=== PATIENT | female | born 1970 | race African-American/Black ===

== ENCOUNTER 2023-04-22 16:28 | Inpatient (IN) | payer OTHER, SELFPAY ==
[2023-04-22] VITALS (8 sets, daily range): BP systolic 146–199; BP diastolic 90–124; PULSE 130–134; RESP 14–28; TEMP 36.7–37.1; O2SAT 94–100; BMI 64.5
--- NOTE | ~2023-04-22 | XR_ITS ---
EXAMINATION: XR CHEST CLINICAL INFORMATION: Shortness of breath. COMPARISON: None available. TECHNIQUE: 2 views of the chest were obtained. FINDINGS: Prominent cardiomediastinal silhouette. Central vasculature engorgement. Diffuse interstitial thickening with small bilateral pleural effusions. No pneumothorax. No dense focal consolidation. No acute osseous findings. Visualized upper abdomen is within normal limits. XR/XR chest 2V IMPRESSION: Findings suspicious for pulmonary edema with diffuse interstitial thickening and small bilateral pleural effusions. However, an atypical infectious/inflammatory processes such as viral pneumonia could manifest similarly and cannot be excluded, clinical correlation recommended.
--- NOTE | 2023-04-22 16:35 | ED.SOB ---
HPI - SOB/Dyspnea General Chief Complaint: Dyspnea Stated Complaint: sob,coughing,high bp sent from urgent care Time Seen by Provider: 04/22/23 17:11 Source: patient Mode of arrival: ambulatory History of Present Illness HPI Narrative: This is a 52-year-old female who denies any past medical history and denies any prescription drugs who states that she has had 4 days of worsening shortness of breath, denies any chest pain and denies any nausea or vomiting and as well denies any GI or symptoms. Patient reports swelling in bilateral lower extremities. Related Data Allergies Allergy/AdvReac Type Severity Reaction Status Date / Time acetaminophen [From NyQuil] Allergy Mild Hives Verified 04/22/23 16:37 aspirin [From [facility]] Allergy Mild Hives Verified 04/22/23 16:37 citric acid Allergy Mild Hives Verified 04/22/23 16:37 [From [facility]] dextromethorphan Allergy Mild Hives Verified 04/22/23 16:37 [From NyQuil] doxylamine [From NyQuil] Allergy Mild Hives Verified 04/22/23 16:37 pseudoephedrine [From NyQuil] Allergy Mild Hives Verified 04/22/23 16:37 sodium bicarbonate Allergy Mild Hives Verified 04/22/23 16:37 [From [facility]] Review of Systems Review of Systems: Pertinent positives and negatives as stated in HPI PMFSH Past Medical History Source: nursing notes reviewed Social History Social History Advance Directives: No Advance Directives Information Provided: No Patient : No Physical Exam Vital Signs: Vital Signs: Last Vital Signs Temp 98.0 F 04/22/23 20:03 Pulse 130 H 04/23/23 00:29 Resp 30 H 04/23/23 00:29 BP 140/110 H 04/23/23 00:29 Pulse Ox 100 04/23/23 00:29 O2 Del Method Oxymask 04/23/23 00:29 O2 Flow Rate 4 04/23/23 00:29 BMI result Body Mass Index 64.5 VITAL SIGNS: Reviewed. GENERAL: Elevated BMI, Well developed, well nourished, in no acute distress. HEAD: Normocephalic/atraumatic EYES: PERRLA, EOMI EARS: Ext canals without abnormality NOSE: Nares patent bilateral OROPHARYNX: no oral lesions noted, posterior pharynx clear NECK: Supple, no adenopathy LUNGS: Bibasilar rales without wheeze or rhonchi. SpO2<94> on 2 L CARDIOVASCULAR: Regular rate and rhythm without noted murmurs ABDOMEN: Soft, non-tender, non-distended with bowel sounds. No rigidity. No guarding. No palpable masses or hernias noted MUSCULOSKELETAL: No tenderness, deformities, or effusions noted on gross inspection. EXTREMITIES: No cyanosis, clubbing or edema. SKIN: Inspection of the skin reveals no rashes NEUROLOGIC: Alert and oriented x 4. Strength and sensation to light touch were grossly intact x 4. Course Course Course Narrative: this is a rapid medical exam. Defer additional HPI, ROS, PE to primary provider. 52 yo female with pmh here with complaints of SOB x 2 days, cough, b/l leg swelling. Sent in from . Will obtain labs, EKG, CXR, viral testing VSS Medications Administered Generic Name Dose Route Start Last Admin Trade Name Freq PRN Reason Stop Dose Admin Diltiazem HCl 125 mg/ Sodium 125 mls @ 0 mls/hr 04/22/23 22:30 04/23/23 00:05 Chloride IVCONT 15 mg/hr .Q0M DANYELL 15 mls/hr Titration Protocol Per Protocol Discontinued Medications Generic Name Dose Route Start Last Admin Trade Name Freq PRN Reason Stop Dose Admin Diltiazem HCl 10 mg 04/22/23 20:23 04/22/23 20:33 Diltiazem Hcl 50 Mg/10 Ml Vial IVPUSH 04/22/23 20:24 10 mg STAT STA Administration Diltiazem HCl 10 mg 04/22/23 21:15 04/22/23 21:25 Diltiazem Hcl 50 Mg/10 Ml Vial IVPUSH 04/22/23 21:16 10 mg STAT STA Administration Furosemide 40 mg 04/22/23 17:43 04/22/23 18:37 Furosemide 40 Mg/4 Ml Vial IVPUSH 04/22/23 17:44 40 mg ONCE ONE Administration Protocol Metoprolol Tartrate 5 mg 04/22/23 17:14 04/22/23 18:34 Metoprolol Tartrate 5 Mg/5 Ml Vial IVPUSH 04/22/23 17:15 5 mg ONCE ONE Administration Metoprolol Tartrate 5 mg 04/22/23 19:23 04/22/23 19:45 Metoprolol Tartrate 5 Mg/5 Ml Vial IVPUSH 04/22/23 19:24 5 mg ONCE ONE Administration Nitroglycerin 0.5 inch 04/22/23 21:44 04/22/23 21:54 Nitroglycerin 2 % Oint 1 Gm Packet TRANSDERMA 04/22/23 21:45 0.5 inch ONCE ONE Administration Medical Decision Making Medical Decision Making [facility] Narrative: 52-year-old female with history and clinical presentation, DDX: Atrial flutter with RVR, suspect acute CHF exacerbation, possible viral illness, but doubt any bacterial infection. Ultrasound IV was placed, 5 mg of Lopressor without good effect, Lasix also administered, patient was noted to be hypoxic to 88 89% and so was placed on 2 L of supplemental nasal cannula. Several attempts to reduce patient's her rate by using Lopressor and Cardizem, patient also received Lasix with good response and oxygenation was noted to improve on 2 L of supplemental nasal cannula. However, patient ultimately had to be placed on Cardizem drip but still heart rate persists. I reviewed all investigations and hematologic indices are negative leukocytosis or left shift, there is no thrombocytopenia but there is a macrocytic anemia and noted. Coagulation studies demonstrated PT-14.1 and INR-1.2. Chemistry indices are negative for GARY and electrolyte/liver enzyme abnormalities. BNP is elevated and patient received Lasix as stated above. Chest x-ray consistent with CHF exacerbation. 0015: I discussed this case with inpatient hospitalist who accepts admission. Differential Diagnosis Differential Diagnoses: The differential diagnosis associated with the presentation includes Please see the discussion above Admission/Observation Consideration of admission/observation: Escalation of care including admission/observation considered Please see the discussion above Consult Healthcare Provider Management of the patient was discussed with: Hospitalist Please see the discussion above Lab Data [facility] Lab Attestation statement: I reviewed the patient's lab results. Please see the discussion above 04/22/23 16:52 04/22/23 16:52 Labs: Lab Results 04/22/23 04/22/23 04/22/23 Range/Units 16:52 17:43 20:10 WBC 5.0 (4.8-10.8) X10*3/uL RBC 3.67 L (4.20-5.50) X10*6/uL Hgb 11.8 L (12.0-16.0) g/dl Hct 37.7 (37.0-47.0) % MCV 102.7 H (80.0-98.0) fL MCH 32.2 (27.0-33.0) pg MCHC 31.3 (31.0-35.0) g/dl RDW 13.6 (11.0-16.0) % Plt Count 187 (160-400) X10*3/uL MPV 10.7 (9.4-12.3) fL Immature Gran % (Auto) 0.6 H (0.0-0.4) % Neut % (Auto) 68.2 (45-73) % Lymph % (Auto) 24.6 (20-40) % [place] % (Auto) 4.8 (2-11) % Eos % (Auto) 1.2 (0-4) % Baso % (Auto) 0.6 (0-2) % Lymph # (Auto) 1.2 (1.2-4.9) X10*3/uL [place] # (Auto) 0.2 (0.1-1.2) X10*3/uL Eos # (Auto) 0.1 (0.0-0.4) X10*3/uL Baso # (Auto) 0.0 (0.0-0.2) X10*3/uL Abs Immat Gran (auto) 0.03 (0.00-0.03) X10*3/uL Absolute Neuts (auto) 3.4 (2.0-8.3) x10*3/uL Absolute Nucleated RBC 0.000 (0.0-0.012) X10*3/uL Nucleated RBC % (auto) 0.0 (0.0-0.2) /100WBC PT 14.1 H (11.1-13.3) SEC INR 1.2 H (0.9-1.1) APTT 34.3 (26.0-36.4) SEC Sodium 140 (135-145) mmol/L Potassium 4.4 (3.3-5.1) mmol/L Chloride 105 (96-108) mmol/L Carbon Dioxide 26 (22-29) mmol/L Anion Gap 13 (12-20) BUN 11 (9-16) mg/dL Creatinine 0.83 (0.5-1.4) mg/dL Estim Creat Clear Calc 112.0 Estimated GFR > 60 Random Glucose 111 (60-115) mg/dL Calcium 9.1 (8.4-10.2) mg/dL Magnesium 2.2 (1.6-2.6) mg/dL Total Bilirubin 1.0 (0.0-1.0) mg/dL Direct Bilirubin 0.5 (0.0-0.5) mg/dL AST 26 (5-31) U/L ALT 41 H (0-31) U/L Alkaline Phosphatase 108 (39-117) U/L Troponin I High Sens 5.9 (<3.5-17.0) ng/L B-Natriuretic Peptide 162 H (<100) pg/mL Total Protein 7.7 (6.5-8.0) g/dL Albumin 3.9 (3.5-5.0) g/dL COVID-19 (JESUSITA) Negative (Negative) COVID-19 Clin Com See Note Influenza Type A (FABRICE) Negative (Negative) Influenza Type A (PCR) NEGATIVE (Negative) Influenza Type B (FABRICE) Negative (Negative) Influenza Type B (PCR) NEGATIVE (Negative) Influenza A & B Note See Note RSV RNA Qual (PCR) NEGATIVE (Negative) SARS-CoV-2 RNA (RT-PCR) NEGATIVE (Negative) Independent Interpretation I performed an independent interpretation of an: EKG Interpretation: Atrial flutter with RVR, HR-134, no STEMI, QRS/QTC is within normal limits. Radiology Impression Discussion of test interpretation with radiology: I have reviewed the radiologist's reading. Radiologist Impression: Please see the discussion above Chronic Conditions Patient?s care impacted by: Hypertension Procedures EJ/Peripheral Line Arm R: Time Out Performed: No Skin Cleansed in Sterile Fashion: Yes Size (gauge): 20 IV Secured and Dressing Applied: Yes Patient Tolerated Procedure: well Additional Comments: This peripheral line was placed under ultrasound guidance. Critical Care Time Critical Care Time Critical Care Time: Yes Total Critical Care Time: 90 Attestation: I personally attest to this time spent taking care of the patient. Discharge Plan Discharge Clinical Impression: Atrial flutter with rapid ventricular response, Congestive heart failure, Hypertension Patient Disposition: Admitted As Inpatient
--- NOTE | 2023-04-22 16:37 | ECG_ITS ---
Test Reason : SOB Blood Pressure : / mmHG Vent. Rate : 134 BPM Atrial Rate : 268 BPM P-R Int : 000 ms QRS Dur : 086 ms QT Int : 290 ms P-R-T Axes : 208 -22 000 degrees QTc Int : 433 ms Atrial flutter with 2:1 A-V conduction Nonspecific ST and T wave abnormality RSR' or QR pattern in V1 suggests right ventricular conduction delay Abnormal ECG No previous ECGs available Referred By: Jennifer Briseno Electronically Signed By:JUWAN CARRASQUILLO MD
[2023-04-22 16:57] LABS: MANUAL DIFF FLAG NO
[2023-04-22 16:58] LABS: Basophils Percent Auto 0.6 % (0-2); Eosinophils Absolute Auto 0.1 X10*3/uL (0.0-0.4); Eosinophils Percent Auto 1.2 % (0-4); Hematocrit 37.7 % (37.0-47.0); Hemoglobin 11.8 g/dl (12.0-16.0); Imm Gran Abs Auto 0.03 X10*3/uL (0.00-0.03); Imm Gran Pct Auto 0.6 % (0.0-0.4); Lymphocytes Absolute Auto 1.2 X10*3/uL (1.2-4.9); Lymphocytes Percent Auto 24.6 % (20-40); Mean Corpuscular HGB Conc 31.3 g/dl (31.0-35.0); Mean Corpuscular Hemoglobin 32.2 pg (27.0-33.0); Mean Corpuscular Volume 102.7 fL (80.0-98.0); Mean Platelet Volume 10.7 fL (9.4-12.3); Monocytes Absolute Auto 0.2 X10*3/uL (0.1-1.2); Monocytes Percent Auto 4.8 % (2-11); Neutrophils Absolute Auto 3.4 x10*3/uL (2.0-8.3); Neutrophils Percent Auto 68.2 % (45-73); Platelet Count 187 X10*3/uL (160-400); Red Blood Count 3.67 X10*6/uL (4.20-5.50); Red Cell Distribution Width 13.6 % (11.0-16.0)
[2023-04-22 17:19] LABS: Alanine Aminotransferase 41 U/L (0-31); Albumin Level 3.9 g/dL (3.5-5.0); Alkaline Phosphatase 108 U/L (39-117); Anion Gap 13 (12-20); Aspartate Amino Transferase 26 U/L (5-31); Bilirubin Direct 0.5 mg/dL (0.0-0.5); Blood Urea Nitrogen 11 mg/dL (9-16); Calcium 9.1 mg/dL (8.4-10.2); Carbon Dioxide 26 mmol/L (22-29); Chloride 105 mmol/L (96-108); Estimated Glomerular Filt Rate > 60; Glucose Random 111 mg/dL (60-115); Magnesium 2.2 mg/dL (1.6-2.6); Potassium 4.4 mmol/L (3.3-5.1); Sodium 140 mmol/L (135-145); Total Protein 7.7 g/dL (6.5-8.0)
[2023-04-22 17:23] LABS: INTERNATIONAL NORM RATIO 1.2 (0.9-1.1); Prothrombin Time 14.1 SEC (11.1-13.3)
[2023-04-22 17:24] LABS: B Type Natriuretic Peptide 162 pg/mL (<100)
[2023-04-22 17:25] LABS: Troponin-I High Sensitivity 5.9 ng/L (<3.5-17.0)
[2023-04-22 17:38] LABS: Influenza A PCR NEGATIVE (Negative); Influenza B PCR NEGATIVE (Negative); Resp Syncy Virus RNA Qual PCR NEGATIVE (Negative); SARS COV2 PCR INHOUSE NEGATIVE (Negative)
[2023-04-22 18:10] LABS: COVID-19 Test Negative (Negative); IDNOW Serial# 08D9AD1C; IDNOW Serial# BCCEAD1C; Influenza A Negative (Negative); Influenza B2 Negative (Negative)
[2023-04-22] MEDS: Metoprolol Tartrate 5 MG/5 ML VIAL IVPUSH ×2 (18:34→19:45)
[2023-04-22] MEDS: Furosemide 40 MG/4 ML VIAL IVPUSH (18:37)
--- NOTE | 2023-04-22 19:13 | PC.NURSE ---
O2 sat 90% RA. Placed on 2L NC per Dr. Connors. Current o2 sat 100% on 2L NC. Pt tolerating well.
[2023-04-22 20:27] LABS: Partial Thromboplastin Time 34.3 SEC (26.0-36.4)
[2023-04-22] MEDS: dilTIAZem HCL 50 MG/10 ML VIAL 10 MG IVPUSH ×2 (20:33→21:25)
--- NOTE | 2023-04-22 20:50 | PC.NURSE ---
pt continues to use commode at bedside independently
[2023-04-22] MEDS: Nitroglycerin 2 % Oint 1 GM Packet 0.5 INCH TRANSDERMA (21:54)
[2023-04-22] MEDS: dilTIAZem HCL 125 MG in 0.9 % Sodium Chloride 100 ML 10 MG IVCONT (23:20)
--- NOTE | 2023-04-22 23:35 | PC.NURSE ---
pt still experiencing SOB with NC, kept taking it of d/t the discomfort in her nose. pt wanted a mask instead of NC. pt placed on 4L oxymask. tolerating well. O2 at 96%
[2023-04-23] VITALS (8 sets, daily range): BP systolic 119–153; BP diastolic 75–110; PULSE 113–135; RESP 16–30; TEMP 36.4–36.7; O2SAT 93–100; BMI 64.5
--- NOTE | 2023-04-23 00:05 | PC.NURSE ---
HR remains above 130 bpm. per MD, Cardizem drip increased to 15mg/hr
--- NOTE | 2023-04-23 00:23 | P.HPHOSP_ITS ---
History of Present Illness Date of Service: 04/23/23 Chief Complaint: Dyspnea This is a 52-year-old female with no pertinent past medical history and not on prescription medications who presents to the emergency department for evaluation of dyspnea. Patient states she has not seen a physician in many years. Presents today for dyspnea which is worse with exertion and has been ongoing for a while. Admits orthopnea. Is not sure about PND. Reports swelling in bilateral lower extremities. No fever, chills, chest discomfort, palpitations, nausea, vomiting, abdominal pain, changes in urinary or bowel habits. In the emergency department, patient was found to be hypoxemic. Imaging with vascular congestion and pulmonary edema. Also found to be in atrial flutter. Review of Systems 2 Constitutional: Constitutional: Reports fatigue and Reports lethargy Cardiovascular: Cardiovascular: Reports dyspnea on exertion and Reports orthopnea Respiratory: Respiratory: Reports dyspnea on exertion Gastrointestinal: Gastrointestinal: Reports no additional gastrointestinal complaints Genitourinary: Genitourinary: Reports no additional female genitourinary complaints Endocrine: Endocrine: Reports fatigue PMFSH Pertinent family history: No family history of early CAD Social History Advance Directives: No Advance Directives Information Provided: No Patient : No Meds Allergies Allergy/AdvReac Type Severity Reaction Status Date / Time acetaminophen [From NyQuil] Allergy Mild Hives Verified 04/22/23 16:37 aspirin [From Niharika-[place]] Allergy Mild Hives Verified 04/22/23 16:37 citric acid Allergy Mild Hives Verified 04/22/23 16:37 [From [facility]] dextromethorphan Allergy Mild Hives Verified 04/22/23 16:37 [From NyQuil] doxylamine [From NyQuil] Allergy Mild Hives Verified 04/22/23 16:37 pseudoephedrine [From NyQuil] Allergy Mild Hives Verified 04/22/23 16:37 sodium bicarbonate Allergy Mild Hives Verified 04/22/23 16:37 [From [facility]iharika-[place]] Active Medications: Current Medications Diltiazem HCl 125 mg/ Sodium (Chloride) 125 mls @ 0 mls/hr IVCONT .Q0M DANYELL; Protocol Last Titration: 04/23/23 00:05 Dose: 15 mg/hr, 15 mls/hr Physical Exam 2 Vital Signs and Narrative: Vital Signs: Last Vital Signs Temp 98.0 F 04/22/23 20:03 Pulse 131 H 04/22/23 23:52 Resp 28 H 04/22/23 23:52 BP 146/110 H 04/22/23 23:52 Pulse Ox 96 04/22/23 23:52 O2 Del Method Oxymask 04/22/23 23:52 O2 Flow Rate 4 04/22/23 23:52 BMI result Body Mass Index 64.5 Middle-aged female lying in bed in mild distress on supplemental oxygen Neck supple, no JVD Irregularly irregular, S1-S2 heard Bilateral crackles Abdomen soft nontender, no guarding, no rigidity Patient is awake, alert and oriented to self, place, time and person ; no focal motor deficit Psych: Normal mood Bilateral pedal edema with venous stasis changes Results Labs 04/22/23 16:52 04/22/23 16:52 Labs: Laboratory Results - last 24 hr 04/22/23 04/22/23 04/22/23 16:52 17:43 20:10 MCV 102.7 H MCH 32.2 MCHC 31.3 RDW 13.6 Plt Count 187 MPV 10.7 Immature Gran % (Auto) 0.6 H Neut % (Auto) 68.2 Lymph % (Auto) 24.6 [place] % (Auto) 4.8 Eos % (Auto) 1.2 Baso % (Auto) 0.6 Lymph # (Auto) 1.2 [place] # (Auto) 0.2 Eos # (Auto) 0.1 Baso # (Auto) 0.0 Abs Immat Gran (auto) 0.03 Absolute Neuts (auto) 3.4 Absolute Nucleated RBC 0.000 Nucleated RBC % (auto) 0.0 PT 14.1 H INR 1.2 H APTT 34.3 Anion Gap 13 Estim Creat Clear Calc 112.0 Estimated GFR > 60 Random Glucose 111 Calcium 9.1 Magnesium 2.2 Total Bilirubin 1.0 Direct Bilirubin 0.5 AST 26 ALT 41 H Alkaline Phosphatase 108 B-Natriuretic Peptide 162 H Total Protein 7.7 Albumin 3.9 COVID-19 (JESUSITA) Negative COVID-19 Clin Com See Note Influenza Type A (FABRICE) Negative Influenza Type A (PCR) NEGATIVE Influenza Type B (FABRICE) Negative Influenza Type B (PCR) NEGATIVE Influenza A & B Note See Note RSV RNA Qual (PCR) NEGATIVE SARS-CoV-2 RNA (RT-PCR) NEGATIVE Imaging Radiologist's Impressions: Impressions Chest X-Ray 04/22/23 16:58 IMPRESSION: Findings suspicious for pulmonary edema with diffuse interstitial thickening and small bilateral pleural effusions. However, an atypical infectious/inflammatory processes such as viral pneumonia could manifest similarly and cannot be excluded, clinical correlation recommended. Assessment and Plan (1) Atrial flutter with rapid ventricular response: Status: Acute (2) Congestive heart failure: Status: Acute Plan This is a 52-year-old female with no pertinent past medical history and not on prescription medications who presents to the emergency department for evaluation of dyspnea. #. Acute hypoxemic respiratory failure secondary to decompensated congestive heart failure, unspecified EF: Will admit patient with supplemental oxygen. Initiating IV diuresis. Low-salt diet. Strict I's and O's. Monitor oxygen saturation and wean as tolerated. Consulting Cardiology and obtaining echocardiogram. #. Atrial flutter with RVR: Initiated on IV diltiazem drip in the ER. Obtaining TSH. Consulted Cardiology and echo as above #. Hypertensive emergency: Reduced appropriately in the ER with IV diuresis and IV Lopressor. Will need p.o. antihypertensives. #. Obesity: Counseled regarding diet and exercise DVT prophylaxis: Lovenox Cardiac diet Admit as inpatient and will require two night minimum hospital stay for supplemental oxygen, IV diuresis, IV Cardizem (as above), which is not possible in a lesser acute setting. Specialist consult pending Quality Stroke Does the patient have a stroke diagnosis?: No VTE Prior VTE?: No VTE Risk Level:: Medical - moderate - high VTE Device Contraindication: Treatment Not Indicated VTE Drug Contraindication: N/A - Med Ordered
[2023-04-23 01:10] LABS: Thyroid Stimulating Hormone 0.62 uIU/mL (0.32-4.0)
--- NOTE | 2023-04-23 01:31 | PC.NURSE ---
pt refused Lovenox. states her body doesn't do well getting so many medications on an empty stomach . pt provided with a snack prior to med administration
[2023-04-23] MEDS: Enoxaparin Sodium 40 MG/0.4 ML SYRINGE SUBCUT (01:36)
[2023-04-23 06:19] LABS: MANUAL DIFF FLAG NO
[2023-04-23 06:27] LABS: Basophils Percent Auto 0.4 % (0-2); Eosinophils Absolute Auto 0.1 X10*3/uL (0.0-0.4); Eosinophils Percent Auto 1.9 % (0-4); Hematocrit 35.9 % (37.0-47.0); Hemoglobin 11.5 g/dl (12.0-16.0); Imm Gran Abs Auto 0.03 X10*3/uL (0.00-0.03); Imm Gran Pct Auto 0.6 % (0.0-0.4); Lymphocytes Absolute Auto 1.4 X10*3/uL (1.2-4.9); Lymphocytes Percent Auto 28.2 % (20-40); Mean Corpuscular Hemoglobin 32.8 pg (27.0-33.0); Mean Corpuscular Volume 102.3 fL (80.0-98.0); Mean Platelet Volume 10.7 fL (9.4-12.3); Monocytes Absolute Auto 0.3 X10*3/uL (0.1-1.2); Monocytes Percent Auto 6.2 % (2-11); Neutrophils Percent Auto 62.7 % (45-73); Platelet Count 182 X10*3/uL (160-400); Red Blood Count 3.51 X10*6/uL (4.20-5.50); Red Cell Distribution Width 13.8 % (11.0-16.0); White Blood Count 4.8 X10*3/uL (4.8-10.8)
[2023-04-23 06:33] LABS: Anion Gap 12 (12-20); Blood Urea Nitrogen 11 mg/dL (9-16); Carbon Dioxide 28 mmol/L (22-29); Chloride 105 mmol/L (96-108); Creatinine Clr Calc Pharmacy 114.8; Estimated Glomerular Filt Rate > 60; Glucose Random 89 mg/dL (60-115); Sodium 141 mmol/L (135-145)
[2023-04-23] MEDS: dilTIAZem HCL 125 MG in 0.9 % Sodium Chloride 100 ML 15 MG IVCONT (08:06)
[2023-04-23] MEDS: Furosemide 40 MG/4 ML VIAL IVPUSH ×2 (08:53→18:47)
[2023-04-23] MEDS: Apixaban 5 MG TABLET PO ×2 (08:53→20:19)
--- NOTE | 2023-04-23 09:01 | PHA.MEDREC ---
Pharmacy Consult ? Medication Reconciliation Pharmacy has completed the medication reconciliation. spoke with patient to confirm medications. Reports that she did not take them yesterday.
--- NOTE | 2023-04-23 09:09 | PC.NURSE ---
ASSUMED CARE OF THIS PT. CARDIZEM GTT CONTINUES TO RUN, PT REMAINS IN A FLUTTER WITH RVR RATE OF 130 AT REST, WITH 4L SUPP O2, SPO2 100%. ENDORSES EXERTIONAL DYSPNEA, CRACKLES HEARD IN LOWER BILAT LOBES. TRANSFERRING TO THE BEDSIDE COMMODE INDEPENDENTLY WITH NO ISSUE. PT AWARE OF PLAN FOR CARE, MEDICATED PER EMR. DENIES ANY PAIN OR DISCOMFORT AT THIS TIME.
--- NOTE | 2023-04-23 10:00 | P.PNIM_ITS ---
Subjective Subjective Date of Service: 04/23/23 Interval History: sob improving Physical Exam 2 Vital Signs: Vital Signs: Last Vital Signs Temp 98.1 F 04/23/23 08:51 Pulse 131 H 04/23/23 08:51 Resp 27 H 04/23/23 08:51 BP 136/75 04/23/23 08:07 Pulse Ox 98 04/23/23 08:51 O2 Del Method Oxymask 04/23/23 08:51 O2 Flow Rate 4 04/23/23 08:51 BMI result Body Mass Index 64.5 General: AO X 3, no acute distress Resp: CTA bilateral, no accessory muscles used CVS: S1,S2,Rapid irregular GI: soft, non tender, non distended Neuro: motor grossly intact, alert Psych: appropriate affect, appropriate insight Objective Data Active Medications Acetaminophen (Acetaminophen 325 Mg Tablet) 650 mg PO Q6H PRN PRN Reason: Pain, Mild (Pain Scale 1-3) Apixaban (Apixaban 5 Mg Tablet) 5 mg PO BID [facility] Last Admin: 04/23/23 08:53 Dose: 5 mg Documented By: MARITA Furosemide (Furosemide 40 Mg/4 Ml Vial) 40 mg IVPUSH BID@0900,1800 [facility]; Protocol Last Admin: 04/23/23 08:53 Dose: 40 mg Documented By: MARITA Diltiazem HCl 125 mg/ Sodium (Chloride) 125 mls @ 0 mls/hr IVCONT .Q0M [facility]; Protocol Last Admin: 04/23/23 08:06 Dose: 15 mg/hr, 15 mls/hr Documented By: MARLENE Melatonin (Melatonin 3 Mg Tablet) 6 mg PO BEDTIME PRN PRN Reason: Insomnia Ondansetron HCl (Ondansetron Hcl 4 Mg/2 Ml Vial) 4 mg IVPUSH Q8H PRN PRN Reason: Nausea and Vomiting Sodium Chloride (0.9 % Sodium Chloride Flush 3 Ml Syringe) 3 ml IVFLUSH QSHIFT [facility] Last Admin: 04/23/23 08:54 Dose: Not Given Documented By: MARITA Non-Admin Reason: IV Running Labs 04/23/23 06:10 04/23/23 06:10 Labs: Laboratory Results - last 24 hr 04/22/23 04/22/23 04/22/23 16:52 17:43 20:10 MCV 102.7 H MCH 32.2 MCHC 31.3 RDW 13.6 Plt Count 187 MPV 10.7 Immature Gran % (Auto) 0.6 H Neut % (Auto) 68.2 Lymph % (Auto) 24.6 [place] % (Auto) 4.8 Eos % (Auto) 1.2 Baso % (Auto) 0.6 Lymph # (Auto) 1.2 [place] # (Auto) 0.2 Eos # (Auto) 0.1 Baso # (Auto) 0.0 Abs Immat Gran (auto) 0.03 Absolute Neuts (auto) 3.4 Absolute Nucleated RBC 0.000 Nucleated RBC % (auto) 0.0 PT 14.1 H INR 1.2 H APTT 34.3 Anion Gap 13 Estim Creat Clear Calc 112.0 Estimated GFR > 60 Random Glucose 111 Calcium 9.1 Magnesium 2.2 Total Bilirubin 1.0 Direct Bilirubin 0.5 AST 26 ALT 41 H Alkaline Phosphatase 108 B-Natriuretic Peptide 162 H Total Protein 7.7 Albumin 3.9 TSH 0.62 COVID-19 (JESUSITA) Negative COVID-19 Clin Com See Note Influenza Type A (FABRICE) Negative Influenza Type A (PCR) NEGATIVE Influenza Type B (FABRICE) Negative Influenza Type B (PCR) NEGATIVE Influenza A & B Note See Note RSV RNA Qual (PCR) NEGATIVE SARS-CoV-2 RNA (RT-PCR) NEGATIVE 04/23/23 06:10 MCV 102.3 H MCH 32.8 MCHC 32.0 RDW 13.8 Plt Count 182 MPV 10.7 Immature Gran % (Auto) 0.6 H Neut % (Auto) 62.7 Lymph % (Auto) 28.2 [place] % (Auto) 6.2 Eos % (Auto) 1.9 Baso % (Auto) 0.4 Lymph # (Auto) 1.4 [place] # (Auto) 0.3 Eos # (Auto) 0.1 Baso # (Auto) 0.0 Abs Immat Gran (auto) 0.03 Absolute Neuts (auto) 3.0 Absolute Nucleated RBC 0.000 Nucleated RBC % (auto) 0.0 PT INR APTT Anion Gap 12 Estim Creat Clear Calc 114.8 Estimated GFR > 60 Random Glucose 89 Calcium 9.0 Magnesium Total Bilirubin Direct Bilirubin AST ALT Alkaline Phosphatase B-Natriuretic Peptide Total Protein Albumin TSH COVID-19 (JESUSITA) COVID-19 Clin Com Influenza Type A (FABRICE) Influenza Type A (PCR) Influenza Type B (FABRICE) Influenza Type B (PCR) Influenza A & B Note RSV RNA Qual (PCR) SARS-CoV-2 RNA (RT-PCR) Assessment and Plan (1) Congestive heart failure: Status: Acute Plan 52F PMH HTN no longer on meds, presented with sob, found to have new onset aflutter Acute hypoxic respiratory failure secondary to unspecified acute CHF IV Lasix, wean oxygen as tolerated, follow-up echo, cardio eval New onset atrial flutter with rapid ventricular response Diltiazem, apixaban, follow-up cardio Hypertension BP better controlled, currently on diltiazem drip, BP meds to be determined based on echo morbid obesity weight loss recommended dvt prophyalxis - eliquis full code reason for continued hospitalization: heart rate not controlled, iv diuresis Quality Stroke Does the patient have a stroke diagnosis?: No VTE Prior VTE?: No VTE Risk Level:: Medical - moderate - high VTE Device Contraindication: Treatment Not Indicated VTE Drug Contraindication: N/A - Med Ordered
--- NOTE | 2023-04-23 14:02 | P.CONCA_ITS ---
History of Present Illness History of Present Illness Date of Service: 04/23/23 Requesting physician: Bairon Youngblood Consult reason: congestive heart failure and other (Atrial flutter) Chief complaint: Dyspnea Narrative: I was consulted to see Cristina in cardiology consultation today for new onset congestive heart failure. She is a 52-year-old pleasant woman with prior history of morbid obesity but has not seen a primary care physician for many years. No prior medications or medical history including hypertension diabetes. She denies any history of sleep apnea. 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 She came to the emergency room. Noted to be in atrial flutter with rapid ventricular response which has been difficult control and she is currently on Cardizem drip. She also noticed to have elevated BNP and has been given Lasix and has had negative balance. She says breathing is better but currently using oxygen heart rate rapid at 130 beats per minute with atrial flutter. She denies any palpitations, lightheadedness, syncope. Denies any prior history of congestive heart failure. Review of Systems 2 Constitutional: Constitutional: Reports no additional constitutional complaints Eyes: Eyes: Reports no additional eye complaints Cardiovascular: Cardiovascular: Denies chest pain, Denies rapid heart rate, Reports leg edema, Denies palpitations, Reports dyspnea on exertion and Reports orthopnea Respiratory: Respiratory: Reports no additional respiratory complaints and Reports dyspnea on exertion Gastrointestinal: Gastrointestinal: Reports no additional gastrointestinal complaints Genitourinary: Genitourinary: Reports no additional female genitourinary complaints Musculoskeletal: Musculoskeletal: Reports no additional musculoskeletal complaints Neurologic: Reports system reviewed and no additional complaints, except as documented Psychiatric: Psychiatric: Reports no additional psychiatric complaints Endocrine: Endocrine: Denies palpitations [facility] Social History Social History Patient Tobacco Use Status: Current everyday Tobacco user Advance Directives: No Advance Directives Information Provided: No Nutrition Risks: No Nutritional Risk Patient : No Meds Allergies Allergy/AdvReac Type Severity Reaction Status Date / Time acetaminophen [From NyQuil] Allergy Mild Hives Verified 04/22/23 16:37 aspirin [From [place]] Allergy Mild Hives Verified 04/22/23 16:37 citric acid Allergy Mild Hives Verified 04/22/23 16:37 [From [place]] dextromethorphan Allergy Mild Hives Verified 04/22/23 16:37 [From NyQuil] doxylamine [From NyQuil] Allergy Mild Hives Verified 04/22/23 16:37 pseudoephedrine [From NyQuil] Allergy Mild Hives Verified 04/22/23 16:37 sodium bicarbonate Allergy Mild Hives Verified 04/22/23 16:37 [From [place]ika[place]] Active Medications: Current Medications Acetaminophen (Acetaminophen 325 Mg Tablet) 650 mg PO Q6H PRN PRN Reason: Pain, Mild (Pain Scale 1-3) Apixaban (Apixaban 5 Mg Tablet) 5 mg PO BID [facility] Last Admin: 04/23/23 08:53 Dose: 5 mg Digoxin (Digoxin 0.5 Mg/2 Ml Ampul) 0.25 mg IVPUSH Q6H [facility] Stop: 04/23/23 19:46 Empagliflozin (Empagliflozin 25 Mg Tablet) 25 mg PO DAILY [facility] Furosemide (Furosemide 40 Mg/4 Ml Vial) 40 mg IVPUSH BID@0900,1800 [facility]; Protocol Last Admin: 04/23/23 08:53 Dose: 40 mg Diltiazem HCl 125 mg/ Sodium (Chloride) 125 mls @ 0 mls/hr IVCONT .Q0M [facility]; Protocol Last Admin: 04/23/23 08:06 Dose: 15 mg/hr, 15 mls/hr Melatonin (Melatonin 3 Mg Tablet) 6 mg PO BEDTIME PRN PRN Reason: Insomnia Ondansetron HCl (Ondansetron Hcl 4 Mg/2 Ml Vial) 4 mg IVPUSH Q8H PRN PRN Reason: Nausea and Vomiting Sodium Chloride (0.9 % Sodium Chloride Flush 3 Ml Syringe) 3 ml IVFLUSH QSHIFT [facility] Last Admin: 04/23/23 08:54 Dose: Not Given Vitamin D (Cholecalciferol (Vitamin D3) 25 Mcg Tablet) 125 mcg PO DAILY [facility] Zinc Sulfate (Zinc Sulfate 220 Mg Capsule) 220 mg PO DAILY [facility] Home Medications Medication Instructions Recorded Confirmed Last Taken Type cholecalciferol (vitamin D3) 125 125 mcg PO DAILY 04/23/23 04/23/23 Unknown History mcg (5,000 unit) tablet (Vitamin D3) zinc 50 mg capsule 50 mg PO DAILY 04/23/23 04/23/23 Unknown History Physical Exam 2 Vital Signs: Vital Signs: Last Vital Signs Temp 98.1 F 04/23/23 08:51 Pulse 131 H 04/23/23 11:14 Resp 23 H 04/23/23 11:14 BP 134/86 04/23/23 11:14 Pulse Ox 100 04/23/23 11:14 O2 Del Method Oxymask 04/23/23 11:14 O2 Flow Rate 2 04/23/23 11:14 BMI result Body Mass Index 64.5 Const: General: cooperative, comfortable, alert and awake Nutritional Appearance: obese morbidly obese Orientation/consciousness: patient oriented x3 HEENT: Head: Yes normocephalic and Yes atraumatic Neck: Neck: Yes trachea midline, Yes supple and Yes other (Difficult to evaluate JVD) Resp: Effort & Inspection: normal respiratory effort Auscultation: clear to auscultation bilaterally and diminished lung sounds Cardio: Rate: tachycardic Rhythm: regular rhythm Heart sounds: S1 normal heart sound present, S2 normal heart sound present, no click, no gallops, no murmurs and no rubs GI: Auscultation: normal bowel sounds Skin: General skin exam: no rashes or lesions noted Neuro: General: patient oriented x3 and no focal motor deficits Extrem: General: No clubbing, No cyanosis and Yes edema Psych: Appearance: grossly normal Objective Labs and Meds 04/23/23 06:10 04/23/23 06:10 Lab results: Laboratory Results - last 24 hr 04/22/23 04/22/23 04/22/23 16:52 17:43 20:10 WBC 5.0 RBC 3.67 L Hgb 11.8 L Hct 37.7 MCV 102.7 H MCH 32.2 MCHC 31.3 RDW 13.6 Plt Count 187 MPV 10.7 Immature Gran % (Auto) 0.6 H Neut % (Auto) 68.2 Lymph % (Auto) 24.6 Davidson % (Auto) 4.8 Eos % (Auto) 1.2 Baso % (Auto) 0.6 Lymph # (Auto) 1.2 Davidson # (Auto) 0.2 Eos # (Auto) 0.1 Baso # (Auto) 0.0 Abs Immat Gran (auto) 0.03 Absolute Neuts (auto) 3.4 Absolute Nucleated RBC 0.000 Nucleated RBC % (auto) 0.0 PT 14.1 H INR 1.2 H APTT 34.3 Sodium 140 Potassium 4.4 Chloride 105 Carbon Dioxide 26 Anion Gap 13 BUN 11 Creatinine 0.83 Estim Creat Clear Calc 112.0 Estimated GFR > 60 Random Glucose 111 Calcium 9.1 Magnesium 2.2 Total Bilirubin 1.0 Direct Bilirubin 0.5 AST 26 ALT 41 H Alkaline Phosphatase 108 Troponin I High Sens 5.9 B-Natriuretic Peptide 162 H Total Protein 7.7 Albumin 3.9 TSH 0.62 COVID-19 (JESUSITA) Negative COVID-19 Clin Com See Note Influenza Type A (FABRICE) Negative Influenza Type A (PCR) NEGATIVE Influenza Type B (FABRICE) Negative Influenza Type B (PCR) NEGATIVE Influenza A & B Note See Note RSV RNA Qual (PCR) NEGATIVE SARS-CoV-2 RNA (RT-PCR) NEGATIVE 04/23/23 06:10 WBC 4.8 RBC 3.51 L Hgb 11.5 L Hct 35.9 L MCV 102.3 H MCH 32.8 MCHC 32.0 RDW 13.8 Plt Count 182 MPV 10.7 Immature Gran % (Auto) 0.6 H Neut % (Auto) 62.7 Lymph % (Auto) 28.2 Davidson % (Auto) 6.2 Eos % (Auto) 1.9 Baso % (Auto) 0.4 Lymph # (Auto) 1.4 Davidson # (Auto) 0.3 Eos # (Auto) 0.1 Baso # (Auto) 0.0 Abs Immat Gran (auto) 0.03 Absolute Neuts (auto) 3.0 Absolute Nucleated RBC 0.000 Nucleated RBC % (auto) 0.0 PT INR APTT Sodium 141 Potassium 4.0 Chloride 105 Carbon Dioxide 28 Anion Gap 12 BUN 11 Creatinine 0.81 Estim Creat Clear Calc 114.8 Estimated GFR > 60 Random Glucose 89 Calcium 9.0 Magnesium Total Bilirubin Direct Bilirubin AST ALT Alkaline Phosphatase Troponin I High Sens B-Natriuretic Peptide Total Protein Albumin TSH COVID-19 (JESUSITA) COVID-19 Clin Com Influenza Type A (FABRICE) Influenza Type A (PCR) Influenza Type B (FABRICE) Influenza Type B (PCR) Influenza A & B Note RSV RNA Qual (PCR) SARS-CoV-2 RNA (RT-PCR) EKG shows atrial flutter with 2 is to 1 conduction Imaging Radiologist's impression: Impressions Chest X-Ray 04/22/23 16:58 IMPRESSION: Findings suspicious for pulmonary edema with diffuse interstitial thickening and small bilateral pleural effusions. However, an atypical infectious/inflammatory processes such as viral pneumonia could manifest similarly and cannot be excluded, clinical correlation recommended. Assessment and Plan (1) CHF exacerbation: Status: Acute Patient with no prior history present sudden-onset symptoms highly consistent with congestive heart failure most likely related to persistent atrial flutter. Question LV systolic function, possibility of tachycardia mediated cardiomyopathy. Will need an echocardiogram tomorrow. Continue IV diuresis with Lasix. Strict intake and output chart needs to be pursued. Continue monitor renal function. Jardiance 10 mg daily for heart failure. Management was discussed with her. Will require aggressive rate control and/or rhythm control approach based on her echocardiographic finding. (2) Atrial flutter with rapid ventricular response: Status: Acute Atrial flutter with rapid ventricular response is difficult control rate. Unknown duration of atrial flutter at this point in time. Could be at least recent onset. Most likely cause by morbid obesity and/or underlying untreated/undiagnosed sleep apnea. This will need workup as outpatient. Continue Cardizem drip. Digitalize with 0.25 mg q.6 hours x3 doses. Follow-up echocardiogram tomorrow. If there is significant LV systolic dysfunction and/or difficult control rate may require more urgent inpatient cardioversion which will be OTILIO guided. Agree with Eliquis dose. Will follow with you Procedures Date of Service Date of Service: 04/23/23
[2023-04-23] MEDS: Digoxin 0.5 MG/2 ML AMPUL 0.25 MG IVPUSH ×2 (14:35→20:19)
[2023-04-23] MEDS: Acetaminophen 325 MG TABLET 650 MG PO (18:47)
[2023-04-23] MEDS: 0.9 % Sodium Chloride Flush 3 ML SYRINGE IVFLUSH (20:20)
[2023-04-24] VITALS (8 sets, daily range): BP systolic 111–167; BP diastolic 59–97; PULSE 66–135; RESP 18–20; TEMP 36.2–36.8; O2SAT 90–99
[2023-04-24] MEDS: dilTIAZem HCL 125 MG in 0.9 % Sodium Chloride 100 ML 15 MG IVCONT (02:12)
[2023-04-24 07:20] LABS: Hematocrit 36.8 % (37.0-47.0); Hemoglobin 11.8 g/dl (12.0-16.0); Mean Corpuscular HGB Conc 32.1 g/dl (31.0-35.0); Mean Corpuscular Hemoglobin 32.1 pg (27.0-33.0); Mean Platelet Volume 10.8 fL (9.4-12.3); Platelet Count 196 X10*3/uL (160-400); Red Blood Count 3.68 X10*6/uL (4.20-5.50); Red Cell Distribution Width 13.6 % (11.0-16.0)
[2023-04-24 07:30] LABS: Anion Gap 12 (12-20); Blood Urea Nitrogen 10 mg/dL (9-16); Calcium 9.1 mg/dL (8.4-10.2); Carbon Dioxide 30 mmol/L (22-29); Chloride 102 mmol/L (96-108); Creatinine Clr Calc Pharmacy 93.9; Estimated Glomerular Filt Rate 59; Glucose Fasting 91 mg/dL (60-99); Magnesium 2.2 mg/dL (1.6-2.6); Potassium 3.8 mmol/L (3.3-5.1); Sodium 140 mmol/L (135-145)
[2023-04-24] MEDS: Furosemide 40 MG/4 ML VIAL IVPUSH ×2 (08:12→18:03)
[2023-04-24] MEDS: Cholecalciferol (Vitamin D3) 25 MCG TABLET 125 MCG PO (08:13)
[2023-04-24] MEDS: Empagliflozin 25 MG TABLET PO (08:13)
[2023-04-24] MEDS: Zinc Sulfate 220 MG CAPSULE PO (08:13)
[2023-04-24] MEDS: Apixaban 5 MG TABLET PO ×2 (08:13→20:07)
[2023-04-24] MEDS: 0.9 % Sodium Chloride Flush 3 ML SYRINGE IVFLUSH ×2 (08:17→16:38)
[2023-04-24] MEDS: Metoprolol Tartrate 50 MG TABLET PO ×4 (09:26→20:08)
--- NOTE | 2023-04-24 09:32 | P.PNIM_ITS ---
Subjective Subjective Date of Service: 04/24/23 Interval History: sob improving Physical Exam 2 Vital Signs: Vital Signs: Last Vital Signs Temp 97.7 F 04/24/23 07:30 Pulse 133 H 04/24/23 07:30 Resp 20 04/24/23 07:30 BP 130/80 04/24/23 08:32 Pulse Ox 90 L 04/24/23 07:30 O2 Del Method Room Air 04/24/23 07:30 O2 Flow Rate 2 04/24/23 04:00 BMI result Body Mass Index 64.5 Const: General: cooperative, comfortable, alert and awake Nutritional Appearance: obese morbidly obese Orientation/consciousness: patient oriented x3 HEENT: Head: Yes normocephalic and Yes atraumatic Neck: Neck: Yes trachea midline, Yes supple and Yes other (Difficult to evaluate JVD) Resp: Effort & Inspection: normal respiratory effort Auscultation: clear to auscultation bilaterally and diminished lung sounds Cardio: Rate: tachycardic Rhythm: regular rhythm Heart sounds: S1 normal heart sound present, S2 normal heart sound present, no click, no gallops, no murmurs and no rubs GI: Auscultation: normal bowel sounds Skin: General skin exam: no rashes or lesions noted Neuro: General: patient oriented x3 and no focal motor deficits Extrem: General: No clubbing, No cyanosis and Yes edema Psych: Appearance: grossly normal Objective Data Active Medications Acetaminophen (Acetaminophen 325 Mg Tablet) 650 mg PO Q6H PRN PRN Reason: Pain, Mild (Pain Scale 1-3) Last Admin: 04/23/23 18:47 Dose: 650 mg Documented By: ZAKIYA Apixaban (Apixaban 5 Mg Tablet) 5 mg PO BID ON LICENSE OF [facility] Last Admin: 04/24/23 08:13 Dose: 5 mg Documented By: ZAKIYA Empagliflozin (Empagliflozin 25 Mg Tablet) 25 mg PO DAILY ON LICENSE OF [facility] Last Admin: 04/24/23 08:13 Dose: 25 mg Documented By: ZAKIYA Furosemide (Furosemide 40 Mg/4 Ml Vial) 40 mg IVPUSH BID@0900,1800 ON LICENSE OF [facility]; Protocol Last Admin: 04/24/23 08:12 Dose: 40 mg Documented By: ZAKIYA Diltiazem HCl 125 mg/ Sodium (Chloride) 125 mls @ 0 mls/hr IVCONT .Q0M ON [facility]; Protocol Last Admin: 04/24/23 02:12 Dose: 15 mg/hr, 15 mls/hr Documented By: SOPHIE Melatonin (Melatonin 3 Mg Tablet) 6 mg PO BEDTIME PRN PRN Reason: Insomnia Metoprolol Tartrate (Metoprolol Tartrate 50 Mg Tablet) 50 mg PO QID ON LICENSE OF [facility]; Protocol Last Admin: 04/24/23 09:26 Dose: 50 mg Documented By: ZAKIYA Ondansetron HCl (Ondansetron Hcl 4 Mg/2 Ml Vial) 4 mg IVPUSH Q8H PRN PRN Reason: Nausea and Vomiting Sodium Chloride (0.9 % Sodium Chloride Flush 3 Ml Syringe) 3 ml IVFLUSH QSHIFT ON LICENSE OF [facility] Last Admin: 04/24/23 08:17 Dose: 3 ml Documented By: ZAKIYA Vitamin D (Cholecalciferol (Vitamin D3) 25 Mcg Tablet) 125 mcg PO DAILY ON LICENSE OF [facility] Last Admin: 04/24/23 08:13 Dose: 125 mcg Documented By: ZAKIYA Zinc Sulfate (Zinc Sulfate 220 Mg Capsule) 220 mg PO DAILY ON LICENSE OF [facility] Last Admin: 04/24/23 08:13 Dose: 220 mg Documented By: ZAKIYA Labs 04/24/23 06:30 04/24/23 06:30 Labs: Laboratory Results - last 24 hr 04/24/23 06:30 MCV 100.0 H MCH 32.1 MCHC 32.1 RDW 13.6 Plt Count 196 MPV 10.8 Absolute Nucleated RBC 0.000 Nucleated RBC % (auto) 0.0 Anion Gap 12 Estim Creat Clear Calc 93.9 Estimated GFR 59 Fasting Glucose 91 Calcium 9.1 Magnesium 2.2 Assessment and Plan (1) Congestive heart failure: Status: Acute Plan 52F PMH HTN no longer on meds, presented with sob, found to have new onset aflutter Acute hypoxic respiratory failure secondary to unspecified acute CHF IV Lasix, now on room air, follow-up echo New onset atrial flutter with rapid ventricular response s/p dig load, lopressor 50mg q6h, apixaban, Hypertension continue lopressor morbid obesity weight loss recommended dvt prophyalxis - eliquis full code reason for continued hospitalization: heart rate not controlled, iv diuresis Quality Stroke Does the patient have a stroke diagnosis?: No VTE Prior VTE?: No VTE Risk Level:: Medical - moderate - high VTE Device Contraindication: Treatment Not Indicated VTE Drug Contraindication: N/A - Med Ordered
--- NOTE | 2023-04-24 09:41 | PM.PNCARD ---
Subjective Subjective Date of Service: 04/24/23 Interval history: Patient seems comfortable at rest. No active symptoms at this time. However, on telemetry she still in atrial flutter with rapid rate. Review of Systems Review of Systems Yes all other systems are reviewed and are negative Constitutional: Reports as per HPI and Reports no additional constitutional complaints Eyes: Reports as per HPI and Denies no additional eye complaints Denies system reviewed and no additional complaints, except as documented and Reports as per HPI Cardiovascular: Reports as per HPI, Reports no additional cardiovascular complaints, Denies acrocyanosis, Denies cool extremities, Denies chest pain, Denies leg edema, Denies lightheadedness, Denies palpitations and Denies dyspnea Respiratory: Reports as per HPI, Denies no additional respiratory complaints and Denies dyspnea Gastrointestinal: Reports as per HPI and Denies no additional gastrointestinal complaints Genitourinary: Reports as per HPI Musculoskeletal: Reports no additional musculoskeletal complaints and Reports as per HPI Skin/Breast: Reports system reviewed and no additional complaints, except as docu Reports system reviewed and no additional complaints, except as documented and Reports as per HPI Psychiatric: Reports no additional psychiatric complaints and Reports as per HPI Endocrine: Reports no additional endocrine complaints, Reports as per HPI and Denies palpitations Hematologic/Lymphatic: Reports no additional hematologic/lymphatic complaints and Reports as per HPI Allergic/Immunologic: Reports no additional allergic/immunologic complaints and Reports as per HPI Physical Exam Vital Signs: Last Vital Signs Temp 97.7 F 04/24/23 07:30 Pulse 133 H 04/24/23 07:30 Resp 20 04/24/23 07:30 BP 130/80 04/24/23 08:32 Pulse Ox 90 L 04/24/23 07:30 O2 Del Method Room Air 04/24/23 07:30 O2 Flow Rate 2 04/24/23 04:00 BMI result Body Mass Index 64.5 Const General: comfortable and no acute distress Orientation/consciousness: patient oriented x3 HEENT Other: Unremarkable Head: Yes normal to inspection Neck Neck: Yes normal visual inspection Chest Chest palpation & inspection: normal inspection of the chest Resp Auscultation: clear to auscultation bilaterally Cardio Palpation: normal PMI Heart sounds: S1 normal heart sound present, S2 normal heart sound present, no gallops, no murmurs and no rubs GI Palpation (GI): Soft to palpation Back/Spine/Pelvis Other: unremarkable Skin General skin exam: no rashes or lesions noted Neuro General: patient oriented x3 Extrem General: Yes normal to inspection Psych Mental Status: mental status grossly normal Objective Labs and Meds 04/24/23 06:30 04/24/23 06:30 Lab results: Laboratory Results - last 24 hr 04/24/23 06:30 WBC 6.0 RBC 3.68 L Hgb 11.8 L Hct 36.8 L MCV 100.0 H MCH 32.1 MCHC 32.1 RDW 13.6 Plt Count 196 MPV 10.8 Absolute Nucleated RBC 0.000 Nucleated RBC % (auto) 0.0 Sodium 140 Potassium 3.8 Chloride 102 Carbon Dioxide 30 H Anion Gap 12 BUN 10 Creatinine 0.99 Estim Creat Clear Calc 93.9 Estimated GFR 59 Fasting Glucose 91 Calcium 9.1 Magnesium 2.2 Progress Note: A&P Assessment and plan (1) Atrial flutter with rapid ventricular response: Status: Acute (2) Acute CHF: Status: Acute Plan On telemetry, atrial flutter with rapid rate. Around 135-140/Min. She is currently on a Cardizem drip. We can add metoprolol 50 mg q.6. Also on Eliquis. Discussed about OTILIO/cardioversion. She would like to wait another day to see if the rate is getting better or not. If that is the case, then possibly cardioversion in 4 weeks time. If rate is still fast, then we will plan for cardioversion on Monday. Etiology for the atrial flutter is probably her obesity and she could also have undiagnosed sleep apnea. This will need to be addressed as an outpatient. Time Spent With Patient Time: Total time managing care of this patient today ____ minutes. Progress Note: Quality Stroke Does the patient have a stroke diagnosis?: No Procedures Date of Service Date of Service: 04/24/23
--- NOTE | 2023-04-24 10:57 | MHC.CM.PN ---
Pt is independent, she drove herself here, and plans to drive home. She does not have home health services. CM discussed HCP with pt. she will complete form here. Pt does not have a PCP, she said she plans to return to [facility], she last saw a provider there in 2016. DC plan is home self care, CM to follow and assist with DC plan.
--- NOTE | 2023-04-24 11:20 | MHC.CM.PN ---
CM gave pt list of providers and locations of [facility], and a list of PCP at [facility] [place].
[2023-04-24] MEDS: dilTIAZem HCL 60 MG TABLET PO (20:07)
[2023-04-25] VITALS (7 sets, daily range): BP systolic 109–144; BP diastolic 61–77; PULSE 66–129; RESP 18–22; TEMP 36.1–36.4; O2SAT 88–98
[2023-04-25] MEDS: dilTIAZem HCL 60 MG TABLET PO ×4 (00:01→18:08)
[2023-04-25] MEDS: 0.9 % Sodium Chloride Flush 3 ML SYRINGE IVFLUSH ×4 (00:02→20:01)
--- NOTE | 2023-04-25 07:00 | CA_ITS ---
Transthoracic Echocardiogram Patient (Last, First, Middle): Cristina Skaggs, Gender: Female Date of : 1970 Age: 52 Procedure Date: 04/25/2023 Procedure Type: Transthoracic [place] [facility] [place]: 154.94 cm Weight: 154.68 kg BSA: 2.37 m2 Heart Rate: bpm BP: 137 / 76 mmHg Reimbursement Analyst: Referring MD: Tyler Mancini MD Symptoms: atrial flutter Study Quality: Technically Difficult due to body habitus ECG Rhythm: Atrial flutter Conclusions: - The left ventricular systolic function is normal. The visually estimated ejection fraction is between 55-60%. - No obvious valvular pathology seen on this study. Findings Left Ventricle Normal left ventricular cavity size. There is mildly increased left ventricular wall thickness. The left ventricular systolic function is normal. The visually estimated ejection fraction is between 55-60%. Diastolic function is indeterminate on the basis of available data. Right Ventricle The right ventricle was not well visualized. Atria Both atria are normal in size. Aortic Valve The aortic valve was not well visualized. There is no aortic valve stenosis. There is no aortic valve regurgitation. Mitral Valve The mitral valve appears normal. There is trace mitral valve regurgitation. There is no mitral valve stenosis. Pulmonic Valve The pulmonic valve is likely normal. Tricuspid Valve There is trace tricuspid valve regurgitation. There is no evidence of pulmonary hypertension. Great Vessels The asc aorta is normal in size. Venous The inferior vena cava is normal in size and collapses less than 50% with inspiration. Pericardium/Pleural There is a trivial pericardial effusion. Prior Study Comparison No prior study available for comparison. Recommendations, Care & Conclusions No obvious valvular pathology seen on this study. Measurements 2D Linear Measurements IVSd: 1.14 0.6-0.9/0.6-1.0 cm LVIDd: 4.85 3.9-5.3/4.2-5.9 cm LVIDd Index: 2.05 2.4-3.2/2.2-3.1 cm/m2 LVIDs: 3.61 2.0-3.6 cm LVPWd: 1.10 0.7-1.1 cm Ao Root: 3.20 2.1-3.5 cm LA Diam: 4.50 2.7-3.8/3.0-4.0 cm LAIDs Index: 1.90 1.5-2.3 cm/m2 LV Mass: 252.01 67-162/88-224 g LV Mass Index: 106.33 43-95/49-115 g/m2 LVOT Diam: 1.90 3.0+(-)1.3 cm Mitral Valve MV Pk E: 0.94 MV Decel Time: 150.00 E'Lateral: 12.40 E'Medial: 6.96 E/E' Med: 13.40 E/E' Lat: 7.50 PHT: 44.00 MVA PHT: 5.00 Decel Davison: 6.25 Aortic Valve AoV Pk Jack: 1.24 AoV Mn Jack: 0.80 AoV VTI: 0.24 AoV Pk Grad: 6.00 Aov Mn Grad: 3.00 HUDSON Cont.VTI: 1.95 LVOT LVOT Pk Jack: 0.90 LVOT Mn Jack: 0.48 LVOT VTI: 0.16 LVOT Pk Grad: 3.00 LVOT Mn Grad: 1.00 LVOT Diam: 1.90 LVOT Area: 2.84 Diastolic Function MV Pk E: 0.94 E'Medial: 6.96 E/E' Med: 13.40 E' Laterial: 12.40 E/E' Lat: 7.50 Tricuspid Valve TR Pk Jack: 2.26 TR Pk Grad: 20.00 RA Press: 3.00 RVSP: 23.00 Great Vessels Aorta Ao Root-2D: 3.20 2.0-3.7 cm Ao Asc: 3.30 2.1-3.4 cm Pulmonary Valve PV Pk Jack: 1.17 Peak PV Grad: 5.00 Updated in Other Vendor System with Status of Final Alfredo Roth MD electronically signed on 04/25/2023 3:34:41 PM with status of Final
[2023-04-25] MEDS: Zinc Sulfate 220 MG CAPSULE PO (07:29)
[2023-04-25] MEDS: Apixaban 5 MG TABLET PO ×2 (07:29→20:01)
[2023-04-25] MEDS: Cholecalciferol (Vitamin D3) 25 MCG TABLET 125 MCG PO (07:29)
[2023-04-25] MEDS: Furosemide 40 MG/4 ML VIAL IVPUSH (07:30)
[2023-04-25] MEDS: Empagliflozin 25 MG TABLET PO (07:30)
[2023-04-25 07:48] LABS: Hematocrit 35.3 % (37.0-47.0); Hemoglobin 11.5 g/dl (12.0-16.0); Mean Corpuscular HGB Conc 32.6 g/dl (31.0-35.0); Mean Corpuscular Hemoglobin 32.4 pg (27.0-33.0); Mean Corpuscular Volume 99.4 fL (80.0-98.0); Mean Platelet Volume 10.9 fL (9.4-12.3); Platelet Count 179 X10*3/uL (160-400); Red Blood Count 3.55 X10*6/uL (4.20-5.50); Red Cell Distribution Width 13.8 % (11.0-16.0); White Blood Count 6.8 X10*3/uL (4.8-10.8)
[2023-04-25 08:06] LABS: Anion Gap 13 (12-20); Blood Urea Nitrogen 14 mg/dL (9-16); Calcium 8.9 mg/dL (8.4-10.2); Carbon Dioxide 32 mmol/L (22-29); Chloride 99 mmol/L (96-108); Estimated Glomerular Filt Rate 54; Glucose Fasting 88 mg/dL (60-99); Magnesium 2.2 mg/dL (1.6-2.6); Potassium 3.6 mmol/L (3.3-5.1); Sodium 140 mmol/L (135-145)
[2023-04-25] MEDS: Metoprolol Tartrate 50 MG TABLET PO ×3 (08:56→20:01)
--- NOTE | 2023-04-25 09:08 | P.PNCA_ITS ---
Subjective Subjective Date of Service: 04/25/23 Interval history: She states that she is feeling okay. She is off the Cardizem drip. Her heart rate was controlled with beta-blockers but today morning, the rate is again high in the 130s. Still in atrial flutter. Review of Systems Review of Systems Yes all other systems are reviewed and are negative Constitutional: Reports as per HPI and Reports no additional constitutional complaints Eyes: Reports as per HPI and Denies no additional eye complaints Denies system reviewed and no additional complaints, except as documented and Reports as per HPI Cardiovascular: Reports as per HPI, Reports no additional cardiovascular complaints, Denies acrocyanosis, Denies cool extremities, Denies chest pain, Denies leg edema, Denies lightheadedness, Denies palpitations and Denies dyspnea Respiratory: Reports as per HPI, Denies no additional respiratory complaints and Denies dyspnea Gastrointestinal: Reports as per HPI and Denies no additional gastrointestinal complaints Musculoskeletal: Reports no additional musculoskeletal complaints and Reports as per HPI Skin/Breast: Reports system reviewed and no additional complaints, except as docu Reports system reviewed and no additional complaints, except as documented and Reports as per HPI Psychiatric: Reports no additional psychiatric complaints and Reports as per HPI Endocrine: Reports no additional endocrine complaints, Reports as per HPI and Denies palpitations Hematologic/Lymphatic: Reports no additional hematologic/lymphatic complaints and Reports as per HPI Allergic/Immunologic: Reports no additional allergic/immunologic complaints and Reports as per HPI Physical Exam Vital Signs: Last Vital Signs Temp 97.2 F 04/25/23 07:18 Pulse 129 H 04/25/23 07:18 Resp 20 04/25/23 07:18 BP 109/77 04/25/23 07:18 Pulse Ox 95 04/25/23 07:18 O2 Del Method Nasal Cannula 04/25/23 07:18 O2 Flow Rate 3 04/25/23 07:18 BMI result Body Mass Index 64.5 Const General: comfortable and no acute distress Orientation/consciousness: patient oriented x3 HEENT Other: Unremarkable Head: Yes normal to inspection Neck Neck: Yes normal visual inspection Chest Chest palpation & inspection: normal inspection of the chest Resp Auscultation: clear to auscultation bilaterally Cardio Palpation: normal PMI Heart sounds: S1 normal heart sound present, S2 normal heart sound present, no gallops, no murmurs and no rubs GI Palpation (GI): Soft to palpation Back/Spine/Pelvis Other: unremarkable Skin General skin exam: no rashes or lesions noted Neuro General: patient oriented x3 Extrem General: Yes normal to inspection Psych Mental Status: mental status grossly normal Objective Labs and Meds 04/25/23 07:03 04/25/23 07:03 Lab results: Laboratory Results - last 24 hr 04/25/23 07:03 WBC 6.8 RBC 3.55 L Hgb 11.5 L Hct 35.3 L MCV 99.4 H MCH 32.4 MCHC 32.6 RDW 13.8 Plt Count 179 MPV 10.9 Absolute Nucleated RBC 0.000 Nucleated RBC % (auto) 0.0 Sodium 140 Potassium 3.6 Chloride 99 Carbon Dioxide 32 H Anion Gap 13 BUN 14 Creatinine 1.07 Estim Creat Clear Calc 87.0 Estimated GFR 54 Fasting Glucose 88 Calcium 8.9 Magnesium 2.2 Progress Note: A&P Assessment and plan (1) Atrial flutter with rapid ventricular response: Status: Acute (2) Acute CHF: Status: Acute Plan On telemetry, atrial flutter with rapid rate. In the 130s. However, prior to this, heart rate was actually better controlled in the 60s- 70s. She is currently on a combination of metoprolol as well as diltiazem p.o.. Off Cardizem drip. Also on Eliquis. Again discussed about OTILIO/cardioversion. She is somewhat hesitant, but agreeable. She is tentatively scheduled for tomorrow morning. If the heart rate is controlled by then, then probably discharge on rate control meds with anticoagulation and cardiovert in 4 weeks. If the heart rate is still fast tomorrow morning, then we will proceed with OTILIO/cardioversion. From volume status, she is somewhat difficult to assess but no profound volume overload. Still on IV diuretics. Consider switching to p.o.. Input output balance -3.9 L. Discussed with . Time Spent With Patient Time: Total time managing care of this patient today ____ minutes. Progress Note: Quality Stroke Does the patient have a stroke diagnosis?: No Procedures Date of Service Date of Service: 04/25/23
--- NOTE | 2023-04-25 09:57 | P.PNIM_ITS ---
Subjective Subjective Date of Service: 04/25/23 Interval History: sob improved, still aflutter 130s Physical Exam 2 Vital Signs: Vital Signs: Last Vital Signs Temp 97.2 F 04/25/23 07:18 Pulse 129 H 04/25/23 07:18 Resp 20 04/25/23 07:18 BP 109/77 04/25/23 07:18 Pulse Ox 95 04/25/23 07:18 O2 Del Method Nasal Cannula 04/25/23 07:18 O2 Flow Rate 3 04/25/23 07:18 BMI result Body Mass Index 64.5 Const: General: comfortable and no acute distress O rientation/consciousness: patient oriented x3 HEENT: Other: Unremarkable Head: Yes normal to inspection Neck: Neck: Yes normal visual inspection Chest: Chest palpation & inspection: normal inspection of the chest Resp: Auscultation: clear to auscultation bilaterally Cardio: Palpation: normal PMI Heart sounds: S1 normal heart sound present, S2 normal heart sound present, no gallops, no murmurs and no rubs GI: Palpation (GI): Soft to palpation Back/Spine/Pelvis: Other: unremarkable Skin: General skin exam: no rashes or lesions noted Neuro: General: patient oriented x3 Extrem: General: Yes normal to inspection Psych: Mental Status: mental status grossly normal Objective Data Active Medications Acetaminophen (Acetaminophen 325 Mg Tablet) 650 mg PO Q6H PRN PRN Reason: Pain, Mild (Pain Scale 1-3) Last Admin: 04/23/23 18:47 Dose: 650 mg Documented By: ZAKIYA Apixaban (Apixaban 5 Mg Tablet) 5 mg PO BID [facility] Last Admin: 04/25/23 07:29 Dose: 5 mg Documented By: ZAKIYA Diltiazem HCl (Diltiazem Hcl 60 Mg Tablet) 60 mg PO Q6H [facility]; Protocol Last Admin: 04/25/23 07:29 Dose: 60 mg Documented By: ZAKIYA Empagliflozin (Empagliflozin 25 Mg Tablet) 25 mg PO DAILY [facility] Last Admin: 04/25/23 07:30 Dose: 25 mg Documented By: ZAKIYA Furosemide (Furosemide 40 Mg Tablet) 40 mg PO DAILY [facility]; Protocol Last Admin: 04/25/23 08:53 Dose: Not Given Documented By: ZAKIYA Non-Admin Reason: Physician Held Med Melatonin (Melatonin 3 Mg Tablet) 6 mg PO BEDTIME PRN PRN Reason: Insomnia Metoprolol Tartrate (Metoprolol Tartrate 50 Mg Tablet) 50 mg PO Q6H [facility]; Protocol Last Admin: 04/25/23 08:56 Dose: 50 mg Documented By: ZAKIYA Ondansetron HCl (Ondansetron Hcl 4 Mg/2 Ml Vial) 4 mg IVPUSH Q8H PRN PRN Reason: Nausea and Vomiting Sodium Chloride (0.9 % Sodium Chloride Flush 3 Ml Syringe) 3 ml IVFLUSH QSHIFT [facility] Last Admin: 04/25/23 07:30 Dose: 3 ml Documented By: ZAKIYA Vitamin D (Cholecalciferol (Vitamin D3) 25 Mcg Tablet) 125 mcg PO DAILY [facility] Last Admin: 04/25/23 07:29 Dose: 125 mcg Documented By: ZAKIYA Zinc Sulfate (Zinc Sulfate 220 Mg Capsule) 220 mg PO DAILY [facility] Last Admin: 04/25/23 07:29 Dose: 220 mg Documented By: ZAKIYA Labs 04/25/23 07:03 04/25/23 07:03 Labs: Laboratory Results - last 24 hr 04/25/23 07:03 MCV 99.4 H MCH 32.4 MCHC 32.6 RDW 13.8 Plt Count 179 MPV 10.9 Absolute Nucleated RBC 0.000 Nucleated RBC % (auto) 0.0 Anion Gap 13 Estim Creat Clear Calc 87.0 Estimated GFR 54 Fasting Glucose 88 Calcium 8.9 Magnesium 2.2 Assessment and Plan (1) Congestive heart failure: Status: Acute Plan 52F PMH HTN no longer on meds, presented with sob, found to have new onset aflutter Acute hypoxic respiratory failure secondary to unspecified acute CHF changed to po lasix 40mg daily, now on room air, follow-up echo New onset atrial flutter with rapid ventricular response s/p dig load, lopressor 50mg q6h, diltiazem 60mg q6h, apixaban, plan for scotty/cv on 04/26/23 Hypertension continue lopressor diltiazem morbid obesity weight loss recommended dvt prophyalxis - eliquis full code reason for continued hospitalization: heart rate not controlled Quality Stroke Does the patient have a stroke diagnosis?: No VTE Prior VTE?: No VTE Risk Level:: Medical - moderate - high VTE Device Contraindication: Treatment Not Indicated VTE Drug Contraindication: N/A - Med Ordered
--- NOTE | 2023-04-25 13:58 | MHC.CM.PN ---
EMR REVIEWED, PER HOSPITALIST PLAN FOR CARDIOVERSION TOMORROW 04/26 AND ANTIC D/C HOME SELF CARE THURS 04/27, CM WILL CONT TO FOLLOW DC NEEDS.
[2023-04-26] VITALS (12 sets, daily range): BP systolic 97–170; BP diastolic 50–75; PULSE 58–105; RESP 16–20; TEMP 36–36.4; O2SAT 90–100
[2023-04-26] MEDS: dilTIAZem HCL 60 MG TABLET PO ×2 (00:06→06:18)
[2023-04-26] MEDS: Metoprolol Tartrate 50 MG TABLET PO ×2 (03:04→08:34)
[2023-04-26] MEDS: Furosemide 40 MG TABLET PO (08:34)
[2023-04-26] MEDS: Zinc Sulfate 220 MG CAPSULE PO (08:34)
[2023-04-26] MEDS: Cholecalciferol (Vitamin D3) 25 MCG TABLET 125 MCG PO (08:34)
[2023-04-26] MEDS: 0.9 % Sodium Chloride Flush 3 ML SYRINGE IVFLUSH ×3 (08:35→19:54)
[2023-04-26] MEDS: Apixaban 5 MG TABLET PO ×2 (08:35→19:54)
[2023-04-26] MEDS: Empagliflozin 25 MG TABLET PO (08:35)
[2023-04-26 09:08] LABS: Hematocrit 37.7 % (37.0-47.0); Hemoglobin 11.9 g/dl (12.0-16.0); Mean Corpuscular HGB Conc 31.6 g/dl (31.0-35.0); Mean Corpuscular Hemoglobin 33.1 pg (27.0-33.0); Mean Corpuscular Volume 104.7 fL (80.0-98.0); Mean Platelet Volume 11.1 fL (9.4-12.3); Platelet Count 187 X10*3/uL (160-400); Red Cell Distribution Width 13.9 % (11.0-16.0); White Blood Count 6.9 X10*3/uL (4.8-10.8)
--- NOTE | 2023-04-26 09:10 | PM.PNCARD ---
Subjective Subjective Date of Service: 04/26/23 Interval history: Patient states she is feeling okay. On telemetry, still in atrial flutter with increased rates. Currently, around 100 to 110/120 per minute. Review of Systems Review of Systems Yes all other systems are reviewed and are negative Constitutional: Reports as per HPI and Reports no additional constitutional complaints Eyes: Reports as per HPI and Denies no additional eye complaints Denies system reviewed and no additional complaints, except as documented and Reports as per HPI Cardiovascular: Reports as per HPI, Reports no additional cardiovascular complaints, Denies acrocyanosis, Denies cool extremities, Denies chest pain, Denies leg edema, Denies lightheadedness, Denies palpitations and Denies dyspnea Respiratory: Reports as per HPI, Denies no additional respiratory complaints and Denies dyspnea Gastrointestinal: Reports as per HPI and Denies no additional gastrointestinal complaints Genitourinary: Reports as per HPI Musculoskeletal: Reports no additional musculoskeletal complaints and Reports as per HPI Skin/Breast: Reports system reviewed and no additional complaints, except as docu Reports system reviewed and no additional complaints, except as documented and Reports as per HPI Psychiatric: Reports no additional psychiatric complaints and Reports as per HPI Endocrine: Reports no additional endocrine complaints, Reports as per HPI and Denies palpitations Hematologic/Lymphatic: Reports no additional hematologic/lymphatic complaints and Reports as per HPI Allergic/Immunologic: Reports no additional allergic/immunologic complaints and Reports as per HPI Physical Exam Vital Signs: Last Vital Signs Temp 97.1 F 04/26/23 07:12 Pulse 65 04/26/23 07:12 Resp 17 04/26/23 07:12 BP 121/71 04/26/23 07:12 Pulse Ox 92 04/26/23 07:12 O2 Del Method Room Air 04/26/23 07:12 O2 Flow Rate 3.0 04/24/23 16:00 BMI result Body Mass Index 64.5 Const General: comfortable and no acute distress Orientation/consciousness: patient oriented x3 HEENT Other: Unremarkable Head: Yes normal to inspection Neck Neck: Yes normal visual inspection Chest Chest palpation & inspection: normal inspection of the chest Resp Auscultation: clear to auscultation bilaterally Cardio Palpation: normal PMI Heart sounds: S1 normal heart sound present, S2 normal heart sound present, no gallops, no murmurs and no rubs GI Palpation (GI): Soft to palpation Back/Spine/Pelvis Other: unremarkable Skin General skin exam: no rashes or lesions noted Neuro General: patient oriented x3 Extrem General: Yes normal to inspection Psych Mental Status: mental status grossly normal Objective Labs and Meds 04/25/23 07:03 04/25/23 07:03 Progress Note: A&P Assessment and plan (1) Atrial flutter with rapid ventricular response: Status: Acute (2) Acute CHF: Status: Acute Plan On telemetry, still in atrial flutter/rapid rate. Echocardiogram shows preserved LV function. She is on significant doses of medications including diltiazem 60 mg Q 6 hourly as well as metoprolol 50 mg Q 6 hourly. Again discussed about OTILIO/cardioversion. She is agreeable. We will arrange this today and she already has a time schedule. Continue anticoagulation. Time Spent With Patient Time: Total time managing care of this patient today ____ minutes. Progress Note: Quality Stroke Does the patient have a stroke diagnosis?: No Procedures Date of Service Date of Service: 04/26/23
--- NOTE | 2023-04-26 09:15 | MHC.SHP ---
Pre-Procedural Eval Section A Date of Service: 04/26/23 The patient is an INPATIENT: Yes Section B Chief Complaint: Dyspnea Allergies: Allergies Allergy/AdvReac Type Severity Reaction Status Date / Time acetaminophen [From NyQuil] Allergy Mild Hives Verified 04/22/23 16:37 aspirin [From Niharika-Deferiet] Allergy Mild Hives Verified 04/22/23 16:37 citric acid Allergy Mild Hives Verified 04/22/23 16:37 [From Niharika-Deferiet] dextromethorphan Allergy Mild Hives Verified 04/22/23 16:37 [From NyQuil] doxylamine [From NyQuil] Allergy Mild Hives Verified 04/22/23 16:37 pseudoephedrine [From NyQuil] Allergy Mild Hives Verified 04/22/23 16:37 sodium bicarbonate Allergy Mild Hives Verified 04/22/23 16:37 [From Niharika-Deferiet] Plan I have reviewed the history and physical and performed a pertinent physical examination on my patient. No changes have occurred unless specified. Time Spent With Patient Time: Total time managing care of this patient today ____ minutes.
[2023-04-26 09:28] LABS: Anion Gap 12 (12-20); Blood Urea Nitrogen 15 mg/dL (9-16); Calcium 9.1 mg/dL (8.4-10.2); Carbon Dioxide 31 mmol/L (22-29); Chloride 101 mmol/L (96-108); Creatinine Clr Calc Pharmacy 80.2; Estimated Glomerular Filt Rate 49; Glucose Fasting 85 mg/dL (60-99); Magnesium 2.5 mg/dL (1.6-2.6); Potassium 3.9 mmol/L (3.3-5.1); Sodium 140 mmol/L (135-145)
--- NOTE | 2023-04-26 10:00 | CA_ITS ---
Transesophageal Echocardiogram Patient (Last, First, Middle): Cristina Skaggs, Gender: Female Date of : 1970 Age: 52 Procedure Date: 04/26/2023 Procedure Type: Transesophageal Echocardiogram Location: [facility] [place] Height: 162.56 cm Weight: 154.22 kg BSA: 2.45 m2 Heart Rate: bpm Religion Instructor: Referring MD: Alfredo Roth MD Symptoms: Atrial flutter with rapid ventricular rate Conclusion: ??? There is no evidence of a thrombus in the left atrial appendage. Findings Procedure Information The patient is being monitored per protocol. The quality of the study was good. Consent was obtained prior to the procedure. Left Ventricle Normal left ventricular cavity size. The left ventricular systolic function is normal. The visually estimated ejection fraction is between 55-60%. There is no evidence of regional wall motion abnormalities. Right Ventricle Normal right ventricular cavity size. There is normal right ventricular systolic function. Atria There is no evidence of a thrombus in the left atrial appendage. There is no evidence of interatrial shunt by color Doppler. Aortic Valve There is a normal trileaflet aortic valve. There is no aortic valve stenosis. There is no aortic valve regurgitation. Mitral Valve The mitral valve appears normal. There is trace mitral valve regurgitation. There is no mitral valve stenosis. Pulmonic Valve The pulmonic valve was not well visualized. Tricuspid Valve There is mild tricuspid valve regurgitation. There is no evidence of pulmonary hypertension. Great Vessels The asc aorta is normal in size. Mild plaque in visualized portions of descending thoracic aorta and arch. Venous The inferior vena cava was not well visualized. Pericardium/Pleural There is a trivial pericardial effusion. Prior Study Comparison No significant change compared to prior study dated: 04/25/2023. Updated by Alfredo Roth on 11:55 AM with Status of Final Alfredo Roth MD electronically signed on 04/27/2023 11:55:26 AM with status of Final
--- NOTE | 2023-04-26 10:38 | ECG_ITS ---
Test Reason : S/P CARDIOVERSION Blood Pressure : / mmHG Vent. Rate : 061 BPM Atrial Rate : 061 BPM P-R Int : 170 ms QRS Dur : 092 ms QT Int : 468 ms P-R-T Axes : 065 -12 -05 degrees QTc Int : 471 ms Normal sinus rhythm RSR' or QR pattern in V1 suggests right ventricular conduction delay Nonspecific T wave abnormality Inferior leads Abnormal ECG When compared with ECG of 22-APR-2023 16:43, Sinus rhythm has replaced Atrial flutter Vent. rate has decreased BY [address] no longer depressed in Inferior leads ST no longer depressed in Lateral leads Referred By: Alfredo Roth Electronically Signed By:JUWAN CARRASQUILLO MD
--- NOTE | 2023-04-26 10:38 | HO.CARDIVERS ---
Cardioversion Procedure Note Cardioversion Date of Procedure: 04/26/2023 Ordering Provider: Dr. Roth Performing Provider: Dr. Roth Indication for Procedure: Atrial flutter with rapid rate Pre-Op Diagnosis: Atrial flutter with rapid ventricular rate Post-Op Diagnosis: Sinus rhythm OTILIO findings (if OTILIO Performed): No evidence of left atrial appendage thrombus History: See full consultation Consent: Informed consent obtained. Procedure: Patient was taken to the operating room. She was intubated by the anesthesiologist. OTILIO probe was placed by Anesthesia. OTILIO evaluation did not show any evidence of left atrial appendage thrombus. Subsequently, cardioverted with 150 joules of synchronized shock. Rhythm converted from atrial flutter with rapid rate to sinus rhythm/sinus bradycardia. Complications: None. Impression: Successful cardioversion. Recommendations: Can return to floor after appropriate monitoring.
--- NOTE | 2023-04-26 11:07 | HO.POSTANES ---
Post Anesthesia Evaluation Post Anesthesia Evaluation Date of Service: 04/26/23 Vital Signs: Vital Signs Temp Pulse Resp BP Pulse Ox O2 Del Method O2 Flow Rate 04/26/23 11:03 58 16 114/50 L 100 Simple Mask 2 04/26/23 10:58 58 16 105/66 100 Simple Mask 3 04/26/23 10:53 97.3 F 61 16 97/75 99 Simple Mask 3 04/26/23 09:41 97.6 F 105 H 18 126/72 95 Room Air 04/26/23 07:12 97.1 F 65 17 121/71 92 Room Air 04/26/23 03:45 65 112/60 04/26/23 03:12 97.3 F 68 20 99/60 90 L Room Air 04/26/23 00:05 80 118/60 04/25/23 23:17 97 F 66 20 121/61 91 L Room Air Anesthesia: General Endotracheal-GETA Mental Status: Awake Pain Control: Satisfactory Nausea/Vomiting: None Hydration: Adequate Anesthesia-Related Issues: No Anes. Related Issues
--- NOTE | 2023-04-26 16:11 | P.PNIM_ITS ---
Subjective Subjective Date of Service: 04/26/23 Interval History: Seen and evaluated Went to OTILIO w cardioversion Feels better overall On Tele Review of Systems Review of Systems: Yes all other systems are reviewed and are negative Physical Exam 2 Vital Signs: Vital Signs: Last Vital Signs Temp 97.3 F 04/26/23 15:53 Pulse 79 04/26/23 15:53 Resp 16 04/26/23 15:53 BP 119/60 04/26/23 15:53 Pulse Ox 93 04/26/23 15:53 O2 Del Method Oxymask 04/26/23 15:53 O2 Flow Rate 3 04/26/23 15:53 BMI result Body Mass Index 64.5 Const: Other: Constitutional : Awake, interactive, morbidly obese , not in distress Neck : Normal inspection, Supple Cardiovascular : RRR, no JVP, no lower extremity edema Respiratory : good bilateral air entry, no crackles, wheezes or rhonchi Gastrointestinal: soft, lax, Normal bowel sounds, Non tender Skin : Warm, Dry Neurological : Alert & oriented x3, No focal deficit Objective Data Active Medications Acetaminophen (Acetaminophen 325 Mg Tablet) 650 mg PO Q6H PRN PRN Reason: Pain, Mild (Pain Scale 1-3) Last Admin: 04/23/23 18:47 Dose: 650 mg Documented By: ZAKIYA Apixaban (Apixaban 5 Mg Tablet) 5 mg PO BID [facility] Last Admin: 04/26/23 08:35 Dose: 5 mg Documented By: MILLY Diltiazem HCl (Diltiazem Hcl Cd 120 Mg Cap.Er.Deg) 120 mg PO DAILY [facility]; Protocol Empagliflozin (Empagliflozin 25 Mg Tablet) 25 mg PO DAILY [facility] Last Admin: 04/26/23 08:35 Dose: 25 mg Documented By: MILLY Flecainide Acetate (Flecainide Acetate 50 Mg Tablet) 100 mg PO BID [facility] Furosemide (Furosemide 40 Mg Tablet) 40 mg PO DAILY [facility]; Protocol Last Admin: 04/26/23 08:34 Dose: 40 mg Documented By: MILLY Lactic Acid (Ammonium Lactate 12 % Lotion 226 Gm Bottle) 1 appl TOPICAL BID [facility]; Protocol Last Admin: 04/26/23 11:37 Dose: Not Given Documented By: MILLY Non-Admin Reason: Off Unit: Surgery Melatonin (Melatonin 3 Mg Tablet) 6 mg PO BEDTIME PRN PRN Reason: Insomnia Ondansetron HCl (Ondansetron Hcl 4 Mg/2 Ml Vial) 4 mg IVPUSH Q8H PRN PRN Reason: Nausea and Vomiting Sodium Chloride (0.9 % Sodium Chloride Flush 3 Ml Syringe) 3 ml IVFLUSH QSHIFT [facility] Last Admin: 04/26/23 15:47 Dose: 3 ml Documented By: MILLY Vitamin D (Cholecalciferol (Vitamin D3) 25 Mcg Tablet) 125 mcg PO DAILY [facility] Last Admin: 04/26/23 08:34 Dose: 125 mcg Documented By: MILLY Zinc Sulfate (Zinc Sulfate 220 Mg Capsule) 220 mg PO DAILY [facility] Last Admin: 04/26/23 08:34 Dose: 220 mg Documented By: MILLY Labs 04/26/23 08:12 04/26/23 08:12 Labs: Laboratory Results - last 24 hr 04/26/23 08:12 MCV 104.7 H D MCH 33.1 H MCHC 31.6 RDW 13.9 Plt Count 187 MPV 11.1 Absolute Nucleated RBC 0.000 Nucleated RBC % (auto) 0.0 Anion Gap 12 Estim Creat Clear Calc 80.2 Estimated GFR 49 Fasting Glucose 85 Calcium 9.1 Magnesium 2.5 Assessment and Plan (1) Acute CHF: Status: Acute (2) CHF exacerbation: Status: Acute (3) Atrial flutter with rapid ventricular response: Status: Acute Plan 52F PMH HTN no longer on meds, presented with sob, found to have new onset aflutter Acute hypoxic respiratory failure secondary to unspecified acute CHF po lasix 40mg daily, on room air, echo showing preserved function New onset atrial flutter with rapid ventricular response DC dig load, lopressor 50mg q6h, diltiazem 60mg q6h Cardioversion done, in Sinus now Continue apixaban Cardizem 120CD cardiology following Hypertension continue lopressor diltiazem morbid obesity weight loss recommended dvt prophyalxis - eliquis full code reason for continued hospitalization: monitor heart rate and rhythm Quality Stroke Does the patient have a stroke diagnosis?: No VTE Prior VTE?: No VTE Risk Level:: Medical - moderate - high VTE Device Contraindication: Treatment Not Indicated VTE Drug Contraindication: N/A - Med Ordered
[2023-04-26] MEDS: Flecainide Acetate 50 MG TABLET 100 MG PO (19:54)
[2023-04-27] VITALS: BP 134/89; PULSE 77; RESP 19; TEMP 36.2; O2SAT 90
[2023-04-27 03:20] VITALS: BP 141/80; PULSE 67; RESP 15; TEMP 36.2; O2SAT 95
[2023-04-27 07:30] VITALS: BP 127/69; PULSE 65; RESP 20; TEMP 36.3; O2SAT 99
[2023-04-27 08:28] LABS: Anion Gap 12 (12-20); Blood Urea Nitrogen 19 mg/dL (9-16); Calcium 9.3 mg/dL (8.4-10.2); Carbon Dioxide 30 mmol/L (22-29); Chloride 102 mmol/L (96-108); Creatinine Clr Calc Pharmacy 90.3; Estimated Glomerular Filt Rate 56; Glucose Random 105 mg/dL (60-115); Potassium 4.5 mmol/L (3.3-5.1); Sodium 139 mmol/L (135-145)
[2023-04-27] MEDS: Flecainide Acetate 50 MG TABLET 100 MG PO (08:30)
[2023-04-27] MEDS: Apixaban 5 MG TABLET PO (08:30)
[2023-04-27] MEDS: Cholecalciferol (Vitamin D3) 25 MCG TABLET 125 MCG PO (08:30)
[2023-04-27] MEDS: Zinc Sulfate 220 MG CAPSULE PO (08:31)
[2023-04-27] MEDS: dilTIAZem HCL CD 120 MG CAP.ER.DEG PO (08:31)
[2023-04-27] MEDS: Empagliflozin 25 MG TABLET PO (08:31)
[2023-04-27] MEDS: Furosemide 40 MG TABLET PO (08:31)
[2023-04-27] MEDS: 0.9 % Sodium Chloride Flush 3 ML SYRINGE IVFLUSH (08:31)
[2023-04-27 08:32] LABS: B Type Natriuretic Peptide 101 pg/mL (<100)
--- NOTE | 2023-04-27 10:32 | PM.PNCARD ---
Subjective Subjective Date of Service: 04/27/23 Interval history: She states she is feeling okay. No cardiac complaints. Underwent transesophageal echocardiogram/cardioversion yesterday. Review of Systems Review of Systems Yes all other systems are reviewed and are negative Constitutional: Reports as per HPI and Reports no additional constitutional complaints Eyes: Reports as per HPI and Denies no additional eye complaints Denies system reviewed and no additional complaints, except as documented and Reports as per HPI Cardiovascular: Reports as per HPI, Reports no additional cardiovascular complaints, Denies acrocyanosis, Denies cool extremities, Denies chest pain, Denies leg edema, Denies lightheadedness, Denies palpitations and Denies dyspnea Respiratory: Reports as per HPI, Denies no additional respiratory complaints and Denies dyspnea Gastrointestinal: Reports as per HPI and Denies no additional gastrointestinal complaints Genitourinary: Reports as per HPI Musculoskeletal: Reports no additional musculoskeletal complaints and Reports as per HPI Skin/Breast: Reports system reviewed and no additional complaints, except as docu Reports system reviewed and no additional complaints, except as documented and Reports as per HPI Psychiatric: Reports no additional psychiatric complaints and Reports as per HPI Endocrine: Reports no additional endocrine complaints, Reports as per HPI and Denies palpitations Hematologic/Lymphatic: Reports no additional hematologic/lymphatic complaints and Reports as per HPI Allergic/Immunologic: Reports no additional allergic/immunologic complaints and Reports as per HPI Physical Exam Vital Signs: Last Vital Signs Temp 97.4 F 04/27/23 07:30 Pulse 65 04/27/23 07:30 Resp 20 04/27/23 07:30 BP 127/69 04/27/23 07:30 Pulse Ox 99 04/27/23 07:30 O2 Del Method Oxymask 04/27/23 07:30 O2 Flow Rate 2 04/27/23 07:30 BMI result Body Mass Index 64.5 Const General: comfortable and no acute distress Orientation/consciousness: patient oriented x3 HEENT Other: Unremarkable Head: Yes normal to inspection Neck Neck: Yes normal visual inspection Chest Chest palpation & inspection: normal inspection of the chest Resp Auscultation: clear to auscultation bilaterally Cardio Palpation: normal PMI Heart sounds: S1 normal heart sound present, S2 normal heart sound present, no gallops, no murmurs and no rubs GI Palpation (GI): Soft to palpation Back/Spine/Pelvis Other: unremarkable Skin General skin exam: no rashes or lesions noted Neuro General: patient oriented x3 Extrem General: Yes normal to inspection Psych Mental Status: mental status grossly normal Objective Labs and Meds 04/26/23 08:12 04/27/23 06:38 Lab results: Laboratory Results - last 24 hr 04/27/23 06:38 Sodium 139 Potassium 4.5 Chloride 102 Carbon Dioxide 30 H Anion Gap 12 BUN 19 H Creatinine 1.03 Estim Creat Clear Calc 90.3 Estimated GFR 56 Random Glucose 105 Calcium 9.3 B-Natriuretic Peptide 101 H Progress Note: A&P Assessment and plan (1) Atrial flutter with rapid ventricular response: Status: Acute (2) Acute CHF: Status: Acute Plan Status post transesophageal echocardiogram and cardioversion as today. Currently, she remains sinus rhythm. He received flecainide as today. May continue this for home. Continue diltiazem. Anticoagulation. May stop diuretics for now. Will need sleep study. Follow-up will be arranged. Discussed with Dr. Osorio. Time Spent With Patient Time: Total time managing care of this patient today ____ minutes. Progress Note: Quality Stroke Does the patient have a stroke diagnosis?: No Procedures Date of Service Date of Service: 04/27/23
--- NOTE | 2023-04-27 10:37 | MHC.CM.PN ---
HCP on file, copies given to pt., pt is medically cleared for DC, she will drive herself home, self care.
[2023-04-27 11:08] VITALS: BP 119/68; PULSE 74; RESP 20; TEMP 36.2; O2SAT 93
--- NOTE | 2023-04-27 11:52 | PM.DS ---
DS: Providers Provider Date of Service: 04/27/23 Date of admission: 04/23/23 00:21 Primary care physician: None Physician Consults: 04/23/23 00:23 Consult to Cardiology Routine Consulting Provider: [facility] Cardiovascular Services Reason for consultation: atrial flutter with rvr Has provider been notified: Yes DS: Diagnosis Discharge Diagnosis (1) Atrial flutter with rapid ventricular response: Status: Acute (2) Acute CHF: Status: Acute (3) CHF exacerbation: Status: Acute (4) Morbid obesity: Status: Acute DS: Summary Hospital Course Hospital Course: Admission note HPI This is a 52-year-old female with no pertinent past medical history and not on prescription medications who presents to the emergency department for evaluation of dyspnea. Patient states she has not seen a physician in many years. Presents today for dyspnea which is worse with exertion and has been ongoing for a while. Admits orthopnea. Is not sure about PND. Reports swelling in bilateral lower extremities. No fever, chills, chest discomfort, palpitations, nausea, vomiting, abdominal pain, changes in urinary or bowel habits. In the emergency department, patient was found to be hypoxemic. Imaging with vascular congestion and pulmonary edema. Also found to be in atrial flutter. Hospital course # Acute hypoxic respiratory failure secondary to diastolic acute CHF as Echo showed preserved EF of almost 55-60%. she was treated with IV lasix with good response. Followed by cardiology who recommended to hold on Lasix at time of discharge and to be followed as outpatient. recommended a sleep study as outpatient. # New onset atrial flutter with rapid ventricular response Treated primarly with dig load, lopressor 50mg q6h, diltiazem 60mg q6h with no good control. Cardiology did a Cardioversion on 04/26 with good response as she converted back to sinus. Recommended Flecainide 100 mg bid and Cardizem 120mg CD. To be followed by cardio as outpatient. Continue Flecainide and Cardizem as prescribed Eliquis as blood thinner Low sodium diet You will need outpatient sleep study To follow with dr Roth as outpatient Time Attestation Discharge coordination time: Greater than 30 minutes Quality: Safe Use of Opioids Does Pt have an Active Cancer Diagnosis on the Problem List?: No Quality: Stroke Does the patient have a stroke diagnosis?: No Physical Exam Vital Signs: Vital Signs: Last Vital Signs Temp 97.2 F 11/16/23 11:08 Pulse 74 04/27/23 11:08 Resp 20 04/27/23 11:08 BP 119/68 04/27/23 11:08 Pulse Ox 93 04/27/23 11:08 O2 Del Method Oxymask 04/27/23 11:08 O2 Flow Rate 2 04/27/23 11:08 BMI result Body Mass Index 64.5 Const: Other: Constitutional : Awake, interactive, morbidly obese , not in distress Neck : Normal inspection, Supple Cardiovascular : RRR, no JVP, no lower extremity edema Respiratory : good bilateral air entry, no crackles, wheezes or rhonchi Gastrointestinal: soft, lax, Normal bowel sounds, Non tender Skin : Warm, Dry Neurological : Alert & oriented x3, No focal deficit DS: Data Data Completed and Pending Labs on day of discharge: Laboratory Results - last 24 hr 04/27/23 06:38 Sodium 139 Potassium 4.5 Chloride 102 Carbon Dioxide 30 H Anion Gap 12 BUN 19 H Creatinine 1.03 Estim Creat Clear Calc 90.3 Estimated GFR 56 Random Glucose 105 Calcium 9.3 B-Natriuretic Peptide 101 H Imaging Chest x-ray: Radiologist's impression: ITS Impressions Chest X-Ray 04/22/23 16:58 IMPRESSION: Findings suspicious for pulmonary edema with diffuse interstitial thickening and small bilateral pleural effusions. However, an atypical infectious/inflammatory processes such as viral pneumonia could manifest similarly and cannot be excluded, clinical correlation recommended. Discharge Plan Discharge Anticipated Discharge Date/Time: 04/27/23 11:42 Patient Disposition: Home, Self-Care Discharge Diagnosis: Atrial fibrillation , new Heart failure, new Referrals: Physician,None [Primary Care Provider] - 1 Week Discharge Medications: New Eliquis 5 mg Tablet 5 mg PO BID Qty: 60 0RF flecainide 50 mg Tablet 100 mg PO BID Qty: 60 0RF diltiazem HCl [Cardizem CD] 120 mg Capsule,Extended Release 24hr 120 mg PO DAILY Qty: 30 0RF Protocol: Hold for SBP/HR < HOLD for SBP < : 90 HOLD for HR < : 60 ammonium lactate 12 % Lotion 1 appl topical BID Qty: 400 1RF Protocol: Apply to: Apply to: Lower extremities Continued zinc 50 mg Capsule 50 mg PO DAILY cholecalciferol (vitamin D3) [Vitamin D3] 125 mcg (5,000 unit) Tablet 125 mcg PO DAILY Discharge Orders: Discharge Order (Routine); Ordered 04/27/23 Ordered By: Kaye Osorio Diet: Low salt diet Activity on Discharge: As tolerated Stand Alone Forms: Patient Portal Discharge page Care Plan Goals: Read below Health Concerns: Read below Plan of Treatment: Read below Assessment: You were admitted for treatment of rapid irregular heart rhythm called Atrial fibrillation associated with fluids overload. treated with IV and oral medications with fair response as you were evaluated by scale attendant who did a Cardioversion to convert your heart back to regular. Continue Flecainide and Cardizem as prescribed Eliquis as blood thinner Low sodium diet You will need outpatient sleep study To follow with dr Roth as outpatient
[2023-04-27] MEDS: Lidocaine 4 % Patch ADH..PATCH 1 PATCH TRANSDERMA (13:09)
--- NOTE | 2023-04-27 13:40 | P.CDIM_ITS ---
PROVIDER RESPONSE TEXT: To clarify, the appropriate diagnosis supported by the clinical indicators: Diastolic: acute QUERY TEXT: PHYSICIAN'S DOCUMENTATION REQUEST Date of Query: 04/27/2023 08:35 AM EST Patient Name: Cristina Skaggs Admit Date: 04/23/2023 Dear Kaye Osorio, A review of the medical record indicates additional documentation may be needed. Please review below and update the documentation accordingly. Clinical Indicators: PN: Congestive heart failure PO Lasix 40mg daily Echo showing preserved function BNP 162 H 101 H Please provide further specificity regarding the most likely type and acuity of CHF you are evaluatin g, treating, or monitoring. Systolic Please specify if Acute, Chronic, or Acute on chronic, or Unable to determine Diastolic Please specify if Acute, Chronic, or Acute on chronic, or Unable to determine Combined Systolic/Diastolic Please specify if Acute, Chronic, or Acute on chronic, or Unable to determine Other (explain) Clinically unable to determine (explain) Thank you, Lissy Saldana, CCS, CDIS Use of terms such as suspected, likely, concern for, or probable (associated with a specific diagnosi s that is being evaluated, monitored, or treated as if it exists) are acceptable and can be coded in the inpatient se tting, when documented at the time of discharge. Please use your independent medical judgment in providing your response. THIS QUERY IS PART OF THE PERMANENT MEDICAL RECORD
--- NOTE | 2023-04-28 10:16 | HO.POSTANES ---
Post Anesthesia Evaluation Post Anesthesia Evaluation Date of Service: 04/27/23 Vital Signs: Patient seen on 04/27/23 at 0915am Vitals: 164/80, 75, 20, 98F, 93%RA Anesthesia: General Mental Status: Awake Pain Control: Satisfactory Nausea/Vomiting: None Hydration: Adequate Anesthesia-Related Issues: No Anes. Related Issues
== END 2023-04-27 13:58 | disposition home or self-care (01) | DRG 201 ==
LOC: HO.ED 17:14 → HO.EDOVER 04-23 00:33 → HO.IMC 04-23 16:42
PROVIDERS: Internal Medicine; Nurse Practitioner Family; Admitting Provider Student in an Organized Health Care Education/Training Program; Emergency Provider Student in an Organized Health Care Education/Training Program; Visit Provider Student in an Organized Health Care Education/Training Program
PROC: 5A2204Z Restoration of Cardiac Rhythm, Single (ICD-10-PCS; principal; 2023-04-26 10:00)
PROC: 5A2204Z Restoration of Cardiac Rhythm, Single (ICD-10-PCS; CPT 93312; 2023-04-26 10:00)
DX: I48.92 Unspecified atrial flutter (principal); J96.01 Acute respiratory failure with hypoxia; I50.31 Acute diastolic (congestive) heart failure; I16.1 Hypertensive emergency; E66.01 Morbid (severe) obesity due to excess calories; Z68.44 Body mass index [BMI] 60.0-69.9, adult; I11.0 Hypertensive heart disease with heart failure; F17.210 Nicotine dependence, cigarettes, uncomplicated; Z20.822 Contact with and (suspected) exposure to COVID-19; Z71.6 Tobacco abuse counseling; Z79.899 Other long term (current) drug therapy
CPT/HCPCS: 0241U; 36415; 71046; 80048; 80076; 83735; 83880; 84443; 84484; 85025; 85027; 85610; 85730; 87502; 87635; 92960; 93005; 93306; 99285; J1100; J1160; J1650; J1940; J2250; J2405; J2704; J3010; Q9957

== ENCOUNTER → 2023-04-22 17:13 | Outpatient (BNV) | payer OTHER, SELFPAY | PROVIDERS: Emergency Provider Student in an Organized Health Care Education/Training Program; Visit Provider Student in an Organized Health Care Education/Training Program | DX: I48.92 Unspecified atrial flutter (principal); I50.9 Heart failure, unspecified; E66.01 Morbid (severe) obesity due to excess calories; Z68.44 Body mass index [BMI] 60.0-69.9, adult | CPT/HCPCS: 99223; 99232; 99233; 99239; 99499 ==

== ENCOUNTER 2023-04-23 00:21 | Outpatient (BNV) | payer OTHER, SELFPAY | END 2023-04-26 10:00 | PROVIDERS: Admitting Provider Student in an Organized Health Care Education/Training Program; Emergency Provider Student in an Organized Health Care Education/Training Program; Visit Provider Internal Medicine | DX: I48.92 Unspecified atrial flutter (principal); I36.1 Nonrheumatic tricuspid (valve) insufficiency | CPT/HCPCS: 93312; 93320; 93325 ==

== ENCOUNTER 2023-04-23 00:21 | Outpatient (BNV) | payer OTHER, SELFPAY | END 2023-04-25 07:00 | PROVIDERS: Admitting Provider Student in an Organized Health Care Education/Training Program; Emergency Provider Student in an Organized Health Care Education/Training Program; Visit Provider Internal Medicine | DX: I48.92 Unspecified atrial flutter (principal) | CPT/HCPCS: 93306 ==

== ENCOUNTER → 2023-04-23 00:21 | Outpatient (BNV) | payer OTHER, SELFPAY | PROVIDERS: Admitting Provider Student in an Organized Health Care Education/Training Program; Emergency Provider Student in an Organized Health Care Education/Training Program; Visit Provider Internal Medicine Cardiovascular Disease | DX: I50.9 Heart failure, unspecified (principal); I48.92 Unspecified atrial flutter | CPT/HCPCS: 92960; 99222; 99233 ==

== ENCOUNTER 2023-05-22 09:46 | Outpatient (AMB) | payer OTHER, SELFPAY ==
--- NOTE | 2023-05-22 09:54 | A.OFFVIS_ITS ---
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 Allergies acetaminophen [From NyQuil] Allergy (Mild, Verified 05/22/23 09:57) Hives aspirin [From Niharika-Mineral] Allergy (Mild, Verified 05/22/23 09:57) Hives citric acid [From Niharika-Mineral] Allergy (Mild, Verified 05/22/23 09:57) Hives dextromethorphan [From NyQuil] Allergy (Mild, Verified 05/22/23 09:57) Hives doxylamine [From NyQuil] Allergy (Mild, Verified 05/22/23 09:57) Hives pseudoephedrine [From NyQuil] Allergy (Mild, Verified 05/22/23 09:57) Hives sodium bicarbonate [From Niharika-Mineral] Allergy (Mild, Verified 05/22/23 09:57) Hives Medication List - Last Reconciled 05/22/23 by DARWIN Kirkpatrick ammonium lactate 12% 1 appl See Protocol topical BID apixaban (Eliquis) 5 mg PO BID cholecalciferol (vitamin D3) (Vitamin D3) 125 mcg PO DAILY diltiazem HCl (Cardizem CD) 120 mg See Protocol PO DAILY flecainide 100 mg (2 x 50 mg) PO BID zinc 50 mg PO DAILY HPI f/u HPI Details Cristina is a 53-year-old female with past medical history of morbid obesity who was recently admitted to [facility] with increased shortness of breath and leg swelling. She was found to have atrial flutter, Congestive heart failure. She was initially treated with heart rate control which proved to be difficult. She then underwent a transesophageal echo/cardioversion with successful conversion to sinus rhythm. She was started on flecainide to help maintain rhythm control. Today she reports that she ran out of flecainide over 1 week ago. She has been feeling well since her hospital discharge. She denies any shortness of breath, heart palpitations. She does notice some mild leg swelling. No chest discomfort at rest or with activity. No lightheadedness, presyncope, syncope, falls. No PND, orthopnea. She has been taking her diltiazem and Eliquis as directed. 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 [facility] Medical History Morbid obesity Hypertension Congestive heart failure Atrial flutter with rapid ventricular response Social History Household Members: Children and Friend(s) Housing: House Do you presently have visiting nurse or other home services: No Comment: refusing alarm and camera Patient Tobacco Use Status: Current everyday Tobacco user Tobacco use type: Cigarette Second Hand Smoke Exposure: No service: No Review of Systems Const All systems reviewed & are unremarkable except as noted in HPI and below ENT Denies dizziness Card Denies chest pain, Denies chest pain at rest, Denies chest pain with activity, Denies rapid heart rate, Denies pedal edema, Denies edema, Reports leg edema, Denies lightheadedness, Denies palpitations, Denies dyspnea, Denies dyspnea on exertion and Denies orthopnea Resp Denies cough, Denies dyspnea and Denies dyspnea on exertion GI Denies hematochezia and Denies change in stool character Musc Denies abnormal gait, Denies limited range of motion, Denies muscle cramps, Denies muscle weakness, Denies numbness, Denies radiating pain into limb, Denies stiffness and Denies tingling Neuro Denies abnormal gait, Denies dizziness, Denies numbness and Denies tingling Endo Denies palpitations Physical Exam Vital Signs: Last Vital Signs Pulse 137 H 05/22/23 09:57 BP 120/92 H 05/22/23 09:57 BMI result Body Mass Index 62.8 Const General: cooperative, healthy appearing, comfortable and no acute distress Orientation/consciousness: patient oriented x3 HEENT Head: Yes normal to inspection Neck Neck: Yes normal visual inspection Chest Chest palpation & inspection: normal inspection of the chest Resp Effort & Inspection: normal respiratory effort Auscultation: clear to auscultation bilaterally, no crackles, no rales, no rhonchi and no wheezes Cardio Jugular venous distension: no JVD Rate: tachycardic Rhythm: abnormal rhythm Heart sounds: S1 normal heart sound present, S2 normal heart sound present, no gallops, no murmurs and no rubs Peripheral pulses: Peripheral pulses 2+ throughout GI Inspection: Yes normal to inspection Skin General skin exam: no rashes or lesions noted Neuro General: patient oriented x3 Extrem Other: tight swelling in each lower leg General: Yes no pedal edema and Yes calf tenderness Psych Appearance: grossly normal Mental Status: mental status grossly normal Speech and movement: Normal speech and movement present Office Procedures EKG Details: Today, read by me, atrial flutter with 2:1 conduction, cant exclude anterior infarct, T wave abn, rates 137 [id number], Complete Assessment & Plan Assessment & Plan (1) Atrial flutter with rapid ventricular response: Code(s): I48.92 - Unspecified atrial flutter Plan: Recent [facility] admission with shortness of breath, Congestive heart failure. She had findings of atrial flutter with RVR. Her heart rate was difficult to control and she required OTILIO cardioversion. She was then put on flecainide for rhythm control. On discharge she was given enough flecainide for 16 days. She ran out over 1 week ago. She has been taking her diltiazem and Eliquis without interruption. An EKG done today showing atrial flutter, heart rate 137. She denies any heart palpitations, shortness of breath. She does have bilateral lower leg edema. Reviewed with Dr. Roth. Will restart flecainide 100 mg b.i.d.. Will arrange for office EKG in 4-5 days. Will start on low-dose Lasix to be used as needed for leg swelling, shortness of breath. If she continues to have atrial flutter at time of follow-up EKG she may require cardioversion to get her back into normal rhythm. Cardiology follow-up to be determined. Diagnosis of atrial flutter, Congestive heart failure reviewed with her. Em ergency care if needed for symptoms. (2) Congestive heart failure: Code(s): I50.9 - Heart failure, unspecified Plan: Symptom of shortness of breath and leg swelling at time a recent hospital admission. She was treated for congestive heart failure, pulmonary edema. Echocardiogram done 04/25/2023 showed EF 55-60%, no obvious valve abnormalities. BNP was elevated at 162. She was treated with IV Lasix. She was not sent home with diuretics. Her Congestive heart failure was most likely related to her a flutter RVR. Today she denies having shortness of breath however does have bilateral tight lower leg edema. Some of this may be related to her morbid obesity, venous insufficiency. Will prescribe Lasix 20 mg p.o. daily p.r.n. for leg swelling and shortness of breath if it develops. Atrial flutter being treated as above. (3) Morbid obesity: Code(s): E66.01 - Morbid (severe) obesity due to excess calories Plan: As above Plan Time spent on chart review, documentation, interview, assess Medications: New flecainide 100 mg PO Q12H 60 tabs 5RF furosemide (Lasix) Water pill Take one daily as needed for leg swelling 20 mg PO DAILY PRN 30 tabs 1RF edema Changed From apixaban (Eliquis) 5 mg PO BID 60 tabs 0RF To apixaban (Eliquis) 5 mg PO BID 90 days 180 tabs 3RF From diltiazem HCl (Cardizem CD) 120 mg See Protocol PO DAILY 30 caps 0RF To diltiazem HCl (Cardizem CD) 120 mg See Protocol PO DAILY 30 days 30 caps 5RF Discontinued flecainide Discontinued Reason: Doctor's Order 100 mg (2 x 50 mg) PO BID 60 tabs 0RF Coding Level of Care Code Est Pt Level 4 (77180) Diagnoses Atrial flutter with rapid ventricular response I48.92 Congestive heart failure I50.9 Morbid obesity E66.01 CPT Codes EKG - CPT: 69986-[id number], Complete ([id number]) Time Spent (min) 28
[2023-05-22 09:57] VITALS: BP 120/92; PULSE 137; BMI 62.8
== END 2023-05-22 10:31 | disposition home or self-care (01) ==
PROVIDERS: Visit Provider Nurse Practitioner Family
DX: I48.92 Unspecified atrial flutter (principal); I50.9 Heart failure, unspecified; E66.01 Morbid (severe) obesity due to excess calories
CPT/HCPCS: 93010; 99214

== ENCOUNTER → 2023-05-22 09:46 | Outpatient (BNVA) | payer OTHER, SELFPAY | PROVIDERS: Visit Provider Nurse Practitioner Family | DX: I48.92 Unspecified atrial flutter (principal); I50.9 Heart failure, unspecified | CPT/HCPCS: 93005 ==

== ENCOUNTER 2023-05-26 08:44 | Outpatient (AMB) | payer OTHER, SELFPAY ==
--- NOTE | 2023-05-26 09:21 | AM.OFFVISNUR ---
Intake Intake Visit Reasons: EKG Intake Note: Ekg dx atrial flutter feeling ok other then having a cough Allergies acetaminophen [From NyQuil] Allergy (Mild, Verified 05/22/23 09:57) Hives aspirin [From Niharika-Morse] Allergy (Mild, Verified 05/22/23 09:57) Hives citric acid [From Niharika-Morse] Allergy (Mild, Verified 05/22/23 09:57) Hives dextromethorphan [From NyQuil] Allergy (Mild, Verified 05/22/23 09:57) Hives doxylamine [From NyQuil] Allergy (Mild, Verified 05/22/23 09:57) Hives pseudoephedrine [From NyQuil] Allergy (Mild, Verified 05/22/23 09:57) Hives sodium bicarbonate [From Niharika-Morse] Allergy (Mild, Verified 05/22/23 09:57) Hives Coding Assessment & Plan Assessment & Plan Orders: Orders AMB EKG-In Office Today I48.92 - Unspecified atrial flutter
== END 2023-05-26 09:31 | disposition home or self-care (01) ==
PROVIDERS: Visit Provider Nurse Practitioner Family
DX: I48.92 Unspecified atrial flutter (principal); R94.31 Abnormal electrocardiogram [ECG] [EKG]
CPT/HCPCS: 93010

== ENCOUNTER → 2023-05-26 08:44 | Outpatient (BNVA) | payer OTHER, SELFPAY | PROVIDERS: Visit Provider Nurse Practitioner Family ==

== ENCOUNTER 2023-05-26 19:12 | Inpatient (IN) | payer OTHER, SELFPAY ==
--- NOTE | ~2023-05-26 | US_ITS ---
EXAMINATION: US ABDOMEN LIMITED CLINICAL INFORMATION: Pancytopenia. COMPARISON: None available. TECHNIQUE: Real-time imaging of the abdominal viscera. Technically moderately suboptimal study secondary to body habitus. Unable to reposition due to O2 intake (patient with shortness of breath). FINDINGS: PANCREAS: Pancreas could not be evaluated as most of the gland was obscured by bowel gas. ABDOMINAL AORTA: Obscured by bowel gas. INFERIOR VENA CAVA: Obscured by bowel gas. LIVER: The liver measures 16 cm in greatest length. The liver contour is normal. Parenchymal echogenicity is heterogeneous. No focal hepatic lesion. There is no intrahepatic biliary duct dilatation seen. GALLBLADDER: Surgically absent. COMMON BILE DUCT: Not seen RIGHT KIDNEY: No hydronephrosis. No renal calculi or focal parenchymal lesions. The kidney measures 10.3 cm in maximum dimension. LEFT KIDNEY: Could not be visualized due to patient body habitus and inability to position. SPLEEN: Could not be visualized due to patient body habitus and inability to position. FREE FLUID: None. US/US abdomen limited IMPRESSION: 1. Extremely limited study due to patient body habitus and inability to position the patient. 2. Heterogeneous liver without focal lesion. 3. Status post cholecystectomy. 4. The left kidney, spleen, pancreas, aorta, IVC, and common bile duct could not be visualized.
--- NOTE | ~2023-05-26 | XR_ITS ---
EXAMINATION: XR CHEST CLINICAL INFORMATION: Cough with shortness of breath COMPARISON: 04/22/2023 TECHNIQUE: 2 views of the chest were obtained. FINDINGS: Again noted is cardiomegaly and upper zone redistribution with interstitial prominence. Tiny right pleural effusion is seen. Compared to the prior study from 04/22/2023, appearances are very similar. XR/XR chest 2V IMPRESSION: Cardiomegaly with upper zone redistribution and mild interstitial edema.
--- NOTE | ~2023-05-26 | XR_ITS ---
EXAMINATION: XR CHEST CLINICAL INFORMATION: Cough and SOB COMPARISON: Chest 05/26/2023 TECHNIQUE: Frontal view of the chest was obtained. FINDINGS: There is mild cardiomegaly with increased palmar vascularity suggestive of mild congestion. The lungs are expanded and clear without acute pneumonic process. There is no pleural effusion. No gross bony abnormality seen. XR/XR chest 1V IMPRESSION: Mild cardiomegaly with mild pulmonary vascular congestion.
[2023-05-26 20:03] VITALS: BP 176/97; PULSE 107; RESP 20; TEMP 36.9; O2SAT 88; BMI 63.1
--- NOTE | 2023-05-26 20:03 | ED.GENADULT ---
HPI - General Adult General Chief complaint: Dyspnea Stated complaint: SoB Time Seen by Provider: 05/26/23 20:11 Source: patient Limitations: no limitations History of Present Illness HPI narrative: 53-year-old female with history of CHF, currently on Lasix 20 mg, history of a flutter on Eliquis, hypertension, presents for evaluation of shortness of breath. Patient states symptoms progressively worsened throughout the day today. She was actually at her PCP appointment earlier today for a follow-up due to rapid heart rate earlier in the week. Patient reports having an EKG and was ultimately discharged home. She reports that she has had progressively worsening shortness of breath. She feels as though she cannot take a deep breath. Upon arrival to the emergency department, her oxygen saturation was 88% on room air. She does not wear oxygen. Patient acknowledges lower extremity edema which she does not feel is unchanged from baseline. Related Data Home Medications Medication Instructions Recorded Confirmed cholecalciferol (vitamin D3) 125 125 mcg PO DAILY 04/23/23 05/22/23 mcg (5,000 unit) tablet (Vitamin D3) zinc 50 mg capsule 50 mg PO DAILY 04/23/23 05/22/23 Previous Rx's Medication Instructions Recorded ammonium lactate 12 % lotion 1 appl topical BID #400 grams 04/27/23 apixaban 5 mg tablet (Eliquis) 5 mg PO BID 90 days #180 tabs 05/22/23 diltiazem HCl 120 mg 120 mg PO DAILY 30 days #30 caps 05/22/23 capsule,extended release 24 hr (Cardizem CD) flecainide 100 mg tablet 100 mg PO Q12H #60 tabs 05/22/23 furosemide 20 mg tablet (Lasix) 20 mg PO DAILY PRN edema #30 tabs 05/22/23 Allergies Allergy/AdvReac Type Severity Reaction Status Date / Time aspirin [From Niharika-[place]] Allergy Mild Hives Verified 05/26/23 20:10 citric acid Allergy Mild Hives Verified 05/26/23 20:10 [From Niharika-[place]] dextromethorphan Allergy Mild Hives Verified 05/26/23 20:10 [From NyQuil] doxylamine [From NyQuil] Allergy Mild Hives Verified 05/26/23 20:10 pseudoephedrine [From NyQuil] Allergy Mild Hives Verified 05/26/23 20:10 sodium bicarbonate Allergy Mild Hives Verified 05/26/23 20:10 [From Naomi] Review of Systems Constitutional: Constitutional: Denies chills, Denies fever(s) and Denies headache(s) ENT: Denies headache(s), Denies nasal congestion, Denies nasal discharge, Denies neck pain and Denies sore throat Cardiovascular: Cardiovascular: Denies chest pain, Reports palpitations, Reports dyspnea, Reports dyspnea on exertion and Reports orthopnea Respiratory: Respiratory: Denies cough, Reports dyspnea and Reports dyspnea on exertion Gastrointestinal: Gastrointestinal: Denies abdominal pain, Denies melena, Denies hematochezia, Denies diarrhea, Denies nausea and Denies vomiting Musculoskeletal: Musculoskeletal: Denies back pain, Denies muscle weakness, Denies neck pain and Denies numbness Integumentary/Breasts: Skin/Breast: Denies rash Neurologic: Denies headache(s), Denies focal weakness and Denies numbness Psychiatric: Psychiatric: Denies depression Endocrine: Endocrine: Reports palpitations PMFSH Past Medical History Medical History Morbid obesity Hypertension Congestive heart failure Atrial flutter with rapid ventricular response Social History Social History Household Members: Children and Friend(s) Housing: House Do you presently have visiting nurse or other home services: No Comment: refusing alarm and camera Patient Tobacco Use Status: Never used Tobacco Tobacco use type: Cigarette Second Hand Smoke Exposure: No Advance Directives: Yes Advance Directives on File: Yes Advance Directives Date on File: 04/28/23 Nutrition Risks: No Nutritional Risk service: No Physical Exam ED Vital Signs: Vital Signs - 24 hr 05/26/23 20:03 05/26/23 22:07 Temperature 98.4 F Pulse Rate 107 H 110 H Respiratory Rate 20 18 Blood Pressure 176/97 H 164/88 H Pulse Oximetry 88 L 96 Oxygen Delivery Method Room Air Oxymask Oxygen Flow Rate 4 BMI result Body Mass Index 63.1 Const General: cooperative, alert and awake Resp Other: Diminished lung sounds throughout. No wheezing. Cardio Rate: regular rate Rhythm: regular rhythm Extrem Other: Bilateral lower extremity edema to the knees. Course Course Course Narrative: RME performed by Viri Otero PA-C. Patient is a 53 year old assigned female at presenting to the emergency department with a cough and shortness of breath. Labs, imaging, and swabs ordered. Patient placed back in the waiting room pending room availability and results. Reevaluation(s) Reevaluation #1: Patient is much more comfortable now that she continues to be on oxygen, has received IV Lasix. BNP is elevated at 130. Will discuss with the hospital team for transfer of care, Dr. Galdamez. Time: 22:35 Medications Administered Generic Name Dose Route Start Last Admin Trade Name Freq PRN Reason Stop Dose Admin Enoxaparin Sodium 40 mg 05/27/23 00:00 05/27/23 00:31 Enoxaparin Sodium 40 Mg/0.4 Ml Syringe SUBCUT Not Given Q12H DANYELL Sodium Chloride 3 ml 05/27/23 00:00 05/27/23 00:05 0.9 % Sodium Chloride Flush 3 Ml Syringe IVFLUSH 3 ml QSHIFT DANYELL Administration Discontinued Medications Generic Name Dose Route Start Last Admin Trade Name Freq PRN Reason Stop Dose Admin Furosemide 40 mg 05/26/23 22:02 05/26/23 22:23 Furosemide 40 Mg/4 Ml Vial IVPUSH 05/26/23 22:03 40 mg ONCE ONE Administration Protocol Medical Decision Making Medical Decision Making [facility] Narrative: 53-year-old female with history of CHF, unknown EF, aflutter on Eliquis, presents for worsening shortness of breath. Labs, EKG, chest x-ray. Patient with tachypnea and mild tachycardia on arrival and an oxygen saturation on 88% on room air. Increased to 96% on OxyMask. Increased heart rate throughout the day. Will diurese and patient will likely need to be brought to the hospital for further evaluation and management. Differential Diagnosis Differential Diagnoses: The differential diagnosis associated with the presentation includes ACS CHF Arrhythmia Metabolic abnormality Admission/Observation Consideration of admission/observation: Escalation of care including admission/observation considered Consult Healthcare Provider Management of the patient was discussed with: Hospitalist Lab Data [facility] Lab Attestation statement: I reviewed the patient's lab results. 05/26/23 21:26 05/26/23 21:26 Labs: Lab Results 05/26/23 05/26/23 Range/Units 20:55 21:26 WBC 5.7 (4.8-10.8) X10*3/uL RBC 3.71 L (4.20-5.50) X10*6/uL Hgb 11.9 L (12.0-16.0) g/dl Hct 37.7 (37.0-47.0) % MCV 101.6 H (80.0-98.0) fL MCH 32.1 (27.0-33.0) pg MCHC 31.6 (31.0-35.0) g/dl RDW 14.1 (11.0-16.0) % Plt Count 165 (160-400) X10*3/uL MPV 9.8 (9.4-12.3) fL Immature Gran % (Auto) 0.2 (0.0-0.4) % Neut % (Auto) 88.4 H (45-73) % Lymph % (Auto) 5.8 L (20-40) % [place] % (Auto) 4.9 (2-11) % Eos % (Auto) 0.5 (0-4) % Baso % (Auto) 0.2 (0-2) % Lymph # (Auto) 0.3 L (1.2-4.9) X10*3/uL [place] # (Auto) 0.3 (0.1-1.2) X10*3/uL Eos # (Auto) 0.0 (0.0-0.4) X10*3/uL Baso # (Auto) 0.0 (0.0-0.2) X10*3/uL Abs Immat Gran (auto) 0.01 (0.00-0.03) X10*3/uL Absolute Neuts (auto) 5.0 (2.0-8.3) x10*3/uL Absolute Nucleated RBC 0.000 (0.0-0.012) X10*3/uL Nucleated RBC % (auto) 0.0 (0.0-0.2) /100WBC Sodium 142 (135-145) mmol/L Potassium 4.4 (3.3-5.1) mmol/L Chloride 104 (96-108) mmol/L Carbon Dioxide 28 (22-29) mmol/L Anion Gap 14 (12-20) BUN 15 (9-16) mg/dL Creatinine 0.87 (0.5-1.4) mg/dL Estim Creat Clear Calc 104.2 Estimated GFR > 60 Random Glucose 100 (60-115) mg/dL Calcium 9.2 (8.4-10.2) mg/dL Magnesium 2.0 (1.6-2.6) mg/dL Total Bilirubin 0.6 (0.0-1.0) mg/dL AST 20 (5-31) U/L ALT 19 (0-31) U/L Alkaline Phosphatase 106 (39-117) U/L Troponin I High Sens 5.8 (<3.5-17.0) ng/L B-Natriuretic Peptide 138 H (<100) pg/mL Total Protein 7.6 (6.5-8.0) g/dL Albumin 4.0 (3.5-5.0) g/dL Urine Color Yellow Urine Appearance Clear Urine pH 7.0 (5.0-9.0) Ur Specific [place] 1.020 (1.005-1.025) Urine Protein Negative (Neg-Trace) mg/dL Urine Glucose (UA) Negative (Negative) mg/dL Urine Ketones Negative (Negative) mg/dL Urine Blood Negative (Negative) Urine Nitrite Negative (Negative) Ur Leukocyte Esterase Negative (Negative) Influenza Type A (PCR) NEGATIVE (Negative) Influenza Type B (PCR) NEGATIVE (Negative) RSV RNA Qual (PCR) NEGATIVE (Negative) SARS-CoV-2 RNA (RT-PCR) NEGATIVE (Negative) Independent Interpretation I performed an independent interpretation of an: EKG Interpretation: A flutter and it is 99 beats per minute without any acute ischemic changes. Radiology Impression Discussion of test interpretation with radiology: I have reviewed the radiologist's reading. Radiologist Impression: [address] [address] XRay Report Signed Patient: Cristina Skaggs MR#: [id number] : 1970 Acct:[id number] Age/Sex: 53 / F ADM Date: 05/26/23 Loc: .ED Attending Dr: Ordering Physician: Viri Otero Date of Service: 05/26/23 Procedure(s): XR chest 2V Accession Number(s): [id number] cc: Viri Otero; Physician,Unknown ~ EXAMINATION: XR CHEST CLINICAL INFORMATION: Cough with shortness of breath COMPARISON: 04/22/2023 TECHNIQUE: 2 views of the chest were obtained. FINDINGS: Again noted is cardiomegaly and upper zone redistribution with interstitial prominence. Tiny right pleural effusion is seen. Compared to the prior study from 04/22/2023, appearances are very similar. XR/XR chest 2V IMPRESSION: Cardiomegaly with upper zone redistribution and mild interstitial edema. Dictated By: Kvng Collins MD Signed By: <Electronically signed by Kvng Collins MD in OV> 05/26/232128 DD/ 44 TD/TT: Breeding Manager: SS External Record Review External record reviewed: Inpatient record and Outpatient record Chronic Conditions Patient?s care impacted by: Hypertension Discharge Plan Discharge Clinical Impression: Atrial flutter, Morbid obesity Congestive heart failure Qualifiers: Heart failure type: unspecified Heart failure chronicity: chronic Qualified Code(s): I50.9 - Heart failure, unspecified Patient Disposition: Admitted As Inpatient
--- NOTE | 2023-05-26 20:04 | ECG_ITS ---
Test Reason : DYSPNEA Blood Pressure : / mmHG Vent. Rate : 099 BPM Atrial Rate : 234 BPM P-R Int : 000 ms QRS Dur : 094 ms QT Int : 386 ms P-R-T Axes : 249 -17 -13 degrees QTc Int : 495 ms Atrial flutter with variable A-V block Nonspecific ST abnormality Prolonged QT Abnormal ECG When compared with ECG of 26-APR-2023 10:55, Atrial flutter has replaced Sinus rhythm Vent. rate has increased BY 38 BPM Referred By: Viri Otero Electronically Signed By:José Miguel Allen
[2023-05-26 21:04] LABS: Appearance Urine Clear; Color Urine Yellow; Glucose Urine UA Negative (Negative); Leukocyte Esterase Urine Negative (Negative); Nitrite Urine Negative (Negative); Urine Blood Negative (Negative); Urine Ketones Negative (Negative); Urine Protein Negative (Neg-Trace)
[2023-05-26 21:35] LABS: MANUAL DIFF FLAG NO
[2023-05-26 21:38] LABS: Basophils Percent Auto 0.2 % (0-2); Eosinophils Percent Auto 0.5 % (0-4); Hematocrit 37.7 % (37.0-47.0); Hemoglobin 11.9 g/dl (12.0-16.0); Imm Gran Abs Auto 0.01 X10*3/uL (0.00-0.03); Imm Gran Pct Auto 0.2 % (0.0-0.4); Lymphocytes Absolute Auto 0.3 X10*3/uL (1.2-4.9); Lymphocytes Percent Auto 5.8 % (20-40); Mean Corpuscular HGB Conc 31.6 g/dl (31.0-35.0); Mean Corpuscular Hemoglobin 32.1 pg (27.0-33.0); Mean Corpuscular Volume 101.6 fL (80.0-98.0); Mean Platelet Volume 9.8 fL (9.4-12.3); Monocytes Absolute Auto 0.3 X10*3/uL (0.1-1.2); Monocytes Percent Auto 4.9 % (2-11); Neutrophils Percent Auto 88.4 % (45-73); Platelet Count 165 X10*3/uL (160-400); Red Blood Count 3.71 X10*6/uL (4.20-5.50); Red Cell Distribution Width 14.1 % (11.0-16.0); White Blood Count 5.7 X10*3/uL (4.8-10.8)
[2023-05-26 21:39] LABS: Influenza A PCR NEGATIVE (Negative); Influenza B PCR NEGATIVE (Negative); Resp Syncy Virus RNA Qual PCR NEGATIVE (Negative); SARS COV2 PCR INHOUSE NEGATIVE (Negative)
[2023-05-26 21:50] LABS: Alanine Aminotransferase 19 U/L (0-31); Alkaline Phosphatase 106 U/L (39-117); Anion Gap 14 (12-20); Aspartate Amino Transferase 20 U/L (5-31); Bilirubin Total 0.6 mg/dL (0.0-1.0); Blood Urea Nitrogen 15 mg/dL (9-16); Calcium 9.2 mg/dL (8.4-10.2); Carbon Dioxide 28 mmol/L (22-29); Chloride 104 mmol/L (96-108); Creatinine Clr Calc Pharmacy 104.2; Estimated Glomerular Filt Rate > 60; Glucose Random 100 mg/dL (60-115); Potassium 4.4 mmol/L (3.3-5.1); Sodium 142 mmol/L (135-145); Total Protein 7.6 g/dL (6.5-8.0)
[2023-05-26 21:58] LABS: Troponin-I High Sensitivity 5.8 ng/L (<3.5-17.0)
[2023-05-26 22:07] VITALS: BP 164/88; PULSE 110; RESP 18; O2SAT 96
[2023-05-26] MEDS: Furosemide 40 MG/4 ML VIAL IVPUSH (22:23)
[2023-05-26 22:26] LABS: B Type Natriuretic Peptide 138 pg/mL (<100)
--- NOTE | 2023-05-26 23:53 | P.HPHOSP_ITS ---
History of Present Illness Date of Service: 05/26/23 Attending physician on admission: Prem Galdamez Chief Complaint: SOB 53-year-old morbidly obese female with history of HpEF and atrial flutter diagnosed during her last admission (04/22-04/27 2023) comes to the emergency room complaining of difficulty breathing since earlier today while she was at work. She describes onset of symptoms earlier today but that they progressively got worse during the course of the day. She was seen by her PCP earlier in the day and sent home after an EKG was done but then the shortness of breath just got worse. She also states that she checked her oxygen saturation and it was low. On arrival to the emergency room, she was found to be hypoxemic with oxygen saturation of 88%. She received 40 mg of IV Lasix following which admission was requested. During my evaluation, she had put out about a liter of urine and reported feeling somehow better. Review of Systems 2 Review of Systems: Yes all other systems are reviewed and are negative [facility] Medical History Morbid obesity Hypertension Congestive heart failure Atrial flutter with rapid ventricular response Functional capacity: independent ambulation Patient : No Pertinent family history: Reviewed with patient and not pertinent to this admission. Social History Household Members: Children and Friend(s) Housing: House Do you presently have visiting nurse or other home services: No Comment: refusing alarm and camera Patient Tobacco Use Status: Never used Tobacco Tobacco use type: Cigarette Second Hand Smoke Exposure: No Advance Directives Date on File: 04/28/23 service: No Meds Allergies Allergy/AdvReac Type Severity Reaction Status Date / Time aspirin [From Niharika-[place]] Allergy Mild Hives Verified 05/26/23 20:10 citric acid Allergy Mild Hives Verified 05/26/23 20:10 [From Niharika-[place]] dextromethorphan Allergy Mild Hives Verified 05/26/23 20:10 [From NyQuil] doxylamine [From NyQuil] Allergy Mild Hives Verified 05/26/23 20:10 pseudoephedrine [From NyQuil] Allergy Mild Hives Verified 05/26/23 20:10 sodium bicarbonate Allergy Mild Hives Verified 05/26/23 20:10 [From Naomi] Home Medications Medication Instructions Recorded Confirmed Last Taken Type cholecalciferol (vitamin D3) 125 125 mcg PO DAILY 04/23/23 05/22/23 Unknown History mcg (5,000 unit) tablet (Vitamin D3) zinc 50 mg capsule 50 mg PO DAILY 04/23/23 05/22/23 Unknown History Physical Exam 2 Vital Signs and Narrative: Vital Signs: Last Vital Signs Temp 98.4 F 05/26/23 20:03 Pulse 110 H 05/26/23 22:07 Resp 18 05/26/23 22:07 BP 164/88 H 05/26/23 22:07 Pulse Ox 96 05/26/23 22:07 O2 Del Method Oxymask 05/26/23 22:07 O2 Flow Rate 4 05/26/23 22:07 BMI result Body Mass Index 63.1 General: Morbidly obese AAF sitting on edge of the bed. Awake and alert. In no apparent distress Eyes: No pallor or jaundice. PERRLA, EOMI HENT: Moist oral mucus membranes. No oropharyngeal lesions. Neck: Supple. No cervical adenopathy. No JVD Cardiovascular: Regular rate and rhythm. Normal heart sounds. No murmurs, rubs or gallops. No JVD. No peripheral edema. Respiratory: Normal respiratory effort with no accessory muscle use. CTAB. Gastrointestinal: Abdomen is soft, non-tender, non-distended. NABS. No hepatosplenomegaly Extremities: Chronic lymphedematous changes in both legs. 2+ bipedal pitting edema. No calf tenderness. Good peripheral pulses Skin: Warm/Dry. No rashes. No mottling. Capillary refill is < 2 seconds Neurological: AAOx4. Intact speech & cognition. Normal gait & balance. CN II - XII grossly intact but not individually tested. No motor or sensory deficits Hematologic: No bleeding. No ecchymosis. No swollen or tender lymph nodes. Psychiatric: Cooperative. Appropriate mood and affect. Results Labs 05/26/23 21:26 05/26/23 21:26 Labs: Laboratory Results - last 24 hr 05/26/23 05/26/23 20:55 21:26 MCV 101.6 H MCH 32.1 MCHC 31.6 RDW 14.1 Plt Count 165 MPV 9.8 Immature Gran % (Auto) 0.2 Neut % (Auto) 88.4 H Lymph % (Auto) 5.8 L [place] % (Auto) 4.9 Eos % (Auto) 0.5 Baso % (Auto) 0.2 Lymph # (Auto) 0.3 L [place] # (Auto) 0.3 Eos # (Auto) 0.0 Baso # (Auto) 0.0 Abs Immat Gran (auto) 0.01 Absolute Neuts (auto) 5.0 Absolute Nucleated RBC 0.000 Nucleated RBC % (auto) 0.0 Anion Gap 14 Estim Creat Clear Calc 104.2 Estimated GFR > 60 Random Glucose 100 Calcium 9.2 Magnesium 2.0 Total Bilirubin 0.6 AST 20 ALT 19 Alkaline Phosphatase 106 B-Natriuretic Peptide 138 H Total Protein 7.6 Albumin 4.0 Urine Color Yellow Urine Appearance Clear Urine pH 7.0 Ur Specific [place] 1.020 Urine Protein Negative Urine Glucose (UA) Negative Urine Ketones Negative Urine Blood Negative Urine Nitrite Negative Ur Leukocyte Esterase Negative Influenza Type A (PCR) NEGATIVE Influenza Type B (PCR) NEGATIVE RSV RNA Qual (PCR) NEGATIVE SARS-CoV-2 RNA (RT-PCR) NEGATIVE BNP 138 pg/ml ECG ECG interpretation date: 05/27/23 ECG interpretation time: 06:38 Prior ECG tracings: available for review Interpretation: Atrial flutter with variable A-V block. Rate 99 bpm. QTc [address] depressions in the inferior leads. Imaging Radiologist's Impressions: Impressions Chest X-Ray 05/26/23 20:45 IMPRESSION: Cardiomegaly with upper zone redistribution and mild interstitial edema. Assessment and Plan (1) Congestive heart failure: Qualifiers: Heart failure chronicity: chronic Heart failure type: unspecified Qualified Code(s): I50.9 - Heart failure, unspecified Status: Acute (2) Atrial flutter: Qualifiers: Atrial flutter type: unspecified Qualified Code(s): I48.92 - Unspecified atrial flutter Status: Acute (3) Morbid obesity: Status: Acute Plan 53-year-old morbidly obese AA female with history of HpEF and atrial flutter here with 1. Acute on chronic diastolic CHF exacerbation - admit to hospital for gentle diuresis - continue Lasix but up dose to 40 mg twice a day - monitor weight, I/O's electrolytes and renal function 2. Atrial flutter - noted with rates of up t 120 bpm while in the ED - resume Eliquis, Flecainide and Diltiazem CD - continue to closely monitor 3. Morbid obesity - encourage weight loss DVT: Eliquis CODE STATUS: Full code Admission for at least 2 midnights for management of management of acute on chronic CHF exacerbation Total time managing care of this patient today: 75 minutes. Quality Stroke Does the patient have a stroke diagnosis?: No VTE Prior VTE?: No VTE Risk Level:: Medical - moderate - high VTE Device Contraindication: Treatment Not Indicated VTE Drug Contraindication: N/A - Med Ordered
[2023-05-27] VITALS (10 sets, daily range): BP systolic 107–123; BP diastolic 56–85; PULSE 76–122; RESP 13–25; TEMP 36.6–37.6; O2SAT 93–100; BMI 61.3
[2023-05-27] MEDS: 0.9 % Sodium Chloride Flush 3 ML SYRINGE IVFLUSH ×4 (00:05→23:46)
--- NOTE | 2023-05-27 03:23 | PC.NURSE ---
a/ox3 - ambulatory at baseline Presents SOB and cough ( resp panal negative) sating 88 in triage- placed on oxymask and sating 97-100. Pt presents sinus tach with a hx of afutter. . PMH CHF , Aflutter on eliquis. Chronic bilateral leg edema BNP- 130 and 40 of Lasix given 20 L AC
--- NOTE | 2023-05-27 07:17 | PC.NURSE ---
Alert and responsive, denies pain or discomfort, reports breathing better. Sating 100% on 7 liters oxy mask. 02 titrated down to 5 liters -sating 100%
[2023-05-27 08:00] LABS: Hematocrit 36.1 % (37.0-47.0); Hematocrit 36.2 % (37.0-47.0); Hemoglobin 11.5 g/dl (12.0-16.0); Hemoglobin 11.6 g/dl (12.0-16.0); Mean Corpuscular HGB Conc 31.9 g/dl (31.0-35.0); Mean Corpuscular Hemoglobin 32.2 pg (27.0-33.0); Mean Corpuscular Volume 101.1 fL (80.0-98.0); Mean Corpuscular Volume 102.8 fL (80.0-98.0); Mean Platelet Volume 10.1 fL (9.4-12.3); Platelet Count 151 X10*3/uL (160-400); Platelet Count 154 X10*3/uL (160-400); Red Blood Count 3.52 X10*6/uL (4.20-5.50); Red Blood Count 3.57 X10*6/uL (4.20-5.50); Red Cell Distribution Width 14.2 % (11.0-16.0); Red Cell Distribution Width 14.3 % (11.0-16.0); White Blood Count 3.9 X10*3/uL (4.8-10.8)
--- NOTE | 2023-05-27 08:02 | PHA.MEDREC ---
Addendum entered by Rey Rice 05/27/23 08:11: Spoke to patient to confirm meds. Original Note: Pharmacy Consult ? Medication Reconciliation Med Rec done based on medical record last adm and medication claim history Pharmacy has completed the medication reconciliation.
[2023-05-27 08:24] LABS: Anion Gap 13 (12-20); Blood Urea Nitrogen 13 mg/dL (9-16); Calcium 8.9 mg/dL (8.4-10.2); Carbon Dioxide 27 mmol/L (22-29); Carbon Dioxide 29 mmol/L (22-29); Chloride 103 mmol/L (96-108); Chloride 104 mmol/L (96-108); Cholesterol 123 mg/dL (<200); Creatinine Clr Calc Pharmacy 96.4; Estimated Glomerular Filt Rate > 60; Glucose Random 109 mg/dL (60-115); Glucose Random 110 mg/dL (60-115); HDL Cholesterol 46 mg/dL (>40); LDL Cholesterol Calculated 66 mg/dL (<100); Magnesium 2.2 mg/dL (1.6-2.6); Magnesium 2.3 mg/dL (1.6-2.6); Potassium 4.1 mmol/L (3.3-5.1); Potassium 4.3 mmol/L (3.3-5.1); Sodium 140 mmol/L (135-145); Sodium 141 mmol/L (135-145); Triglycerides 59 mg/dL (<150)
[2023-05-27 08:38] LABS: Thyroid Stimulating Hormone 0.49 uIU/mL (0.32-4.0)
[2023-05-27] MEDS: dilTIAZem HCL CD 120 MG CAP.ER.DEG PO (09:17)
[2023-05-27] MEDS: Apixaban 5 MG TABLET PO ×2 (09:17→21:28)
[2023-05-27] MEDS: Docusate Sodium 100 MG CAPSULE PO ×2 (09:17→21:28)
[2023-05-27] MEDS: Cholecalciferol (Vitamin D3) 25 MCG TABLET 125 MCG PO (09:17)
[2023-05-27] MEDS: Furosemide 100 MG/10 ML VIAL 40 MG IVPUSH ×2 (09:18→18:02)
[2023-05-27] MEDS: Flecainide Acetate 50 MG TABLET 100 MG PO (09:21)
--- NOTE | 2023-05-27 09:25 | PC.NURSE ---
IV push cardizem held per provider as HR 95
[2023-05-27] MEDS: Omeprazole 20 MG CAPSULE.DR PO ×2 (09:29→16:55)
--- NOTE | 2023-05-27 10:22 | PM.CNCAR ---
History of Present Illness History of Present Illness Date of Service: 05/27/23 Requesting physician: Arely Pardo Chief complaint: CHF Exacerbation, atrial flutter Narrative: 53-year-old female with morbid obesity, atrial flutter and congestive heart failure. She was in the hospital in April 2023 when she underwent cardioversion and was started on flecainide and diltiazem. She was started on apixaban 5 mg twice a day for anticoagulation. She is now presenting because she went to work and was feeling short of breath and checked her oxygen saturations and oxygen saturation was 82%. She came the emergency department and chest x-ray raise concern for congestive heart failure. BNP was mildly elevated but she has morbid obesity. She is noticed to be in atrial flutter with heart rate in 120s. She has been given her to home dose of diltiazem. She also received IV Lasix 40 mg and is currently on IV Lasix 40 mg b.i.d.. She is denying any other complaints currently. She has significant peripheral edema. She also is unable to lay flat cuts is saying that this is a chronic issue for her. She likely has underlying sleep apnea. [facility] Past Medical History Medical History Morbid obesity Hypertension Congestive heart failure Atrial flutter with rapid ventricular response Functional capacity: independent ambulation Social History Social History Household Members: Children and Friend(s) Housing: House Do you presently have visiting nurse or other home services: No Comment: refusing alarm and camera Patient Tobacco Use Status: Never used Tobacco Tobacco use type: Cigarette Second Hand Smoke Exposure: No Advance Directives: Yes Advance Directives on File: Yes Advance Directives Date on File: 04/28/23 Nutrition Risks: No Nutritional Risk Patient : No service: No Meds Allergies Allergy/AdvReac Type Severity Reaction Status Date / Time aspirin [From Niharika-[place]] Allergy Mild Hives Verified 05/26/23 20:10 citric acid Allergy Mild Hives Verified 05/26/23 20:10 [From Niharika-[place]] dextromethorphan Allergy Mild Hives Verified 05/26/23 20:10 [From NyQuil] doxylamine [From NyQuil] Allergy Mild Hives Verified 05/26/23 20:10 pseudoephedrine [From NyQuil] Allergy Mild Hives Verified 05/26/23 20:10 sodium bicarbonate Allergy Mild Hives Verified 05/26/23 20:10 [From Naomi] Active Medications: Current Medications Acetaminophen (Acetaminophen 325 Mg Tablet) 650 mg PO Q6H PRN PRN Reason: Pain, Mild (Pain Scale 1-3) Al Hydroxide/Mg Hydroxide (Magnesium Hydrox/Alum Hydrox 30 Ml Oral.Susp) 30 ml PO Q4H PRN PRN Reason: Heartburn/Nausea Apixaban (Apixaban 5 Mg Tablet) 5 mg PO BID [facility] Last Admin: 05/27/23 09:17 Dose: 5 mg Diltiazem HCl (Diltiazem Hcl Cd 120 Mg Cap.Er.Deg) 120 mg PO DAILY [facility]; Protocol Last Admin: 05/27/23 09:17 Dose: 120 mg Docusate Sodium (Docusate Sodium 100 Mg Capsule) 100 mg PO BID [facility] Last Admin: 05/27/23 09:17 Dose: 100 mg Flecainide Acetate (Flecainide Acetate 50 Mg Tablet) 100 mg PO BID [facility] Last Admin: 05/27/23 09:21 Dose: 100 mg Furosemide (Furosemide 100 Mg/10 Ml Vial) 40 mg IVPUSH BID@0900,1800 [facility]; Protocol Last Admin: 05/27/23 09:18 Dose: 40 mg Melatonin (Melatonin 3 Mg Tablet) 6 mg PO BEDTIME PRN PRN Reason: Insomnia Omeprazole (Omeprazole 20 Mg Capsule.Dr) 20 mg PO BID@0630,1630 [facility] Last Admin: 05/27/23 09:29 Dose: 20 mg Ondansetron HCl (Ondansetron Hcl 4 Mg/2 Ml Vial) 4 mg IVPUSH Q8H PRN PRN Reason: Nausea and Vomiting Sodium Chloride (0.9 % Sodium Chloride Flush 3 Ml Syringe) 3 ml IVFLUSH QSHIFT [facility] Last Admin: 05/27/23 07:12 Dose: 3 ml Vitamin D (Cholecalciferol (Vitamin D3) 25 Mcg Tablet) 125 mcg PO DAILY [facility] Last Admin: 05/27/23 09:17 Dose: 125 mcg Home Medications Medication Instructions Recorded Confirmed Last Taken Type cholecalciferol (vitamin D3) 125 125 mcg PO DAILY 11/06/0305/27/23 05/26/23 History mcg (5,000 unit) tablet (Vitamin D3) zinc 50 mg capsule 50 mg PO DAILY 04/23/23 05/27/23 05/26/23 History Physical Exam Vital Signs: Vital Signs: Last Vital Signs Temp 98.9 F 05/27/23 07:07 Pulse 122 H 05/27/23 07:07 Resp 22 H 05/27/23 07:07 BP 121/82 05/27/23 06:21 Pulse Ox 100 05/27/23 07:07 O2 Del Method Oxymask 05/27/23 07:07 O2 Flow Rate 5 05/27/23 03:43 BMI result Body Mass Index 63.1 GENERAL APPEARANCE: in no acute distress, sitting upright. NECK: no carotid bruit, + jugular venous distention. SKIN: no suspicious lesions, warm and dry. HEART: no murmurs, regular rate and rhythm. LUNGS: Mild end expiratory wheezes. ABDOMEN: soft, nontender. EXTREMITIES: ++ edema. PERIPHERAL PULSES: equal. NEUROLOGIC: No gross deficits, AAO X 3 Objective Labs and Meds 05/27/23 07:53 05/27/23 07:53 Lab results: Laboratory Results - last 24 hr 05/26/23 05/26/23 05/27/23 20:55 21:26 07:53 WBC 5.7 3.9 L RBC 3.71 L Hgb 11.9 L Hct 37.7 MCV 101.6 H MCH 32.1 MCHC 31.6 RDW 14.1 Plt Count 165 MPV 9.8 Immature Gran % (Auto) 0.2 Neut % (Auto) 88.4 H Lymph % (Auto) 5.8 L [place] % (Auto) 4.9 Eos % (Auto) 0.5 Baso % (Auto) 0.2 Lymph # (Auto) 0.3 L [place] # (Auto) 0.3 Eos # (Auto) 0.0 Baso # (Auto) 0.0 Abs Immat Gran (auto) 0.01 Absolute Neuts (auto) 5.0 Absolute Nucleated RBC 0.000 Nucleated RBC % (auto) 0.0 Sodium 142 Potassium 4.4 Chloride 104 Carbon Dioxide 28 Anion Gap 14 BUN 15 Creatinine 0.87 Estim Creat Clear Calc 104.2 Estimated GFR > 60 Random Glucose 100 Calcium 9.2 Magnesium 2.0 Total Bilirubin 0.6 AST 20 ALT 19 Alkaline Phosphatase 106 Troponin I High Sens 5.8 B-Natriuretic Peptide 138 H Total Protein 7.6 Albumin 4.0 Triglycerides Cholesterol LDL Cholesterol, Calc HDL Cholesterol TSH Urine Color Yellow Urine Appearance Clear Urine pH 7.0 Ur Specific [place] 1.020 Urine Protein Negative Urine Glucose (UA) Negative Urine Ketones Negative Urine Blood Negative Urine Nitrite Negative Ur Leukocyte Esterase Negative Influenza Type A (PCR) NEGATIVE Influenza Type B (PCR) NEGATIVE RSV RNA Qual (PCR) NEGATIVE SARS-CoV-2 RNA (RT-PCR) NEGATIVE 05/27/23 05/27/23 05/27/23 07:53 07:53 07:53 WBC 3.9 L RBC 3.52 L 3.57 L Hgb 11.6 L 11.5 L Hct 36.2 L MCV MCH MCHC RDW Plt Count MPV Immature Gran % (Auto) Neut % (Auto) Lymph % (Auto) [place] % (Auto) Eos % (Auto) Baso % (Auto) Lymph # (Auto) [place] # (Auto) Eos # (Auto) Baso # (Auto) Abs Immat Gran (auto) Absolute Neuts (auto) Absolute Nucleated RBC Nucleated RBC % (auto) Sodium Potassium Chloride Carbon Dioxide Anion Gap BUN Creatinine Estim Creat Clear Calc Estimated GFR Random Glucose Calcium Magnesium Total Bilirubin AST ALT Alkaline Phosphatase Troponin I High Sens B-Natriuretic Peptide Total Protein Albumin Triglycerides Cholesterol LDL Cholesterol, Calc HDL Cholesterol TSH Urine Color Urine Appearance Urine pH Ur Specific [place] Urine Protein Urine Glucose (UA) Urine Ketones Urine Blood Urine Nitrite Ur Leukocyte Esterase Influenza Type A (PCR) Influenza Type B (PCR) RSV RNA Qual (PCR) SARS-CoV-2 RNA (RT-PCR) 05/27/23 05/27/23 05/27/23 07:53 07:53 07:53 WBC RBC Hgb Hct 36.1 L MCV 102.8 H 101.1 H MCH 33.0 32.2 MCHC 32.0 RDW Plt Count MPV Immature Gran % (Auto) Neut % (Auto) Lymph % (Auto) [place] % (Auto) Eos % (Auto) Baso % (Auto) Lymph # (Auto) [place] # (Auto) Eos # (Auto) Baso # (Auto) Abs Immat Gran (auto) Absolute Neuts (auto) Absolute Nucleated RBC Nucleated RBC % (auto) Sodium Potassium Chloride Carbon Dioxide Anion Gap BUN Creatinine Estim Creat Clear Calc Estimated GFR Random Glucose Calcium Magnesium Total Bilirubin AST ALT Alkaline Phosphatase Troponin I High Sens B-Natriuretic Peptide Total Protein Albumin Triglycerides Cholesterol LDL Cholesterol, Calc HDL Cholesterol TSH Urine Color Urine Appearance Urine pH Ur Specific [place] Urine Protein Urine Glucose (UA) Urine Ketones Urine Blood Urine Nitrite Ur Leukocyte Esterase Influenza Type A (PCR) Influenza Type B (PCR) RSV RNA Qual (PCR) SARS-CoV-2 RNA (RT-PCR) 05/27/23 05/27/23 05/27/23 07:53 07:53 07:53 WBC RBC Hgb Hct MCV MCH MCHC 31.9 RDW 14.3 14.2 Plt Count 151 L 154 L MPV 10.1 Immature Gran % (Auto) Neut % (Auto) Lymph % (Auto) [place] % (Auto) Eos % (Auto) Baso % (Auto) Lymph # (Auto) [place] # (Auto) Eos # (Auto) Baso # (Auto) Abs Immat Gran (auto) Absolute Neuts (auto) Absolute Nucleated RBC Nucleated RBC % (auto) Sodium Potassium Chloride Carbon Dioxide Anion Gap BUN Creatinine Estim Creat Clear Calc Estimated GFR Random Glucose Calcium Magnesium Total Bilirubin AST ALT Alkaline Phosphatase Troponin I High Sens B-Natriuretic Peptide Total Protein Albumin Triglycerides Cholesterol LDL Cholesterol, Calc HDL Cholesterol TSH Urine Color Urine Appearance Urine pH Ur Specific [place] Urine Protein Urine Glucose (UA) Urine Ketones Urine Blood Urine Nitrite Ur Leukocyte Esterase Influenza Type A (PCR) Influenza Type B (PCR) RSV RNA Qual (PCR) SARS-CoV-2 RNA (RT-PCR) 05/27/23 05/27/23 05/27/23 07:53 07:53 07:53 WBC RBC Hgb Hct MCV MCH MCHC RDW Plt Count MPV 10.0 Immature Gran % (Auto) Neut % (Auto) Lymph % (Auto) [place] % (Auto) Eos % (Auto) Baso % (Auto) Lymph # (Auto) [place] # (Auto) Eos # (Auto) Baso # (Auto) Abs Immat Gran (auto) Absolute Neuts (auto) Absolute Nucleated RBC 0.000 0.000 Nucleated RBC % (auto) 0.0 0.0 Sodium 141 Potassium Chloride Carbon Dioxide Anion Gap BUN Creatinine Estim Creat Clear Calc Estimated GFR Random Glucose Calcium Magnesium Total Bilirubin AST ALT Alkaline Phosphatase Troponin I High Sens B-Natriuretic Peptide Total Protein Albumin Triglycerides Cholesterol LDL Cholesterol, Calc HDL Cholesterol TSH Urine Color Urine Appearance Urine pH Ur Specific [place] Urine Protein Urine Glucose (UA) Urine Ketones Urine Blood Urine Nitrite Ur Leukocyte Esterase Influenza Type A (PCR) Influenza Type B (PCR) RSV RNA Qual (PCR) SARS-CoV-2 RNA (RT-PCR) 05/27/23 05/27/23 05/27/23 07:53 07:53 07:53 WBC RBC Hgb Hct MCV MCH MCHC RDW Plt Count MPV Immature Gran % (Auto) Neut % (Auto) Lymph % (Auto) [place] % (Auto) Eos % (Auto) Baso % (Auto) Lymph # (Auto) [place] # (Auto) Eos # (Auto) Baso # (Auto) Abs Immat Gran (auto) Absolute Neuts (auto) Absolute Nucleated RBC Nucleated RBC % (auto) Sodium 140 Potassium 4.1 4.3 Chloride 103 104 Carbon Dioxide 29 Anion Gap BUN Creatinine Estim Creat Clear Calc Estimated GFR Random Glucose Calcium Magnesium Total Bilirubin AST ALT Alkaline Phosphatase Troponin I High Sens B-Natriuretic Peptide Total Protein Albumin Triglycerides Cholesterol LDL Cholesterol, Calc HDL Cholesterol TSH Urine Color Urine Appearance Urine pH Ur Specific [place] Urine Protein Urine Glucose (UA) Urine Ketones Urine Blood Urine Nitrite Ur Leukocyte Esterase Influenza Type A (PCR) Influenza Type B (PCR) RSV RNA Qual (PCR) SARS-CoV-2 RNA (RT-PCR) 05/27/23 05/27/23 05/27/23 07:53 07:53 07:53 WBC RBC Hgb Hct MCV MCH MCHC RDW Plt Count MPV Immature Gran % (Auto) Neut % (Auto) Lymph % (Auto) [place] % (Auto) Eos % (Auto) Baso % (Auto) Lymph # (Auto) [place] # (Auto) Eos # (Auto) Baso # (Auto) Abs Immat Gran (auto) Absolute Neuts (auto) Absolute Nucleated RBC Nucleated RBC % (auto) Sodium Potassium Chloride Carbon Dioxide 27 Anion Gap 13 13 BUN 13 13 Creatinine 0.94 Estim Creat Clear Calc Estimated GFR Random Glucose Calcium Magnesium Total Bilirubin AST ALT Alkaline Phosphatase Troponin I High Sens B-Natriuretic Peptide Total Protein Albumin Triglycerides Cholesterol LDL Cholesterol, Calc HDL Cholesterol TSH Urine Color Urine Appearance Urine pH Ur Specific [place] Urine Protein Urine Glucose (UA) Urine Ketones Urine Blood Urine Nitrite Ur Leukocyte Esterase Influenza Type A (PCR) Influenza Type B (PCR) RSV RNA Qual (PCR) SARS-CoV-2 RNA (RT-PCR) 05/27/23 05/27/23 05/27/23 07:53 07:53 07:53 WBC RBC Hgb Hct MCV MCH MCHC RDW Plt Count MPV Immature Gran % (Auto) Neut % (Auto) Lymph % (Auto) [place] % (Auto) Eos % (Auto) Baso % (Auto) Lymph # (Auto) [place] # (Auto) Eos # (Auto) Baso # (Auto) Abs Immat Gran (auto) Absolute Neuts (auto) Absolute Nucleated RBC Nucleated RBC % (auto) Sodium Potassium Chloride Carbon Dioxide Anion Gap BUN Creatinine 0.94 Estim Creat Clear Calc 96.4 96.4 Estimated GFR > 60 > 60 Random Glucose 110 Calcium Magnesium Total Bilirubin AST ALT Alkaline Phosphatase Troponin I High Sens B-Natriuretic Peptide Total Protein Albumin Triglycerides Cholesterol LDL Cholesterol, Calc HDL Cholesterol TSH Urine Color Urine Appearance Urine pH Ur Specific [place] Urine Protein Urine Glucose (UA) Urine Ketones Urine Blood Urine Nitrite Ur Leukocyte Esterase Influenza Type A (PCR) Influenza Type B (PCR) RSV RNA Qual (PCR) SARS-CoV-2 RNA (RT-PCR) 05/27/23 05/27/23 05/27/23 07:53 07:53 07:53 WBC RBC Hgb Hct MCV MCH MCHC RDW Plt Count MPV Immature Gran % (Auto) Neut % (Auto) Lymph % (Auto) [place] % (Auto) Eos % (Auto) Baso % (Auto) Lymph # (Auto) [place] # (Auto) Eos # (Auto) Baso # (Auto) Abs Immat Gran (auto) Absolute Neuts (auto) Absolute Nucleated RBC Nucleated RBC % (auto) Sodium Potassium Chloride Carbon Dioxide Anion Gap BUN Creatinine Estim Creat Clear Calc Estimated GFR Random Glucose 109 Calcium 8.9 9.0 Magnesium 2.2 2.3 Total Bilirubin AST ALT Alkaline Phosphatase Troponin I High Sens B-Natriuretic Peptide Total Protein Albumin Triglycerides 59 Cholesterol 123 LDL Cholesterol, Calc 66 HDL Cholesterol 46 TSH 0.49 Urine Color Urine Appearance Urine pH Ur Specific [place] Urine Protein Urine Glucose (UA) Urine Ketones Urine Blood Urine Nitrite Ur Leukocyte Esterase Influenza Type A (PCR) Influenza Type B (PCR) RSV RNA Qual (PCR) SARS-CoV-2 RNA (RT-PCR) Imaging Radiologist's impression: Impressions Chest X-Ray 05/26/23 20:45 IMPRESSION: Cardiomegaly with upper zone redistribution and mild interstitial edema. Assessment and Plan (1) Congestive heart failure: Qualifiers: Heart failure chronicity: chronic Heart failure type: unspecified Qualified Code(s): I50.9 - Heart failure, unspecified Status: Acute (2) Atrial flutter: Qualifiers: Atrial flutter type: unspecified Qualified Code(s): I48.92 - Unspecified atrial flutter Status: Acute Plan [age] year female presenting for congestive heart failure and atrial flutter. Agree with IV Lasix 40 mg b.i.d.. Monitor electrolytes closely. Stop the flecainide. Continue diltiazem 120 mg daily. If heart rates are difficult to control then digoxin can be loaded. I discussed with her about cardioversion but she does not appear to be very interested in that currently. Will see if we can rate control her and if she stabilizes with that strategy otherwise may need discussion for cardioversion again. Continue apixaban as before. Thank you for allowing me to participate in the care of your patient. Please feel free to contact me if you have any questions. Procedures Date of Service Date of Service: 05/27/23
--- NOTE | 2023-05-27 11:16 | MHC.EDTECH ---
patient was clean in bed.
[2023-05-27] MEDS: Acetaminophen 325 MG TABLET 650 MG PO (13:26)
--- NOTE | 2023-05-27 15:35 | P.PNIM_ITS ---
Subjective Subjective Date of Service: 05/27/23 Interval History: CHF exacerbation Review of Systems Patient says that her shortness of breath somewhat better but still cannot lie flat, has to wake up in the night to catch breathing Denies any chest pain or abdominal pain or cough. Physical Exam 2 Vital Signs: Vital Signs: Last Vital Signs Temp 98.5 F 05/27/23 15:28 Pulse 76 05/27/23 15:28 Resp 24 H 05/27/23 15:28 BP 116/71 05/27/23 15:28 Pulse Ox 94 05/27/23 15:28 O2 Del Method Oxymask 05/27/23 15:28 O2 Flow Rate 3 05/27/23 15:28 BMI result Body Mass Index 61.3 Appearance: Alert.? Oriented X3.sob cvs: rrr, [id number] , no murmur res: clear to auscultation ,no rhonchii or wheezing abd: no rebound or guarding ,nt, bs present. ext pulses present , no cyanosis,ch leg changes ,has edema but difficult to access . neuro: axo3 , nonfocal. Objective Data Active Medications Acetaminophen (Acetaminophen 325 Mg Tablet) 650 mg PO Q6H PRN PRN Reason: Pain, Mild (Pain Scale 1-3) Last Admin: 05/27/23 13:26 Dose: 650 mg Documented By: DEVANTE Al Hydroxide/Mg Hydroxide (Magnesium Hydrox/Alum Hydrox 30 Ml Oral.Susp) 30 ml PO Q4H PRN PRN Reason: Heartburn/Nausea Apixaban (Apixaban 5 Mg Tablet) 5 mg PO BID [facility] Last Admin: 05/27/23 09:17 Dose: 5 mg Documented By: ДМИТРИЙ Diltiazem HCl (Diltiazem Hcl Cd 120 Mg Cap.Er.Deg) 120 mg PO DAILY [facility]; Protocol Last Admin: 05/27/23 09:17 Dose: 120 mg Documented By: ДМИТРИЙ Docusate Sodium (Docusate Sodium 100 Mg Capsule) 100 mg PO BID [facility] Last Admin: 05/27/23 09:17 Dose: 100 mg Documented By: ДМИТРИЙ Furosemide (Furosemide 100 Mg/10 Ml Vial) 40 mg IVPUSH BID@0900,1800 [facility]; Protocol Last Admin: 05/27/23 09:18 Dose: 40 mg Documented By: ДМИТРИЙ Melatonin (Melatonin 3 Mg Tablet) 6 mg PO BEDTIME PRN PRN Reason: Insomnia Omeprazole (Omeprazole 20 Mg Capsule.Dr) 20 mg PO BID@0630,1630 [facility] Last Admin: 05/27/23 09:29 Dose: 20 mg Documented By: ДМИТРИЙ Ondansetron HCl (Ondansetron Hcl 4 Mg/2 Ml Vial) 4 mg IVPUSH Q8H PRN PRN Reason: Nausea and Vomiting Sodium Chloride (0.9 % Sodium Chloride Flush 3 Ml Syringe) 3 ml IVFLUSH QSHIFT [facility] Last Admin: 05/27/23 13:27 Dose: 3 ml Documented By: DEVANTE Vitamin D (Cholecalciferol (Vitamin D3) 25 Mcg Tablet) 125 mcg PO DAILY [facility] Last Admin: 05/27/23 09:17 Dose: 125 mcg Documented By: ДМИТРИЙ Labs 05/27/23 07:53 05/27/23 07:53 Labs: Laboratory Results - last 24 hr 05/26/23 05/26/23 05/27/23 20:55 21:26 07:53 MCV 101.6 H 102.8 H MCH 32.1 MCHC 31.6 RDW 14.1 Plt Count 165 MPV 9.8 Immature Gran % (Auto) 0.2 Neut % (Auto) 88.4 H Lymph % (Auto) 5.8 L [place] % (Auto) 4.9 Eos % (Auto) 0.5 Baso % (Auto) 0.2 Lymph # (Auto) 0.3 L [place] # (Auto) 0.3 Eos # (Auto) 0.0 Baso # (Auto) 0.0 Abs Immat Gran (auto) 0.01 Absolute Neuts (auto) 5.0 Absolute Nucleated RBC 0.000 Nucleated RBC % (auto) 0.0 Anion Gap 14 Estim Creat Clear Calc 104.2 Estimated GFR > 60 Random Glucose 100 Calcium 9.2 Magnesium 2.0 Total Bilirubin 0.6 AST 20 ALT 19 Alkaline Phosphatase 106 B-Natriuretic Peptide 138 H Total Protein 7.6 Albumin 4.0 Triglycerides Cholesterol LDL Cholesterol, Calc HDL Cholesterol TSH Urine Color Yellow Urine Appearance Clear Urine pH 7.0 Ur Specific [place] 1.020 Urine Protein Negative Urine Glucose (UA) Negative Urine Ketones Negative Urine Blood Negative Urine Nitrite Negative Ur Leukocyte Esterase Negative Influenza Type A (PCR) NEGATIVE Influenza Type B (PCR) NEGATIVE RSV RNA Qual (PCR) NEGATIVE SARS-CoV-2 RNA (RT-PCR) NEGATIVE 05/27/23 05/27/23 05/27/23 07:53 07:53 07:53 MCV 101.1 H MCH 33.0 32.2 MCHC 32.0 31.9 RDW 14.3 Plt Count MPV Immature Gran % (Auto) Neut % (Auto) Lymph % (Auto) [place] % (Auto) Eos % (Auto) Baso % (Auto) Lymph # (Auto) [place] # (Auto) Eos # (Auto) Baso # (Auto) Abs Immat Gran (auto) Absolute Neuts (auto) Absolute Nucleated RBC Nucleated RBC % (auto) Anion Gap Estim Creat Clear Calc Estimated GFR Random Glucose Calcium Magnesium Total Bilirubin AST ALT Alkaline Phosphatase B-Natriuretic Peptide Total Protein Albumin Triglycerides Cholesterol LDL Cholesterol, Calc HDL Cholesterol TSH Urine Color Urine Appearance Urine pH Ur Specific [place] Urine Protein Urine Glucose (UA) Urine Ketones Urine Blood Urine Nitrite Ur Leukocyte Esterase Influenza Type A (PCR) Influenza Type B (PCR) RSV RNA Qual (PCR) SARS-CoV-2 RNA (RT-PCR) 05/27/23 05/27/23 05/27/23 07:53 07:53 07:53 MCV MCH MCHC RDW 14.2 Plt Count 151 L 154 L MPV 10.1 10.0 Immature Gran % (Auto) Neut % (Auto) Lymph % (Auto) [place] % (Auto) Eos % (Auto) Baso % (Auto) Lymph # (Auto) [place] # (Auto) Eos # (Auto) Baso # (Auto) Abs Immat Gran (auto) Absolute Neuts (auto) Absolute Nucleated RBC 0.000 Nucleated RBC % (auto) Anion Gap Estim Creat Clear Calc Estimated GFR Random Glucose Calcium Magnesium Total Bilirubin AST ALT Alkaline Phosphatase B-Natriuretic Peptide Total Protein Albumin Triglycerides Cholesterol LDL Cholesterol, Calc HDL Cholesterol TSH Urine Color Urine Appearance Urine pH Ur Specific [place] Urine Protein Urine Glucose (UA) Urine Ketones Urine Blood Urine Nitrite Ur Leukocyte Esterase Influenza Type A (PCR) Influenza Type B (PCR) RSV RNA Qual (PCR) SARS-CoV-2 RNA (RT-PCR) 05/27/23 05/27/23 05/27/23 07:53 07:53 07:53 MCV MCH MCHC RDW Plt Count MPV Immature Gran % (Auto) Neut % (Auto) Lymph % (Auto) [place] % (Auto) Eos % (Auto) Baso % (Auto) Lymph # (Auto) [place] # (Auto) Eos # (Auto) Baso # (Auto) Abs Immat Gran (auto) Absolute Neuts (auto) Absolute Nucleated RBC 0.000 Nucleated RBC % (auto) 0.0 0.0 Anion Gap 13 13 Estim Creat Clear Calc 96.4 Estimated GFR Random Glucose Calcium Magnesium Total Bilirubin AST ALT Alkaline Phosphatase B-Natriuretic Peptide Total Protein Albumin Triglycerides Cholesterol LDL Cholesterol, Calc HDL Cholesterol TSH Urine Color Urine Appearance Urine pH Ur Specific [place] Urine Protein Urine Glucose (UA) Urine Ketones Urine Blood Urine Nitrite Ur Leukocyte Esterase Influenza Type A (PCR) Influenza Type B (PCR) RSV RNA Qual (PCR) SARS-CoV-2 RNA (RT-PCR) 05/27/23 05/27/23 05/27/23 07:53 07:53 07:53 MCV MCH MCHC RDW Plt Count MPV Immature Gran % (Auto) Neut % (Auto) Lymph % (Auto) [place] % (Auto) Eos % (Auto) Baso % (Auto) Lymph # (Auto) [place] # (Auto) Eos # (Auto) Baso # (Auto) Abs Immat Gran (auto) Absolute Neuts (auto) Absolute Nucleated RBC Nucleated RBC % (auto) Anion Gap Estim Creat Clear Calc 96.4 Estimated GFR > 60 > 60 Random Glucose 110 109 Calcium 8.9 Magnesium Total Bilirubin AST ALT Alkaline Phosphatase B-Natriuretic Peptide Total Protein Albumin Triglycerides Cholesterol LDL Cholesterol, Calc HDL Cholesterol TSH Urine Color Urine Appearance Urine pH Ur Specific [place] Urine Protein Urine Glucose (UA) Urine Ketones Urine Blood Urine Nitrite Ur Leukocyte Esterase Influenza Type A (PCR) Influenza Type B (PCR) RSV RNA Qual (PCR) SARS-CoV-2 RNA (RT-PCR) 05/27/23 05/27/23 07:53 07:53 MCV MCH MCHC RDW Plt Count MPV Immature Gran % (Auto) Neut % (Auto) Lymph % (Auto) [place] % (Auto) Eos % (Auto) Baso % (Auto) Lymph # (Auto) [place] # (Auto) Eos # (Auto) Baso # (Auto) Abs Immat Gran (auto) Absolute Neuts (auto) Absolute Nucleated RBC Nucleated RBC % (auto) Anion Gap Estim Creat Clear Calc Estimated GFR Random Glucose Calcium 9.0 Magnesium 2.2 2.3 Total Bilirubin AST ALT Alkaline Phosphatase B-Natriuretic Peptide Total Protein Albumin Triglycerides 59 Cholesterol 123 LDL Cholesterol, Calc 66 HDL Cholesterol 46 TSH 0.49 Urine Color Urine Appearance Urine pH Ur Specific [place] Urine Protein Urine Glucose (UA) Urine Ketones Urine Blood Urine Nitrite Ur Leukocyte Esterase Influenza Type A (PCR) Influenza Type B (PCR) RSV RNA Qual (PCR) SARS-CoV-2 RNA (RT-PCR) Assessment and Plan (1) Congestive heart failure: Status: Acute (2) Atrial flutter: Status: Acute Plan 53-year-old morbidly obese AA female with history of HpEF and atrial flutter here with 1. Acute on chronic diastolic CHF exacerbation moniter daily weights ,i/o. monitor weight, I/O's so afr 950 ml neg Lasix but up dose to 40 mg twice a day moniter electrolytes and renal function 2. Atrial flutter hr 80-100 - resume Eliquis, Diltiazem CD - continue to closely monitor continue cirrhosis, diltiazem if needed for heart controlled may need to add digoxin, hold flecainide . Cardioversion discussed but patient does not seem to be interested currently. Cardiology following 3. Morbid obesity - encourage weight loss DVT: Eliquis CODE STATUS: Full code ongoing hospitilsation need: management of management of acute on chronic CHF exacerbation-need I&O monitoring and Quality Stroke Does the patient have a stroke diagnosis?: No VTE Prior VTE?: No VTE Risk Level:: Medical - moderate - high VTE Device Contraindication: Treatment Not Indicated VTE Drug Contraindication: N/A - Med Ordered
[2023-05-27] MEDS: Magnesium Hydrox/Alum Hydrox 30 ML ORAL.SUSP PO (18:03)
[2023-05-28] VITALS (7 sets, daily range): BP systolic 98–142; BP diastolic 56–81; PULSE 72–98; RESP 16–22; TEMP 36.1–38.4; O2SAT 92–99
[2023-05-28] MEDS: Acetaminophen 325 MG TABLET 650 MG PO ×3 (02:15→16:55)
[2023-05-28] MEDS: Omeprazole 20 MG CAPSULE.DR PO ×2 (05:30→16:55)
[2023-05-28] MEDS: Furosemide 100 MG/10 ML VIAL 40 MG IVPUSH ×2 (08:50→16:55)
[2023-05-28] MEDS: dilTIAZem HCL CD 120 MG CAP.ER.DEG PO (08:50)
[2023-05-28] MEDS: Cholecalciferol (Vitamin D3) 25 MCG TABLET 125 MCG PO (08:50)
[2023-05-28] MEDS: Docusate Sodium 100 MG CAPSULE PO ×2 (08:50→22:27)
[2023-05-28] MEDS: Apixaban 5 MG TABLET PO ×2 (08:50→22:26)
[2023-05-28 08:51] LABS: Anion Gap 14 (12-20); Blood Urea Nitrogen 16 mg/dL (9-16); Calcium 8.7 mg/dL (8.4-10.2); Carbon Dioxide 29 mmol/L (22-29); Chloride 99 mmol/L (96-108); Creatinine Clr Calc Pharmacy 85.4; Estimated Glomerular Filt Rate 55; Glucose Random 82 mg/dL (60-115); Potassium 4.1 mmol/L (3.3-5.1); Sodium 138 mmol/L (135-145)
[2023-05-28] MEDS: 0.9 % Sodium Chloride Flush 3 ML SYRINGE IVFLUSH ×3 (08:51→22:27)
[2023-05-28 08:57] LABS: B Type Natriuretic Peptide 141 pg/mL (<100)
[2023-05-28 09:10] LABS: Adenovirus PCR Not Detected (Not Detect.); Bordetella parapertussis PCR Not Detected (Not Detect.); Bordetella pertussis PCR Not Detected (Not Detect.); Chlamydia pneumoniae PCR Not Detected (Not Detect.); Coronavirus 229E PCR Not Detected (Not Detect.); Coronavirus HKU1 PCR Not Detected (Not Detect.); Coronavirus NL63 PCR Not Detected (Not Detect.); Coronavirus OC43 PCR Not Detected (Not Detect.); Human metapneumovirus PCR Not Detected (Not Detect.); Influenza A PCR Not Detected (Not Detect.); Influenza B PCR Not Detected (Not Detect.); Mycoplasma pneumoniae PCR Not Detected (Not Detect.); Parainfluenza 1 PCR Not Detected (Not Detect.); Parainfluenza 2 PCR Not Detected (Not Detect.); Parainfluenza 3 PCR Not Detected (Not Detect.); Parainfluenza 4 PCR Not Detected (Not Detect.); RSV PCR Not Detected (Not Detect.); Rhino/Enterovirus PCR Not Detected (Not Detect.)
[2023-05-28 10:10] LABS: Procalcitonin 0.05 ng/mL
[2023-05-28 10:23] LABS: SARS-CoV-2 PCR Not Detected (Not Detect.)
--- NOTE | 2023-05-28 11:17 | HO.PM.IMPN ---
Subjective Subjective Date of Service: 05/28/23 Interval History: CHF exacerbation, last nigth fever episodes Review of Systems Patient says that her shortness of breath seems similar to yesterday. Denies any chest pain or abdominal pain or diarrhae or urinary c/o. has cough with clear sputum Physical Exam Vital Signs: Vital Signs: Last Vital Signs Temp 97 F 05/28/23 11:04 Pulse 72 05/28/23 11:04 Resp 16 05/28/23 11:04 BP 142/74 H 05/28/23 11:04 Pulse Ox 95 05/28/23 11:04 O2 Del Method Oxymask 05/28/23 06:59 O2 Flow Rate 3 05/28/23 03:18 BMI result Body Mass Index 61.3 Appearance: Alert.? Oriented X3.sob cvs: rrr, [id number] , no murmur res: clear to auscultation ,no rhonchii or wheezing abd: no rebound or guarding ,nt, bs present. ext pulses present , no cyanosis,ch leg changes ,has edema but difficult to access (grade edema). neuro: axo3 , nonfocal. Objective Data Active Medications Acetaminophen (Acetaminophen 325 Mg Tablet) 650 mg PO Q6H PRN PRN Reason: Pain, Mild (Pain Scale 1-3) Last Admin: 05/28/23 08:50 Dose: 650 mg Documented By: DEVANTE Al Hydroxide/Mg Hydroxide (Magnesium Hydrox/Alum Hydrox 30 Ml Oral.Susp) 30 ml PO Q4H PRN PRN Reason: Heartburn/Nausea Last Admin: 05/27/23 18:03 Dose: 30 ml Documented By: ESA Apixaban (Apixaban 5 Mg Tablet) 5 mg PO BID [facility] Last Admin: 05/28/23 08:50 Dose: 5 mg Documented By: DEVANTE Diltiazem HCl (Diltiazem Hcl Cd 120 Mg Cap.Er.Deg) 120 mg PO DAILY [facility]; Protocol Last Admin: 05/28/23 08:50 Dose: 120 mg Documented By: DEVANTE Docusate Sodium (Docusate Sodium 100 Mg Capsule) 100 mg PO BID [facility] Last Admin: 05/28/23 08:50 Dose: 100 mg Documented By: DEVANTE Furosemide (Furosemide 100 Mg/10 Ml Vial) 40 mg IVPUSH BID@0900,1800 [facility]; Protocol Last Admin: 05/28/23 08:50 Dose: 40 mg Documented By: DEVANTE Melatonin (Melatonin 3 Mg Tablet) 6 mg PO BEDTIME PRN PRN Reason: Insomnia Omeprazole (Omeprazole 20 Mg Capsule.) 20 mg PO BID@0630,1630 [facility] Last Admin: 05/28/23 05:30 Dose: 20 mg Documented By: LIBERTAD Ondansetron HCl (Ondansetron Hcl 4 Mg/2 Ml Vial) 4 mg IVPUSH Q8H PRN PRN Reason: Nausea and Vomiting Sodium Chloride (0.9 % Sodium Chloride Flush 3 Ml Syringe) 3 ml IVFLUSH QSHIFT [facility] Last Admin: 05/28/23 08:51 Dose: 3 ml Documented By: DEVANTE Vitamin D (Cholecalciferol (Vitamin D3) 25 Mcg Tablet) 125 mcg PO DAILY [facility] Last Admin: 05/28/23 08:50 Dose: 125 mcg Documented By: DEVANTE Labs 05/28/23 12:40 05/28/23 08:22 Labs: Laboratory Results - last 24 hr 05/27/23 05/28/23 10:48 08:22 Anion Gap 14 Estim Creat Clear Calc 85.4 Estimated GFR 55 Random Glucose 82 Calcium 8.7 B-Natriuretic Peptide 141 H Procalcitonin 0.05 Respiratory Panel Adames See Note Adenovirus (Rapid PCR) Not Detected B.pert (TEM-PCR) Not Detected B.parapertussis DNA PCR Not Detected C. pneumoniae DNA (PCR) Not Detected Coronavirus OC43 (PCR) Not Detected Coronavirus HKU1 (PCR) Not Detected Coronavirus 229E (PCR) Not Detected Coronavirus NL63 (PCR) Not Detected Human Metapneumovir PCR Not Detected Influenza A (RT-PCR) Not Detected Influenza B (RT-PCR) Not Detected M. pneumoniae (PCR) Not Detected Parainfluenza 1 (PCR) Not Detected Parainfluenza 2 (PCR) Not Detected Parainfluenza 3 (PCR) Not Detected Parainfluenza 4 (PCR) Not Detected RSV (PCR) Not Detected Entero/Rhino (PCR) Not Detected SARS-CoV-2 RNA (RT-PCR) Not Detected Assessment and Plan (1) Congestive heart failure: Status: Acute Plan 53-year-old morbidly obese AA female with history of HpEF and atrial flutter here with Acute on chronic diastolic CHF exacerbation sob similar ,has leg edema echoon 04/26:Normal left ventricular cavity size. The left ventricular systolic function is normal. The visually estimated ejection fraction is between 55-60%. There is no evidence of regional wall motion abnormalities plan: moniter daily weights ,i/o. monitor weight, I/O's so 1950 ml neg continue 40 mg twice a day moniter electrolytes and renal function Atrial flutter:controlled rate. continue Eliquis, Diltiazem CD.if needed for heart controlled may need to add digoxin, hold flecainide in seeting of chf . Cardiology following-checked with the patient pharmacy she did not picket [employer] Eliquis due to cost issue, currently will hold flecainide. Morbid obesity- encourage weight loss Fever :has cough with sputum -? acute bronchitis ua neg ,cxr -similar ,no other symptoms rvp negative will check blood culture , added procalcitonin levels added ceftriaxone for ?? acute bronchitis DVT: Eliquis CODE STATUS: Full code ongoing hospitilsation need: management of management of acute on chronic CHF exacerbation-need I&O monitoring and Quality Stroke Does the patient have a stroke diagnosis?: No VTE Prior VTE?: No VTE Risk Level:: Medical - moderate - high VTE Device Contraindication: Treatment Not Indicated VTE Drug Contraindication: N/A - Med Ordered
[2023-05-28 13:01] LABS: Hematocrit 37.6 % (37.0-47.0); Hemoglobin 11.6 g/dl (12.0-16.0); Mean Corpuscular HGB Conc 30.9 g/dl (31.0-35.0); Mean Corpuscular Hemoglobin 31.5 pg (27.0-33.0); Mean Corpuscular Volume 102.2 fL (80.0-98.0); Mean Platelet Volume 10.3 fL (9.4-12.3); Platelet Count 134 X10*3/uL (160-400); Red Blood Count 3.68 X10*6/uL (4.20-5.50)
[2023-05-28 13:02] LABS: White Blood Count 2.3 X10*3/uL (4.8-10.8)
--- NOTE | 2023-05-28 13:21 | PM.PNCARD ---
Subjective Subjective Date of Service: 05/28/23 Interval history: Seen examined at bedside. Still volume overloaded. Physical Exam Vital Signs: Last Vital Signs Temp 97 F 05/28/23 11:04 Pulse 72 05/28/23 11:04 Resp 16 05/28/23 11:04 BP 142/74 H 05/28/23 11:04 Pulse Ox 95 05/28/23 11:04 O2 Del Method Oxymask 05/28/23 06:59 O2 Flow Rate 3 05/28/23 03:18 BMI result Body Mass Index 61.3 GENERAL APPEARANCE: in no acute distress, on face mask. NECK: no carotid bruit, + jugular venous distention. SKIN: no suspicious lesions, warm and dry. HEART: no murmurs, regular rate and rhythm. LUNGS: Clear to auscultation. ABDOMEN: soft, nontender. EXTREMITIES: ++ edema. PERIPHERAL PULSES: equal. NEUROLOGIC: No gross deficits, AAO X 3 Objective Labs and Meds 05/28/23 12:40 05/28/23 08:22 Lab results: Laboratory Results - last 24 hr 05/27/23 05/28/23 05/28/23 10:48 08:22 12:40 WBC 2.3 L RBC 3.68 L Hgb 11.6 L Hct 37.6 MCV 102.2 H MCH 31.5 MCHC 30.9 L RDW 14.0 Plt Count 134 L MPV 10.3 Absolute Nucleated RBC 0.000 Nucleated RBC % (auto) 0.0 Sodium 138 Potassium 4.1 Chloride 99 Carbon Dioxide 29 Anion Gap 14 BUN 16 Creatinine 1.04 Estim Creat Clear Calc 85.4 Estimated GFR 55 Random Glucose 82 Calcium 8.7 B-Natriuretic Peptide 141 H Procalcitonin 0.05 Respiratory Panel Adames See Note Adenovirus (Rapid PCR) Not Detected B.pert (TEM-PCR) Not Detected B.parapertussis DNA PCR Not Detected C. pneumoniae DNA (PCR) Not Detected Coronavirus OC43 (PCR) Not Detected Coronavirus HKU1 (PCR) Not Detected Coronavirus 229E (PCR) Not Detected Coronavirus NL63 (PCR) Not Detected Human Metapneumovir PCR Not Detected Influenza A (RT-PCR) Not Detected Influenza B (RT-PCR) Not Detected M. pneumoniae (PCR) Not Detected Parainfluenza 1 (PCR) Not Detected Parainfluenza 2 (PCR) Not Detected Parainfluenza 3 (PCR) Not Detected Parainfluenza 4 (PCR) Not Detected RSV (PCR) Not Detected Entero/Rhino (PCR) Not Detected SARS-CoV-2 RNA (RT-PCR) Not Detected Imaging Radiologist's impression: Impressions Chest X-Ray 05/28/23 09:47 IMPRESSION: Mild cardiomegaly with mild pulmonary vascular congestion. Progress Note: A&P Assessment and plan (1) Congestive heart failure: Status: Acute (2) Atrial flutter: Status: Acute Plan [age] year female with recent atrial flutter episode for which she underwent cardioversion in April 2023. She was sent home with flecainide but apparently ran out of medications and did not take them for few weeks. She developed shortness of breath and came to ER and was noticed to be in heart failure and was back in atrial flutter. Her medications have been resumed with the exception of flecainide currently. She is on apixaban 5 mg twice a day. She is only IV Lasix 40 mg IV b.i.d.. I think continues IV Lasix. Eliquis should not be held. Please resume the flecainide 100 mg twice a day. She is agreeable for cardioversion and we will plan it over the next 1-2 days depending on volume status. Thank you for allowing me to participate in the care of your patient. Please feel free to contact me if you have any questions. Time Spent With Patient Time: Total time managing care of this patient today ____ minutes. Progress Note: Quality Stroke Does the patient have a stroke diagnosis?: No Procedures Date of Service Date of Service: 05/28/23
--- NOTE | 2023-05-28 14:33 | MHC.CM.PN ---
EMR REVIEWED, CM MET W/PT WHO REPORTS SHE LIVES W/DTR AND ROOMMATES, PT DOES NOT APPEAR TO BE A GOOD HISTORIAN AND REPORS THE ONLY MEDICATION SHE MISSED WAS HER BP MEDICATION BECAUSE SHE RAN OUT, PT HAS NOT SEEN ANY DATA ANALYSIS ASSISTANT AND STILL S NOT FOUND A PCP, PT PROVIDED W/[facility] PROVIDER LIST W/INSTRUCTIONS TO CALL AFTER June THAT IS WHEN THEY WILL BE TAKING ON NEW PTS AND [facility] ADRESS AND PHONE NUMBER. PT IS INDEP, DRIVES, NO DME OR SERVICES. PLAN IS HOME SELF CARE, HCP ON FILE AND PT REPORTS SHE DOES NOT WANT MEDS SENT TO [facility] [facility] SHE WOULD LIKE TO USE HER REGULAR PHARMACY [facility]
[2023-05-28] MEDS: cefTRIAXone sodium 1 GM in 0.9 % Sodium Chloride 50 ML IV (15:00)
[2023-05-29 03:32] VITALS: BP 111/67; PULSE 92; RESP 20; TEMP 37; O2SAT 97
[2023-05-29] MEDS: Omeprazole 20 MG CAPSULE.DR PO ×2 (06:34→16:26)
[2023-05-29 07:13] VITALS: BP 129/78; PULSE 102; RESP 18; TEMP 36.4; O2SAT 90
[2023-05-29 07:42] LABS: Anion Gap 14 (12-20); Blood Urea Nitrogen 16 mg/dL (9-16); Calcium 8.3 mg/dL (8.4-10.2); Carbon Dioxide 31 mmol/L (22-29); Chloride 98 mmol/L (96-108); Creatinine Clr Calc Pharmacy 94.5; Estimated Glomerular Filt Rate > 60; Glucose Random 87 mg/dL (60-115); Sodium 139 mmol/L (135-145)
[2023-05-29 07:57] LABS: B Type Natriuretic Peptide 79 pg/mL (<100)
[2023-05-29] MEDS: Furosemide 100 MG/10 ML VIAL 40 MG IVPUSH (08:33)
[2023-05-29] MEDS: Zinc Sulfate 220 MG CAPSULE PO (08:33)
[2023-05-29] MEDS: Cholecalciferol (Vitamin D3) 25 MCG TABLET 125 MCG PO ×2 (08:34→08:39)
[2023-05-29] MEDS: dilTIAZem HCL CD 120 MG CAP.ER.DEG PO (08:35)
[2023-05-29] MEDS: Apixaban 5 MG TABLET PO ×2 (08:35→21:55)
[2023-05-29] MEDS: 0.9 % Sodium Chloride Flush 3 ML SYRINGE IVFLUSH ×2 (08:36→21:56)
[2023-05-29 11:16] VITALS: BP 120/59; PULSE 135; RESP 20; TEMP 37; O2SAT 95
--- NOTE | 2023-05-29 11:51 | MHC.CM.PN ---
EMR reviewed and per MD rounds, pt is not medically cleared for D/C due to requiring management of CHF exacerbation, pt may also need cardioversion. CM will continue to follow.
[2023-05-29] MEDS: Furosemide 200 MG in 0.9 % Sodium Chloride 80 ML IVCONT (12:16)
--- NOTE | 2023-05-29 12:22 | PM.PNCARD ---
Subjective Subjective Date of Service: 05/29/23 Principal diagnosis: Persistent atrial flutter with rapid ventricular response, heart failure. Interval history: Patient continues to be short of breath and fluid overloaded. Also remains rapid ventricular rate. Currently receiving Lasix boluses. Negative balance of 1900 cc. Patient says she has been mostly compliant with medication but ran out of them. Unclear as to use of oral anticoagulation. Review of Systems Constitutional: Reports no additional constitutional complaints Reports system reviewed and no additional complaints, except as documented Cardiovascular: Denies chest pain, Reports rapid heart rate, Reports leg edema, Denies lightheadedness, Denies Loss of Consciousness and Reports dyspnea on exertion Respiratory: Reports dyspnea on exertion Gastrointestinal: Reports no additional gastrointestinal complaints Musculoskeletal: Reports no additional musculoskeletal complaints Skin/Breast: Reports system reviewed and no additional complaints, except as docu Reports system reviewed and no additional complaints, except as documented Psychiatric: Reports no additional psychiatric complaints Physical Exam Vital Signs: Last Vital Signs Temp 98.6 F 05/29/23 11:16 Pulse 135 H 05/29/23 11:16 Resp 20 05/29/23 11:16 BP 120/59 L 05/29/23 11:16 Pulse Ox 95 05/29/23 11:16 O2 Del Method Oxymask 05/29/23 11:16 O2 Flow Rate 3 05/29/23 11:16 BMI result Body Mass Index 61.3 Const General: cooperative and in distress mild and respiratory Nutritional Appearance: obese morbidly obese Orientation/consciousness: patient oriented x3 Neck Neck: Yes trachea midline, Yes supple and Yes JVD Resp Effort & Inspection: decreased respiratory effort Auscultation: no rales, no wheezes and diminished lung sounds Cardio Jugular venous distension: JVD Rate: tachycardic Rhythm: abnormal rhythm irregularly irregular Heart sounds: S1 normal heart sound present, S2 normal heart sound present, no click, no gallops and no murmurs GI Inspection: Yes distended and Yes obesity Auscultation: normal bowel sounds Skin General skin exam: no rashes or lesions noted Neuro General: patient oriented x3 and no focal motor deficits Extrem General: No clubbing, No cyanosis and Yes edema (Edema with chronic skin changes probably related to venous stasis) Objective Labs and Meds 05/28/23 12:40 05/29/23 06:30 Lab results: Laboratory Results - last 24 hr 05/28/23 05/29/23 12:40 06:30 WBC 2.3 L RBC 3.68 L Hgb 11.6 L Hct 37.6 MCV 102.2 H MCH 31.5 MCHC 30.9 L RDW 14.0 Plt Count 134 L MPV 10.3 Absolute Nucleated RBC 0.000 Nucleated RBC % (auto) 0.0 Sodium 139 Potassium 4.0 Chloride 98 Carbon Dioxide 31 H Anion Gap 14 BUN 16 Creatinine 0.94 Estim Creat Clear Calc 94.5 Estimated GFR > 60 Random Glucose 87 Calcium 8.3 L B-Natriuretic Peptide 79 Progress Note: A&P Assessment and plan (1) Decompensated heart failure: Status: Acute Assessment and Plan: Decompensated congestive heart failure in this middle-aged woman most likely due to recurrent atrial flutter with loss of AV synchrony. I would suggest her to continue to be diuresed as she appears clinically fluid overloaded. Would switch her to IV Lasix drip. Strict intake and output chart needs to be pursued. Importance of rhythm control was discussed with her. She has high likelihood of sleep apnea requires workup for the same. Would pursue better rate control. Also consider adding Aldactone 12.5 mg to her regimen. Will continue monitor renal function as well as BNP. (2) Atrial flutter with rapid ventricular response: Status: Acute Assessment and Plan: Atrial flutter with rapid ventricular response, difficult control. This is due to her not taking medication with underlying other risk factors including morbid obesity as well as possibly untreated sleep apnea. This requires workup. Aggressive rate control as outpatient. Will require better rate control for now and would start on IV Cardizem drip. Can use digoxin if need be. Eventually I think she will benefit from rhythm control approach like last time and would consider OTILIO guided cardioversion once a fluid status is improved. Probably in 1-2 days. She is not quite excited about undergoing these procedures but understands. We discussed the risks, benefits, 2nd opinion to OTILIO and cardioversion. Avoid antiarrhythmic drug therapy for now. Continue full oral anticoagulation with Eliquis Will follow with you Time Spent With Patient Time: Total time managing care of this patient today ____ minutes. Progress Note: Quality Stroke Does the patient have a stroke diagnosis?: No Procedures Date of Service Date of Service: 05/29/23
[2023-05-29] MEDS: cefTRIAXone sodium 1 GM in 0.9 % Sodium Chloride 50 ML IV (13:51)
[2023-05-29] MEDS: dilTIAZem HCL 125 MG in 0.9 % Sodium Chloride 100 ML 10 MG IVCONT (14:22)
--- NOTE | 2023-05-29 14:55 | HO.PM.IMPN ---
Subjective Subjective Date of Service: 05/29/23 Interval History: CHF exacerbation Review of Systems Shortness of breath seem somewhat improving, still tachycardia in 100 -130. Denies any chest pain or cough or phlegm. Physical Exam Vital Signs: Vital Signs: Last Vital Signs Temp 98.6 F 05/29/23 11:16 Pulse 135 H 05/29/23 11:16 Resp 20 05/29/23 11:16 BP 120/59 L 05/29/23 11:16 Pulse Ox 95 05/29/23 11:16 O2 Del Method Oxymask 05/29/23 11:16 O2 Flow Rate 3 05/29/23 11:16 BMI result Body Mass Index 61.3 Appearance: Alert.? Oriented X3.sob cvs: rrr, [id number] , no murmur res: air entry diminshed ,has few scattered rales ,no wheezing abd: no rebound or guarding ,nt, bs present. ext pulses present , no cyanosis,ch leg changes ,has edema but difficult to access (grade edema). neuro: axo3 , nonfocal. Objective Data Active Medications Acetaminophen (Acetaminophen 325 Mg Tablet) 650 mg PO Q6H PRN PRN Reason: Pain, Mild (Pain Scale 1-3) Last Admin: 05/28/23 16:55 Dose: 650 mg Documented By: DEVANTE Al Hydroxide/Mg Hydroxide (Magnesium Hydrox/Alum Hydrox 30 Ml Oral.Susp) 30 ml PO Q4H PRN PRN Reason: Heartburn/Nausea Last Admin: 05/27/23 18:03 Dose: 30 ml Documented By: ESA Apixaban (Apixaban 5 Mg Tablet) 5 mg PO BID [facility] Last Admin: 05/29/23 08:35 Dose: 5 mg Documented By: ZAKIYA Docusate Sodium (Docusate Sodium 100 Mg Capsule) 100 mg PO BID [facility] Last Admin: 05/29/23 08:33 Dose: Not Given Documented By: ZAKIYA Non-Admin Reason: Patient Refused Ceftriaxone Sodium 1 gm/ (Sodium Chloride) 50 mls @ 100 mls/hr IV Q24H [facility] Last Infusion: 05/29/23 14:23 Dose: Infused Documented By: ZAKIYA Furosemide 200 mg/ Sodium (Chloride) 100 mls @ 2.5 mls/hr IVCONT .Q24H [facility] Last Infusion: 05/29/23 13:46 Dose: 0 mg/hr, 0 mls/hr Documented By: ZAKIYA Diltiazem HCl 125 mg/ Sodium (Chloride) 125 mls @ 0 mls/hr IVCONT .Q0M [facility]; Protocol Last Admin: 05/29/23 14:22 Dose: 10 mg/hr, 10 mls/hr Documented By: ZAKIYA Melatonin (Melatonin 3 Mg Tablet) 6 mg PO BEDTIME PRN PRN Reason: Insomnia Omeprazole (Omeprazole 20 Mg Capsule.) 20 mg PO BID@0630,1630 [facility] Last Admin: 05/29/23 06:34 Dose: 20 mg Documented By: ANGIE Ondansetron HCl (Ondansetron Hcl 4 Mg/2 Ml Vial) 4 mg IVPUSH Q8H PRN PRN Reason: Nausea and Vomiting Sodium Chloride (0.9 % Sodium Chloride Flush 3 Ml Syringe) 3 ml IVFLUSH QSHIFT [facility] Last Admin: 05/29/23 08:36 Dose: 3 ml Documented By: ZAKIYA Vitamin D (Cholecalciferol (Vitamin D3) 25 Mcg Tablet) 125 mcg PO DAILY [facility] Last Admin: 05/29/23 08:39 Dose: 125 mcg Documented By: ZAKIYA Zinc Sulfate (Zinc Sulfate 220 Mg Capsule) 220 mg PO DAILY [facility] Last Admin: 05/29/23 08:33 Dose: 220 mg Documented By: ZAKIYA Labs 05/28/23 12:40 05/29/23 06:30 Labs: Laboratory Results - last 24 hr 05/29/23 06:30 Anion Gap 14 Estim Creat Clear Calc 94.5 Estimated GFR > 60 Random Glucose 87 Calcium 8.3 L B-Natriuretic Peptide 79 Microbiology Microbiology Results: Microbiology 05/28/23 12:39 Blood Culture - Preliminary Blood - Venous No growth after 24 hours. 05/28/23 12:26 Blood Culture - Preliminary Blood - Venous No growth after 24 hours. Assessment and Plan (1) Atrial flutter with rapid ventricular response: Status: Acute (2) Decompensated heart failure: Status: Acute Plan 53-year-old morbidly obese AA female with history of HpEF and atrial flutter here with Acute on chronic diastolic CHF exacerbation sob similar ,has leg edema echoon 04/26:Normal left ventricular cavity size. The left ventricular systolic function is normal. The visually estimated ejection fraction is between 55-60%. There is no evidence of regional wall motion abnormalities plan: moniter daily weights ,i/o. monitor weight, I/O's so 1950 ml neg continue 40 mg twice a day moniter electrolytes and renal function Atrial flutter: 100-130 range continue Eliquis, Cardiology following-checked with the patient pharmacy she did not milk [employer] Eliquis due to cost issue, currently will hold flecainide. Added Cardizem drip. Morbid obesity- encourage weight loss Fever :has cough with sputum -? acute bronchitis ua neg ,cxr -similar ,no other symptoms rvp negative blood culture neg @24hrs , procalcitonin levels: 0.05 added ceftriaxone for ?? acute bronchitis DVT: Eliquis CODE STATUS: Full code ongoing hospitilsation need: management of management of acute on chronic CHF exacerbation-need I&O monitoring and renal function and electrolyte monitoring need IV diuretics, also need IV Cardizem for heart rate control. Quality Stroke Does the patient have a stroke diagnosis?: No VTE Prior VTE?: No VTE Risk Level:: Medical - moderate - high VTE Device Contraindication: Treatment Not Indicated VTE Drug Contraindication: N/A - Med Ordered
[2023-05-29 15:27] VITALS: BP 107/55; PULSE 91; RESP 20; TEMP 36.9; O2SAT 97
[2023-05-29] MEDS: guaiFEN/Codeine SF 200/20/10ML 10 ML LIQUID PO (18:55)
[2023-05-29 20:00] VITALS: BP 112/59; PULSE 96; RESP 20; TEMP 36.2; O2SAT 95
[2023-05-29] MEDS: Acetaminophen 325 MG TABLET 650 MG PO (22:01)
[2023-05-29] MEDS: dilTIAZem HCL 125 MG in 0.9 % Sodium Chloride 100 ML 15 MG IVCONT (22:31)
[2023-05-30] VITALS (8 sets, daily range): BP systolic 113–160; BP diastolic 67–83; PULSE 66–137; RESP 16–20; TEMP 36–37; O2SAT 90–96
[2023-05-30] MEDS: guaiFEN/Codeine SF 200/20/10ML 10 ML LIQUID PO (00:50)
[2023-05-30] MEDS: Omeprazole 20 MG CAPSULE.DR PO ×2 (06:14→17:17)
[2023-05-30] MEDS: dilTIAZem HCL 125 MG in 0.9 % Sodium Chloride 100 ML 15 MG IVCONT ×2 (08:50→19:42)
[2023-05-30] MEDS: Cholecalciferol (Vitamin D3) 25 MCG TABLET 125 MCG PO (08:51)
[2023-05-30] MEDS: Zinc Sulfate 220 MG CAPSULE PO (08:52)
[2023-05-30] MEDS: Apixaban 5 MG TABLET PO ×2 (08:52→22:08)
[2023-05-30 10:07] LABS: Anion Gap 14 (12-20); Blood Urea Nitrogen 12 mg/dL (9-16); Calcium 8.4 mg/dL (8.4-10.2); Carbon Dioxide 35 mmol/L (22-29); Chloride 96 mmol/L (96-108); Creatinine Clr Calc Pharmacy 105.8; Estimated Glomerular Filt Rate > 60; Glucose Random 87 mg/dL (60-115); Potassium 3.7 mmol/L (3.3-5.1); Sodium 141 mmol/L (135-145)
[2023-05-30 10:14] LABS: B Type Natriuretic Peptide 64 pg/mL (<100)
--- NOTE | 2023-05-30 12:05 | PM.PNCARD ---
Subjective Subjective Date of Service: 05/30/23 Principal diagnosis: Persistent atrial flutter with rapid ventricular response, heart failure. Interval history: Patient still remains in atrial flutter with somewhat difficult control rate. Has diuresed about 4.8 L. She says she is breathing better and the leg edema is improved. Her renal function remained stable. Review of Systems Constitutional: Reports no additional constitutional complaints Cardiovascular: Reports rapid heart rate and Reports dyspnea Respiratory: Reports dyspnea Gastrointestinal: Reports no additional gastrointestinal complaints Reports system reviewed and no additional complaints, except as documented Psychiatric: Reports no additional psychiatric complaints Physical Exam Vital Signs: Last Vital Signs Temp 97.1 F 05/30/23 11:38 Pulse 137 H 05/30/23 11:38 Resp 18 05/30/23 11:38 BP 125/78 05/30/23 11:38 Pulse Ox 92 05/30/23 11:38 O2 Del Method Oxymask 05/30/23 11:38 O2 Flow Rate 2 05/30/23 11:38 BMI result Body Mass Index 61.3 Const General: cooperative and in distress mild and respiratory Nutritional Appearance: obese morbidly obese Orientation/consciousness: patient oriented x3 Neck Neck: Yes trachea midline, Yes supple and Yes JVD Resp Effort & Inspection: decreased respiratory effort Auscultation: no rales, no wheezes and diminished lung sounds Cardio Jugular venous distension: JVD Rate: tachycardic Rhythm: abnormal rhythm irregularly irregular Heart sounds: S1 normal heart sound present, S2 normal heart sound present, no click, no gallops and no murmurs GI Inspection: Yes distended and Yes obesity Auscultation: normal bowel sounds Skin General skin exam: no rashes or lesions noted Neuro General: patient oriented x3 and no focal motor deficits Extrem General: No clubbing, No cyanosis and Yes edema (Edema with chronic skin changes probably related to venous stasis) Objective Labs and Meds 05/28/23 12:40 05/30/23 08:30 Lab results: Laboratory Results - last 24 hr 05/28/23 05/30/23 12:40 08:30 Smear Path Review Sodium 141 Potassium 3.7 Chloride 96 Carbon Dioxide 35 H Anion Gap 14 BUN 12 Creatinine 0.84 Estim Creat Clear Calc 105.8 Estimated GFR > 60 Random Glucose 87 Calcium 8.4 B-Natriuretic Peptide 64 Progress Note: A&P Assessment and plan (1) Decompensated heart failure: Status: Acute Assessment and Plan: Decompensated congestive heart failure improving with negative balance of 4.8 L. Continue IV diuresis for 1 more day as she appears to be still fluid overloaded. Add Aldactone to her regimen. If she has significant alkalosis can add Diamox 2 regimen. Requires workup of sleep apnea soon as possible. Blood pressure is optimally control. Will require atrial flutter to be converted to sinus rhythm and maintain AV synchrony which has helped her in the past. See below (2) Atrial flutter with rapid ventricular response: Status: Acute Assessment and Plan: Atrial flutter with difficult control rate. Can give couple of dose of digoxin today. Avoid digoxin tomorrow. Continue IV Cardizem drip. Patient will most likely benefit from OTILIO guided cardioversion. Will tentatively schedule for tomorrow as long as the fluid status appears okay. Patient was made aware of the need for OTILIO prior to cardioversion including risk, benefits, alternatives. Also risks and benefits of cardioversion were discussed. She understands agrees. Most likely post cardioversion require antiarrhythmic drug therapy most likely amiodarone. Will require sleep study as soon as possible post discharge. Consider overnight oximetry. Will follow up with her Time Spent With Patient Time: Total time managing care of this patient today ____ minutes. Progress Note: Quality Stroke Does the patient have a stroke diagnosis?: No Procedures Date of Service Date of Service: 05/30/23
[2023-05-30] MEDS: Furosemide 200 MG in 0.9 % Sodium Chloride 80 ML IVCONT (12:34)
[2023-05-30] MEDS: Digoxin 0.5 MG/2 ML AMPUL 0.25 MG IVPUSH ×2 (12:34→18:38)
--- NOTE | 2023-05-30 12:35 | HO.PM.IMPN ---
Subjective Subjective Date of Service: 05/30/23 Interval History: chf ,a flutter with rvr Review of Systems Shortness of breath seems to be improving, denies any palpitation or chest pain or fever or chills. Physical Exam Vital Signs: Vital Signs: Last Vital Signs Temp 97.1 F 05/30/23 11:38 Pulse 137 H 05/30/23 11:38 Resp 18 05/30/23 11:38 BP 125/78 05/30/23 11:38 Pulse Ox 92 05/30/23 11:38 O2 Del Method Oxymask 05/30/23 11:38 O2 Flow Rate 2 05/30/23 11:38 BMI result Body Mass Index 61.3 Appearance: Alert.? Oriented X3.sob cvs: rrr, [id number] , no murmur res: air entry diminshed ,has few scattered rales ,no wheezing abd: no rebound or guarding ,nt, bs present. ext pulses present , no cyanosis,ch leg changes ,has edema but difficult to access (grade edema). neuro: axo3 , nonfocal. Objective Data Active Medications Acetaminophen (Acetaminophen 325 Mg Tablet) 650 mg PO Q6H PRN PRN Reason: Pain, Mild (Pain Scale 1-3) Last Admin: 05/29/23 22:01 Dose: 650 mg Documented By: MAYNOR Al Hydroxide/Mg Hydroxide (Magnesium Hydrox/Alum Hydrox 30 Ml Oral.Susp) 30 ml PO Q4H PRN PRN Reason: Heartburn/Nausea Last Admin: 05/27/23 18:03 Dose: 30 ml Documented By: ESA Apixaban (Apixaban 5 Mg Tablet) 5 mg PO BID [facility] Last Admin: 05/30/23 08:52 Dose: 5 mg Documented By: SYED Digoxin (Digoxin 0.5 Mg/2 Ml Ampul) 0.25 mg IVPUSH Q6H [facility] Stop: 05/30/23 18:16 Docusate Sodium (Docusate Sodium 100 Mg Capsule) 100 mg PO BID [facility] Last Admin: 05/30/23 09:03 Dose: Not Given Documented By: SYED Non-Admin Reason: Patient Refused Guaifenesin/Codeine Phosphate (Guaifen/Codeine Sf 200/20/10ml 10 Ml Liquid) 10 ml PO Q4H PRN PRN Reason: Cough Last Admin: 05/30/23 00:50 Dose: 10 ml Documented By: MAYNOR Ceftriaxone Sodium 1 gm/ (Sodium Chloride) 50 mls @ 100 mls/hr IV Q24H [facility] Last Infusion: 05/29/23 14:23 Dose: Infused Documented By: ZAKIYA Furosemide 200 mg/ Sodium (Chloride) 100 mls @ 2.5 mls/hr IVCONT .Q24H [facility] Last Infusion: 05/29/23 15:27 Dose: 5 mg/hr, 2.5 mls/hr Documented By: ZAKIYA Diltiazem HCl 125 mg/ Sodium (Chloride) 125 mls @ 0 mls/hr IVCONT .Q0M [facility]; Protocol Last Admin: 05/30/23 08:50 Dose: 15 mg/hr, 15 mls/hr Documented By: SYED Melatonin (Melatonin 3 Mg Tablet) 6 mg PO BEDTIME PRN PRN Reason: Insomnia Omeprazole (Omeprazole 20 Mg Capsule.) 20 mg PO BID@0630,1630 [facility] Last Admin: 05/30/23 06:14 Dose: 20 mg Documented By: MAYNOR Ondansetron HCl (Ondansetron Hcl 4 Mg/2 Ml Vial) 4 mg IVPUSH Q8H PRN PRN Reason: Nausea and Vomiting Sodium Chloride (0.9 % Sodium Chloride Flush 3 Ml Syringe) 3 ml IVFLUSH QSHIFT [facility] Last Admin: 05/30/23 07:59 Dose: Not Given Documented By: SYED Non-Admin Reason: IV Running Spironolactone (Spironolactone 25 Mg Tablet) 25 mg PO BID@0900,1800 [facility]; Protocol Vitamin D (Cholecalciferol (Vitamin D3) 25 Mcg Tablet) 125 mcg PO DAILY [facility] Last Admin: 05/30/23 08:51 Dose: 125 mcg Documented By: SYED Zinc Sulfate (Zinc Sulfate 220 Mg Capsule) 220 mg PO DAILY [facility] Last Admin: 05/30/23 08:52 Dose: 220 mg Documented By: SYED Labs 05/28/23 12:40 05/30/23 08:30 Labs: Laboratory Results - last 24 hr 05/28/23 05/30/23 12:40 08:30 Smear Path Review Anion Gap 14 Estim Creat Clear Calc 105.8 Estimated GFR > 60 Random Glucose 87 Calcium 8.4 B-Natriuretic Peptide 64 Microbiology Microbiology Results: Microbiology 05/28/23 12:39 Blood Culture - Preliminary Blood - Venous No growth after 24 hours. 05/28/23 12:26 Blood Culture - Preliminary Blood - Venous No growth after 24 hours. Assessment and Plan (1) Atrial flutter with rapid ventricular response: Status: Acute (2) Decompensated heart failure: Status: Acute (3) Congestive heart failure: Status: Acute (4) Atrial flutter: Status: Acute (5) Morbid obesity: Status: Acute Plan 53-year-old morbidly obese AA female with history of HpEF and atrial flutter here with Acute on chronic diastolic CHF exacerbation sob similar ,has leg edema echoon 04/26:Normal left ventricular cavity size. The left ventricular systolic function is normal. The visually estimated ejection fraction is between 55-60%. There is no evidence of regional wall motion abnormalities plan: moniter daily weights ,i/o. monitor weight, I/O's so 1950 ml neg continue 40 mg twice a day moniter electrolytes and renal function Atrial flutter: 100-130 range continue Eliquis, Cardiology following-checked with the patient pharmacy she did not slat pickler Eliquis due to cost issue, currently will hold flecainide. contnue Cardizem drip. Morbid obesity- encourage weight loss Fever :has cough with sputum -? acute bronchitis no new episode of fever. ua neg ,cxr -similar ,no other symptoms rvp negative, no new fever episode blood culture neg @24hrs , procalcitonin levels: 0.05 started ceftriaxone (05/28/23)for ?? acute bronchitis , switch to po ceftin once blood culture neg @48hrs Morbid obesity : encouraged to loose weight and cut down calories . DVT: Eliquis CODE STATUS: Full code ongoing hospitilsation need: management of management of acute on chronic CHF exacerbation-need I&O monitoring and renal function and electrolyte monitoring need IV diuretics, also need IV Cardizem and iv digosin for heart rate control as well as need telemonitering and wait for hr control to avoid further complications including worsenin CHF . Quality Stroke Does the patient have a stroke diagnosis?: No VTE Prior VTE?: No VTE Risk Level:: Medical - moderate - high VTE Device Contraindication: Treatment Not Indicated VTE Drug Contraindication: N/A - Med Ordered
[2023-05-30] MEDS: cefTRIAXone sodium 1 GM in 0.9 % Sodium Chloride 50 ML IV (13:36)
[2023-05-30] MEDS: Spironolactone 25 MG TABLET PO (17:17)
[2023-05-31] VITALS (13 sets, daily range): BP systolic 101–145; BP diastolic 59–93; PULSE 62–165; RESP 16–22; TEMP 35.8–36.9; O2SAT 90–96; BMI 61.3
--- NOTE | 2023-05-31 | ECG_ITS ---
Test Reason : tachycardia Blood Pressure : / mmHG Vent. Rate : 156 BPM Atrial Rate : 000 BPM P-R Int : 000 ms QRS Dur : 098 ms QT Int : 310 ms P-R-T Axes : 000 -21 072 degrees QTc Int : 499 ms Atrial flutter with 2 to [address] abnormality Abnormal ECG When compared with ECG of 31-MAY-2023 15:05, Atrial flutter with 2 to 1 block has replaced Normal sinus rhythm Vent. rate has increased BY [address] now depressed in Lateral leads Referred By: Mg Worthington Electronically Signed By:VALARIE ELDER MD
[2023-05-31] MEDS: dilTIAZem HCL 125 MG in 0.9 % Sodium Chloride 100 ML 15 MG IVCONT (05:49)
[2023-05-31 07:41] LABS: Hematocrit 41.5 % (37.0-47.0); Hemoglobin 13.4 g/dl (12.0-16.0); Mean Corpuscular HGB Conc 32.3 g/dl (31.0-35.0); Mean Corpuscular Hemoglobin 32.2 pg (27.0-33.0); Mean Corpuscular Volume 99.8 fL (80.0-98.0); Mean Platelet Volume 10.6 fL (9.4-12.3); Platelet Count 146 X10*3/uL (160-400); Red Blood Count 4.16 X10*6/uL (4.20-5.50); Red Cell Distribution Width 13.4 % (11.0-16.0); White Blood Count 3.2 X10*3/uL (4.8-10.8)
[2023-05-31 07:54] LABS: Anion Gap 13 (12-20); Blood Urea Nitrogen 12 mg/dL (9-16); Carbon Dioxide 36 mmol/L (22-29); Chloride 94 mmol/L (96-108); Creatinine Clr Calc Pharmacy 96.6; Estimated Glomerular Filt Rate > 60; Glucose Random 97 mg/dL (60-115); Potassium 3.6 mmol/L (3.3-5.1); Sodium 139 mmol/L (135-145)
[2023-05-31 08:03] LABS: B Type Natriuretic Peptide 41 pg/mL (<100)
[2023-05-31] MEDS: Cholecalciferol (Vitamin D3) 25 MCG TABLET 125 MCG PO (08:20)
[2023-05-31] MEDS: Apixaban 5 MG TABLET PO ×2 (08:21→20:29)
[2023-05-31] MEDS: Zinc Sulfate 220 MG CAPSULE PO (08:21)
[2023-05-31] MEDS: Spironolactone 25 MG TABLET PO ×2 (08:21→18:00)
[2023-05-31 08:30] LABS: Folate 4.2 ng/mL (> or = 4.0); Vitamin B12 559 pg/mL (200-900)
--- NOTE | 2023-05-31 12:59 | MHC.CM.PN ---
EMR reviewed and per MD rounds, pt is not medically cleared for D/C due to cardioversion being done today. CM will continue to follow.
--- NOTE | 2023-05-31 13:48 | CA_ITS ---
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 1. A quick OTILIO study was performed due to patient's airway status 2. LV systolic function appears depressed with LVEF of 30-40% 3. Biatrial enlargement 4. No left atrial thrombi or masses seen including the left atrial appendage 5. No interatrial shunting 6. No significant abnormality of cardiac valvular structure with mild mitral and [id number] tricuspid regurgitation noted Findings Procedure Information Consent was obtained prior to the procedure. Pre OTILIO oral cavity was checked and revealed significant overcrowding. The adult 3D probe was passed with no difficulty. Left Ventricle LV was identifying multiple views. Patient was very tachycardic during the entire study in LV function is difficult to assess but appears to be between 30-40% and is reduced. There are no left ventricular thrombi or masses seen. Right Ventricle Mildly increased right ventricular cavity size. Atria The left atrium is moderately dilated. left atrium appears to be moderately dilated. There are no clear thrombi or masses seen with the left atrium. there is no significant small formation seen. The left atrial appendage was identified in multiple views and there are no thrombi or significantly smoke formation seen. The left atrial appendage velocity was reduced. Due to rapid study the pulmonary veins were not identified. The right atrium is moderately dilated. No clear interatrial septal defect was noted. The IVC in SVC drain normally into the right atrium. No significant masses or clot seen within the right atrial cavity. Aortic Valve Normal aortic valve structure and function. There is no aortic valve stenosis. There is no aortic valve regurgitation. Mitral Valve Normal mitral valve structure and function. There is mild mitral valve regurgitation. There is no mitral valve stenosis. Pulmonic Valve The pulmonic valve was not well visualized. Tricuspid Valve Normal tricuspid valve structure. There is mild to moderate tricuspid valve regurgitation. Tricuspid regurgitation envelope is inadequate for calculation of right ventricular systolic pressure. Great Vessels All visible segments of the aorta are normal in size. The pulmonary artery was not well visualized. Venous The inferior vena cava is normal in size and collapses greater than 50% with inspiration. Pericardium/Pleural There is no evidence of pericardial effusion. Updated by Scout Kumar on 04:42 PM with Status of Final Scout Kumar MD electronically signed on 05/31/2023 4:42:14 PM with status of Final
--- NOTE | 2023-05-31 13:48 | MHC.SHP ---
Pre-Procedural Eval Section A Date of Service: 05/31/23 The patient is an INPATIENT: Yes Changes since office visit: Yes New Medical Problems and Yes Patient answered all questions; No Cold of Flu in the past 2 weeks and No Changes in Medication The History & Physical has been completed within 30 days and I have reviewed it.: Yes Section B Chief Complaint: CHF Exacerbation, atrial flutter Allergies: Allergies Allergy/AdvReac Type Severity Reaction Status Date / Time aspirin [From [facility]] Allergy Mild Hives Verified 05/31/23 12:58 citric acid Allergy Mild Hives Verified 05/31/23 12:58 [From [facility]] dextromethorphan Allergy Mild Hives Verified 05/31/23 12:58 [From NyQuil] doxylamine [From NyQuil] Allergy Mild Hives Verified 05/31/23 12:58 pseudoephedrine [From NyQuil] Allergy Mild Hives Verified 05/31/23 12:58 sodium bicarbonate Allergy Mild Hives Verified 05/31/23 12:58 [From [facility]] Plan I have reviewed the history and physical and performed a pertinent physical examination on my patient. No changes have occurred unless specified. Time Spent With Patient Time: Total time managing care of this patient today ____ minutes.
--- NOTE | 2023-05-31 13:49 | PM.PNCARD ---
Subjective Subjective Date of Service: 05/31/23 Principal diagnosis: Persistent atrial flutter with rapid ventricular response, heart failure. Interval history: Patient feeling a lot better. Breathing better. Remains in atrial flutter with difficult control rate. No symptoms of palpitations. NPO for planned procedure today Review of Systems Constitutional: Reports no additional constitutional complaints Cardiovascular: Reports rapid heart rate and Reports dyspnea Respiratory: Reports dyspnea Gastrointestinal: Reports no additional gastrointestinal complaints Reports system reviewed and no additional complaints, except as documented Psychiatric: Reports no additional psychiatric complaints Physical Exam Vital Signs: Last Vital Signs Temp 97.4 F 05/31/23 13:16 Pulse 138 H 05/31/23 13:16 Resp 16 05/31/23 13:16 BP 145/93 H 05/31/23 13:16 Pulse Ox 94 05/31/23 13:16 O2 Del Method Oxymask 05/31/23 13:16 O2 Flow Rate 1 05/31/23 13:16 BMI result Body Mass Index 61.3 Const General: cooperative and in distress mild and respiratory Nutritional Appearance: obese morbidly obese Orientation/consciousness: patient oriented x3 Neck Neck: Yes trachea midline, Yes supple and Yes JVD Resp Effort & Inspection: decreased respiratory effort Auscultation: no rales, no wheezes and diminished lung sounds Cardio Jugular venous distension: JVD Rate: tachycardic Rhythm: abnormal rhythm irregularly irregular Heart sounds: S1 normal heart sound present, S2 normal heart sound present, no click, no gallops and no murmurs GI Inspection: Yes distended and Yes obesity Auscultation: normal bowel sounds Skin General skin exam: no rashes or lesions noted Neuro General: patient oriented x3 and no focal motor deficits Extrem General: No clubbing, No cyanosis and Yes edema (Edema with chronic skin changes probably related to venous stasis) Objective Labs and Meds 05/31/23 07:10 05/31/23 07:11 Lab results: Laboratory Results - last 24 hr 05/31/23 05/31/23 07:10 07:11 WBC 3.2 L RBC 4.16 L Hgb 13.4 Hct 41.5 MCV 99.8 H MCH 32.2 MCHC 32.3 RDW 13.4 Plt Count 146 L MPV 10.6 Absolute Nucleated RBC 0.000 Nucleated RBC % (auto) 0.0 Sodium 139 Potassium 3.6 Chloride 94 L Carbon Dioxide 36 H Anion Gap 13 BUN 12 Creatinine 0.92 Estim Creat Clear Calc 96.6 Estimated GFR > 60 Random Glucose 97 Calcium 9.0 D B-Natriuretic Peptide 41 Vitamin B12 559 Folate 4.2 Progress Note: A&P Assessment and plan (1) Decompensated heart failure: Status: Acute Assessment and Plan: Decompensated heart failure much improved. I would switch to p.o. Bumex 1 mg today. Heart failure education was provided. I think she will most benefit from rhythm control. Also evaluation for sleep apnea needs to be pursued. A longer and she requires aggressive weight loss program. Continue spironolactone for neurohormonal modulation. (2) Atrial flutter with rapid ventricular response: Status: Acute Assessment and Plan: Atrial flutter with difficult control rate despite use of Cardizem drip at max. Also got a dose of digoxin. Will pursue OTILIO guided cardioversion later today. Currently on full oral anticoagulation with Eliquis. Will most likely require antiarrhythmic drug support, will probably use amiodarone. Also will require sleep apnea evaluation urgently. Will follow with you Time Spent With Patient Time: Total time managing care of this patient today ____ minutes. Progress Note: Quality Stroke Does the patient have a stroke diagnosis?: No Procedures Date of Service Date of Service: 05/31/23
--- NOTE | 2023-05-31 13:59 | P.CONAN_ITS ---
HPI - Anesthesia Eval Consult details Narrative: for OTILIO/cardioversion Had same last month, under GETA, no cx. PMFSH Active Problems Active Problems: All Active Problems (Updated 05/29/23 @ 12:25 by Scout Kumar MD) Atrial flutter with rapid ventricular response (Acute) Decompensated heart failure (Acute) Congestive heart failure (Acute) Atrial flutter (Acute) Morbid obesity (Acute) Past Medical History Medical History (Updated 05/29/23 @ 12:25 by Scout Kumar MD) Atrial flutter with rapid ventricular response Morbid obesity Hypertension Congestive heart failure Functional capacity: independent ambulation Family History Family history of problems with anesthesia: No Surgical History History of Problems with Anesthesia: No Social History Social History Household Members: Children Household Members Other:: roommates Housing: House Do you presently have visiting nurse or other home services: No Comment: refusing alarm and camera Patient Tobacco Use Status: Current everyday Tobacco user Tobacco use type: Cigarette Cigarettes Per Day: 10 Years Smoked: 25 e-Cigarette/Vaping Use: Never Used Second Hand Smoke Exposure: Yes Advance Directives Date on File: 04/28/23 service: No Meds Allergies Allergy/AdvReac Type Severity Reaction Status Date / Time aspirin [From Niharika-Mershon] Allergy Mild Hives Verified 05/31/23 12:58 citric acid Allergy Mild Hives Verified 05/31/23 12:58 [From Niharika-Mershon] dextromethorphan Allergy Mild Hives Verified 05/31/23 12:58 [From NyQuil] doxylamine [From NyQuil] Allergy Mild Hives Verified 05/31/23 12:58 pseudoephedrine [From NyQuil] Allergy Mild Hives Verified 05/31/23 12:58 sodium bicarbonate Allergy Mild Hives Verified 05/31/23 12:58 [From Niharika-Mershon] Active Medications: Current Medications Acetaminophen (Acetaminophen 325 Mg Tablet) 650 mg PO Q6H PRN PRN Reason: Pain, Mild (Pain Scale 1-3) Last Admin: 05/29/23 22:01 Dose: 650 mg Al Hydroxide/Mg Hydroxide (Magnesium Hydrox/Alum Hydrox 30 Ml Oral.Susp) 30 ml PO Q4H PRN PRN Reason: Heartburn/Nausea Last Admin: 05/27/23 18:03 Dose: 30 ml Apixaban (Apixaban 5 Mg Tablet) 5 mg PO BID [facility] Last Admin: 05/31/23 08:21 Dose: 5 mg Docusate Sodium (Docusate Sodium 100 Mg Capsule) 100 mg PO BID [facility] Last Admin: 05/31/23 08:22 Dose: Not Given Guaifenesin/Codeine Phosphate (Guaifen/Codeine Sf 200/20/10ml 10 Ml Liquid) 10 ml PO Q4H PRN PRN Reason: Cough Last Admin: 05/30/23 00:50 Dose: 10 ml Ceftriaxone Sodium 1 gm/ (Sodium Chloride) 50 mls @ 100 mls/hr IV Q24H [facility] Last Infusion: 05/30/23 14:26 Dose: Infused Furosemide 200 mg/ Sodium (Chloride) 100 mls @ 2.5 mls/hr IVCONT .Q24H [facility] Last Admin: 05/30/23 12:34 Dose: 5 mg/hr, 2.5 mls/hr Diltiazem HCl 125 mg/ Sodium (Chloride) 125 mls @ 0 mls/hr IVCONT .Q0M [facility]; Protocol Last Titration: 05/31/23 11:25 Dose: 10 mg/hr, 10 mls/hr Melatonin (Melatonin 3 Mg Tablet) 6 mg PO BEDTIME PRN PRN Reason: Insomnia Omeprazole (Omeprazole 20 Mg Capsule.Dr) 20 mg PO BID@0630,1630 [facility] Last Admin: 05/31/23 05:28 Dose: Not Given Ondansetron HCl (Ondansetron Hcl 4 Mg/2 Ml Vial) 4 mg IVPUSH Q8H PRN PRN Reason: Nausea and Vomiting Sodium Chloride (0.9 % Sodium Chloride Flush 3 Ml Syringe) 3 ml IVFLUSH QSHIFT [facility] Last Admin: 05/31/23 00:18 Dose: Not Given Spironolactone (Spironolactone 25 Mg Tablet) 25 mg PO BID@0900,1800 [facility]; Protocol Last Admin: 05/31/23 08:21 Dose: 25 mg Vitamin D (Cholecalciferol (Vitamin D3) 25 Mcg Tablet) 125 mcg PO DAILY [facility] Last Admin: 05/31/23 08:20 Dose: 125 mcg Zinc Sulfate (Zinc Sulfate 220 Mg Capsule) 220 mg PO DAILY [facility] Last Admin: 05/31/23 08:21 Dose: 220 mg Home Medications Medication Instructions Recorded Confirmed Last Taken Type cholecalciferol (vitamin D3) 125 125 mcg PO DAILY 04/23/23 05/27/23 05/26/23 History mcg (5,000 unit) tablet (Vitamin D3) zinc 50 mg capsule 50 mg PO DAILY 04/23/23 05/27/23 05/26/23 History Exam Height,Weight and Vital Signs: Height 5 ft 1 in Weight 147.2 kg Last Vital Signs Temp 97.4 F 05/31/23 13:16 Pulse 138 H 05/31/23 13:16 Resp 16 05/31/23 13:16 BP 145/93 H 05/31/23 13:16 Pulse Ox 94 05/31/23 13:16 O2 Del Method Oxymask 05/31/23 13:16 O2 Flow Rate 1 05/31/23 13:16 Pertinent Lab Results Pertinent Lab Results: Laboratory Tests 05/26/23 05/26/23 05/27/23 20:55 21:26 07:53 WBC 5.7 3.9 L RBC 3.71 L Hgb 11.9 L Hct 37.7 MCV 101.6 H MCH 32.1 MCHC 31.6 RDW 14.1 Plt Count 165 MPV 9.8 Immature Gran % (Auto) 0.2 Neut % (Auto) 88.4 H Lymph % (Auto) 5.8 L [place] % (Auto) 4.9 Eos % (Auto) 0.5 Baso % (Auto) 0.2 Lymph # (Auto) 0.3 L [place] # (Auto) 0.3 Eos # (Auto) 0.0 Baso # (Auto) 0.0 Abs Immat Gran (auto) 0.01 Absolute Neuts (auto) 5.0 Absolute Nucleated RBC 0.000 Nucleated RBC % (auto) 0.0 Smear Path Review Sodium 142 Potassium 4.4 Chloride 104 Carbon Dioxide 28 Anion Gap 14 BUN 15 Creatinine 0.87 Estim Creat Clear Calc 104.2 Estimated GFR > 60 Random Glucose 100 Calcium 9.2 Magnesium 2.0 Total Bilirubin 0.6 AST 20 ALT 19 Alkaline Phosphatase 106 Troponin I High Sens 5.8 B-Natriuretic Peptide 138 H Total Protein 7.6 Albumin 4.0 Triglycerides Cholesterol LDL Cholesterol, Calc HDL Cholesterol Vitamin B12 Folate Procalcitonin TSH Urine Color Yellow Urine Appearance Clear Urine pH 7.0 Ur Specific [place] 1.020 Urine Protein Negative Urine Glucose (UA) Negative Urine Ketones Negative Urine Blood Negative Urine Nitrite Negative Ur Leukocyte Esterase Negative Respiratory Panel Adames Adenovirus (Rapid PCR) B.pert (TEM-PCR) B.parapertussis DNA PCR C. pneumoniae DNA (PCR) Coronavirus OC43 (PCR) Coronavirus HKU1 (PCR) Coronavirus 229E (PCR) Coronavirus NL63 (PCR) Human Metapneumovir PCR Influenza A (RT-PCR) Influenza Type A (PCR) NEGATIVE Influenza B (RT-PCR) Influenza Type B (PCR) NEGATIVE M. pneumoniae (PCR) Parainfluenza 1 (PCR) Parainfluenza 2 (PCR) Parainfluenza 3 (PCR) Parainfluenza 4 (PCR) RSV (PCR) RSV RNA Qual (PCR) NEGATIVE Entero/Rhino (PCR) SARS-CoV-2 RNA (RT-PCR) NEGATIVE 05/27/23 05/27/23 05/27/23 07:53 07:53 07:53 WBC 3.9 L RBC 3.52 L 3.57 L Hgb 11.6 L 11.5 L Hct 36.2 L MCV MCH MCHC RDW Plt Count MPV Immature Gran % (Auto) Neut % (Auto) Lymph % (Auto) [place] % (Auto) Eos % (Auto) Baso % (Auto) Lymph # (Auto) [place] # (Auto) Eos # (Auto) Baso # (Auto) Abs Immat Gran (auto) Absolute Neuts (auto) Absolute Nucleated RBC Nucleated RBC % (auto) Smear Path Review Sodium Potassium Chloride Carbon Dioxide Anion Gap BUN Creatinine Estim Creat Clear Calc Estimated GFR Random Glucose Calcium Magnesium Total Bilirubin AST ALT Alkaline Phosphatase Troponin I High Sens B-Natriuretic Peptide Total Protein Albumin Triglycerides Cholesterol LDL Cholesterol, Calc HDL Cholesterol Vitamin B12 Folate Procalcitonin TSH Urine Color Urine Appearance Urine pH Ur Specific [place] Urine Protein Urine Glucose (UA) Urine Ketones Urine Blood Urine Nitrite Ur Leukocyte Esterase Respiratory Panel Adames Adenovirus (Rapid PCR) B.pert (TEM-PCR) B.parapertussis DNA PCR C. pneumoniae DNA (PCR) Coronavirus OC43 (PCR) Coronavirus HKU1 (PCR) Coronavirus 229E (PCR) Coronavirus NL63 (PCR) Human Metapneumovir PCR Influenza A (RT-PCR) Influenza Type A (PCR) Influenza B (RT-PCR) Influenza Type B (PCR) M. pneumoniae (PCR) Parainfluenza 1 (PCR) Parainfluenza 2 (PCR) Parainfluenza 3 (PCR) Parainfluenza 4 (PCR) RSV (PCR) RSV RNA Qual (PCR) Entero/Rhino (PCR) SARS-CoV-2 RNA (RT-PCR) 05/27/23 05/27/23 05/27/23 07:53 07:53 07:53 WBC RBC Hgb Hct 36.1 L MCV 102.8 H 101.1 H MCH 33.0 32.2 MCHC 32.0 RDW Plt Count MPV Immature Gran % (Auto) Neut % (Auto) Lymph % (Auto) [place] % (Auto) Eos % (Auto) Baso % (Auto) Lymph # (Auto) [place] # (Auto) Eos # (Auto) Baso # (Auto) Abs Immat Gran (auto) Absolute Neuts (auto) Absolute Nucleated RBC Nucleated RBC % (auto) Smear Path Review Sodium Potassium Chloride Carbon Dioxide Anion Gap BUN Creatinine Estim Creat Clear Calc Estimated GFR Random Glucose Calcium Magnesium Total Bilirubin AST ALT Alkaline Phosphatase Troponin I High Sens B-Natriuretic Peptide Total Protein Albumin Triglycerides Cholesterol LDL Cholesterol, Calc HDL Cholesterol Vitamin B12 Folate Procalcitonin TSH Urine Color Urine Appearance Urine pH Ur Specific [place] Urine Protein Urine Glucose (UA) Urine Ketones Urine Blood Urine Nitrite Ur Leukocyte Esterase Respiratory Panel Adames Adenovirus (Rapid PCR) B.pert (TEM-PCR) B.parapertussis DNA PCR C. pneumoniae DNA (PCR) Coronavirus OC43 (PCR) Coronavirus HKU1 (PCR) Coronavirus 229E (PCR) Coronavirus NL63 (PCR) Human Metapneumovir PCR Influenza A (RT-PCR) Influenza Type A (PCR) Influenza B (RT-PCR) Influenza Type B (PCR) M. pneumoniae (PCR) Parainfluenza 1 (PCR) Parainfluenza 2 (PCR) Parainfluenza 3 (PCR) Parainfluenza 4 (PCR) RSV (PCR) RSV RNA Qual (PCR) Entero/Rhino (PCR) SARS-CoV-2 RNA (RT-PCR) 05/27/23 05/27/23 05/27/23 07:53 07:53 07:53 WBC RBC Hgb Hct MCV MCH MCHC 31.9 RDW 14.3 14.2 Plt Count 151 L 154 L MPV 10.1 Immature Gran % (Auto) Neut % (Auto) Lymph % (Auto) [place] % (Auto) Eos % (Auto) Baso % (Auto) Lymph # (Auto) [place] # (Auto) Eos # (Auto) Baso # (Auto) Abs Immat Gran (auto) Absolute Neuts (auto) Absolute Nucleated RBC Nucleated RBC % (auto) Smear Path Review Sodium Potassium Chloride Carbon Dioxide Anion Gap BUN Creatinine Estim Creat Clear Calc Estimated GFR Random Glucose Calcium Magnesium Total Bilirubin AST ALT Alkaline Phosphatase Troponin I High Sens B-Natriuretic Peptide Total Protein Albumin Triglycerides Cholesterol LDL Cholesterol, Calc HDL Cholesterol Vitamin B12 Folate Procalcitonin TSH Urine Color Urine Appearance Urine pH Ur Specific [place] Urine Protein Urine Glucose (UA) Urine Ketones Urine Blood Urine Nitrite Ur Leukocyte Esterase Respiratory Panel Adames Adenovirus (Rapid PCR) B.pert (TEM-PCR) B.parapertussis DNA PCR C. pneumoniae DNA (PCR) Coronavirus OC43 (PCR) Coronavirus HKU1 (PCR) Coronavirus 229E (PCR) Coronavirus NL63 (PCR) Human Metapneumovir PCR Influenza A (RT-PCR) Influenza Type A (PCR) Influenza B (RT-PCR) Influenza Type B (PCR) M. pneumoniae (PCR) Parainfluenza 1 (PCR) Parainfluenza 2 (PCR) Parainfluenza 3 (PCR) Parainfluenza 4 (PCR) RSV (PCR) RSV RNA Qual (PCR) Entero/Rhino (PCR) SARS-CoV-2 RNA (RT-PCR) 05/27/23 05/27/23 05/27/23 07:53 07:53 07:53 WBC RBC Hgb Hct MCV MCH MCHC RDW Plt Count MPV 10.0 Immature Gran % (Auto) Neut % (Auto) Lymph % (Auto) [place] % (Auto) Eos % (Auto) Baso % (Auto) Lymph # (Auto) [place] # (Auto) Eos # (Auto) Baso # (Auto) Abs Immat Gran (auto) Absolute Neuts (auto) Absolute Nucleated RBC 0.000 0.000 Nucleated RBC % (auto) 0.0 0.0 Smear Path Review Sodium 141 Potassium Chloride Carbon Dioxide Anion Gap BUN Creatinine Estim Creat Clear Calc Estimated GFR Random Glucose Calcium Magnesium Total Bilirubin AST ALT Alkaline Phosphatase Troponin I High Sens B-Natriuretic Peptide Total Protein Albumin Triglycerides Cholesterol LDL Cholesterol, Calc HDL Cholesterol Vitamin B12 Folate Procalcitonin TSH Urine Color Urine Appearance Urine pH Ur Specific [place] Urine Protein Urine Glucose (UA) Urine Ketones Urine Blood Urine Nitrite Ur Leukocyte Esterase Respiratory Panel Adames Adenovirus (Rapid PCR) B.pert (TEM-PCR) B.parapertussis DNA PCR C. pneumoniae DNA (PCR) Coronavirus OC43 (PCR) Coronavirus HKU1 (PCR) Coronavirus 229E (PCR) Coronavirus NL63 (PCR) Human Metapneumovir PCR Influenza A (RT-PCR) Influenza Type A (PCR) Influenza B (RT-PCR) Influenza Type B (PCR) M. pneumoniae (PCR) Parainfluenza 1 (PCR) Parainfluenza 2 (PCR) Parainfluenza 3 (PCR) Parainfluenza 4 (PCR) RSV (PCR) RSV RNA Qual (PCR) Entero/Rhino (PCR) SARS-CoV-2 RNA (RT-PCR) 05/27/23 05/27/23 05/27/23 07:53 07:53 07:53 WBC RBC Hgb Hct MCV MCH MCHC RDW Plt Count MPV Immature Gran % (Auto) Neut % (Auto) Lymph % (Auto) [place] % (Auto) Eos % (Auto) Baso % (Auto) Lymph # (Auto) [place] # (Auto) Eos # (Auto) Baso # (Auto) Abs Immat Gran (auto) Absolute Neuts (auto) Absolute Nucleated RBC Nucleated RBC % (auto) Smear Path Review Sodium 140 Potassium 4.1 4.3 Chloride 103 104 Carbon Dioxide 29 Anion Gap BUN Creatinine Estim Creat Clear Calc Estimated GFR Random Glucose Calcium Magnesium Total Bilirubin AST ALT Alkaline Phosphatase Troponin I High Sens B-Natriuretic Peptide Total Protein Albumin Triglycerides Cholesterol LDL Cholesterol, Calc HDL Cholesterol Vitamin B12 Folate Procalcitonin TSH Urine Color Urine Appearance Urine pH Ur Specific [place] Urine Protein Urine Glucose (UA) Urine Ketones Urine Blood Urine Nitrite Ur Leukocyte Esterase Respiratory Panel Adames Adenovirus (Rapid PCR) B.pert (TEM-PCR) B.parapertussis DNA PCR C. pneumoniae DNA (PCR) Coronavirus OC43 (PCR) Coronavirus HKU1 (PCR) Coronavirus 229E (PCR) Coronavirus NL63 (PCR) Human Metapneumovir PCR Influenza A (RT-PCR) Influenza Type A (PCR) Influenza B (RT-PCR) Influenza Type B (PCR) M. pneumoniae (PCR) Parainfluenza 1 (PCR) Parainfluenza 2 (PCR) Parainfluenza 3 (PCR) Parainfluenza 4 (PCR) RSV (PCR) RSV RNA Qual (PCR) Entero/Rhino (PCR) SARS-CoV-2 RNA (RT-PCR) 05/27/23 05/27/23 05/27/23 07:53 07:53 07:53 WBC RBC Hgb Hct MCV MCH MCHC RDW Plt Count MPV Immature Gran % (Auto) Neut % (Auto) Lymph % (Auto) [place] % (Auto) Eos % (Auto) Baso % (Auto) Lymph # (Auto) [place] # (Auto) Eos # (Auto) Baso # (Auto) Abs Immat Gran (auto) Absolute Neuts (auto) Absolute Nucleated RBC Nucleated RBC % (auto) Smear Path Review Sodium Potassium Chloride Carbon Dioxide 27 Anion Gap 13 13 BUN 13 13 Creatinine 0.94 Estim Creat Clear Calc Estimated GFR Random Glucose Calcium Magnesium Total Bilirubin AST ALT Alkaline Phosphatase Troponin I High Sens B-Natriuretic Peptide Total Protein Albumin Triglycerides Cholesterol LDL Cholesterol, Calc HDL Cholesterol Vitamin B12 Folate Procalcitonin TSH Urine Color Urine Appearance Urine pH Ur Specific [place] Urine Protein Urine Glucose (UA) Urine Ketones Urine Blood Urine Nitrite Ur Leukocyte Esterase Respiratory Panel Adames Adenovirus (Rapid PCR) B.pert (TEM-PCR) B.parapertussis DNA PCR C. pneumoniae DNA (PCR) Coronavirus OC43 (PCR) Coronavirus HKU1 (PCR) Coronavirus 229E (PCR) Coronavirus NL63 (PCR) Human Metapneumovir PCR Influenza A (RT-PCR) Influenza Type A (PCR) Influenza B (RT-PCR) Influenza Type B (PCR) M. pneumoniae (PCR) Parainfluenza 1 (PCR) Parainfluenza 2 (PCR) Parainfluenza 3 (PCR) Parainfluenza 4 (PCR) RSV (PCR) RSV RNA Qual (PCR) Entero/Rhino (PCR) SARS-CoV-2 RNA (RT-PCR) 05/27/23 05/27/23 05/27/23 07:53 07:53 07:53 WBC RBC Hgb Hct MCV MCH MCHC RDW Plt Count MPV Immature Gran % (Auto) Neut % (Auto) Lymph % (Auto) [place] % (Auto) Eos % (Auto) Baso % (Auto) Lymph # (Auto) [place] # (Auto) Eos # (Auto) Baso # (Auto) Abs Immat Gran (auto) Absolute Neuts (auto) Absolute Nucleated RBC Nucleated RBC % (auto) Smear Path Review Sodium Potassium Chloride Carbon Dioxide Anion Gap BUN Creatinine 0.94 Estim Creat Clear Calc 96.4 96.4 Estimated GFR > 60 > 60 Random Glucose 110 Calcium Magnesium Total Bilirubin AST ALT Alkaline Phosphatase Troponin I High Sens B-Natriuretic Peptide Total Protein Albumin Triglycerides Cholesterol LDL Cholesterol, Calc HDL Cholesterol Vitamin B12 Folate Procalcitonin TSH Urine Color Urine Appearance Urine pH Ur Specific [place] Urine Protein Urine Glucose (UA) Urine Ketones Urine Blood Urine Nitrite Ur Leukocyte Esterase Respiratory Panel Adames Adenovirus (Rapid PCR) B.pert (TEM-PCR) B.parapertussis DNA PCR C. pneumoniae DNA (PCR) Coronavirus OC43 (PCR) Coronavirus HKU1 (PCR) Coronavirus 229E (PCR) Coronavirus NL63 (PCR) Human Metapneumovir PCR Influenza A (RT-PCR) Influenza Type A (PCR) Influenza B (RT-PCR) Influenza Type B (PCR) M. pneumoniae (PCR) Parainfluenza 1 (PCR) Parainfluenza 2 (PCR) Parainfluenza 3 (PCR) Parainfluenza 4 (PCR) RSV (PCR) RSV RNA Qual (PCR) Entero/Rhino (PCR) SARS-CoV-2 RNA (RT-PCR) 05/27/23 05/27/23 05/27/23 07:53 07:53 07:53 WBC RBC Hgb Hct MCV MCH MCHC RDW Plt Count MPV Immature Gran % (Auto) Neut % (Auto) Lymph % (Auto) [place] % (Auto) Eos % (Auto) Baso % (Auto) Lymph # (Auto) [place] # (Auto) Eos # (Auto) Baso # (Auto) Abs Immat Gran (auto) Absolute Neuts (auto) Absolute Nucleated RBC Nucleated RBC % (auto) Smear Path Review Sodium Potassium Chloride Carbon Dioxide Anion Gap BUN Creatinine Estim Creat Clear Calc Estimated GFR Random Glucose 109 Calcium 8.9 9.0 Magnesium 2.2 2.3 Total Bilirubin AST ALT Alkaline Phosphatase Troponin I High Sens B-Natriuretic Peptide Total Protein Albumin Triglycerides 59 Cholesterol 123 LDL Cholesterol, Calc 66 HDL Cholesterol 46 Vitamin B12 Folate Procalcitonin TSH 0.49 Urine Color Urine Appearance Urine pH Ur Specific [place] Urine Protein Urine Glucose (UA) Urine Ketones Urine Blood Urine Nitrite Ur Leukocyte Esterase Respiratory Panel Adames Adenovirus (Rapid PCR) B.pert (TEM-PCR) B.parapertussis DNA PCR C. pneumoniae DNA (PCR) Coronavirus OC43 (PCR) Coronavirus HKU1 (PCR) Coronavirus 229E (PCR) Coronavirus NL63 (PCR) Human Metapneumovir PCR Influenza A (RT-PCR) Influenza Type A (PCR) Influenza B (RT-PCR) Influenza Type B (PCR) M. pneumoniae (PCR) Parainfluenza 1 (PCR) Parainfluenza 2 (PCR) Parainfluenza 3 (PCR) Parainfluenza 4 (PCR) RSV (PCR) RSV RNA Qual (PCR) Entero/Rhino (PCR) SARS-CoV-2 RNA (RT-PCR) 05/27/23 05/28/23 05/28/23 10:48 08:22 12:40 WBC 2.3 L RBC 3.68 L Hgb 11.6 L Hct 37.6 MCV 102.2 H MCH 31.5 MCHC 30.9 L RDW 14.0 Plt Count 134 L MPV 10.3 Immature Gran % (Auto) Neut % (Auto) Lymph % (Auto) [place] % (Auto) Eos % (Auto) Baso % (Auto) Lymph # (Auto) [place] # (Auto) Eos # (Auto) Baso # (Auto) Abs Immat Gran (auto) Absolute Neuts (auto) Absolute Nucleated RBC 0.000 Nucleated RBC % (auto) 0.0 Smear Path Review Sodium 138 Potassium 4.1 Chloride 99 Carbon Dioxide 29 Anion Gap 14 BUN 16 Creatinine 1.04 Estim Creat Clear Calc 85.4 Estimated GFR 55 Random Glucose 82 Calcium 8.7 Magnesium Total Bilirubin AST ALT Alkaline Phosphatase Troponin I High Sens B-Natriuretic Peptide 141 H Total Protein Albumin Triglycerides Cholesterol LDL Cholesterol, Calc HDL Cholesterol Vitamin B12 Folate Procalcitonin 0.05 TSH Urine Color Urine Appearance Urine pH Ur Specific [place] Urine Protein Urine Glucose (UA) Urine Ketones Urine Blood Urine Nitrite Ur Leukocyte Esterase Respiratory Panel Adames See Note Adenovirus (Rapid PCR) Not Detected B.pert (TEM-PCR) Not Detected B.parapertussis DNA PCR Not Detected C. pneumoniae DNA (PCR) Not Detected Coronavirus OC43 (PCR) Not Detected Coronavirus HKU1 (PCR) Not Detected Coronavirus 229E (PCR) Not Detected Coronavirus NL63 (PCR) Not Detected Human Metapneumovir PCR Not Detected Influenza A (RT-PCR) Not Detected Influenza Type A (PCR) Influenza B (RT-PCR) Not Detected Influenza Type B (PCR) M. pneumoniae (PCR) Not Detected Parainfluenza 1 (PCR) Not Detected Parainfluenza 2 (PCR) Not Detected Parainfluenza 3 (PCR) Not Detected Parainfluenza 4 (PCR) Not Detected RSV (PCR) Not Detected RSV RNA Qual (PCR) Entero/Rhino (PCR) Not Detected SARS-CoV-2 RNA (RT-PCR) Not Detected 05/29/23 05/30/23 05/31/23 06:30 08:30 07:10 WBC 3.2 L RBC 4.16 L Hgb 13.4 Hct 41.5 MCV 99.8 H MCH 32.2 MCHC 32.3 RDW 13.4 Plt Count 146 L MPV 10.6 Immature Gran % (Auto) Neut % (Auto) Lymph % (Auto) [place] % (Auto) Eos % (Auto) Baso % (Auto) Lymph # (Auto) [place] # (Auto) Eos # (Auto) Baso # (Auto) Abs Immat Gran (auto) Absolute Neuts (auto) Absolute Nucleated RBC 0.000 Nucleated RBC % (auto) 0.0 Smear Path Review Sodium 139 141 Potassium 4.0 3.7 Chloride 98 96 Carbon Dioxide 31 H 35 H Anion Gap 14 14 BUN 16 12 Creatinine 0.94 0.84 Estim Creat Clear Calc 94.5 105.8 Estimated GFR > 60 > 60 Random Glucose 87 87 Calcium 8.3 L 8.4 Magnesium Total Bilirubin AST ALT Alkaline Phosphatase Troponin I High Sens B-Natriuretic Peptide 79 64 41 Total Protein Albumin Triglycerides Cholesterol LDL Cholesterol, Calc HDL Cholesterol Vitamin B12 559 Folate 4.2 Procalcitonin TSH Urine Color Urine Appearance Urine pH Ur Specific [place] Urine Protein Urine Glucose (UA) Urine Ketones Urine Blood Urine Nitrite Ur Leukocyte Esterase Respiratory Panel Adames Adenovirus (Rapid PCR) B.pert (TEM-PCR) B.parapertussis DNA PCR C. pneumoniae DNA (PCR) Coronavirus OC43 (PCR) Coronavirus HKU1 (PCR) Coronavirus 229E (PCR) Coronavirus NL63 (PCR) Human Metapneumovir PCR Influenza A (RT-PCR) Influenza Type A (PCR) Influenza B (RT-PCR) Influenza Type B (PCR) M. pneumoniae (PCR) Parainfluenza 1 (PCR) Parainfluenza 2 (PCR) Parainfluenza 3 (PCR) Parainfluenza 4 (PCR) RSV (PCR) RSV RNA Qual (PCR) Entero/Rhino (PCR) SARS-CoV-2 RNA (RT-PCR) 05/31/23 07:11 WBC RBC Hgb Hct MCV MCH MCHC RDW Plt Count MPV Immature Gran % (Auto) Neut % (Auto) Lymph % (Auto) [place] % (Auto) Eos % (Auto) Baso % (Auto) Lymph # (Auto) [place] # (Auto) Eos # (Auto) Baso # (Auto) Abs Immat Gran (auto) Absolute Neuts (auto) Absolute Nucleated RBC Nucleated RBC % (auto) Smear Path Review Sodium 139 Potassium 3.6 Chloride 94 L Carbon Dioxide 36 H Anion Gap 13 BUN 12 Creatinine 0.92 Estim Creat Clear Calc 96.6 Estimated GFR > 60 Random Glucose 97 Calcium 9.0 D Magnesium Total Bilirubin AST ALT Alkaline Phosphatase Troponin I High Sens B-Natriuretic Peptide Total Protein Albumin Triglycerides Cholesterol LDL Cholesterol, Calc HDL Cholesterol Vitamin B12 Folate Procalcitonin TSH Urine Color Urine Appearance Urine pH Ur Specific [place] Urine Protein Urine Glucose (UA) Urine Ketones Urine Blood Urine Nitrite Ur Leukocyte Esterase Respiratory Panel Adames Adenovirus (Rapid PCR) B.pert (TEM-PCR) B.parapertussis DNA PCR C. pneumoniae DNA (PCR) Coronavirus OC43 (PCR) Coronavirus HKU1 (PCR) Coronavirus 229E (PCR) Coronavirus NL63 (PCR) Human Metapneumovir PCR Influenza A (RT-PCR) Influenza Type A (PCR) Influenza B (RT-PCR) Influenza Type B (PCR) M. pneumoniae (PCR) Parainfluenza 1 (PCR) Parainfluenza 2 (PCR) Parainfluenza 3 (PCR) Parainfluenza 4 (PCR) RSV (PCR) RSV RNA Qual (PCR) Entero/Rhino (PCR) SARS-CoV-2 RNA (RT-PCR) Airway Mallampati Class: II TM Dist: <=3cm Neck ROM: Full Loose/Missing/Broken Teeth: No Heart: [id number], [id number] Lungs: Sat 90% on RA, 95% on 4L Assessment and Plan Assessment Anesthesia Assessment: Anesthesia Plan Discussed and Chart Reviewed Final Anesthetic Review Family History of Problems with Anesthesia: No History of Problems with Anesthesia: No NPO: Yes ASA Class: IV Final Preanesthetic Review: No Changes in Pt Med Stat, Meds/Allgs Chart Reviewed, Consent Obtained/Reviewed and Anes Risks/Benef Reviewed Patient Risk: High Procedure Risk: Intermediate Anesthetic Plan Anesthetic Plan: Agree w/ Assess. and Plan and TIVA (start w TIVA, convert to GETA if nec.) Disposition: Standard PACU
--- NOTE | 2023-05-31 14:57 | ECG_ITS ---
Test Reason : s/p cardioversion Blood Pressure : / mmHG Vent. Rate : 075 BPM Atrial Rate : 075 BPM P-R Int : 154 ms QRS Dur : 092 ms QT Int : 408 ms P-R-T Axes : 037 -06 023 degrees QTc Int : 455 ms Sinus rhythm with Premature atrial complexes with Aberrant conduction Otherwise normal ECG When compared with ECG of 26-MAY-2023 21:11, Sinus rhythm has replaced Atrial flutter ST no longer depressed in Inferior leads Referred By: Scout Kumar Electronically Signed By:CSOUT KUMAR MD
--- NOTE | 2023-05-31 14:58 | HO.CARDIVERS ---
Cardioversion Procedure Note Cardioversion Date of Procedure: Today Ordering Provider: Myself Performing Provider: Myself Indication for Procedure: Persistent atrial flutter with heart failure with difficult control rate Pre-Op Diagnosis: Same Post-Op Diagnosis: Sinus rhythm Performed with Transesophageal Echo: Yes OTILIO findings (if OTILIO Performed): Dictated separately History: See the consult note Consent: Verbal and Written consent was obtained from the patient before starting and after confirming oral anticoagulation use. The patient was made aware of the risk of synchronized cardioversion including benefits and alternatives Procedure: After consent obtained, cardioversion pads were attached in anteroposterior configuration and the patient was sedated by the anesthesia team. Once adequate sedation achieved, patient was delivered 200 joules of biphasic synchronized energy in anteroposterior configuration Complications: Brief hypoxemia that was corrected quickly with job position Impression: Converted successfully to sinus rhythm Recommendations: 1. 12 lead EKG 2. Start p.o. amiodarone 400 mg b.i.d. loading for 2 weeks followed by 200 mg daily for maintenance 3. Continue full oral anticoagulation 4. Follow up in the office after 2-3 weeks
--- NOTE | 2023-05-31 15:53 | PC.NURSE ---
tele monitor from floor attached to patient with new lead stickers and ensured thru transport to floor
[2023-05-31] MEDS: dilTIAZem HCL 125 MG in 0.9 % Sodium Chloride 100 ML 10 MG IVCONT (17:55)
[2023-05-31] MEDS: Omeprazole 20 MG CAPSULE.DR PO (18:00)
[2023-05-31] MEDS: Amiodarone/Dextrose 150 MG/100 ML PLAST..BAG 600 MG IV (18:05)
[2023-05-31] MEDS: Amiodarone HCL 900 MG in 0.9 % Sodium Chloride 500 ML 34.53 MG IVCONT (18:24)
--- NOTE | 2023-05-31 19:44 | P.PNIM_ITS ---
Subjective Subjective Date of Service: 05/31/23 Interval History: f/u on peristent aflutter despite iv cardizem, dig. Went for DC cardioversion but went back into afib shortly thereafter and has been started on iv amio Physical Exam 2 Vital Signs: Vital Signs: Last Vital Signs Temp 97.3 F 05/31/23 17:27 Pulse 165 H 05/31/23 17:55 Resp 18 05/31/23 17:27 BP 131/81 05/31/23 17:55 Pulse Ox 90 L 05/31/23 17:27 O2 Del Method Nasal Cannula 05/31/23 17:27 O2 Flow Rate 2 05/31/23 17:27 BMI result Body Mass Index 61.3 Const: Other: General: AO X 3, no acute distress, morbidly obese Resp: CTA bilateral CVS: S1,S2, iregular iregular GI: +BS, NT, no distention Skin: No rash Neuro: motor grossly intact Psych: appropriate affect Objective Data Active Medications Acetaminophen (Acetaminophen 325 Mg Tablet) 650 mg PO Q6H PRN PRN Reason: Pain, Mild (Pain Scale 1-3) Last Admin: 05/29/23 22:01 Dose: 650 mg Documented By: MAYNOR Al Hydroxide/Mg Hydroxide (Magnesium Hydrox/Alum Hydrox 30 Ml Oral.Susp) 30 ml PO Q4H PRN PRN Reason: Heartburn/Nausea Last Admin: 05/27/23 18:03 Dose: 30 ml Documented By: ESA Apixaban (Apixaban 5 Mg Tablet) 5 mg PO BID [facility] Last Admin: 05/31/23 08:21 Dose: 5 mg Documented By: FIDELIA Bumetanide (Bumetanide 1 Mg Tablet) 1 mg PO DAILY [facility]; Protocol Docusate Sodium (Docusate Sodium 100 Mg Capsule) 100 mg PO BID [facility] Last Admin: 05/31/23 08:22 Dose: Not Given Documented By: FIDELIA Non-Admin Reason: Patient Refused Guaifenesin/Codeine Phosphate (Guaifen/Codeine Sf 200/20/10ml 10 Ml Liquid) 10 ml PO Q4H PRN PRN Reason: Cough Last Admin: 05/30/23 00:50 Dose: 10 ml Documented By: MAYNOR Diltiazem HCl 125 mg/ Sodium (Chloride) 125 mls @ 0 mls/hr IVCONT .Q0M [facility]; Protocol Last Titration: 05/31/23 18:05 Dose: 0 mg/hr, 0 mls/hr Documented By: FIDELIA Ceftriaxone Sodium 1 gm/ (Sodium Chloride) 50 mls @ 100 mls/hr IV Q24H [facility] Amiodarone HCl 900 mg/ Sodium (Chloride) 518 mls @ 34.533 mls/hr IVCONT .Q15H1M [facility]; Protocol Last Admin: 05/31/23 18:24 Dose: 1 mg/min, 34.53 mls/hr Documented By: FIDELIA Melatonin (Melatonin 3 Mg Tablet) 6 mg PO BEDTIME PRN PRN Reason: Insomnia Omeprazole (Omeprazole 20 Mg Capsule.Dr) 20 mg PO BID@0630,1630 [facility] Last Admin: 05/31/23 18:00 Dose: 20 mg Documented By: FIDELIA Ondansetron HCl (Ondansetron Hcl 4 Mg/2 Ml Vial) 4 mg IVPUSH Q8H PRN PRN Reason: Nausea and Vomiting Sodium Chloride (0.9 % Sodium Chloride Flush 3 Ml Syringe) 3 ml IVFLUSH QSHIFT [facility] Last Admin: 05/31/23 17:26 Dose: Not Given Documented By: FIDELIA Non-Admin Reason: Off Unit: Surgery Spironolactone (Spironolactone 25 Mg Tablet) 25 mg PO BID@0900,1800 [facility]; Protocol Last Admin: 05/31/23 18:00 Dose: 25 mg Documented By: FIDELIA Vitamin D (Cholecalciferol (Vitamin D3) 25 Mcg Tablet) 125 mcg PO DAILY [facility] Last Admin: 05/31/23 08:20 Dose: 125 mcg Documented By: FIDELIA Zinc Sulfate (Zinc Sulfate 220 Mg Capsule) 220 mg PO DAILY [facility] Last Admin: 05/31/23 08:21 Dose: 220 mg Documented By: FIDELIA Labs 05/31/23 07:10 05/31/23 07:11 Labs: Laboratory Results - last 24 hr 05/31/23 05/31/23 07:10 07:11 MCV 99.8 H MCH 32.2 MCHC 32.3 RDW 13.4 Plt Count 146 L MPV 10.6 Absolute Nucleated RBC 0.000 Nucleated RBC % (auto) 0.0 Anion Gap 13 Estim Creat Clear Calc 96.6 Estimated GFR > 60 Random Glucose 97 Calcium 9.0 D B-Natriuretic Peptide 41 Vitamin B12 559 Folate 4.2 Microbiology Microbiology Results: Microbiology 05/28/23 12:39 Blood Culture - Preliminary Blood - Venous No growth after 48 hours. 05/28/23 12:26 Blood Culture - Preliminary Blood - Venous No growth after 48 hours. Assessment and Plan (1) Atrial flutter with rapid ventricular response: Status: Acute (2) Decompensated heart failure: Status: Acute (3) Congestive heart failure: Status: Acute (4) Atrial flutter: Status: Acute (5) Morbid obesity: Status: Acute Plan 53-year-old morbidly obese AA female with history of HpEF and atrial flutter here with Acute on chronic diastolic CHF exacerbation likely precipitated by afib with rvr s/p iv diuretics and will transition to oral Bumex Atrial flutter: s/p cardioversion but was short lived and is now on amio drip. Continue eliquis Morbid obesity- encourage weight loss Fever on 05/28, negative culture, CXR no PNA, started on Ceftriaxone, culture negative. Stop Abx by tomorrow Morbid obesity : encouraged to loose weight and cut down calories . DVT: Eliquis CODE STATUS: Full code Need for inpt: Uncontrolled AFIB with RVR, need IV for control and continuing monitoring and med adjustment Quality Stroke Does the patient have a stroke diagnosis?: No VTE Prior VTE?: No VTE Risk Level:: Medical - moderate - high VTE Device Contraindication: Treatment Not Indicated VTE Drug Contraindication: N/A - Med Ordered
[2023-05-31] MEDS: cefTRIAXone sodium 1 GM in 0.9 % Sodium Chloride 50 ML IV (20:29)
[2023-05-31] MEDS: 0.9 % Sodium Chloride Flush 3 ML SYRINGE IVFLUSH (20:29)
[2023-06-01 00:54] VITALS: BP 102/58; PULSE 72; RESP 8; TEMP 36.1; O2SAT 97
[2023-06-01 04:00] VITALS: BP 119/80; PULSE 79; RESP 20; TEMP 36.3; O2SAT 95
[2023-06-01] MEDS: Omeprazole 20 MG CAPSULE.DR PO (05:23)
[2023-06-01 07:11] VITALS: BP 128/82; PULSE 87; RESP 20; TEMP 36.4; O2SAT 95
[2023-06-01] MEDS: Spironolactone 25 MG TABLET PO (09:04)
[2023-06-01] MEDS: Cholecalciferol (Vitamin D3) 25 MCG TABLET 125 MCG PO (09:04)
[2023-06-01] MEDS: Bumetanide 1 MG TABLET PO (09:04)
[2023-06-01] MEDS: Zinc Sulfate 220 MG CAPSULE PO (09:04)
[2023-06-01] MEDS: Apixaban 5 MG TABLET PO (09:04)
--- NOTE | 2023-06-01 10:13 | HO.POSTANES ---
Post Anesthesia Evaluation Post Anesthesia Evaluation Date of Service: 06/01/23 Vital Signs: Vital Signs Temp Pulse Resp BP Pulse Ox O2 Del Method O2 Flow Rate 06/01/23 07:11 97.6 F 87 20 128/82 95 Oxymask 1 06/01/23 04:00 97.3 F 79 20 119/80 95 Oxymask 1 06/01/23 00:54 97.0 F 72 8 L 102/58 L 97 Room Air Anesthesia: Monitored Mental Status: Awake Pain Control: Satisfactory Nausea/Vomiting: None Hydration: Adequate Anesthesia-Related Issues: No Anes. Related Issues
--- NOTE | 2023-06-01 11:01 | P.PNIM_ITS ---
Subjective Subjective Date of Service: 06/01/23 Interval History: f/u on peristent aflutter, s/p cardioversion yesterday but shortly after went into aflutter and started on amio load, overall HR has trended down, presently in 80s no sob or chest pain Physical Exam 2 Vital Signs: Vital Signs: Last Vital Signs Temp 97.6 F 06/01/23 07:11 Pulse 87 06/01/23 07:11 Resp 20 06/01/23 07:11 BP 128/82 06/01/23 07:11 Pulse Ox 95 06/01/23 07:11 O2 Del Method Oxymask 06/01/23 07:11 O2 Flow Rate 1 06/01/23 07:11 BMI result Body Mass Index 61.3 Const: Other: General: AO X 3, no acute distress, morbidly obese Resp: diminished bilaterally CVS: S1,S2, iregular iregular GI: +BS, NT, no distention Skin: No rash Neuro: motor grossly intact Psych: appropriate affect Objective Data Active Medications Acetaminophen (Acetaminophen 325 Mg Tablet) 650 mg PO Q6H PRN PRN Reason: Pain, Mild (Pain Scale 1-3) Last Admin: 05/29/23 22:01 Dose: 650 mg Documented By: MAYNOR Al Hydroxide/Mg Hydroxide (Magnesium Hydrox/Alum Hydrox 30 Ml Oral.Susp) 30 ml PO Q4H PRN PRN Reason: Heartburn/Nausea Last Admin: 05/27/23 18:03 Dose: 30 ml Documented By: ESA Apixaban (Apixaban 5 Mg Tablet) 5 mg PO BID [facility] Last Admin: 06/01/23 09:04 Dose: 5 mg Documented By: JENELLE Bumetanide (Bumetanide 1 Mg Tablet) 1 mg PO DAILY [facility]; Protocol Last Admin: 06/01/23 09:04 Dose: 1 mg Documented By: JENELLE Docusate Sodium (Docusate Sodium 100 Mg Capsule) 100 mg PO BID [facility] Last Admin: 06/01/23 09:04 Dose: Not Given Documented By: JENELLE Non-Admin Reason: Patient Refused Guaifenesin/Codeine Phosphate (Guaifen/Codeine Sf 200/20/10ml 10 Ml Liquid) 10 ml PO Q4H PRN PRN Reason: Cough Last Admin: 05/30/23 00:50 Dose: 10 ml Documented By: MAYNOR Diltiazem HCl 125 mg/ Sodium (Chloride) 125 mls @ 0 mls/hr IVCONT .Q0M [facility]; Protocol Last Titration: 05/31/23 18:05 Dose: 0 mg/hr, 0 mls/hr Documented By: FIDELIA Ceftriaxone Sodium 1 gm/ (Sodium Chloride) 50 mls @ 100 mls/hr IV Q24H [facility] Last Infusion: 05/31/23 21:37 Dose: Infused Documented By: SOPHIE Amiodarone HCl 900 mg/ Sodium (Chloride) 518 mls @ 34.533 mls/hr IVCONT .Q15H1M [facility]; Protocol Last Infusion: 06/01/23 00:18 Dose: 0.5 mg/min, 17.27 mls/hr Documented By: SOPHIE Melatonin (Melatonin 3 Mg Tablet) 6 mg PO BEDTIME PRN PRN Reason: Insomnia Omeprazole (Omeprazole 20 Mg Capsule.) 20 mg PO BID@0630,1630 [facility] Last Admin: 06/01/23 05:23 Dose: 20 mg Documented By: SOPHIE Ondansetron HCl (Ondansetron Hcl 4 Mg/2 Ml Vial) 4 mg IVPUSH Q8H PRN PRN Reason: Nausea and Vomiting Sodium Chloride (0.9 % Sodium Chloride Flush 3 Ml Syringe) 3 ml IVFLUSH QSHIFT [facility] Last Admin: 06/01/23 09:10 Dose: Not Given Documented By: JENELLE Non-Admin Reason: Previously Administered Spironolactone (Spironolactone 25 Mg Tablet) 25 mg PO BID@0900,1800 [facility]; Protocol Last Admin: 06/01/23 09:04 Dose: 25 mg Documented By: JENELLE Vitamin D (Cholecalciferol (Vitamin D3) 25 Mcg Tablet) 125 mcg PO DAILY [facility] Last Admin: 06/01/23 09:04 Dose: 125 mcg Documented By: JENELLE Zinc Sulfate (Zinc Sulfate 220 Mg Capsule) 220 mg PO DAILY [facility] Last Admin: 06/01/23 09:04 Dose: 220 mg Documented By: JENELLE Labs 05/31/23 07:10 05/31/23 07:11 Assessment and Plan (1) Atrial flutter with rapid ventricular response: Status: Acute (2) Decompensated heart failure: Status: Acute (3) Congestive heart failure: Status: Acute (4) Atrial flutter: Status: Acute (5) Morbid obesity: Status: Acute Plan 53-year-old morbidly obese AA female with history of HpEF and atrial flutter here with Acute on chronic diastolic CHF exacerbation likely precipitated by afib with rvr s/p iv diuretics, negative 7 liters fluid balance, transitioned to oral Bumex 1 mg today Atrial flutter: s/p cardioversion 05/31 but was short lived and is now on amio drip. Continue eliquis, will discuss further med management with cardiology Morbid obesity- encourage weight loss Fever on 05/28, negative culture, CXR no PNA, started on Ceftriaxone, culture negative. Stop Abx by today Morbid obesity : encouraged to loose weight and cut down calories . DVT: Eliquis CODE STATUS: Full code Need for inpt: Uncontrolled AFIB with RVR, need IV for control and continuing monitoring and med adjustment Quality Stroke Does the patient have a stroke diagnosis?: No VTE Prior VTE?: No VTE Risk Level:: Medical - moderate - high VTE Device Contraindication: Treatment Not Indicated VTE Drug Contraindication: N/A - Med Ordered
--- NOTE | 2023-06-01 11:13 | PM.PNCARD ---
Subjective Subjective Date of Service: 06/01/23 Principal diagnosis: Persistent atrial flutter with rapid ventricular response, heart failure. Interval history: Patient unfortunately reverted back to atrial flutter after cardioversion. No new symptoms. Was started on amiodarone drip and remain flutter with better rate control. No shortness of breath Review of Systems Constitutional: Reports no additional constitutional complaints Cardiovascular: Reports no additional cardiovascular complaints Respiratory: Reports no additional respiratory complaints Gastrointestinal: Reports no additional gastrointestinal complaints Musculoskeletal: Reports no additional musculoskeletal complaints Reports system reviewed and no additional complaints, except as documented Psychiatric: Reports no additional psychiatric complaints Endocrine: Reports no additional endocrine complaints Hematologic/Lymphatic: Reports no additional hematologic/lymphatic complaints Physical Exam Vital Signs: Last Vital Signs Temp 97.6 F 06/01/23 07:11 Pulse 87 06/01/23 07:11 Resp 20 06/01/23 07:11 BP 128/82 06/01/23 07:11 Pulse Ox 95 06/01/23 07:11 O2 Del Method Oxymask 06/01/23 07:11 O2 Flow Rate 1 06/01/23 07:11 BMI result Body Mass Index 61.3 Const General: cooperative and in distress mild and respiratory Nutritional Appearance: obese morbidly obese Orientation/consciousness: patient oriented x3 Neck Neck: Yes trachea midline, Yes supple and Yes JVD Resp Effort & Inspection: decreased respiratory effort Auscultation: no rales, no wheezes and diminished lung sounds Cardio Jugular venous distension: JVD Rate: tachycardic Rhythm: abnormal rhythm irregularly irregular Heart sounds: S1 normal heart sound present, S2 normal heart sound present, no click, no gallops and no murmurs GI Inspection: Yes distended and Yes obesity Auscultation: normal bowel sounds Skin General skin exam: no rashes or lesions noted Neuro General: patient oriented x3 and no focal motor deficits Extrem General: No clubbing, No cyanosis and Yes edema (Edema with chronic skin changes probably related to venous stasis) Objective Labs and Meds 05/31/23 07:10 05/31/23 07:11 Imaging Radiologist's impression: Impressions Abdomen Ultrasound 05/30/23 16:25 IMPRESSION: 1. Extremely limited study due to patient body habitus and inability to position the patient. 2. Heterogeneous liver without focal lesion. 3. Status post cholecystectomy. 4. The left kidney, spleen, pancreas, aorta, IVC, and common bile duct could not be visualized. Progress Note: A&P Assessment and plan (1) Decompensated heart failure: Status: Acute Assessment and Plan: Decompensated congestive after doing well. Rate is better controlled but unfortunately recurrent atrial flutter is present. Clinically euvolemic. Will switch her to p.o. Bumex 2 mg daily and continue spironolactone but a 25 mg daily. Continue rate control and follow-up with outpatient for cardioversion 2 weeks. Signs and symptoms of heart failure were discussed. Requires outpatient sleep study as soon as possible (2) Atrial flutter: Status: Acute Assessment and Plan: Resistant atrial flutter most likely due to biatrial enlargement and obesity as well as possible untreated sleep apnea. Loaded with amiodarone 400 mg b.i.d. for 2 weeks followed by 200 mg daily with follow-up outpatient cardioversion 2 weeks. Also metoprolol XL 50 mg daily. Continue full oral anticoagulation Eliquis. Importance of compliance with medication was discussed. Will follow up as outpatient Time Spent With Patient Time: Total time managing care of this patient today ____ minutes. Progress Note: Quality Stroke Does the patient have a stroke diagnosis?: No Procedures Date of Service Date of Service: 06/01/23
[2023-06-01 11:18] LABS: Anion Gap 13 (12-20); Blood Urea Nitrogen 12 mg/dL (9-16); Calcium 9.1 mg/dL (8.4-10.2); Carbon Dioxide 32 mmol/L (22-29); Chloride 97 mmol/L (96-108); Creatinine Clr Calc Pharmacy 90.7; Estimated Glomerular Filt Rate 59; Glucose Random 124 mg/dL (60-115); Potassium 3.7 mmol/L (3.3-5.1); Sodium 138 mmol/L (135-145)
[2023-06-01 11:41] VITALS: BP 117/67; PULSE 97; RESP 20; TEMP 36.2; O2SAT 94
--- NOTE | 2023-06-01 11:49 | P.DS_ITS ---
DS: Providers Provider Date of Service: 06/01/23 Date of admission: 05/26/23 23:53 Primary care physician: None Physician Consults: 05/27/23 10:09 Consult to Cardiology Routine Consulting Provider: [facility] [place] [facility] Reason for consultation: A fib /chf Has provider been notified: No DS: Diagnosis Discharge Diagnosis (1) Decompensated heart failure: Status: Acute (2) Atrial flutter: Status: Acute DS: Summary Hospital Course Hospital Course: Admit H and P Chief Complaint: SOB 53-year-old morbidly obese female with history of HpEF and atrial flutter diagnosed during her last admission (04/22-04/27 2023) comes to the emergency room complaining of difficulty breathing since earlier today while she was at work. She describes onset of symptoms earlier today but that they progressively got worse during the course of the day. She was seen by her PCP earlier in the day and sent home after an EKG was done but then the shortness of breath just got worse. She also states that she checked her oxygen saturation and it was low. On arrival to the emergency room, she was found to be hypoxemic with oxygen saturation of 88%. She received 40 mg of IV Lasix following which admission was requested. During my evaluation, she had put out about a liter of urine and reported feeling somehow better. Hospital course: This morbidly obese patient with history of AFlutter and prior history heart failure presented with shortness of breath and was admitted for decompensated heart failure complicated by Aflutter with RVR. Acute heart failure was treated wtih IV Lasix push that later was changed continuous lasix infusion and has resulted in negaive fluid balance in excess of 7 liter, and improved in symptoms. Additional medical management included Aldactone. Ehocardiogram show reduced EF of 30 to 40 %. She was seen by manager bank and advised to addition of Toprolol XL 50 mg daily, and Bumex 2 mg instead of Lasix. AFlutter, she has difficulty to control aflutter with RVR that persisted despite treatment with IV cardizem, digoxin and ultimately underwent DC cardioversion on 05/31/23 and converted to sinus but just shortly after that reverted back to aflutter with RVR and was loaded with amiodarone IV. Heart rate has improved, she will be treated with amiodarone 400 mg twice daily for 2 weeks, followed by 200 mg daily thereafter and will have repeat cardioversion on outpatient basis. Morbid obesity- encourage weight loss Fever on 05/28, negative culture, CXR no PNA, started on Ceftriaxone and stopped after 3 days Morbid obesity : encouraged to loose weight and cut down calories . Time Attestation Discharge coordination time: Greater than 30 minutes Quality: Safe Use of Opioids Does Pt have an Active Cancer Diagnosis on the Problem List?: No Quality: Stroke Does the patient have a stroke diagnosis?: No Physical Exam Vital Signs: Vital Signs: Last Vital Signs Temp 97.1 F 06/01/23 11:41 Pulse 97 06/01/23 11:41 Resp 20 06/01/23 11:41 BP 117/67 06/01/23 11:41 Pulse Ox 94 06/01/23 11:41 O2 Del Method Room Air 06/01/23 11:41 O2 Flow Rate 1 06/01/23 07:11 BMI result Body Mass Index 61.3 DS: Data Data Completed and Pending Completed studies during hospitalization [Text1]: Procedures Insertion of Infusion Device into Upper Vein, Percutaneous Approach (04/23/23) Synagogue of Cardiac Rhythm, Single (04/23/23) Ultrasonography of Heart with Aorta, Transesophageal (04/23/23) Labs on day of discharge: Laboratory Results - last 24 hr 06/01/23 10:50 Sodium 138 Potassium 3.7 Chloride 97 Carbon Dioxide 32 H Anion Gap 13 BUN 12 Creatinine 0.98 Estim Creat Clear Calc 90.7 Estimated GFR 59 Random Glucose 124 H Calcium 9.1 Preliminary micro results at discharge 05/28/23 12:39 Blood Culture - Preliminary Blood - Venous No growth after 48 hours. 05/28/23 12:26 Blood Culture - Preliminary Blood - Venous No growth after 48 hours. Discharge Plan Discharge Anticipated Discharge Date/Time: 06/01/23 11:40 Patient Disposition: Home Health Service Discharge Diagnosis: acute on chronic systolic heart failure, a flutter with RVR, morbid obesity Referrals: Physician,Unknown J [Physician] - 1 Week Discharge Medications: New bumetanide 2 mg tablet 2 mg PO DAILY Qty: 30 0RF metoprolol succinate [Toprol XL] 50 mg tablet extended release 24 hr 50 mg PO DAILY Qty: 30 0RF spironolactone [Aldactone] 25 mg tablet 25 mg PO DAILY Qty: 30 0RF Continued zinc 50 mg Capsule 50 mg PO DAILY cholecalciferol (vitamin D3) [Vitamin D3] 125 mcg (5,000 unit) Tablet 125 mcg PO DAILY Eliquis 5 mg tablet 5 mg PO BID 90 Days Qty: 180 3RF Discontinued flecainide 100 mg tablet 100 mg PO Q12H Qty: 60 5RF diltiazem HCl [Cardizem CD] 120 mg capsule,extended release 24hr 120 mg PO DAILY 30 Days Qty: 30 5RF Protocol: Hold for SBP/HR < HOLD for SBP < : 90 HOLD for HR < : 60 furosemide [Lasix] 20 mg tablet 20 mg PO DAILY PRN (Reason: edema) Qty: 30 1RF Rx Instructions: Water pill Take one daily as needed for leg swelling Discharge Orders: Discharge Order (Routine); Ordered 06/01/23 Ordered By: Mg Worthington Diet: Advance to usual diet Activity on Discharge: As tolerated Stand Alone Forms: Patient Portal Discharge page Care Plan Goals: optimal management of heart failure, control of atrial fibrillation and stroke prevention, weight management. Health Concerns: Chronic atrial flutter, heart failure, morbid obesity Plan of Treatment: Stop taking Cardizem, stop taking flecainide, stop taking Lasix Take amiodarone as directed, take Bumex in place of Lasix. Take Aldactone as new medication. Take Toprolol as new medication. Continue Eliquis avoid drinking too much water no more than 1500cc a day Follow-up with your heart doctor (Dr. Kumar) for repeat cardioversion Assessment: see above
--- NOTE | 2023-06-01 12:26 | W.MHC.F2F ---
Service Date Service Date: 06/01/23 Encounter Date of encounter: 06/01/23 Reasons for Services Signs and symptoms assessed: shortness of breath due to heart failure Reason for residential: medication management and teach disease management Homebound: Leaving the home is medically contraindicated at this time without the asist of a device and/or another person due th the listed conditions above and below. Reason homebound: shortness of breath with minimal effort and shortness of breath at rest Homebound supporting statement: Homebound due to heart failure causing shortness of breath with activity and at rest and therefore needs the assistance of another person Certification: Based on the above findings, I certify that this patient is confined to the home and needs intermittent residential care, physical therapy and/or speech therapy, or continues to need occupational therapy. The patient is under my care, and I have initiated the establishment of the plan of care. The patient will be followed by a physician who will periodically review the plan of care. Time Spent With Patient Time: Total time managing care of this patient today ____ minutes.
[2023-06-01] MEDS: Amiodarone HCL 200 MG TABLET 400 MG PO (12:39)
--- NOTE | 2023-06-01 13:05 | MHC.CM.PN ---
Pt has been medically cleared for DC. She will arrange for someone to pick her up and bring her home. She does not currently have a PCP, but an appt, was made for her with Dr. Soto in [place] in Jun., No VNA services due to not having a PCP.
[2023-06-01 14:09] VITALS: O2SAT 94
--- NOTE | 2023-06-01 14:54 | PC.NURSE ---
Pt A&OX4. OOB to chair in am. Oxygen stopped early am sats remain 93-94% on room air denies SOB or CP, Aifb on tele. Amiodarone drip stopped at 1200 oral dose started per order. Pt received meds from pharmacy for discharge. Discharged to home at 1500 education provided patient able to teach back meds and follow up. Off unit in wheelchair with staff.
== END 2023-06-01 14:54 | disposition home health service (06) | DRG 201 ==
LOC: HO.ED 22:35 → HO.EDOVER 05-27 00:09 → HO.IMC 05-27 12:11
PROVIDERS: Internal Medicine; Internal Medicine Cardiovascular Disease; Physician Assistant; Physician Assistant Medical; Admitting Provider Internal Medicine; Emergency Provider Internal Medicine; Visit Provider Internal Medicine
PROC: 5A2204Z Restoration of Cardiac Rhythm, Single (ICD-10-PCS; CPT 93312; principal; 2023-05-31 14:00)
PROC: 5A2204Z Restoration of Cardiac Rhythm, Single (ICD-10-PCS; 2023-05-31 14:00)
DX: I48.92 Unspecified atrial flutter (principal); I50.33 Acute on chronic diastolic (congestive) heart failure; D61.818 Other pancytopenia; I48.91 Unspecified atrial fibrillation; E66.01 Morbid (severe) obesity due to excess calories; D53.9 Nutritional anemia, unspecified; J20.9 Acute bronchitis, unspecified; I87.303 Chronic venous hypertension (idiopathic) without complications of bilateral lower extremity; F17.210 Nicotine dependence, cigarettes, uncomplicated; G47.30 Sleep apnea, unspecified; Z68.44 Body mass index [BMI] 60.0-69.9, adult; Z20.822 Contact with and (suspected) exposure to COVID-19; Z71.6 Tobacco abuse counseling; Z79.01 Long term (current) use of anticoagulants; Z79.899 Other long term (current) drug therapy
CPT/HCPCS: 0241U; 36415; 71045; 71046; 76705; 80048; 80053; 80061; 81003; 82607; 82746; 83735; 83880; 84145; 84443; 84484; 85025; 85027; 87040; 87633; 92960; 93005; 99285; J0282; J0283; J0696; J1160; J1940; J2250; J2704; J3010

== ENCOUNTER 2023-05-26 23:53 | Outpatient (BNV) | payer OTHER, SELFPAY | END 2023-05-31 13:48 | PROVIDERS: Admitting Provider Internal Medicine; Emergency Provider Internal Medicine; Visit Provider Internal Medicine Cardiovascular Disease | DX: I49.1 Atrial premature depolarization (principal); I08.1 Rheumatic disorders of both mitral and tricuspid valves; R00.0 Tachycardia, unspecified | CPT/HCPCS: 93010; 93312 ==

== ENCOUNTER → 2023-05-26 23:53 | Outpatient (BNV) | payer OTHER, SELFPAY | PROVIDERS: Admitting Provider Internal Medicine; Emergency Provider Internal Medicine; Visit Provider Internal Medicine Cardiovascular Disease | DX: I50.22 Chronic systolic (congestive) heart failure (principal); I48.92 Unspecified atrial flutter | CPT/HCPCS: 92960; 99223; 99233 ==

== ENCOUNTER → 2023-05-26 23:53 | Outpatient (BNV) | payer OTHER, SELFPAY | PROVIDERS: Admitting Provider Internal Medicine; Emergency Provider Internal Medicine; Visit Provider Internal Medicine | DX: I50.9 Heart failure, unspecified (principal); I48.92 Unspecified atrial flutter; E66.01 Morbid (severe) obesity due to excess calories; Z68.44 Body mass index [BMI] 60.0-69.9, adult | CPT/HCPCS: 99223; 99232; 99239; G0180 ==

== ENCOUNTER 2023-06-08 13:14 | Outpatient (AMB) | payer OTHER, SELFPAY ==
--- NOTE | 2023-06-08 13:20 | A.OFFVIS_ITS ---
Intake Vital Signs 06/08/23 13:21 Height 5 ft 1 in Weight 304 lb 3.806 oz BMI 57.5 BP 120/67 Blood Pressure Location Lt brachial Position Sitting Pulse 73 Pulse Source Monitor Intake Visit Reasons: HDF CHF [employer] Required: No Allergies aspirin [From [facility]] Allergy (Mild, Verified 06/08/23 13:24) Hives citric acid [From [facility]] Allergy (Mild, Verified 06/08/23 13:24) Hives dextromethorphan [From NyQuil] Allergy (Mild, Verified 06/08/23 13:24) Hives doxylamine [From NyQuil] Allergy (Mild, Verified 06/08/23 13:24) Hives pseudoephedrine [From NyQuil] Allergy (Mild, Verified 06/08/23 13:24) Hives sodium bicarbonate [From [facility]] Allergy (Mild, Verified 06/08/23 13:24) Hives Medication List - Last Reconciled 06/08/23 by DARWIN Kirkpatrick amiodarone Take 2 tabs (400 mg) twice daily for 14 days (2 weeks), then after take 1 tab (200 mg ) daily apixaban (Eliquis) 5 mg PO BID 90 days bumetanide 2 mg PO DAILY cholecalciferol (vitamin D3) (Vitamin D3) 125 mcg PO DAILY furosemide 20 mg PO DAILY metoprolol succinate ER (Toprol XL) 50 mg PO DAILY spironolactone (Aldactone) 25 mg PO DAILY zinc 50 mg PO DAILY HPI HDF CHF HPI Details Cristina is a 53-year-old female with past medical history of morbid obesity who was recently admitted to [facility] with increased shortness of breath and leg swelling. She was found to have atrial flutter, Congestive heart failure. She was initially treated with heart rate control which proved to be difficult. She then underwent a transesophageal echo/cardioversion with successful conversion to sinus rhythm. She was started on flecainide to help maintain rhythm control. On last visit she had run out of flecainide a week prior and she was again in atrial flutter. Flecainide was restarted and she was set up for a cardioversion which occurred on 05/31/2023. Following this she was started on amiodarone to help maintain rhythm control. Today she reports that she feels more energetic and breathing is somewhat easier since having the cardioversion procedure. She has never felt heart palpitations. She denies chest discomfort at rest or with activity. No dizziness, presyncope, syncope, PND, orthopnea. She reports that she only is taking meds once a day. No bleeding issues reported. [facility] Medical History Congestive heart failure Atrial flutter with rapid ventricular response Morbid obesity Hypertension Congestive heart failure Social History Household Members: Children Household Members Other:: roommates Housing: House Do you presently have visiting nurse or other home services: No Comment: refusing alarm and camera Patient Tobacco Use Status: Current everyday Tobacco user Tobacco use type: Cigarette Cigarettes Per Day: 10 Years Smoked: 25 e-Cigarette/Vaping Use: Never Used Second Hand Smoke Exposure: Yes Advance Directives Date on File: 04/28/23 service: No Review of Systems Const All systems reviewed & are unremarkable except as noted in HPI and below ENT Denies dizziness Card Denies chest pain, Denies chest pain at rest, Denies chest pain with activity, Denies rapid heart rate, Denies pedal edema, Denies edema, Denies leg edema, Denies lightheadedness, Denies palpitations, Denies dyspnea, Denies dyspnea on exertion and Denies orthopnea Resp Denies cough, Denies dyspnea and Denies dyspnea on exertion GI Denies hematochezia and Denies change in stool character Musc Denies abnormal gait, Denies limited range of motion, Denies muscle cramps, Denies muscle weakness, Denies numbness, Denies radiating pain into limb, Denies stiffness and Denies tingling Neuro Denies abnormal gait, Denies dizziness, Denies numbness and Denies tingling Endo Denies palpitations Physical Exam Vital Signs: BMI result Body Mass Index 57.5 Const General: cooperative, healthy appearing, comfortable and no acute distress Orientation/consciousness: patient oriented x3 Neck Neck: Yes normal visual inspection Resp Effort & Inspection: normal respiratory effort Auscultation: clear to auscultation bilaterally, no crackles, no rales, no rhonchi and no wheezes Cardio Jugular venous distension: no JVD Rate: regular rate Rhythm: regular rhythm Heart sounds: S1 normal heart sound present, S2 normal heart sound present, no murmurs and no rubs Neuro General: patient oriented x3 Extrem General: No no pedal edema and Yes venous stasis dermatitis Psych Appearance: grossly normal Mental Status: mental status grossly normal Speech and movement: Normal speech and movement present Office Procedures EKG Details: Today, read by me, normal sinus rhythm, nonspecific T-wave abnormality, QTC 482 milliseconds, rate 73. [id number], Complete Assessment & Plan Assessment & Plan (1) Atrial flutter with rapid ventricular response: Code(s): I48.92 - Unspecified atrial flutter Plan: Recent [facility] admission with shortness of breath, Congestive heart failure. She had findings of atrial flutter with RVR. Her heart rate was difficult to control and she required OTILIO cardioversion. She was then put on flecainide for rhythm control. On discharge she was given enough flecainide for 16 days. She ran out prior to her follow-up visit and was then noted to have recurrent atrial flutter, heart rate 157. She was restarted on flecainide and set up for a cardioversion. She had reported being compliant with Eliquis. She underwent cardioversion on 05/31/2023 with successful conversion to normal sinus rhythm. She was then taken off flecainide and diltiazem and started on amiodarone loading dose and metoprolol. Today she reports that she has been taking meds only once daily. Reviewed the importance of strict med compliance with her. She needs to take Eliquis 5 mg b.i.d. in order to reduce her stroke risk with atrial flutter and post cardioversion. Recalculated amiodarone loading and she will take now 400 mg b.i.d. for the next 10 days, then lower dose down to 200 mg once daily. Can continue metoprolol. EKG done today showing normal sinus rhythm with QTC 482 milliseconds. Will have her back in 1 week for office EKG to reassess QTC interval. She denies having any heart palpitations. No clear signs of fluid overload on exam. Future ablation previously reviewed with her. Cardiology follow-up in 4-6 weeks, sooner if needed. Plan for labs at that time. (2) Congestive heart failure: Code(s): I50.9 - Heart failure, unspecified Plan: Symptom of shortness of breath and leg swelling at time a recent hospital admission. She was treated for congestive heart failure, pulmonary edema. Echocardiogram done 04/25/2023 showed EF 55-60%, no obvious valve abnormalities. BNP was elevated at 162. She was treated with IV Lasix. She was not sent home with diuretics. Her Congestive heart failure was most likely related to her a flutter RVR. On last visit she was noted to have leg edema and Lasix 20 mg daily p.r.n. was ordered for her. Today she reports that her legs are now looking skinny. The prior edema has resolved. She does have morbid obesity which does make her assessment more challenging. She does have appearance of venous stasis changes as well. Can continue to use Lasix as needed. (3) Morbid obesity: Code(s): E66.01 - Morbid (severe) obesity due to excess calories Plan: As above Plan Time spent on chart review, documentation, interview, assess Coding Level of Care Code Est Pt Level 4 (89508) Diagnoses Atrial flutter with rapid ventricular response I48.92 Congestive heart failure I50.9 Morbid obesity E66.01 CPT Codes EKG - CPT: 19244-[id number], Complete ([id number]) Time Spent (min) 28
[2023-06-08 13:21] VITALS: BP 120/67; PULSE 73; BMI 57.5
== END 2023-06-08 13:56 | disposition home or self-care (01) ==
PROVIDERS: Visit Provider Nurse Practitioner Family
DX: I48.92 Unspecified atrial flutter (principal); I50.9 Heart failure, unspecified; E66.01 Morbid (severe) obesity due to excess calories
CPT/HCPCS: 93010; 99214

== ENCOUNTER → 2023-06-08 13:14 | Outpatient (BNVA) | payer OTHER, SELFPAY | PROVIDERS: Visit Provider Nurse Practitioner Family | DX: I48.92 Unspecified atrial flutter (principal); I50.9 Heart failure, unspecified; E66.01 Morbid (severe) obesity due to excess calories; Z68.43 Body mass index [BMI] 50.0-59.9, adult | CPT/HCPCS: 93005 ==

== ENCOUNTER → 2023-07-17 12:59 | Outpatient (REF) | payer OTHER, SELFPAY | LOC: HO.SL 12:59 | PROVIDERS: Visit Provider Internal Medicine | DX: G47.33 Obstructive sleep apnea (adult) (pediatric) (principal); E66.01 Morbid (severe) obesity due to excess calories | CPT/HCPCS: 95806 ==

== ENCOUNTER → 2023-07-17 13:09 | Outpatient (BNV) | payer OTHER, SELFPAY | PROVIDERS: Visit Provider Internal Medicine | DX: G47.33 Obstructive sleep apnea (adult) (pediatric) (principal) | CPT/HCPCS: 95806 ==

== ENCOUNTER 2023-07-25 08:41 | Outpatient (AMB) | payer OTHER, SELFPAY ==
--- NOTE | 2023-07-25 08:45 | MHC.OFFVIS ---
Intake Vital Signs 07/25/23 08:46 Height 5 ft 1 in Weight 323 lb 10.217 oz BMI 61.1 BP 140/82 H Blood Pressure Location Lt brachial Position Sitting Pulse 68 Pulse Source Monitor Intake Visit Reasons: 4-6 week f/u after testing Allergies aspirin [From [facility]] Allergy (Mild, Verified 07/25/23 08:48) Hives citric acid [From [facility]] Allergy (Mild, Verified 07/25/23 08:48) Hives dextromethorphan [From NyQuil] Allergy (Mild, Verified 07/25/23 08:48) Hives doxylamine [From NyQuil] Allergy (Mild, Verified 07/25/23 08:48) Hives pseudoephedrine [From NyQuil] Allergy (Mild, Verified 07/25/23 08:48) Hives sodium bicarbonate [From [facility]] Allergy (Mild, Verified 07/25/23 08:48) Hives Medication List - Last Reconciled 07/25/23 by DARWIN Kirkpatrick amiodarone 200 mg PO DAILY apixaban (Eliquis) 5 mg PO BID 90 days cholecalciferol (vitamin D3) (Vitamin D3) 125 mcg PO DAILY furosemide 20 mg PO .PRN MDD 20 mg metoprolol succinate ER (Toprol XL) 50 mg PO DAILY spironolactone (Aldactone) 25 mg PO DAILY zinc 50 mg PO DAILY HPI 4-6 week f/u after testing HPI Details Cristina is a 53-year-old female with past medical history of morbid obesity, hypertension, newer diastolic heart failure, atrial flutter who underwent cardioversion in April and again on 05/31/2023, now on amiodarone who recently underwent sleep study and now presents for follow-up. Today she reports he has been doing well since her last visit here in May. She denies any heart palpitations. She has only mild shortness of breath with exertion which is not new for her. She sleeps with 2 pillows which is her norm. She has been noticing some leg edema and takes her Lasix daily. When the swelling goes down she stops the Lasix. She describes having a cold recently with some coughing which has since resolved. No chest discomfort at rest or with activity. No lightheadedness, presyncope, syncope. Taking all meds as directed. No bleeding issues reported. [facility] Medical History Congestive heart failure Atrial flutter with rapid ventricular response Morbid obesity Hypertension Congestive heart failure Social History Household Members: Children Household Members Other:: roommates Housing: House Do you presently have visiting nurse or other home services: No Comment: refusing alarm and camera Patient Tobacco Use Status: Current everyday Tobacco user Tobacco use type: Cigarette Cigarettes Per Day: 10 Years Smoked: 25 e-Cigarette/Vaping Use: Never Used Second Hand Smoke Exposure: Yes Advance Directives Date on File: 04/28/23 service: No Review of Systems Const All systems reviewed & are unremarkable except as noted in HPI and below ENT Denies dizziness Card Denies chest pain, Denies chest pain at rest, Denies chest pain with activity, Denies rapid heart rate, Denies pedal edema, Denies edema, Denies leg edema, Denies lightheadedness, Denies palpitations, Denies dyspnea, Reports dyspnea on exertion and Denies orthopnea Resp Denies cough, Denies dyspnea and Reports dyspnea on exertion GI Denies hematochezia and Denies change in stool character Musc Denies abnormal gait, Denies limited range of motion, Denies muscle cramps, Denies muscle weakness, Denies numbness, Denies radiating pain into limb, Denies stiffness and Denies tingling Neuro Denies abnormal gait, Denies dizziness, Denies numbness and Denies tingling Endo Denies palpitations Physical Exam Vital Signs: BMI result Body Mass Index 61.1 Const General: cooperative, healthy appearing, comfortable and no acute distress Orientation/consciousness: patient oriented x3 Neck Other: Morbidly obese, makes JVD assessment more challenging Neck: Yes normal visual inspection Resp Effort & Inspection: normal respiratory effort Auscultation: clear to auscultation bilaterally, no crackles, no rales, no rhonchi and no wheezes Cardio Jugular venous distension: no JVD Rate: regular rate Rhythm: regular rhythm Heart sounds: S1 normal heart sound present, S2 normal heart sound present, no murmurs and no rubs Neuro General: patient oriented x3 Extrem Other: Tightness of lower legs consistent with edema, morbidly obese making them more difficult to assess General: Yes edema and Yes venous stasis dermatitis Psych Appearance: grossly normal Mental Status: mental status grossly normal Speech and movement: Normal speech and movement present Office Procedures EKG Details: Today, read by me, normal sinus rhythm, nonspecific T-wave abnormality, QTC 467 milliseconds, rate 68. [id number], Complete Assessment & Plan Assessment & Plan (1) Atrial flutter with rapid ventricular response: Code(s): I48.92 - Unspecified atrial flutter Plan: [facility] [place] 04/22/2023 with shortness of breath, Congestive heart failure. She had findings of new atrial flutter with RVR. Her heart rate was difficult to control and she required OTILIO cardioversion. She was then put on flecainide for rhythm control. On discharge she was given enough flecainide for 16 days. She ran out prior to her follow-up visit and was then noted to have recurrent atrial flutter, heart rate 157. She was restarted on flecainide and set up for a cardioversion. She had reported being compliant with Eliquis. She underwent cardioversion on 05/31/2023 with successful conversion to normal sinus rhythm. She was then taken off flecainide and diltiazem and started on amiodarone loading dose and metoprolol. EKG done 06/08/2023 showed sinus rhythm, rate 73. Today she reports no recurrent heart palpitations, mild shortness of breath with exertion which is not new. She does have tightness to lower legs consistent with edema. EKG done today showing sinus rhythm with nonspecific T-wave abnormality, rate 68. Will have her continue on amiodarone and metoprolol for rhythm and rate control. Continue Eliquis 5 mg b.i.d for anticoagulation. Will have her take Lasix 20 mg daily instead of daily p.r.n. Will check labs today including CMP, CBC, TSH and BNP. No reports of bleeding. Cardiology follow-up in 3 months, sooner if needed. (2) Congestive heart failure: Code(s): I50.9 - Heart failure, unspecified Plan: Symptom of shortness of breath and leg swelling at time a recent hospital admission. She was treated for acute diastolic congestive heart failure, pulmonary edema. Echocardiogram done 04/25/2023 showed EF 55-60%, no obvious valve abnormalities. Her Congestive heart failure was most likely related to her a flutter RVR. She has been taking Lasix 20 mg daily as needed. On exam today she does have bilateral leg tightness, consistent with edema. Weight is up from May. Will have her take her Lasix daily. Signs and symptoms of heart failure reviewed with her in detail. (3) Morbid obesity: Code(s): E66.01 - Morbid (severe) obesity due to excess calories Plan: As above (4) Sleep apnea: Code(s): G47.30 - Sleep apnea, unspecified Plan: Recent home sleep study done showing mild obstructive sleep apnea, average saturation 92% with lowest 66%, sat below 88% for 69 minutes. Patient does have significant comorbidities. Will refer to pulmonology for evaluation and treatment. Plan Time spent on chart review, documentation, interview, assess Orders: Orders Comprehensive Met. Panel Today I48.92 - Unspecified atrial flutter TSH reflex Free T4 Today I48.92 - Unspecified atrial flutter Complete Blood Count Auto Diff Today I48.92 - Unspecified atrial flutter B Type Natriuretic Peptide Today I50.9 - Heart failure, unspecified Referrals Pulmonary Medicine Referral G47.30 - Sleep apnea, unspecified Coding Level of Care Code Est Pt Level 3 (41906) Diagnoses Atrial flutter with rapid ventricular response I48.92 Congestive heart failure I50.9 Morbid obesity E66.01 Sleep apnea G47.30 CPT Codes EKG - CPT: 77923-[id number], Complete ([id number]) Time Spent (min) 28
[2023-07-25 08:46] VITALS: BP 140/82; PULSE 68; BMI 61.1
== END 2023-07-25 09:19 | disposition home or self-care (01) ==
PROVIDERS: Visit Provider Nurse Practitioner Family
DX: I48.92 Unspecified atrial flutter (principal); I50.9 Heart failure, unspecified; E66.01 Morbid (severe) obesity due to excess calories; G47.30 Sleep apnea, unspecified
CPT/HCPCS: 93010; 99213

== ENCOUNTER 2023-07-25 08:41 | Outpatient (REF) | payer OTHER, SELFPAY ==
[2023-07-25 09:45] LABS: MANUAL DIFF FLAG NO
[2023-07-25 10:06] LABS: Basophils Percent Auto 0.6 % (0-2); Eosinophils Percent Auto 0.6 % (0-4); Hematocrit 39.6 % (37.0-47.0); Hemoglobin 12.6 g/dl (12.0-16.0); Imm Gran Abs Auto 0.02 X10*3/uL (0.00-0.03); Imm Gran Pct Auto 0.4 % (0.0-0.4); Lymphocytes Absolute Auto 1.1 X10*3/uL (1.2-4.9); Lymphocytes Percent Auto 20.5 % (20-40); Mean Corpuscular HGB Conc 31.8 g/dl (31.0-35.0); Mean Corpuscular Hemoglobin 32.5 pg (27.0-33.0); Mean Corpuscular Volume 102.1 fL (80.0-98.0); Mean Platelet Volume 10.7 fL (9.4-12.3); Monocytes Absolute Auto 0.3 X10*3/uL (0.1-1.2); Monocytes Percent Auto 6.2 % (2-11); Neutrophils Absolute Auto 3.7 x10*3/uL (2.0-8.3); Neutrophils Percent Auto 71.7 % (45-73); Platelet Count 208 X10*3/uL (160-400); Red Blood Count 3.88 X10*6/uL (4.20-5.50); Red Cell Distribution Width 14.8 % (11.0-16.0); White Blood Count 5.1 X10*3/uL (4.8-10.8)
[2023-07-25 10:47] LABS: B Type Natriuretic Peptide 216 pg/mL (<100)
[2023-07-25 10:52] LABS: Alanine Aminotransferase 9 U/L (0-31); Albumin Level 3.8 g/dL (3.5-5.0); Alkaline Phosphatase 89 U/L (39-117); Anion Gap 14 (12-20); Aspartate Amino Transferase 10 U/L (5-31); Bilirubin Total 0.5 mg/dL (0.0-1.0); Blood Urea Nitrogen 15 mg/dL (9-16); Carbon Dioxide 27 mmol/L (22-29); Chloride 106 mmol/L (96-108); Estimated Glomerular Filt Rate 59; Glucose Random 98 mg/dL (60-115); Potassium 4.5 mmol/L (3.3-5.1); Sodium 142 mmol/L (135-145); Total Protein 7.4 g/dL (6.5-8.0)
[2023-07-25 11:10] LABS: TSH reflex Free T4 1.17 uIU/mL (0.32-4.0)
== END 2023-07-25 08:42 | disposition home or self-care (01) ==
LOC: HO.LAB 08:41
PROVIDERS: Visit Provider Nurse Practitioner Family
DX: I48.92 Unspecified atrial flutter (principal); I50.9 Heart failure, unspecified; E66.01 Morbid (severe) obesity due to excess calories; G47.30 Sleep apnea, unspecified
CPT/HCPCS: 36415; 80053; 83880; 84443; 85025; 93005

== ENCOUNTER 2023-10-03 14:40 | Outpatient (AMB) | payer OTHER, SELFPAY ==
[2023-10-03 14:43] VITALS: BP 148/88; PULSE 79; O2SAT 93; BMI 66.9
--- NOTE | 2023-10-03 14:43 | A.OFFVIS_ITS ---
Vital Signs 10/03/23 14:43 Height 5 ft 1 in Weight 353 lb 13.471 oz BMI 66.9 BP 148/88 H Blood Pressure Location Lt brachial Position Sitting Pulse 79 Pulse Source Doppler Pulse Oximetry (%) 93 Oxygen Delivery Method Room Air Intake Visit Reasons: Sleep apnea Allergies aspirin [From Niharika-[place]] Allergy (Mild, Verified 07/25/23 08:48) Hives citric acid [From [facility]-[place]] Allergy (Mild, Verified 07/25/23 08:48) Hives dextromethorphan [From NyQuil] Allergy (Mild, Verified 07/25/23 08:48) Hives doxylamine [From NyQuil] Allergy (Mild, Verified 07/25/23 08:48) Hives pseudoephedrine [From NyQuil] Allergy (Mild, Verified 07/25/23 08:48) Hives sodium bicarbonate [From [facility]arika-[place]] Allergy (Mild, Verified 07/25/23 08:48) Hives HPI HPI Sleep apnea: Details: 53-year-old lady with recent diagnosis of obstructive sleep apnea referred for management of her sleep apnea symptoms. Patient states that she also does have significant claustrophobia and is not interested in a fullface mask. Furthermore, patient can not tolerate nasal pillows secondary to blistering of her nose. but she is interested in trying CPAP therapy. Patient is also complaining of chronic dyspnea. [facility] Medical History Congestive heart failure Atrial flutter with rapid ventricular response Morbid obesity Hypertension Congestive heart failure Social History Household Members: Children Household Members Other:: roommates Housing: House Do you presently have visiting nurse or other home services: No Comment: refusing alarm and camera Patient Tobacco Use Status: Current everyday Tobacco user Tobacco use type: Cigarette Cigarettes Per Day: 10 Years Smoked: 25 e-Cigarette/Vaping Use: Never Used Second Hand Smoke Exposure: Yes Advance Directives Date on File: 04/28/23 service: No Review of Systems Const Reports daytime sleepiness, Denies excessive sweating, Reports fatigue, Denies fever(s), Reports lethargy, Denies malaise, Denies night sweats, Denies snoring and Denies weight loss Eyes Denies blurry vision and Denies itchy eyes ENT Denies nasal congestion, Denies post nasal drip, Denies sinus pain, Denies sinus pressure and Denies other ( Thrush) Card Denies chest pain, Reports pedal edema, Denies dyspnea, Reports dyspnea on exertion, Denies orthopnea and Denies paroxysmal nocturnal dyspnea Resp Denies cough, Denies hemoptysis, Denies excessive phlegm production, Denies dyspnea, Reports dyspnea on exertion, Denies snoring and Denies wheezing GI Denies abdominal pain and Denies heartburn Musc Denies myalgias, Denies arthralgias and Denies joint swelling Skin/Breast Denies rash Neuro Denies memory loss and Denies seizure-like activity Psych Denies abnormal sleep pattern, Denies anxiety and Denies memory loss Endo Denies excessive sweating, Reports fatigue and Denies heat intolerance Zera/Lymph Denies easy bruising Aller/Immun Denies itchy eyes, Denies seasonal rhinorrhea and Denies wheezing Physical Exam Vital Signs: Last Vital Signs Pulse 79 10/03/23 14:43 BP 148/88 H 10/03/23 14:43 Pulse Ox 93 10/03/23 14:43 Oxygen Delivery Method Room Air 10/03/23 14:43 BMI result Body Mass Index 66.9 Const General: no acute distress and alert Nutritional Appearance: obese Orientation/consciousness: Other orientation findings ( oriented) HEENT Head: Yes atraumatic Eyes General: appearance normal, both eyes and all related structures Sclerae: sclerae normal EOM: EOMs intact bilaterally Neck Neck: Yes supple Lymphatic: no lymphadenopathy noted Resp Effort & Inspection: normal respiratory effort and no use of accessory muscles Auscultation: clear to auscultation bilaterally Cardio Rate: regular rate Rhythm: regular rhythm Heart sounds: no gallops, no murmurs and no rubs Skin General skin exam: other ( warm) Extrem General: No clubbing, No cyanosis and Yes edema ( 2+ bilateral) Assessment & Plan Assessment & Plan (1) Sleep apnea: Code(s): G47.30 - Sleep apnea, unspecified Category: Medical Plan: Results of sleep study reviewed, underlying mild obstructive sleep apnea with nocturnal hypoxia. Will start on APAP of 8-18 cm of water. (2) Dyspnea on exertion: Code(s): R06.09 - Other forms of dyspnea Category: Medical Plan: Appears to be multifactorial with contribution from underlying cardiac, pulmonary, obesity/deconditioning etiologies. Will obtain pulmonary function test to evaluate pulmonary component. Orders: Orders PFT pulmonary function test Today R06.09 - Other forms of dyspnea Coding Level of Care Code New Pt Level 4 (03570) Diagnoses Sleep apnea G47.30 Dyspnea on exertion R06.09
== END 2023-10-03 15:11 | disposition home or self-care (01) ==
PROVIDERS: Referring Provider Nurse Practitioner Family; Visit Provider Internal Medicine Pulmonary Disease
DX: G47.30 Sleep apnea, unspecified (principal); R06.09 Other forms of dyspnea
CPT/HCPCS: 99204

== ENCOUNTER → 2023-10-03 14:40 | Outpatient (BNVA) | payer OTHER, SELFPAY | PROVIDERS: Referring Provider Nurse Practitioner Family; Visit Provider Internal Medicine Pulmonary Disease ==

== ENCOUNTER 2023-10-23 13:46 | Outpatient (REF) | payer OTHER, SELFPAY ==
[2023-10-23 10:55] VITALS: PULSE 78; RESP 16; O2SAT 90
--- NOTE | 2023-10-23 15:56 | PFT_ITS ---
Indication: COPD Spirometry [FEV1 to FVC 63%; FEV1 0.87 L; FVC 1.38 L. No significant response to bronchodilators noted. Maximum voluntary ventilation 38% predicted] Lung Volumes [Total lung capacity 54% predicted; expiratory reserve volume 3% predicted] Diffusion Capacity [DLCO 35% predicted. Does correct to 67% when corrected for the alveolar volume.] Comparisons [None] Interpretation [There has an obstructive ventilatory defect consistent with severe COPD. No significant response to bronchodilators noted. There is also severe decrease the maximum voluntary ventilation secondary to likely deconditioning. Lung volumes also demonstrated restrictive ventilatory defect consistent moderate restrictive lung disease. In part due to elevated BMI although interstitial lung conditions or neuromuscular conditions can not be ruled out. There was a severely decreased expiratory reserve volume. In addition to that the patient has a severe diffusion impairment. There is partial correction when corrected for the alveolar volume. Clinical correlation warranted.] MTDD
== END 2023-10-23 13:47 | disposition home or self-care (01) ==
LOC: HO.RESP 13:46
PROVIDERS: PCP Physician Assistant Medical; Visit Provider Internal Medicine Pulmonary Disease
DX: R06.09 Other forms of dyspnea (principal)
CPT/HCPCS: 94010; 94640; 94727; 94729

== ENCOUNTER → 2023-10-23 15:56 | Outpatient (BNV) | payer OTHER, SELFPAY | PROVIDERS: PCP Physician Assistant Medical; Visit Provider Hospitalist | DX: J44.9 Chronic obstructive pulmonary disease, unspecified (principal) | CPT/HCPCS: 94060; 94727; 94729 ==

== ENCOUNTER 2023-10-27 13:46 | Outpatient (AMB) | payer OTHER, SELFPAY ==
--- NOTE | 2023-10-27 13:53 | A.OFFVIS_ITS ---
Vital Signs 10/27/23 13:54 Height 5 ft 1 in Weight 370 lb 6.025 oz BMI 70.0 BP 132/88 Blood Pressure Location Rt radial Position Sitting Pulse 81 Pulse Source Doppler Pulse Oximetry (%) 89 L Oxygen Delivery Method Room Air Intake Visit Reasons: Sleep Apnea/PFT Follow Up Allergies aspirin [From [facility]] Allergy (Mild, Verified 07/25/23 08:48) Hives citric acid [From [facility]] Allergy (Mild, Verified 07/25/23 08:48) Hives dextromethorphan [From NyQuil] Allergy (Mild, Verified 07/25/23 08:48) Hives doxylamine [From NyQuil] Allergy (Mild, Verified 07/25/23 08:48) Hives pseudoephedrine [From NyQuil] Allergy (Mild, Verified 07/25/23 08:48) Hives sodium bicarbonate [From [facility]] Allergy (Mild, Verified 07/25/23 08:48) Hives HPI HPI Sleep Apnea/PFT Follow Up: Details: 53-year-old lady with recent diagnosis of obstructive sleep apnea referred for management of her sleep apnea symptoms. Patient states that she also does have significant claustrophobia and is not interested in a fullface mask. Furthermore, patient can not tolerate nasal pillows secondary to blistering of her nose. but she is interested in trying CPAP therapy. Patient is also complaining of chronic dyspnea. After the last office visit patient had pulmonary function testing that demonstrated underlying severe COPD with significantly decreased diffusion capacity. She also had 6 minute walk test and she requires supplemental oxygen at 3 L continuous flow to maintain normal oximetry with exertion. [facility] Medical History Congestive heart failure Atrial flutter with rapid ventricular response Morbid obesity Hypertension Congestive heart failure Social History Household Members: Children Household Members Other:: roommates Housing: House Do you presently have visiting nurse or other home services: No Comment: refusing alarm and camera Patient Tobacco Use Status: Current everyday Tobacco user Tobacco use type: Cigarette Cigarettes Per Day: 10 Years Smoked: 25 e-Cigarette/Vaping Use: Never Used Second Hand Smoke Exposure: Yes Advance Directives Date on File: 04/28/23 service: No Review of Systems Const Denies daytime sleepiness, Denies excessive sweating, Denies fatigue, Denies fever(s), Denies lethargy, Denies malaise, Denies night sweats, Denies snoring and Denies weight loss Eyes Denies blurry vision and Denies itchy eyes ENT Denies nasal congestion, Denies post nasal drip, Denies sinus pain, Denies sinus pressure and Denies other ( Thrush) Card Denies chest pain, Reports pedal edema, Denies dyspnea, Reports dyspnea on exertion, Reports orthopnea and Reports paroxysmal nocturnal dyspnea Resp Denies cough, Denies hemoptysis, Denies excessive phlegm production, Denies dyspnea, Reports dyspnea on exertion, Denies snoring and Denies wheezing GI Denies abdominal pain and Denies heartburn Musc Denies myalgias, Denies arthralgias and Denies joint swelling Skin/Breast Denies rash Neuro Denies memory loss and Denies seizure-like activity Psych Denies abnormal sleep pattern, Denies anxiety and Denies memory loss Endo Denies excessive sweating, Denies fatigue and Denies heat intolerance Ezra/Lymph Denies easy bruising Aller/Immun Denies itchy eyes, Denies seasonal rhinorrhea and Denies wheezing Physical Exam Vital Signs: Last Vital Signs Pulse 81 10/27/23 13:54 BP 132/88 10/27/23 13:54 Pulse Ox 89 L 10/27/23 13:54 Oxygen Delivery Method Room Air 10/27/23 13:54 BMI result Body Mass Index 70.0 Const General: no acute distress and alert Nutritional Appearance: obese Orientation/consciousness: Other orientation findings ( oriented) HEENT Head: Yes atraumatic Eyes General: appearance normal, both eyes and all related structures Sclerae: sclerae normal EOM: EOMs intact bilaterally Neck Neck: Yes supple Lymphatic: no lymphadenopathy noted Resp Effort & Inspection: normal respiratory effort and no use of accessory muscles Auscultation: clear to auscultation bilaterally Cardio Rate: regular rate Rhythm: regular rhythm Heart sounds: no gallops, no murmurs and no rubs Skin General skin exam: other ( warm) Extrem General: No clubbing, No cyanosis and Yes edema (3+ bilateral) Office Procedures 6 Minute Walk Time:: 13:50 SPO2 % at rest: 85 (Resting R/A O2 sat 85% placed on 1 lpm cont flow, after 10 minutes sat increased to 93%) Pulse at rest: 94 6 Minute Walk (with oxygen) Time:: 14:05 SPO2 % at rest:: 93 Pulse at rest:: 94 SPO2 % during exercise:: 85 (Stopped O2 increased to 2lpm cont flow, ambulated for 50ft O2 decreased to 86 increased O2 to 3lpm cont flow ) Pulse during exercise:: 94 SPO2 % after exercise: 94 Pulse after exercise:: 88 Distance in yards walked:: 175 Luciano Score:: 10 Supplemental Oxygen: Pt resting O2 sat 85% placed on O2 1lpm cont flow, after 10 minutes increase O2 sat to 93%, started ambulation on level ground with the use of walker, after 75Ft O2 decreased to 85% increased O2 2lpm cont flow , walked for another 50 ft O2 decreased to 86% increased to 3lpm cont flow, O2 sat increased to 94% ambulated with 3lpm cont flow O2 sat recommend O2 @ 3lpm cont flow , sent with tank from [employer], with instructions on how to use. 82152 - 6 Minute Walk Assessment & Plan Assessment & Plan (1) Sleep apnea: Code(s): G47.30 - Sleep apnea, unspecified Category: Medical Plan: Patient pending receiving CPAP machine. (2) COPD (chronic obstructive pulmonary disease): Code(s): J44.9 - Chronic obstructive pulmonary disease, unspecified Category: Medical Plan: Results of pulmonary function test reviewed underlying severe COPD. Start Anoro. (3) Supplemental oxygen dependent: Code(s): Z99.81 - Dependence on supplemental oxygen Category: Medical Plan: In office supplemental oxygen evaluation/6 minute walk test performed. Patient requires supplemental oxygen at 3 L continuous flow to maintain normal oximetry with exertion. Order placed. Medications: New umeclidinium-vilanterol 62.5-25 mcg/actuation (Anoro Ellipta) 1 inh inhalation DAILY 1 ea 6RF 30 days Coding Level of Care Code Est Pt Level 4 (31759) Diagnoses Sleep apnea G47.30 COPD (chronic obstructive pulmonary disease) J44.9 Supplemental oxygen dependent Z99.81 CPT Codes Coding ([id number])
[2023-10-27 13:54] VITALS: BP 132/88; PULSE 81; O2SAT 89; BMI 70.0
[2023-10-27 15:00] VITALS: PULSE 94; O2SAT 85; O2SAT 93
== END 2023-10-27 14:26 | disposition home or self-care (01) ==
PROVIDERS: PCP Physician Assistant Medical; Visit Provider Internal Medicine Pulmonary Disease
DX: G47.30 Sleep apnea, unspecified (principal); J44.9 Chronic obstructive pulmonary disease, unspecified; Z99.81 Dependence on supplemental oxygen
CPT/HCPCS: 94618; 99214

== ENCOUNTER → 2023-10-27 13:46 | Outpatient (BNVA) | payer OTHER, SELFPAY | PROVIDERS: PCP Physician Assistant Medical; Visit Provider Internal Medicine Pulmonary Disease | DX: G47.30 Sleep apnea, unspecified (principal); J44.9 Chronic obstructive pulmonary disease, unspecified; Z99.81 Dependence on supplemental oxygen | CPT/HCPCS: 94618 ==

== ENCOUNTER 2023-11-20 12:20 | Inpatient (IN) | payer OTHER, SELFPAY ==
[2023-11-20] VITALS (8 sets, daily range): BP systolic 112–159; BP diastolic 61–97; PULSE 76–93; RESP 14–30; TEMP 35.8–37.2; O2SAT 90–100; BMI 67.7; BMI 69.6
--- NOTE | ~2023-11-20 | CT_ITS ---
EXAMINATION: CT ANGIOGRAM OF THE CHEST WITH AND WITHOUT CONTRAST (CT PULMONARY ANGIOGRAM FOR PE) CLINICAL INFORMATION: Reason for Exam Hypoxia, elevated D-dimer, R/O PE COMPARISON: Chest x-ray from earlier the same day TECHNIQUE: Prior to contrast administration, noncontrast localization images were obtained. Subsequently, multidetector volumetric imaging was performed from the thoracic inlet to below the diaphragms following the administration of 85 mL Omnipaque 350 intravenous contrast. No contrast reaction reported Sagittal, coronal, and MIP oblique sagittal reformatted images were obtained on the CT workstation, uploaded to PACS, and reviewed. This CT examination was performed using dose optimization techniques as appropriate, variously including the following: *Automated exposure control *Adjustment of mA and/or kV according to patient size (this includes techniques or standardized protocols for targeted exams where dose is matched to indication/reason for exam; i.e. extremities or head) *Use of iterative reconstruction technique Total exam dose-length product 832 mGy-cm FINDINGS: QUALITY OF STUDY/CONTRAST BOLUS: Limited due to timing of IV contrast. PULMONARY ARTERIES: Nondiagnostic exam for pulmonary embolism due to timing of IV contrast administration. THORACIC AORTA: No aneurysm. LUNG: Subsegmental atelectasis in the right lower lobe. Lungs are otherwise clear. PLEURA: No pleural effusion or pneumothorax. MEDIASTINUM: Enlarged heart. No pericardial effusion. Prominent mediastinal lymph nodes.. No evidence of septal bowing or right heart strain. CORONARY ARTERY CALCIFICATION: None visualized on this study. CHEST WALL/AXILLA: Dominant bilateral axillary lymph nodes. Left breast edema. OSSEOUS STRUCTURES: No acute or suspicious osseous abnormality. Generative changes of the spine. UPPER ABDOMEN: Unremarkable. No reflux of contrast into the hepatic veins to suggest elevated right heart pressures. CT/CT angio chest PE protocol IMPRESSION: Nondiagnostic exam for pulmonary embolism. Right lower lobe subsegmental atelectasis. Enlarged heart. Prominent mediastinal lymph nodes. Prominent bilateral axillary lymph nodes. Left breast edema. VTE: indeterminate
--- NOTE | ~2023-11-20 | XR_ITS ---
EXAMINATION: XR CHEST CLINICAL INFORMATION: Shortness of breath. COMPARISON: Most recent chest radiograph dated 05/28/2023. TECHNIQUE: Frontal view of the chest was obtained. FINDINGS: Diffuse interstitial and pulmonary vascular prominence with patchy bilateral airspace opacities, increased when compared to the prior examination. Findings are most prominent within the right lower lobe. Increasing cardiomegaly. No pleural effusion or pneumothorax. XR/XR chest 1V IMPRESSION: Interstitial and pulmonary vascular prominence with patchy bilateral airspace opacities, increased when compared to the prior examination. Increasing cardiomegaly. Findings can be seen in the setting of fluid overload.
--- NOTE | 2023-11-20 12:44 | ECG_ITS ---
Test Reason : SOB Blood Pressure : / mmHG Vent. Rate : 082 BPM Atrial Rate : 227 BPM P-R Int : 000 ms QRS Dur : 086 ms QT Int : 284 ms P-R-T Axes : 000 -27 143 degrees QTc Int : 331 ms Atrial flutter with variable A-V block Low voltage QRS Nonspecific ST and T wave abnormality Abnormal ECG When compared with ECG of 31-MAY-2023 17:30, Decrease in ventricular rate Referred By: Brenda Newby Electronically Signed By:GITA BARILLAS
--- NOTE | 2023-11-20 12:47 | ED_ITS ---
HPI - General Adult General Chief complaint: General Medical Stated complaint: WEAK,SOB 70-90% FROM PCP, 100% 3LPM PER EMS Time Seen by Provider: 11/20/23 12:29 Source: patient and EMS Mode of arrival: EMS Limitations: no limitations History of Present Illness ED Provider: Samira Newby HPI narrative: 53-year-old female morbid obesity with history of smoking went to see her PCP today for lower extremity edema and weeping with drainage from the lower extremity found to be hypoxic at 70% on room air at PCP office and was sent to the ED for further evaluation. Patient been having exertional shortness of breath for the past 7-10 days, with increase swelling all over her body and in particular in the lower extremities. Patient is an active smoker with known history of asthma. No fever, no coughing, no chills. Related Data Home Medications ?Medication ?Instructions ?Recorded ?Confirmed cholecalciferol (vitamin D3) 125 125 mcg PO DAILY 04/23/23 07/25/23 mcg (5,000 unit) tablet (Vitamin D3) zinc 50 mg capsule 50 mg PO DAILY 04/23/23 07/25/23 semaglutide (weight loss) 0.25 mg subcut 11/20/23 mg/0.5 mL subcutaneous pen injector (Wegovy) Previous Rx's ?Medication ?Instructions ?Recorded amiodarone 200 mg tablet 200 mg PO DAILY #90 tabs 07/03/23 spironolactone 25 mg tablet 25 mg PO DAILY #90 tabs 07/21/23 (Aldactone) furosemide 40 mg tablet (Lasix) 40 mg PO DAILY #30 tabs 07/25/23 apixaban 5 mg tablet (Eliquis) 5 mg PO BID #30 tabs 09/28/23 umeclidinium 62.5 mcg-vilanterol 1 inh inhalation DAILY 30 days #1 10/27/23 25 mcg/actuation powdr for ea inhalation (Anoro Ellipta) metoprolol succinate 50 mg 50 mg PO DAILY #90 tabs 11/10/23 tablet,extended release 24 hr (Toprol XL) Allergies Allergy/AdvReac Type Severity Reaction Status Date / Time aspirin [From [facility]] Allergy Mild Hives Verified 11/20/23 12:37 citric acid Allergy Mild Hives Verified 11/20/23 12:37 [From [facility]] dextromethorphan Allergy Mild Hives Verified 11/20/23 12:37 [From NyQuil] doxylamine [From NyQuil] Allergy Mild Hives Verified 11/20/23 12:37 pseudoephedrine [From NyQuil] Allergy Mild Hives Verified 11/20/23 12:37 sodium bicarbonate Allergy Mild Hives Verified 11/20/23 12:37 [From [facility]] Review of Systems 2 Review of Systems: All other systems are reviewed and are negative Constitutional: Reports as per HPI and Reports no additional constitutional complaints Eyes: Reports as per HPI and Reports no additional eye complaints Reports system reviewed and no additional complaints, except as documented Cardiovascular: Reports as per HPI and Reports no additional cardiovascular complaints Respiratory: Reports as per HPI and Reports no additional respiratory complaints Gastrointestinal: Reports as per HPI and Reports no additional gastrointestinal complaints Genitourinary: Reports no additional female genitourinary complaints Musculoskeletal: Reports no additional musculoskeletal complaints Skin/Breast: Reports system reviewed and no additional complaints, except as docu Psychiatric: Reports no additional psychiatric complaints Endocrine: Reports no additional endocrine complaints Hematologic/Lymphatic: Reports no additional hematologic/lymphatic complaints Allergic/Immunologic: Reports no additional allergic/immunologic complaints Reports system reviewed and no additional complaints, except as documented and Reports Abnormal speech present [facility] Past Medical History Medical History Congestive heart failure Atrial flutter with rapid ventricular response Morbid obesity Hypertension Congestive heart failure Social History Social History Household Members: Children Household Members Other:: roommates Housing: House Do you presently have visiting nurse or other home services: No Alcohol intake: former Comment: refusing alarm and camera Patient Tobacco Use Status: Current everyday Tobacco user Tobacco use type: Cigarette Cigarettes Per Day: 10 Years Smoked: 25 Smoked in Last 30 Days: Yes e-Cigarette/Vaping Use: Never Used Second Hand Smoke Exposure: Yes Use of substances other than those prescribed or required for medical reasons: No Advance Directives: Yes Advance Directives on File: Yes Advance Directives Date on File: 04/28/23 service: No Physical Exam ED Vital Signs: Vital Signs - 24 hr 11/20/23 12:48 11/20/23 14:00 11/20/23 15:46 Temperature 98.9 F Pulse Rate 81 83 85 Respiratory Rate 18 20 14 Blood Pressure 136/88 113/67 120/72 Pulse Oximetry 100 90 L 94 Oxygen Delivery Method Oxymask Simple Mask Oxymask Oxygen Flow Rate 3 2 2 BMI result Body Mass Index 67.7 Vital signs have been reviewed and appear to be correct. Blood pressure elevated. Heart rate normal. Respiratory rate normal. Temperature normal. Oxygen saturation normal. Appearance: Alert. Oriented X3. No acute distress. Head: Normal external exam. Normocephalic. Atraumatic. No Kay signs noted. No raccoon eyes noted Eyes: PERRLA. EOMI. Conjunctiva and sclera normal. Eyelids normal. ENT: TM's Normal. Pharynx normal. Uvula midline. Moist mucous membranes. No trismus noted. No drooling noted. No muffled voice noted. Neck: Normal inspection. Neck supple. FROM. No adenopathy. Thyroid Normal. No meningeal signs. No neck mass noted. CVS: Normal heart rate and rhythm. Heart sound normal. No murmurs noted. Pulses normal throughout. Respiratory: No respiratory distress. Painless inspiration. Breath sounds normal. No wheezes/rales/rhonchi noted. Chest nontender. No accessory muscle usage noted or decreased air movement noted. Abdomen: Soft and nontender. Bowel sounds normal in all 4 quadrants. No distention noted. No organomegaly noted. No visible injury noted. Back: No CVA tenderness. Full range of motion noted. Skin: Skin warm and dry. Normal skin color. Normal skin turgor. No rashes/lesions/lacerations noted. Extremities: +2 lower extremity edema bilaterally. Extremities exhibit normal range of motion. Extremities nontender. Neuro: Oriented X 3. Cranial nerve exam: II-XII are grossly intact No motor deficit. No sensory deficit. Reflexes normal. Course Reevaluation(s) Reevaluation #1: Fluid overload with anasarca and exertional dyspnea with hypoxia. Elevated D-dimer with hypoxia patient mostly have sedentary lifestyle will consider CT angio r/o pulmonary embolism. Signed out to Will admit for diuresis and further cardiac evaluation. Time: 15:29 Medications Administered Discontinued Medications Generic Name Dose Route Start Last Admin Trade Name Freq PRN Reason Stop Dose Admin Sodium Chloride 1,000 mls @ 999 mls/hr 11/20/23 12:43 11/20/23 13:04 Ns IV 11/20/23 13:43 999 mls/hr .Q1H1M ONE Administration Medical Decision Making Differential Diagnosis Differential Diagnoses: The differential diagnosis associated with the presentation includes (Pneumonia, pleural effusion, pneumothorax, pulmonary embolism, CHF, volume overload, electrolyte derangement, severe anemia.) Admission/Observation Consideration of admission/observation: Escalation of care including admission/observation considered Consult Healthcare Provider Management of the patient was discussed with: Hospitalist (Gabi Rivera) Lab Data MDM Lab Attestation statement: I reviewed the patient's lab results. 11/20/23 13:02 11/20/23 13:02 Labs: Lab Results 11/20/23 11/20/23 Range/Units 13:02 14:53 WBC 7.5 (4.8-10.8) X10*3/uL RBC 3.63 L (4.20-5.50) X10*6/uL Hgb 12.1 (12.0-16.0) g/dl Hct 39.4 (37.0-47.0) % MCV 108.5 H (80.0-98.0) fL MCH 33.3 H (27.0-33.0) pg MCHC 30.7 L (31.0-35.0) g/dl RDW 15.0 (11.0-16.0) % Plt Count 187 (160-400) X10*3/uL MPV 10.0 (9.4-12.3) fL Immature Gran % (Auto) 0.3 (0.0-0.4) % Neut % (Auto) 82.9 H (45-73) % Lymph % (Auto) 8.8 L (20-40) % [place] % (Auto) 6.6 (2-11) % Eos % (Auto) 1.1 (0-4) % Baso % (Auto) 0.3 (0-2) % Lymph # (Auto) 0.7 L (1.2-4.9) X10*3/uL [place] # (Auto) 0.5 (0.1-1.2) X10*3/uL Eos # (Auto) 0.1 (0.0-0.4) X10*3/uL Baso # (Auto) 0.0 (0.0-0.2) X10*3/uL Abs Immat Gran (auto) 0.02 (0.00-0.03) X10*3/uL Absolute Neuts (auto) 6.2 (2.0-8.3) x10*3/uL Absolute Nucleated RBC 0.000 (0.0-0.012) X10*3/uL Nucleated RBC % (auto) 0.0 (0.0-0.2) /100WBC D-Dimer High Sensitivty 384 NG/ML Sodium 146 H (135-145) mmol/L Potassium 4.2 (3.3-5.1) mmol/L Chloride 106 (96-108) mmol/L Carbon Dioxide 29 (22-29) mmol/L Anion Gap 15 (12-20) BUN 13 (9-16) mg/dL Creatinine 1.32 (0.5-1.4) mg/dL Estim Creat Clear Calc 74.7 Estimated GFR 42 Random Glucose 97 (60-115) mg/dL Calcium 9.2 (8.4-10.2) mg/dL Total Bilirubin 1.1 H (0.0-1.0) mg/dL Direct Bilirubin 0.6 H (0.0-0.5) mg/dL AST 20 (5-31) U/L ALT 22 (0-31) U/L Alkaline Phosphatase 82 (39-117) U/L Troponin I High Sens 12.0 D (<3.5-17.0) ng/L B-Natriuretic Peptide 254 H (<100) pg/mL Total Protein 7.8 (6.5-8.0) g/dL Albumin 3.8 (3.5-5.0) g/dL Lipase 21 (8-78) U/L Urine Color Dark Yellow Urine Appearance Turbid Urine pH 5.5 (5.0-9.0) Ur Specific [place] 1.020 (1.005-1.025) Urine Protein 100 (2+) H (Neg-Trace) mg/dL Urine Glucose (UA) Negative (Negative) mg/dL Urine Ketones Negative (Negative) mg/dL Urine Blood Negative (Negative) Urine Nitrite Negative (Negative) Ur Leukocyte Esterase Trace H (Negative) Urine RBC 0-2 (0-2) /HPF Urine WBC 0-5 (0-5) /HPF Ur Squamous Epith Cells >20 (0-2) /HPF Urine Bacteria 4+ (None Seen) Hyaline Casts 0-2 (0-2) /LPF Granular Casts Present Independent Interpretation I performed an independent interpretation of an: Plain X-Ray (Chest:Interstitial and pulmonary vascular prominence with patchy bilateral airspace opacities, increased when compared to the prior examination. Increasing cardiomegaly. Findings can be seen in the setting of fluid overload. ) Radiology Impression Discussion of test interpretation with radiology: I have reviewed the radiologist's reading. Discharge Plan Discharge Clinical Impression: Dyspnea on exertion, Hypoxia, Volume overload Patient Disposition: Admitted As Inpatient Print Language: Tajik
[2023-11-20] MEDS: 0.9 % Sodium Chloride 1,000 ML 999 ML IV (13:04)
[2023-11-20 13:07] LABS: MANUAL DIFF FLAG NO
[2023-11-20 13:15] LABS: Basophils Percent Auto 0.3 % (0-2); Eosinophils Absolute Auto 0.1 X10*3/uL (0.0-0.4); Eosinophils Percent Auto 1.1 % (0-4); Hematocrit 39.4 % (37.0-47.0); Hemoglobin 12.1 g/dl (12.0-16.0); Imm Gran Abs Auto 0.02 X10*3/uL (0.00-0.03); Imm Gran Pct Auto 0.3 % (0.0-0.4); Lymphocytes Absolute Auto 0.7 X10*3/uL (1.2-4.9); Lymphocytes Percent Auto 8.8 % (20-40); Mean Corpuscular HGB Conc 30.7 g/dl (31.0-35.0); Mean Corpuscular Hemoglobin 33.3 pg (27.0-33.0); Mean Corpuscular Volume 108.5 fL (80.0-98.0); Monocytes Absolute Auto 0.5 X10*3/uL (0.1-1.2); Monocytes Percent Auto 6.6 % (2-11); Neutrophils Absolute Auto 6.2 x10*3/uL (2.0-8.3); Neutrophils Percent Auto 82.9 % (45-73); Platelet Count 187 X10*3/uL (160-400); Red Blood Count 3.63 X10*6/uL (4.20-5.50); White Blood Count 7.5 X10*3/uL (4.8-10.8)
[2023-11-20 13:17] LABS: D Dimer High Sensitivity 384 NG/ML
[2023-11-20 13:36] LABS: Alanine Aminotransferase 22 U/L (0-31); Albumin Level 3.8 g/dL (3.5-5.0); Alkaline Phosphatase 82 U/L (39-117); Anion Gap 15 (12-20); Aspartate Amino Transferase 20 U/L (5-31); Bilirubin Direct 0.6 mg/dL (0.0-0.5); Bilirubin Total 1.1 mg/dL (0.0-1.0); Blood Urea Nitrogen 13 mg/dL (9-16); Calcium 9.2 mg/dL (8.4-10.2); Carbon Dioxide 29 mmol/L (22-29); Chloride 106 mmol/L (96-108); Creatinine Clr Calc Pharmacy 74.7; Estimated Glomerular Filt Rate 42; Glucose Random 97 mg/dL (60-115); Lipase 21 U/L (8-78); Potassium 4.2 mmol/L (3.3-5.1); Sodium 146 mmol/L (135-145); Total Protein 7.8 g/dL (6.5-8.0)
[2023-11-20 13:37] LABS: B Type Natriuretic Peptide 254 pg/mL (<100)
[2023-11-20 15:06] LABS: Appearance Urine Turbid; Color Urine Dark Yellow; Glucose Urine UA Negative (Negative); Leukocyte Esterase Urine Trace (Negative); Nitrite Urine Negative (Negative); PH 5.5 (5.0-9.0); UMIC TRIGGER UACC YES; Urine Blood Negative (Negative); Urine Ketones Negative (Negative); Urine Protein 100 (2+) mg/dL (Neg-Trace)
[2023-11-20 15:19] LABS: Bacteria Urine 4+ (None Seen); Granular Casts Urine Present; Hyaline Casts Urine 0-2 /LPF (0-2); RBC Urine 0-2 /HPF (0-2); Squamous Epithelial Cell Urine >20 /HPF (0-2); WBC Urine 0-5 /HPF (0-5)
--- NOTE | 2023-11-20 16:25 | PHA.MEDREC ---
Pharmacy Consult ? Medication Reconciliation Pharmacy has completed the medication reconciliation.Spoke to patient to confirm med list patent stated she has not stared Wegov[facility] yet.
--- NOTE | 2023-11-20 16:31 | PM.IMHP ---
History of Present Illness Date of Service: 11/20/23 Chief Complaint: sob 53-year-old woman presenting to the ER with complaints of increased shortness of breath with exertion, left lower extremity edema and weeping. She is noted drainage increased to the left lower extremity with history of chronic lymphedema. She went to her primary care provider's office today and was found to be hypoxic with oxygen saturation of 70% on room air. She was sent to the ER for further evaluation. In the ER, oxygen saturation was 90%. Patient was placed on OxyMask and she did recover to 95%. Sodium mildly elevated at 146, creatinine 1.32, BNP 254. No fever leukocytosis noted. She reports smoking half a pack of cigarettes a day. She is on Lasix at home. She received 1 L of IV fluid, she will be admitted for further management and treatment of acute congestive heart failure. Review of Systems Review of Systems: Denies any recent fever chills or decrease in appetite respiratory see HPI cardiovascular denied chest pain gastrointestinal denies any dysphagia abdominal pain nausea vomiting or diarrhea genitourinary denies any dysuria frequency or hematuria musculoskeletal denies any joint pain or swelling neuropsych denies any weakness or seizures all other systems reviewed are negative [facility] Medical History (Updated 11/20/23 @ 16:50 by Gabi Rivera NP) Heart failure with reduced ejection fraction Atrial flutter with rapid ventricular response Morbid obesity Hypertension Social History Household Members: Children Household Members Other:: roommates Housing: House Do you presently have visiting nurse or other home services: No Alcohol intake: former Comment: refusing alarm and camera Patient Tobacco Use Status: Current everyday Tobacco user Tobacco use type: Cigarette Cigarettes Per Day: 10 Years Smoked: 25 e-Cigarette/Vaping Use: Never Used Second Hand Smoke Exposure: Yes Advance Directives Date on File: 04/28/23 service: No Meds Allergies Allergy/AdvReac Type Severity Reaction Status Date / Time aspirin [From [facility]] Allergy Mild Hives Verified 11/20/23 12:37 citric acid Allergy Mild Hives Verified 11/20/23 12:37 [From [facility]] dextromethorphan Allergy Mild Hives Verified 11/20/23 12:37 [From NyQuil] doxylamine [From NyQuil] Allergy Mild Hives Verified 11/20/23 12:37 pseudoephedrine [From NyQuil] Allergy Mild Hives Verified 11/20/23 12:37 sodium bicarbonate Allergy Mild Hives Verified 11/20/23 12:37 [From [facility]] Active Medications: Current Medications Acetaminophen (Acetaminophen 325 Mg Tablet) 650 mg PO Q6H PRN PRN Reason: Pain, Mild (Pain Scale 1-3) Ondansetron HCl (Ondansetron Hcl 4 Mg/2 Ml Vial) 4 mg IVPUSH Q8H PRN PRN Reason: Nausea and Vomiting Sodium Chloride (0.9 % Sodium Chloride Flush 3 Ml Syringe) 3 ml IVFLUSH QSHIFT [facility] Home Medications ?Medication ?Instructions ?Recorded ?Confirmed ?Last Taken ?Type cholecalciferol (vitamin D3) 50 50 mcg PO DAILY 11/20/23 11/20/23 11/19/23 History mcg (2,000 unit) capsule (Vitamin D3) zinc acetate 50 mg (zinc) capsule 50 mg PO DAILY 11/20/23 11/20/23 11/19/23 History Physical Exam Vital Signs and Narrative: Vital Signs: Last Vital Signs Temp 98.9 F 11/20/23 14:00 Pulse 85 11/20/23 15:46 Resp 14 11/20/23 15:46 BP 120/72 11/20/23 15:46 Pulse Ox 94 11/20/23 15:46 O2 Del Method Oxymask 11/20/23 15:46 O2 Flow Rate 2 11/20/23 15:46 BMI result Body Mass Index 67.7 Appearing in no acute distress head is normocephalic atraumatic eyes pupils are PERRLA sclera is anicteric mouth throat mucous membranes are intact and moist neck is supple no lymphadenopathy, no JVD noted lung sounds are clear to auscultation heart regular rate rhythm, clear S1, S2 positive bowel sounds, abdomen is soft, nontender, obese neuro patient is alert x3, no focal deficits RLE LLE Results Labs 11/20/23 13:02 11/20/23 13:02 Labs: Laboratory Results - last 24 hr 11/20/23 11/20/23 13:02 14:53 MCV 108.5 H MCH 33.3 H MCHC 30.7 L RDW 15.0 Plt Count 187 MPV 10.0 Immature Gran % (Auto) 0.3 Neut % (Auto) 82.9 H Lymph % (Auto) 8.8 L [place] % (Auto) 6.6 Eos % (Auto) 1.1 Baso % (Auto) 0.3 Lymph # (Auto) 0.7 L [place] # (Auto) 0.5 Eos # (Auto) 0.1 Baso # (Auto) 0.0 Abs Immat Gran (auto) 0.02 Absolute Neuts (auto) 6.2 Absolute Nucleated RBC 0.000 Nucleated RBC % (auto) 0.0 D-Dimer High Sensitivty 384 Anion Gap 15 Estim Creat Clear Calc 74.7 Estimated GFR 42 Random Glucose 97 Calcium 9.2 Total Bilirubin 1.1 H Direct Bilirubin 0.6 H AST 20 ALT 22 Alkaline Phosphatase 82 Troponin I High Sens 12.0 D B-Natriuretic Peptide 254 H Total Protein 7.8 Albumin 3.8 Lipase 21 Urine Color Dark Yellow Urine Appearance Turbid Urine pH 5.5 Ur Specific [place] 1.020 Urine Protein 100 (2+) H Urine Glucose (UA) Negative Urine Ketones Negative Urine Blood Negative Urine Nitrite Negative Ur Leukocyte Esterase Trace H Urine RBC 0-2 Urine WBC 0-5 Ur Squamous Epith Cells >20 Urine Bacteria 4+ Hyaline Casts 0-2 Granular Casts Present Imaging Radiologist's Impressions: Impressions Chest X-Ray 11/20/23 13:25 IMPRESSION: Interstitial and pulmonary vascular prominence with patchy bilateral airspace opacities, increased when compared to the prior examination. Increasing cardiomegaly. Findings can be seen in the setting of fluid overload. Assessment and Plan (1) Volume overload: Status: Acute (2) Hypoxia: Status: Acute Plan 53 year old women admitted with dyspnea likely secondary to CHF HFrEF acute on chronic exacerbation IV lasix cardiology consultation Monitor on telemetry daily weight strict intake and output LLE cellulitis with hx of lymphedema start vancomycin and zosyn ID consultation wound care nurse consult Atrial flutter Continue amiodarone, metoprolol and apixaban COPD No exacerbation noted EMMANUEL Does not have CPAP at home Morbid obesity. BMI 67.7 Discussed importance of weight management as this may be contributing to worsening of other comorbidities Smoker Discussed importance of smoking cessation NRT DVT prophylaxis apixaban Full code Quality Stroke Does the patient have a stroke diagnosis?: No VTE Prior VTE?: No VTE Risk Level:: Medical - moderate - high VTE Device Contraindication: Treatment Not Indicated VTE Drug Contraindication: N/A - Med Ordered
[2023-11-20] MEDS: Furosemide 40 MG/4 ML VIAL IVPUSH (16:53)
[2023-11-20] MEDS: Piperacillin Sodium/Tazobactam 4.5 GM in 0.9 % Sodium Chloride 100 ML IV ×2 (18:02→23:40)
[2023-11-20] MEDS: vancomycin/NS 2,000 MG/500 ML PLAST..BAG 250 MG IV (18:33)
--- NOTE | 2023-11-20 18:50 | PHA.PROG ---
Admission Date/Time: November 20, 2023 16:30 Indication: Skin & Skin Structure Weight in k.829 kg Adjusted body weight in Kg: [place] body weight in Kg: Obesity Dosing Indication % IBW: BMI 67.7 Serum Creatinine - Last 168 Hours 11/20/23 13:02 Creatinine 1.32 Estimated CrCl and GFR - Last 168 Hours 11/20/23 13:02 Estim Creat Clear Calc 74.7 Estimated GFR 42 Vancomycin Loading Dose: 2000 x1 Current Vancomycin Dosing Regimen: 1250 mg Q24H Vancomycin Monitoring using AUC goal of 400 - 600 range with trough as surrogate marker: 463 Date and Time for next Vancomycin Level to be drawn: 11/21 @1600 Pharmacist Comments on Vancomycin Plan: pt BMI is 67.7, proceeding with caution per renal dosing, Q24H dosing, predicted trough 13.3. Vancomycin dosing will take advantage of [employer] as a clinical decision support tool that uses Bayesian modeling to calculate individual patient's pharmacokinetic parameters and forecast the patient's drug concentration time course with the target goal AUC 24 range of 400 - 600 mg/L/hr.
[2023-11-20] MEDS: iohexoL 350 MG/ML 100 ML INFUS..BTL IV (19:15)
[2023-11-20] MEDS: 0.9 % Sodium Chloride Flush 3 ML SYRINGE IVFLUSH (23:39)
[2023-11-20] MEDS: Apixaban 5 MG TABLET PO (23:39)
[2023-11-21] VITALS (7 sets, daily range): BP systolic 125–150; BP diastolic 74–86; PULSE 72–81; RESP 16–20; TEMP 36–37.6; O2SAT 74–100
[2023-11-21 05:46] LABS: MANUAL DIFF FLAG NO
[2023-11-21 05:51] LABS: Basophils Percent Auto 0.3 % (0-2); Eosinophils Absolute Auto 0.2 X10*3/uL (0.0-0.4); Eosinophils Percent Auto 2.3 % (0-4); Hematocrit 40.2 % (37.0-47.0); Imm Gran Abs Auto 0.02 X10*3/uL (0.00-0.03); Imm Gran Pct Auto 0.3 % (0.0-0.4); Lymphocytes Absolute Auto 0.7 X10*3/uL (1.2-4.9); Lymphocytes Percent Auto 9.8 % (20-40); Mean Corpuscular HGB Conc 29.9 g/dl (31.0-35.0); Mean Corpuscular Hemoglobin 32.8 pg (27.0-33.0); Mean Corpuscular Volume 109.8 fL (80.0-98.0); Mean Platelet Volume 10.5 fL (9.4-12.3); Monocytes Absolute Auto 0.5 X10*3/uL (0.1-1.2); Monocytes Percent Auto 6.9 % (2-11); Neutrophils Absolute Auto 5.5 x10*3/uL (2.0-8.3); Neutrophils Percent Auto 80.4 % (45-73); Platelet Count 173 X10*3/uL (160-400); Red Blood Count 3.66 X10*6/uL (4.20-5.50); Red Cell Distribution Width 15.3 % (11.0-16.0); White Blood Count 6.8 X10*3/uL (4.8-10.8)
[2023-11-21 06:08] LABS: Alanine Aminotransferase 20 U/L (0-31); Albumin Level 3.6 g/dL (3.5-5.0); Alkaline Phosphatase 75 U/L (39-117); Anion Gap 11 (12-20); Aspartate Amino Transferase 20 U/L (5-31); Bilirubin Total 1.3 mg/dL (0.0-1.0); Blood Urea Nitrogen 11 mg/dL (9-16); Calcium 8.7 mg/dL (8.4-10.2); Carbon Dioxide 30 mmol/L (22-29); Chloride 106 mmol/L (96-108); Creatinine Clr Calc Pharmacy 76.2; Estimated Glomerular Filt Rate 42; Glucose Random 94 mg/dL (60-115); Potassium 4.1 mmol/L (3.3-5.1); Sodium 143 mmol/L (135-145); Total Protein 7.4 g/dL (6.5-8.0)
[2023-11-21] MEDS: Piperacillin Sodium/Tazobactam 4.5 GM in 0.9 % Sodium Chloride 100 ML IV ×3 (06:51→18:31)
--- NOTE | 2023-11-21 09:26 | HO.WOUND ---
Wound Consult: Initial 53yr old?Female admitted to [facility] on 11/20/23 - See progress notes and H&P for detailed history.? Wound consult placed for Lower Leg weeping fluid.? Patient agreeable to assessment and photo documentation.? Patient states this is new and she recently sought treatment from her PCP but was referred here for CHF mgt. She denies this amount of swelling at baseline and reports she has never sought treatment for Lymphedema in the past. She will benefit from Lymphedema treatment when discharged - recommend Outpt Wound Clinic follow up for wound mgt and aid in lymphedema treatment. She will benefit from Podiatry for nail trimming as well. Left Posterior Leg Etiology: ??Venous Dermatitis Measurements: 6cm x 4cm x 0.1cm Wound Bed: scattered areas of partial thickness tissue loss red pink moist wound bed Drainage / Odor: yellow serous drainage noted on bed linen Edges: ? irregular Angelia wound: Maceration, firm swelling, thick keratinized tissue - ? No Induration, Fluctuance or Warmth noted Pain: tender to touch Goals of Treatment: ? Moisture Management with Durafiber AG Bilateral Breast folds and Abdominal folds noted for MASD (Moisture Associated SKin Damage) - Fungal dermatitis noted - no open skin noted linear mirrored areas of maceration noted with pink erythema and significant yeast odor and itching. Provider to order topical antifungal powder. Gluteal crease assessed for MASD - macerated mirrored tissue along the gluteal fold - no open tissue noted - barrier cream applied. Ther eis scar tissue - hypopigmented tissue noted at the perineal areas currently resurfaced - no open wound noted - barrier cream applied. Preventative measures in place. wedges in use heels and lower legs elevated, Barrier cream in use, Interdry in use, Bariatric bed ordered. Recommendations: 1. Turn and Reposition every 2 hours and as needed for patient comfort.? Use pillows or wedges to support off loading positions. 2. Off Load all bony prominences with use of pillows and heel boots if needed.? Apply Preventative foams where needed. ? 3. Monitor for incontinence and moisture control, use barrier creams when needed for prevention and treatment. 4. Provide adequate and supplemental nutrition.? 5. Order Bariatric mattress. 6. When applicable maintain blood glucose levels per Providers order. 7. Abdominal and breast skin folds - Cleanse with PH balance wipes, pat dry with soft cloth.? Apply antifungal power to assist with moisture management.? Be sure to dust of excess powder to prevent caking on skin and in folds. Apply per provider orders. Tuck Interdry AG Sheet into skin fold to wick and translocate moisture away from skin fold.? Be sure to leave at least 2 inch of fabric exposed outside of skin fold.? Change when soiled. 8. Gluteal area - Apply barrier cream to intergluteal fold and buttocks to protect against moisture and friction. Apply twice daily and PRN. 9. Left Lower Leg - Elevate both legs with pillows be sure to float heels. Cleanse with Home spray. Apply vaseline to dry lower legs. Cover open wound to Left lower posterior leg with durafiber AG cover with Abd pad and gauze wrap. Change daily. Re-consult wound care Nurse for wound deterioration or wound changes.
[2023-11-21] MEDS: Furosemide 40 MG/4 ML VIAL IVPUSH ×2 (09:39→18:31)
[2023-11-21] MEDS: 0.9 % Sodium Chloride Flush 3 ML SYRINGE IVFLUSH ×2 (09:41→20:47)
[2023-11-21] MEDS: Cholecalciferol (Vitamin D3) 25 MCG TABLET 50 MCG PO (09:42)
[2023-11-21] MEDS: Amiodarone HCL 200 MG TABLET PO (09:42)
[2023-11-21] MEDS: Apixaban 5 MG TABLET PO ×2 (09:42→20:47)
[2023-11-21] MEDS: Metoprolol Succinate ER 50 MG TAB.ER.24H PO (09:42)
[2023-11-21] MEDS: Nystatin Powder 15 GM BOTTLE 1 APPL TOPICAL (12:07)
--- NOTE | 2023-11-21 15:15 | HO.PM.IMPN ---
Subjective Subjective Date of Service: 11/21/23 Review of Systems Follow up LE cellulitis Physical Exam Vital Signs: Vital Signs: Last Vital Signs Temp 99.6 F 11/21/23 11:42 Pulse 73 11/21/23 11:42 Resp 20 11/21/23 11:42 BP 131/81 11/21/23 11:42 Pulse Ox 94 11/21/23 11:42 O2 Del Method Oxymask 11/21/23 11:42 O2 Flow Rate 3 11/21/23 11:42 BMI result Body Mass Index 69.6 Appearing in no acute distress lung sounds are clear to auscultation heart regular rate rhythm, clear S1, S2 positive bowel sounds, abdomen is soft, nontender, obese neuro patient is alert x3, no focal deficits Chronic lymphedema Objective Data Active Medications Acetaminophen (Acetaminophen 325 Mg Tablet) 650 mg PO Q6H PRN PRN Reason: Pain, Mild (Pain Scale 1-3) Amiodarone HCl (Amiodarone Hcl 200 Mg Tablet) 200 mg PO DAILY [facility] Last Admin: 11/21/23 09:42 Dose: 200 mg Documented By: JENELLE Apixaban (Apixaban 5 Mg Tablet) 5 mg PO BID [facility] Last Admin: 11/21/23 09:42 Dose: 5 mg Documented By: JENELLE Furosemide (Furosemide 40 Mg/4 Ml Vial) 40 mg IVPUSH BID@0900,1800 [facility]; Protocol Last Admin: 11/21/23 09:39 Dose: 40 mg Documented By: JENELLE Piperacillin Sod/Tazobactam (Sod 4.5 gm/ Sodium Chloride) 100 mls @ 200 mls/hr IV Q6H [facility] Last Infusion: 11/21/23 13:12 Dose: Infused Documented By: JENELLE Vancomycin HCl 1,250 mg/ (Sodium Chloride) 250 mls @ 166.667 mls/hr IV Q24H [facility] Metoprolol Succinate (Metoprolol Succinate Er 50 Mg Tab.Er.24h) 50 mg PO DAILY [facility]; Protocol Last Admin: 11/21/23 09:42 Dose: 50 mg Documented By: JENELLE Nicotine (Nicotine 7 Mg Patch.Td24) 7 mg TRANSDERMA DAILY [facility] Last Admin: 11/21/23 09:45 Dose: Not Given Documented By: JENELLE Non-Admin Reason: Patient Refused Nystatin (Nystatin Powder 15 Gm Bottle) 1 appl TOPICAL BID [facility]; Protocol Last Admin: 11/21/23 12:07 Dose: 1 appl Documented By: JENELLE Ondansetron HCl (Ondansetron Hcl 4 Mg/2 Ml Vial) 4 mg IVPUSH Q8H PRN PRN Reason: Nausea and Vomiting Pharmacy Consult (Consult Rx Vancomycin Dosing) 1 each MISCELLANE DAILY PRN PRN Reason: Consult order Sodium Chloride (0.9 % Sodium Chloride Flush 3 Ml Syringe) 3 ml IVFLUSH QSHIFT [facility] Last Admin: 11/21/23 09:41 Dose: 3 ml Documented By: JENELLE Vitamin D (Cholecalciferol (Vitamin D3) 25 Mcg Tablet) 50 mcg PO DAILY [facility] Last Admin: 11/21/23 09:42 Dose: 50 mcg Documented By: JENELLE Labs 11/21/23 05:31 11/21/23 05:31 Labs: Laboratory Results - last 24 hr 11/20/23 11/21/23 11/21/23 14:53 05:31 05:31 MCV 109.8 H MCH 32.8 MCHC 29.9 L RDW 15.3 Plt Count 173 MPV 10.5 Immature Gran % (Auto) 0.3 Neut % (Auto) 80.4 H Lymph % (Auto) 9.8 L [place] % (Auto) 6.9 Eos % (Auto) 2.3 Baso % (Auto) 0.3 Lymph # (Auto) 0.7 L [place] # (Auto) 0.5 Eos # (Auto) 0.2 Baso # (Auto) 0.0 Abs Immat Gran (auto) 0.02 Absolute Neuts (auto) 5.5 Absolute Nucleated RBC 0.000 Nucleated RBC % (auto) 0.0 Anion Gap 11 L Estim Creat Clear Calc 76.2 Cancelled Estimated GFR 42 Random Glucose Calcium Total Bilirubin AST ALT Alkaline Phosphatase Total Protein Albumin Urine RBC 0-2 Urine WBC 0-5 Ur Squamous Epith Cells >20 Urine Bacteria 4+ Hyaline Casts 0-2 Granular Casts Present 11/21/23 05:31 MCV MCH MCHC RDW Plt Count MPV Immature Gran % (Auto) Neut % (Auto) Lymph % (Auto) [place] % (Auto) Eos % (Auto) Baso % (Auto) Lymph # (Auto) [place] # (Auto) Eos # (Auto) Baso # (Auto) Abs Immat Gran (auto) Absolute Neuts (auto) Absolute Nucleated RBC Nucleated RBC % (auto) Anion Gap Estim Creat Clear Calc Estimated GFR Cancelled Random Glucose 94 Calcium 8.7 Total Bilirubin 1.3 H AST 20 ALT 20 Alkaline Phosphatase 75 Total Protein 7.4 Albumin 3.6 Urine RBC Urine WBC Ur Squamous Epith Cells Urine Bacteria Hyaline Casts Granular Casts Assessment and Plan (1) Congestive heart failure: Status: Acute Plan 53 year old women admitted with dyspnea likely secondary to CHF HFrEF acute on chronic exacerbation continue IV lasix cardiology consultation pending Monitor on telemetry daily weight strict intake and output LLE cellulitis with hx of lymphedema vancomycin and zosyn ID consultation wound care nurse consult Atrial flutter Continue amiodarone, metoprolol and apixaban COPD No exacerbation noted Possible EMMANUEL Does not have CPAP at home inpatient sleep study Morbid obesity. BMI 69.6 Discussed importance of weight management as this may be contributing to worsening of other comorbidities Smoker Discussed importance of smoking cessation NRT DVT prophylaxis apixaban Attending Dr. Marcial Full code Quality Stroke Does the patient have a stroke diagnosis?: No VTE Prior VTE?: No VTE Risk Level:: Medical - moderate - high VTE Device Contraindication: Treatment Not Indicated VTE Drug Contraindication: N/A - Med Ordered
--- NOTE | 2023-11-21 15:25 | MHC.CM.PN ---
Pt lives with roommates and her daughter, her daughter is her HCP, and a new form will be completed because last one lacks signatures and dates. Pt.'s PCP is Becka Woodruff. Pt said that she did not VNA services after past hosp stay because she did not want them. DCP: home, self care, CM to follow for DC needs.
[2023-11-21 16:21] LABS: B Type Natriuretic Peptide 209 pg/mL (<100)
[2023-11-21] MEDS: vancomycin HCL 1,250 MG in 0.9 % Sodium Chloride 250 ML 166.67 MG IV (22:17)
[2023-11-22] VITALS (7 sets, daily range): BP systolic 126–169; BP diastolic 63–85; PULSE 71–74; RESP 18–20; TEMP 36.1–37.1; O2SAT 91–99; BMI 72.0
--- NOTE | 2023-11-22 00:26 | PC.RT ---
Addendum entered by Stephen Gaspar 11/22/23 04:57: Pt found with pulse ox finger probe off finger; sleep study end at 0450 Original Note: Placed on sleep study at 0030; pt on 1L Mask(refuses to wear NC)
[2023-11-22] MEDS: Piperacillin Sodium/Tazobactam 4.5 GM in 0.9 % Sodium Chloride 100 ML IV ×2 (03:08→13:03)
--- NOTE | 2023-11-22 07:00 | CA_ITS ---
Transthoracic Echocardiogram Patient (Last, First, Middle): Cristina Skaggs, Gender: Female Date of : 1970 Age: 53 Procedure Date: 11/22/2023 Procedure Type: Transthoracic Echocardiogram Location: [facility] [place] Height: 157.48 cm Weight: 178.26 kg BSA: 2.55 m2 Heart Rate: 73 bpm BP: 129 / 63 mmHg Water Technician: Referring MD: Alfredo Roth MD Symptoms: CHF Study Quality: Fair but adequate ECG Rhythm: Atrial flutter Conclusions: - The left ventricular systolic function is normal. The visually estimated ejection fraction is between 55-60%. - No obvious valvular pathology seen on this study. Findings Procedure Information The quality of the study was technically difficult. The study quality is limited by patients body habitus. Left Ventricle Normal left ventricular cavity size. There is mildly increased left ventricular wall thickness. The left ventricular systolic function is normal. The visually estimated ejection fraction is between 55-60%. There is no evidence of regional wall motion abnormalities. Diastolic function is indeterminate on the basis of available data. Right Ventricle The right ventricle was not well visualized. Atria The left atrium is likely dilated. The right atrium was not well visualized. Aortic Valve The aortic valve was not well visualized. There is no aortic valve stenosis. There is no aortic valve regurgitation. Mitral Valve The mitral valve appears normal. There is no mitral valve regurgitation. There is no mitral valve stenosis. Pulmonic Valve The pulmonic valve is likely normal. Tricuspid Valve There is mild tricuspid valve regurgitation. Mild pulmonary hypertension is present. Great Vessels The asc aorta is normal in size. Venous The inferior vena cava was not well visualized. The inferior vena cava is normal in size. Pericardium/Pleural There is no evidence of pericardial effusion. Prior Study Comparison Changes noted compared to prior study dated: 04/25/2023. LVEF seems higher. Recommendations, Care & Conclusions No obvious valvular pathology seen on this study. Measurements 2D Linear Measurements IVSd: 1.26 0.6-0.9/0.6-1.0 cm LVIDd: 5.41 3.9-5.3/4.2-5.9 cm LVIDd Index: 2.12 2.4-3.2/2.2-3.1 cm/m2 LVIDs: 3.42 2.0-3.6 cm LVPWd: 1.25 0.7-1.1 cm Ao Root: 3.00 2.1-3.5 cm LA Diam: 5.20 2.7-3.8/3.0-4.0 cm LAIDs Index: 2.04 1.5-2.3 cm/m2 LV Mass: 351.99 67-162/88-224 g LV Mass Index: 138.04 43-95/49-115 g/m2 LVOT Diam: 2.00 3.0+(-)1.3 cm Mitral Valve MV Pk E: 0.51 MV PK A: 0.84 MV Decel Time: 181.00 E/A: 0.60 E'Lateral: 9.46 E'Medial: 5.00 E/E' Med: 10.10 E/E' Lat: 5.30 PHT: 53.00 MVA PHT: 4.15 Decel Cottle: 2.79 Aortic Valve AoV Pk Jack: 1.26 AoV Mn Jack: 0.80 AoV VTI: 0.24 AoV Pk Grad: 6.00 Aov Mn Grad: 3.00 HUDSON Cont.VTI: 1.80 LVOT LVOT Pk Jack: 0.55 LVOT Mn Jack: 0.38 LVOT VTI: 0.14 LVOT Pk Grad: 1.00 LVOT Mn Grad: 1.00 LVOT Diam: 2.00 LVOT Area: 3.14 Diastolic Function MV Pk E: 0.51 MV Pk A: 0.84 E/A: 0.60 E'Medial: 5.00 E/E' Med: 10.10 E' Laterial: 9.46 E/E' Lat: 5.30 Right Ventricle TAPSE (mm): 18.40 Tricuspid Valve TR Pk Jack: 2.83 TR Pk Grad: 32.00 RA Press: 8.00 RVSP: 40.00 Great Vessels Aorta Ao Root-2D: 3.00 2.0-3.7 cm Ao Asc: 3.40 2.1-3.4 cm Pulmonary Valve PV Pk Jack: 1.06 Peak PV Grad: 4.00 Updated in Other Vendor System with Status of Final Alfredo Roth MD electronically signed on 11/22/2023 3:58:38 PM with status of Final
[2023-11-22] MEDS: Amiodarone HCL 200 MG TABLET PO (08:39)
[2023-11-22] MEDS: Apixaban 5 MG TABLET PO ×2 (08:39→20:16)
[2023-11-22] MEDS: Metoprolol Succinate ER 50 MG TAB.ER.24H PO (08:39)
[2023-11-22] MEDS: Cholecalciferol (Vitamin D3) 25 MCG TABLET 50 MCG PO (08:39)
[2023-11-22] MEDS: Acetaminophen 325 MG TABLET 650 MG PO (08:39)
[2023-11-22] MEDS: Furosemide 40 MG/4 ML VIAL IVPUSH ×2 (08:40→18:13)
[2023-11-22] MEDS: 0.9 % Sodium Chloride Flush 3 ML SYRINGE IVFLUSH (08:41)
[2023-11-22] MEDS: Nystatin Powder 15 GM BOTTLE 1 APPL TOPICAL ×2 (08:43→20:06)
[2023-11-22 09:36] LABS: Anion Gap 13 (12-20); Blood Urea Nitrogen 10 mg/dL (9-16); Calcium 8.3 mg/dL (8.4-10.2); Carbon Dioxide 31 mmol/L (22-29); Chloride 101 mmol/L (96-108); Creatinine Clr Calc Pharmacy 85.9; Estimated Glomerular Filt Rate 47; Glucose Random 103 mg/dL (60-115); Potassium 4.1 mmol/L (3.3-5.1); Sodium 141 mmol/L (135-145)
--- NOTE | 2023-11-22 09:38 | HO.PM.IMPN ---
Subjective Subjective Date of Service: 11/22/23 Interval History: Seen in follow up for cfh, lle cellulitis Interval history: reports significant ongoing marvin. no lightheadedness, palpitations, cp, cough. Pain BLE. Review of Systems Review of Systems: Yes all other systems are reviewed and are negative Physical Exam Vital Signs: Vital Signs: Last Vital Signs Temp 97.3 F 11/22/23 07:36 Pulse 74 11/22/23 07:36 Resp 20 11/22/23 07:36 BP 129/63 11/22/23 07:36 Pulse Ox 91 L 11/22/23 07:36 O2 Del Method Oxymask 11/22/23 07:36 O2 Flow Rate 1 11/22/23 07:36 BMI result Body Mass Index 72.0 Constitutional - Awake and Alert, No apparent distress Eyes - PERRLA, EOMI Cardiovascular - S1S2, RRR, 2+ ble edema Respiratory - Normal lung expansion, Normal respiratory effort, No respiratory distress, CTA bilaterally Gastrointestinal - NT / ND; +BS; No rebound or guarding Extremities - no calf tenderness bilaterally, no swelling. Venosu stasis changes bilaterally with weeping venous ulcers LLE without purulent drainage or warmth Skin - Warm/Dry. Beefy red coalescing patches beneath bilateral breasts Neurological - Alert & oriented x3 Psychological - Appropriate affect Objective Data Active Medications Acetaminophen (Acetaminophen 325 Mg Tablet) 650 mg PO Q6H PRN PRN Reason: Pain, Mild (Pain Scale 1-3) Last Admin: 11/22/23 08:39 Dose: 650 mg Documented By: JENELLE Amiodarone HCl (Amiodarone Hcl 200 Mg Tablet) 200 mg PO DAILY [facility] Last Admin: 11/22/23 08:39 Dose: 200 mg Documented By: JENELLE Apixaban (Apixaban 5 Mg Tablet) 5 mg PO BID [facility] Last Admin: 11/22/23 08:39 Dose: 5 mg Documented By: JENELLE Furosemide (Furosemide 40 Mg/4 Ml Vial) 40 mg IVPUSH BID@0900,1800 [facility]; Protocol Last Admin: 11/22/23 08:40 Dose: 40 mg Documented By: JENELLE Piperacillin Sod/Tazobactam (Sod 4.5 gm/ Sodium Chloride) 100 mls @ 200 mls/hr IV Q6H [facility] Last Admin: 11/22/23 07:16 Dose: Not Given Documented By: MICHAEL Non-Admin Reason: previous dose given late sec poor IV access Vancomycin HCl 1,250 mg/ (Sodium Chloride) 250 mls @ 166.667 mls/hr IV Q24H [facility] Last Infusion: 11/22/23 03:11 Dose: Infused Documented By: MAYNOR Metoprolol Succinate (Metoprolol Succinate Er 50 Mg Tab.Er.24h) 50 mg PO DAILY [facility]; Protocol Last Admin: 11/22/23 08:39 Dose: 50 mg Documented By: JENELLE Nicotine (Nicotine 7 Mg Patch.Td24) 7 mg TRANSDERMA DAILY [facility] Last Admin: 11/22/23 08:41 Dose: Not Given Documented By: JENELLE Non-Admin Reason: Patient Refused Nystatin (Nystatin Powder 15 Gm Bottle) 1 appl TOPICAL BID [facility]; Protocol Last Admin: 11/22/23 08:43 Dose: 1 appl Documented By: JENELLE Ondansetron HCl (Ondansetron Hcl 4 Mg/2 Ml Vial) 4 mg IVPUSH Q8H PRN PRN Reason: Nausea and Vomiting Pharmacy Consult (Consult Rx Vancomycin Dosing) 1 each MISCELLANE DAILY PRN PRN Reason: Consult order Sodium Chloride (0.9 % Sodium Chloride Flush 3 Ml Syringe) 3 ml IVFLUSH QSHIFT [facility] Last Admin: 11/22/23 08:41 Dose: 3 ml Documented By: JENELLE Vitamin D (Cholecalciferol (Vitamin D3) 25 Mcg Tablet) 50 mcg PO DAILY [facility] Last Admin: 11/22/23 08:39 Dose: 50 mcg Documented By: JENELLE Labs 11/21/23 05:31 11/22/23 08:50 Labs: Laboratory Results - last 24 hr 11/21/23 11/22/23 11/22/23 15:42 08:50 08:50 Hold Purple Top SEE NOTE Anion Gap Cancelled 13 Estim Creat Clear Calc Cancelled Estimated GFR Random Glucose Calcium B-Natriuretic Peptide 209 H 11/22/23 11/22/23 11/22/23 08:50 08:50 08:50 Hold Purple Top Anion Gap Estim Creat Clear Calc 85.9 Estimated GFR Cancelled 47 Random Glucose Cancelled 103 Calcium Cancelled B-Natriuretic Peptide 11/22/23 08:50 Hold Purple Top Anion Gap Estim Creat Clear Calc Estimated GFR Random Glucose Calcium 8.3 L B-Natriuretic Peptide Assessment and Plan (1) Congestive heart failure: Status: Acute (2) Cellulitis of left leg: Status: Acute Plan 53 year old women admitted with dyspnea likely secondary to CHF HFrEF acute on chronic exacerbation continue IV lasix OTILIO 06/03, moderately reduced LV systolic function with EF 30-40% cardiology input appreciated Monitor on telemetry daily weight strict intake and output , -1.1L monitor renal fx/lytes LLE cellulitis with hx of lymphedema vancomycin and zosyn ID consultation wound care nurse consult Atrial flutter with controlled rate back in aflutter, likely r/t morbid obesity Stop amio per cardiology, continue metoprolol and apixiban COPD No exacerbation noted Possible EMMANUEL Does not have CPAP at home inpatient sleep study Morbid obesity. BMI 69.6 Discussed importance of weight management as this may be contributing to worsening of other comorbidities Smoker Discussed importance of smoking cessation NRT DVT prophylaxis apixaban Attending Dr. Marcial Full code Patient requires ongoing inpatient stay for management of acute exacerbation of congestive heart failure still with significant volume overload requiring IV diuresis and close monitoring of intake and output and close monitoring of renal function electrolyte levels. She is also still requiring IV antibiotics pending expert consultation for left lower extremity cellulitis Quality Stroke Does the patient have a stroke diagnosis?: No VTE Prior VTE?: No VTE Risk Level:: Medical - moderate - high VTE Device Contraindication: Treatment Not Indicated VTE Drug Contraindication: N/A - Med Ordered
--- NOTE | 2023-11-22 09:41 | PM.CNCAR ---
History of Present Illness History of Present Illness Date of Service: 11/22/23 Chief complaint: chf Narrative: This is a cardiology consultation regarding congestive heart failure. Patient has been seen in the clinic and also in cardiology consultation during inpatient visits. Essentially, cardioversions performed in the past for atrial flutter. She is on amiodarone at this time. Currently, because of leaking leg wound and thought to have cellulitis/lymphedema/congestive heart failure. We have been asked to see her for further evaluation. Based on records, it seems that she has been cardioverted twice last year-April as well as May. Currently, she is on amiodarone. However, EKG shows atrial flutter with controlled rate and hence it seems that she is back in flutter. She is noticed some increasing shortness of breath and also leg swelling with some weeping on the left side which led to this hospitalization. Review of Systems Review of Systems: Yes all other systems are reviewed and are negative Constitutional: Constitutional: Reports as per HPI and Reports no additional constitutional complaints Eyes: Eyes: Reports as per HPI and Denies no additional eye complaints ENT: Denies system reviewed and no additional complaints, except as documented and Reports as per HPI Cardiovascular: Cardiovascular: Reports as per HPI, Reports no additional cardiovascular complaints, Denies acrocyanosis, Denies cool extremities, Denies chest pain, Reports leg edema, Denies lightheadedness, Denies palpitations and Reports dyspnea Respiratory: Respiratory: Reports as per HPI, Denies no additional respiratory complaints and Reports dyspnea Gastrointestinal: Gastrointestinal: Reports as per HPI and Denies no additional gastrointestinal complaints Genitourinary: Genitourinary: Reports as per HPI Musculoskeletal: Musculoskeletal: Reports no additional musculoskeletal complaints and Reports as per HPI Integumentary/Breasts: Skin/Breast: Reports system reviewed and no additional complaints, except as docu Neurologic: Reports system reviewed and no additional complaints, except as documented and Reports as per HPI Psychiatric: Psychiatric: Reports no additional psychiatric complaints and Reports as per HPI Endocrine: Endocrine: Reports no additional endocrine complaints, Reports as per HPI and Denies palpitations Hematologic/Lymphatic: Hematologic/Lymphatic: Reports no additional hematologic/lymphatic complaints and Reports as per HPI Allergic/Immunologic: Allergic/Immunologic: Reports no additional allergic/immunologic complaints and Reports as per HPI [facility] Past Medical History Medical History (Updated 11/22/23 @ 09:47 by Alfredo Roth MD) Heart failure with reduced ejection fraction Atrial flutter with rapid ventricular response Morbid obesity Hypertension Family History Pertinent family history: No pertinent family history Social History Social History Household Members: Family and Friend(s) Household Members Other:: roommates Housing: House Do you presently have visiting nurse or other home services: No Alcohol intake: former Comment: refusing alarm and camera Patient Tobacco Use Status: Current everyday Tobacco user Tobacco use type: Cigarette Cigarettes Per Day: 10 Years Smoked: 25 e-Cigarette/Vaping Use: Never Used Second Hand Smoke Exposure: No Advance Directives Date on File: 04/28/23 service: No Meds Allergies Allergy/AdvReac Type Severity Reaction Status Date / Time aspirin [From [facility]ih[facility]ika-[place]] Allergy Mild Hives Verified 11/20/23 12:37 citric acid Allergy Mild Hives Verified 11/20/23 12:37 [From [facility]] dextromethorphan Allergy Mild Hives Verified 11/20/23 12:37 [From NyQuil] doxylamine [From NyQuil] Allergy Mild Hives Verified 11/20/23 12:37 pseudoephedrine [From NyQuil] Allergy Mild Hives Verified 11/20/23 12:37 sodium bicarbonate Allergy Mild Hives Verified 11/20/23 12:37 [From [facility]arika-[place]] Active Medications: Current Medications Acetaminophen (Acetaminophen 325 Mg Tablet) 650 mg PO Q6H PRN PRN Reason: Pain, Mild (Pain Scale 1-3) Last Admin: 11/22/23 08:39 Dose: 650 mg Amiodarone HCl (Amiodarone Hcl 200 Mg Tablet) 200 mg PO DAILY [facility] Last Admin: 11/22/23 08:39 Dose: 200 mg Apixaban (Apixaban 5 Mg Tablet) 5 mg PO BID [facility] Last Admin: 11/22/23 08:39 Dose: 5 mg Furosemide (Furosemide 40 Mg/4 Ml Vial) 40 mg IVPUSH BID@0900,1800 [facility]; Protocol Last Admin: 11/22/23 08:40 Dose: 40 mg Piperacillin Sod/Tazobactam (Sod 4.5 gm/ Sodium Chloride) 100 mls @ 200 mls/hr IV Q6H [facility] Last Admin: 11/22/23 07:16 Dose: Not Given Vancomycin HCl 1,250 mg/ (Sodium Chloride) 250 mls @ 166.667 mls/hr IV Q24H [facility] Last Infusion: 11/22/23 03:11 Dose: Infused Metoprolol Succinate (Metoprolol Succinate Er 50 Mg Tab.Er.24h) 50 mg PO DAILY [facility]; Protocol Last Admin: 11/22/23 08:39 Dose: 50 mg Nicotine (Nicotine 7 Mg Patch.Td24) 7 mg TRANSDERMA DAILY [facility] Last Admin: 11/22/23 08:41 Dose: Not Given Nystatin (Nystatin Powder 15 Gm Bottle) 1 appl TOPICAL BID [facility]; Protocol Last Admin: 11/22/23 08:43 Dose: 1 appl Ondansetron HCl (Ondansetron Hcl 4 Mg/2 Ml Vial) 4 mg IVPUSH Q8H PRN PRN Reason: Nausea and Vomiting Pharmacy Consult (Consult Rx Vancomycin Dosing) 1 each MISCELLANE DAILY PRN PRN Reason: Consult order Sodium Chloride (0.9 % Sodium Chloride Flush 3 Ml Syringe) 3 ml IVFLUSH QSHIFT [facility] Last Admin: 11/22/23 08:41 Dose: 3 ml Vitamin D (Cholecalciferol (Vitamin D3) 25 Mcg Tablet) 50 mcg PO DAILY [facility] Last Admin: 11/22/23 08:39 Dose: 50 mcg Home Medications ?Medication ?Instructions ?Recorded ?Confirmed ?Last Taken ?Type cholecalciferol (vitamin D3) 50 50 mcg PO DAILY 11/20/23 11/20/23 11/19/23 History mcg (2,000 unit) capsule (Vitamin D3) zinc acetate 50 mg (zinc) capsule 50 mg PO DAILY 11/20/23 11/20/23 11/19/23 History Physical Exam Vital Signs: Vital Signs: Last Vital Signs Temp 97.3 F 11/22/23 07:36 Pulse 74 11/22/23 07:36 Resp 20 11/22/23 07:36 BP 129/63 11/22/23 07:36 Pulse Ox 91 L 11/22/23 07:36 O2 Del Method Oxymask 11/22/23 07:36 O2 Flow Rate 1 11/22/23 07:36 BMI result Body Mass Index 72.0 Const: General: comfortable and no acute distress Orientation/consciousness: patient oriented x3 HEENT: Other: Unremarkable Head: Yes normal to inspection Neck: Neck: Yes normal visual inspection Chest: Chest palpation & inspection: normal inspection of the chest Resp: Other: Limited auscultation due to body habitus and inability to turn. Cardio: Palpation: normal PMI Heart sounds: S1 normal heart sound present, S2 normal heart sound present, no gallops, no murmurs and no rubs GI: Palpation (GI): Soft to palpation Back/Spine/Pelvis: Other: unremarkable Skin: General skin exam: no rashes or lesions noted Neuro: General: patient oriented x3 Extrem: Other: Chronic changes Psych: Mental Status: mental status grossly normal Objective Labs and Meds 11/21/23 05:31 11/22/23 08:50 Lab results: Laboratory Results - last 24 hr 11/21/23 11/22/23 11/22/23 15:42 08:50 08:50 Hold Purple Top SEE NOTE Sodium Cancelled 141 Potassium Cancelled Chloride Carbon Dioxide Anion Gap BUN Creatinine Estim Creat Clear Calc Estimated GFR Random Glucose Calcium B-Natriuretic Peptide 209 H 11/22/23 11/22/23 11/22/23 08:50 08:50 08:50 Hold Purple Top Sodium Potassium 4.1 Chloride Cancelled 101 Carbon Dioxide Cancelled 31 H Anion Gap Cancelled BUN Creatinine Estim Creat Clear Calc Estimated GFR Random Glucose Calcium B-Natriuretic Peptide 11/22/23 11/22/23 11/22/23 08:50 08:50 08:50 Hold Purple Top Sodium Potassium Chloride Carbon Dioxide Anion Gap 13 BUN Cancelled 10 Creatinine Cancelled 1.20 Estim Creat Clear Calc Cancelled Estimated GFR Random Glucose Calcium B-Natriuretic Peptide 11/22/23 11/22/23 11/22/23 08:50 08:50 08:50 Hold Purple Top Sodium Potassium Chloride Carbon Dioxide Anion Gap BUN Creatinine Estim Creat Clear Calc 85.9 Estimated GFR Cancelled 47 Random Glucose Cancelled 103 Calcium Cancelled B-Natriuretic Peptide 11/22/23 08:50 Hold Purple Top Sodium Potassium Chloride Carbon Dioxide Anion Gap BUN Creatinine Estim Creat Clear Calc Estimated GFR Random Glucose Calcium 8.3 L B-Natriuretic Peptide ECG Interpretation: EKG with atrial flutter at a rate of 82/Min. Assessment and Plan (1) Atrial flutter: Qualifiers: Atrial flutter type: unspecified Qualified Code(s): I48.92 - Unspecified atrial flutter Status: Acute (2) Acute on chronic combined systolic and diastolic CHF (congestive heart failure): Status: Acute (3) Morbid obesity: Status: Acute Plan EKG with atrial flutter and controlled rate. Based on OTILIO, LVEF is 30-40%. High sensitivity troponins within normal limits. Cardiac BNP is slightly high. Lower extremities have lot of chronic changes and could be some combination of dependent edema/lymphedema/CHF. Agree with some diuretics. With regard to the atrial flutter, she is failed 2 cardioversions in spite of amiodarone. Unlikely that she will be able to maintain sinus rhythm mainly because overweight. Hence stop amiodarone and just use rate control medications. Anticoagulation. Procedures Date of Service Date of Service: 11/22/23
--- NOTE | 2023-11-22 10:59 | MHC.CM.PN ---
EMR REVIWED, PER HOSPITALIST PT REMAINS IN FLUID OVERLOAD AND WILL NEED CONT DIURESES, PLAN FOR REPEAT SLEEP STUDY, CARDIO FOLLOWING AND P.T. RECOMMENDING STR, BROAD REF PLACED D/T PT'S BODY TYPE, CM WILL CONT TO FOLLOW DC NEEDS.
--- NOTE | 2023-11-22 16:27 | P.CNID_ITS ---
History of Present Illness Data of Consult Service Date: 11/22/23 Requesting physician: Nataly Aragon Primary Care Provider: SHON Estrada Reason for consult: LLE weeping edema She presents due to hypoxia and shortness of breath at PCP office with oxygen saturation in 70s She had left ankle weeping edema incidentally noted and reported warm yesterday. Leg is not warm today. She has long h/o hypoxia and concern over CHF. Review of Systems 2 Review of Systems: Yes all other systems are reviewed and are negative Cardiovascular: Cardiovascular: Reports dyspnea Respiratory: Respiratory: Reports dyspnea PMFSH Past Medical History Medical History Heart failure with reduced ejection fraction Atrial flutter with rapid ventricular response Morbid obesity Hypertension Family History Family history: reviewed and not pertinent Social History Social History Household Members: Family and Friend(s) Household Members Other:: roommates Housing: House Do you presently have visiting nurse or other home services: No Alcohol intake: former Comment: refusing alarm and camera Patient Tobacco Use Status: Current everyday Tobacco user Tobacco use type: Cigarette Cigarettes Per Day: 10 Years Smoked: 25 e-Cigarette/Vaping Use: Never Used Second Hand Smoke Exposure: No Advance Directives Date on File: 04/28/23 service: No Meds Allergies Allergy/AdvReac Type Severity Reaction Status Date / Time aspirin [From Niharika-[place]] Allergy Mild Hives Verified 11/20/23 12:37 citric acid Allergy Mild Hives Verified 11/20/23 12:37 [From [facility]] dextromethorphan Allergy Mild Hives Verified 11/20/23 12:37 [From NyQuil] doxylamine [From NyQuil] Allergy Mild Hives Verified 11/20/23 12:37 pseudoephedrine [From NyQuil] Allergy Mild Hives Verified 11/20/23 12:37 sodium bicarbonate Allergy Mild Hives Verified 11/20/23 12:37 [From [facility]] Active Medications: Current Medications Acetaminophen (Acetaminophen 325 Mg Tablet) 650 mg PO Q6H PRN PRN Reason: Pain, Mild (Pain Scale 1-3) Last Admin: 11/22/23 08:39 Dose: 650 mg Apixaban (Apixaban 5 Mg Tablet) 5 mg PO BID [facility] Last Admin: 11/22/23 08:39 Dose: 5 mg Furosemide (Furosemide 40 Mg/4 Ml Vial) 40 mg IVPUSH BID@0900,1800 [facility]; Protocol Last Admin: 11/22/23 08:40 Dose: 40 mg Metoprolol Succinate (Metoprolol Succinate Er 50 Mg Tab.Er.24h) 50 mg PO DAILY [facility]; Protocol Last Admin: 11/22/23 08:39 Dose: 50 mg Nicotine (Nicotine 7 Mg Patch.Td24) 7 mg TRANSDERMA DAILY [facility] Last Admin: 11/22/23 08:41 Dose: Not Given Nystatin (Nystatin Powder 15 Gm Bottle) 1 appl TOPICAL BID [facility]; Protocol Last Admin: 11/22/23 08:43 Dose: 1 appl Ondansetron HCl (Ondansetron Hcl 4 Mg/2 Ml Vial) 4 mg IVPUSH Q8H PRN PRN Reason: Nausea and Vomiting Pharmacy Consult (Consult Rx Vancomycin Dosing) 1 each MISCELLANE DAILY PRN PRN Reason: Consult order Sodium Chloride (0.9 % Sodium Chloride Flush 3 Ml Syringe) 3 ml IVFLUSH QSHIFT [facility] Last Admin: 11/22/23 08:41 Dose: 3 ml Vitamin D (Cholecalciferol (Vitamin D3) 25 Mcg Tablet) 50 mcg PO DAILY [facility] Last Admin: 11/22/23 08:39 Dose: 50 mcg Home Medications ?Medication ?Instructions ?Recorded ?Confirmed ?Last Taken ?Type cholecalciferol (vitamin D3) 50 50 mcg PO DAILY 11/20/23 11/20/23 11/19/23 History mcg (2,000 unit) capsule (Vitamin D3) zinc acetate 50 mg (zinc) capsule 50 mg PO DAILY 11/20/23 11/20/23 11/19/23 History Physical Exam 2 Vital Signs: Vital Signs: Last Vital Signs Temp 97.1 F 11/22/23 12:00 Pulse 72 11/22/23 12:00 Resp 20 11/22/23 12:00 BP 129/80 11/22/23 12:00 Pulse Ox 92 11/22/23 12:00 O2 Del Method Oxymask 11/22/23 12:00 O2 Flow Rate 1 11/22/23 12:00 BMI result Body Mass Index 72.0 Const: General: cooperative HEENT: Head: Yes normal to inspection Face and sinus: Yes normal facial exam Mouth: Normal oral and palatal mucosa present Teeth and gingiva: d entition normal Eyes: General: appearance normal, both eyes and all related structures P upils: Equal, round and reactive pupils present Resp: Other: decreased bs bases Cardio: Rate: regular rate Rhythm: regular rhythm GI: Palpation (GI): Soft to palpation and nontender : General: Yes no CVA tenderness Back/Spine/Pelvis: Back: no CVA tenderness Skin: General skin exam: no rashes or lesions noted Neuro: General: moves all extremities Cranial nerves: Yes Equal, round and reactive pupils present Extrem: Other: lymphedema with leaking serous drainage crease left ankle no spreading cellulitis Psych: Appearance: grossly normal Results Labs 11/21/23 05:31 11/22/23 08:50 Labs: BMP 11/22/23 11/22/23 11/22/23 08:50 08:50 08:50 Sodium Cancelled 141 Potassium Cancelled 4.1 Chloride Cancelled Carbon Dioxide BUN Creatinine Calcium 11/22/23 11/22/23 11/22/23 08:50 08:50 08:50 Sodium Potassium Chloride 101 Carbon Dioxide Cancelled 31 H BUN Cancelled 10 Creatinine Cancelled Calcium 11/22/23 11/22/23 08:50 08:50 Sodium Potassium Chloride Carbon Dioxide BUN Creatinine 1.20 Calcium Cancelled 8.3 L Assessment and Plan (1) Cellulitis of left leg: Status: Acute (2) Acute on chronic combined systolic and diastolic CHF (congestive heart failure): Status: Acute Plan Truly left ankle lymphedemic leaking found as incidental finding. She has no heat to area or redness today There is no fever or leukocytosis. Stop IV Zosyn and Vancomycin Po Doxycycline for a week. Check HIV test due to chronic hypoxia,make sure not PJP. Local wound and lymphedema care.
[2023-11-22 16:48] LABS: Vancomycin Random 11.9 mcg/mL (15-20)
[2023-11-22] MEDS: Doxycycline Monohydrate 100 MG CAPSULE PO (18:13)
--- NOTE | 2023-11-22 22:51 | PC.RT ---
pt placed on sleep study with 1L o2. Rn aware
[2023-11-23] VITALS (8 sets, daily range): BP systolic 113–134; BP diastolic 63–74; PULSE 73–76; RESP 19–20; TEMP 36.1–36.4; O2SAT 94–98
[2023-11-23] MEDS: Doxycycline Monohydrate 100 MG CAPSULE PO ×2 (06:59→18:14)
[2023-11-23 08:17] LABS: HIV Num 1 12.98 S/CO (0.00-0.99)
[2023-11-23] MEDS: Metoprolol Succinate ER 50 MG TAB.ER.24H PO (08:37)
[2023-11-23] MEDS: Acetaminophen 325 MG TABLET 650 MG PO ×2 (08:37→18:16)
[2023-11-23] MEDS: Apixaban 5 MG TABLET PO ×2 (08:37→21:16)
[2023-11-23] MEDS: Cholecalciferol (Vitamin D3) 25 MCG TABLET 50 MCG PO (08:38)
[2023-11-23] MEDS: 0.9 % Sodium Chloride Flush 3 ML SYRINGE IVFLUSH ×2 (08:39→18:14)
[2023-11-23] MEDS: Nystatin Powder 15 GM BOTTLE 1 APPL TOPICAL ×2 (09:05→21:18)
[2023-11-23 09:33] LABS: HIV AB/AG Nonreactive (Nonreactive); HIV Num 2 0.05 S/CO; HIV Num 3 0.05 S/CO
[2023-11-23 10:20] LABS: Anion Gap 10 (12-20); Blood Urea Nitrogen 9 mg/dL (9-16); Calcium 8.3 mg/dL (8.4-10.2); Carbon Dioxide 34 mmol/L (22-29); Chloride 98 mmol/L (96-108); Creatinine Clr Calc Pharmacy 86.5; Estimated Glomerular Filt Rate 47; Glucose Random 96 mg/dL (60-115); Potassium 4.3 mmol/L (3.3-5.1); Sodium 138 mmol/L (135-145)
[2023-11-23] MEDS: Furosemide 40 MG/4 ML VIAL IVPUSH (11:32)
--- NOTE | 2023-11-23 12:54 | P.PNIM_ITS ---
Subjective Subjective Date of Service: 11/23/23 Interval History: Seen and examined this morning Follow-up for CHF, left leg cellulitis No leg pain, no shortness of breath at rest Review of Systems Review of Systems: Yes all other systems are reviewed and are negative Constitutional Constitutional: Denies fever(s) Physical Exam 2 Vital Signs: Vital Signs: Last Vital Signs Temp 97.6 F 11/23/23 11:43 Pulse 75 11/23/23 11:43 Resp 19 11/23/23 11:43 BP 113/66 11/23/23 11:43 Pulse Ox 95 11/23/23 11:43 O2 Del Method Oxymask 11/23/23 11:43 O2 Flow Rate 1 11/23/23 11:43 BMI result Body Mass Index 72.0 Objective Data Active Medications Acetaminophen (Acetaminophen 325 Mg Tablet) 650 mg PO Q6H PRN PRN Reason: Pain, Mild (Pain Scale 1-3) Last Admin: 11/23/23 08:37 Dose: 650 mg Documented By: JAVIER Apixaban (Apixaban 5 Mg Tablet) 5 mg PO BID [facility] Last Admin: 11/23/23 08:37 Dose: 5 mg Documented By: JAVIER Doxycycline Monohydrate (Doxycycline Monohydrate 100 Mg Capsule) 100 mg PO Q12H [facility] Last Admin: 11/23/23 06:59 Dose: 100 mg Documented By: PRIYA Furosemide (Furosemide 40 Mg/4 Ml Vial) 40 mg IVPUSH BID@0900,1800 [facility]; Protocol Last Admin: 11/23/23 11:32 Dose: 40 mg Documented By: JAVIER Metoprolol Succinate (Metoprolol Succinate Er 50 Mg Tab.Er.24h) 50 mg PO DAILY [facility]; Protocol Last Admin: 11/23/23 08:37 Dose: 50 mg Documented By: JAVIER Nicotine (Nicotine 7 Mg Patch.Td24) 7 mg TRANSDERMA DAILY [facility] Last Admin: 11/23/23 08:39 Dose: Not Given Documented By: JAVIER Non-Admin Reason: Patient Refused Nystatin (Nystatin Powder 15 Gm Bottle) 1 appl TOPICAL BID [facility]; Protocol Last Admin: 11/23/23 09:05 Dose: 1 appl Documented By: JAVIER Ondansetron HCl (Ondansetron Hcl 4 Mg/2 Ml Vial) 4 mg IVPUSH Q8H PRN PRN Reason: Nausea and Vomiting Sodium Chloride (0.9 % Sodium Chloride Flush 3 Ml Syringe) 3 ml IVFLUSH QSHIFT [facility] Last Admin: 11/23/23 08:39 Dose: 3 ml Documented By: JAVIER Vitamin D (Cholecalciferol (Vitamin D3) 25 Mcg Tablet) 50 mcg PO DAILY [facility] Last Admin: 11/23/23 08:38 Dose: 50 mcg Documented By: JAVIER Labs 11/21/23 05:31 11/23/23 09:27 Labs: Laboratory Results - last 24 hr 11/22/23 11/22/23 11/23/23 16:15 18:23 09:27 Hold Purple Top SEE NOTE Anion Gap 10 L Estim Creat Clear Calc 86.5 Estimated GFR 47 Random Glucose 96 Calcium 8.3 L Random Vancomycin 11.9 L HIV 1&2 Ab/P24 Ag 4thGn Nonreactive Assessment and Plan (1) Cellulitis of left leg: Status: Acute (2) Acute on chronic combined systolic and diastolic CHF (congestive heart failure): Status: Acute Plan 53 year old women admitted with dyspnea likely secondary to CHF HFrEF acute on chronic exacerbation continue IV lasix OTILIO 06/03, moderately reduced LV systolic function with EF 30-40% cardiology input appreciated Monitor on telemetry daily weight strict intake and output , -1.1L monitor renal fx/lytes LLE cellulitis with hx of lymphedema Initially treated with IV vancomycin and zosyn Seen by ID, no significant infection, change to p.o. doxycycline with recommendation for 7 days of treatment wound care nurse consult Atrial flutter with controlled rate back in aflutter, likely r/t morbid obesity Stop amio per cardiology, continue metoprolol and apixiban Chronic respiratory failure/COPD No exacerbation noted According to outpatient pulmonary office note from 10/27/23 - patient has severe COPD with significantly decreased diffusion capacity. patient had home O2 evaluation and required supplemental oxygen 3 L continuous flow and was sent home with supplemental oxygen EMMANUEL Has been diagnosed with sleep apnea Does not have CPAP machine at home yet Morbid obesity. BMI 69.6 Discussed importance of weight management as this is contributing to worsening of other comorbidities Smoker Discussed importance of smoking cessation NRT DVT prophylaxis apixaban Attending Dr. Marcial Full code Patient requires ongoing inpatient stay for management of acute exacerbation of congestive heart failure still with significant volume overload requiring IV diuresis and close monitoring of intake and output and close monitoring of renal function electrolyte levels. Quality Stroke Does the patient have a stroke diagnosis?: No VTE Prior VTE?: No VTE Risk Level:: Medical - moderate - high VTE Device Contraindication: Treatment Not Indicated VTE Drug Contraindication: N/A - Med Ordered
[2023-11-24] VITALS: BP 144/88; PULSE 71; RESP 18; TEMP 36.4; O2SAT 98
[2023-11-24 04:00] VITALS: BP 133/84; PULSE 92; RESP 19; TEMP 36.6; O2SAT 98
[2023-11-24] MEDS: Acetaminophen 325 MG TABLET 650 MG PO (04:49)
[2023-11-24] MEDS: 0.9 % Sodium Chloride Flush 3 ML SYRINGE IVFLUSH ×2 (04:51→10:30)
[2023-11-24] MEDS: Doxycycline Monohydrate 100 MG CAPSULE PO (06:05)
[2023-11-24 08:00] VITALS: BP 121/74; PULSE 70; RESP 18; TEMP 36.6; O2SAT 99
[2023-11-24 09:54] VITALS: BP 121/74; PULSE 70; O2SAT 99
[2023-11-24 10:30] VITALS: BP 121/74; PULSE 70
[2023-11-24] MEDS: Furosemide 40 MG/4 ML VIAL IVPUSH (10:30)
[2023-11-24] MEDS: Metoprolol Succinate ER 50 MG TAB.ER.24H PO (10:30)
[2023-11-24] MEDS: Cholecalciferol (Vitamin D3) 25 MCG TABLET 50 MCG PO (10:30)
[2023-11-24] MEDS: Apixaban 5 MG TABLET PO (10:31)
[2023-11-24] MEDS: Nystatin Powder 15 GM BOTTLE 1 APPL TOPICAL (10:31)
[2023-11-24 11:35] VITALS: BP 116/64; PULSE 71; RESP 19; TEMP 36.4; O2SAT 99
[2023-11-24 12:10] LABS: Estimated Glomerular Filt Rate 55
--- NOTE | 2023-11-24 12:47 | PM.DS ---
DS: Providers Provider Date of Service: 11/24/23 Date of admission: 11/20/23 16:30 Date of discharge: 11/24/23 Primary care physician: SHON Estrada Consults: 11/20/23 17:28 Consult to Wound Care Routine Reason for consultation: lymphedema, oozing 11/20/23 17:29 Consult to Infectious Diseases Routine Consulting Provider: [facility] Reason for consultation: cellulitis 11/21/23 15:18 Consult to Cardiology Routine Consulting Provider: [facility] Reason for consultation: chf Attending physician on discharge: [facility] Discharging clinician: Haritha Serna DS: Diagnosis Discharge Diagnosis (1) Cellulitis of left leg: Status: Acute (2) Acute on chronic combined systolic and diastolic CHF (congestive heart failure): Status: Acute DS: Summary Hospital Course Hospital Course: From H&P on the day of admission 53-year-old woman presenting to the ER with complaints of increased shortness of breath with exertion, left lower extremity edema and weeping. She is noted drainage increased to the left lower extremity with history of chronic lymphedema. She went to her primary care provider's office today and was found to be hypoxic with oxygen saturation of 70% on room air. She was sent to the ER for further evaluation. In the ER, oxygen saturation was 90%. Patient was placed on OxyMask and she did recover to 95%. Sodium mildly elevated at 146, creatinine 1.32, BNP 254. No fever leukocytosis noted. She reports smoking half a pack of cigarettes a day. She is on Lasix at home. She received 1 L of IV fluid, she will be admitted for further management and treatment of acute congestive heart failure. HFrEF acute on chronic exacerbation Initially treated with IV Lasix with good urine output and improvement in symptoms. She was seen by Cardiology during her hospitalization. Previous OTILIO from 06/03, moderately reduced LV systolic function with EF 30-40%. repeat ECHO obtained with improvement of EF to 50-55%. She will be transitioned back to oral Lasix. Recommend low-sodium diet. LLE cellulitis with hx of lymphedema Initially treated with IV vancomycin and zosyn . Seen by ID, no significant infection, change to p.o. doxycycline with recommendation for 7 days of treatment. Seen by wound care nurse who made wound care recommendations as below. Recommend outpatient follow-up in lymphedema clinic Atrial flutter with controlled rate back in aflutter, likely r/t morbid obesity. Stop amiodorone per cardiology, continue metoprolol and apixiban Chronic respiratory failure/COPD No exacerbation noted According to outpatient pulmonary office note from 10/27/23 - patient has severe COPD with significantly decreased diffusion capacity. patient had home O2 evaluation and required supplemental oxygen 3 L continuous flow and was sent home with supplemental oxygen. according to the oxygen company she has refused home oxygen delivery at her home. She is currently requiring 1-2 L of supplemental oxygen at rest. EMMANUEL Diagnosed to have sleep apnea, CPAP machine has not yet been delivered to her house Bilateral breast folds, abdominal folds, gluteal crease with MASD - management as per wound care nurse--> Abdominal and breast skin folds: Cleanse with PH balance wipes, pat dry with soft cloth.? Apply antifungal power to assist with moisture management.? Be sure to dust of excess powder to prevent caking on skin and in folds. Tuck Interdry AG Sheet into skin fold to wick and translocate moisture away from skin fold.? Be sure to leave at least 2 inch of fabric exposed outside of skin fold.? Change when soiled. Imaging showing breast edema, likely due to MASD, no evidence of cellulitis. recommend outpatient follow up and consider repeat imaging/correlation with mammogram if available. Gluteal area: Apply barrier cream to intergluteal fold and buttocks to protect against moisture and friction. Apply twice daily and PRN. Left Lower Leg: Elevate both legs with pillows be sure to float heels. Cleanse with Home spray. Apply vaseline to dry lower legs. Cover open wound to Left lower posterior leg with durafiber AG cover with Abd pad and gauze wrap. Change daily. Morbid obesity - weight loss encouraged. PT - evaluated by Physical therapy who recommended short-term rehab Time Attestation Discharge Coordination Time (in mins): 36 Quality: Safe Use of Opioids Does Pt have an Active Cancer Diagnosis on the Problem List?: No Quality: Stroke Does the patient have a stroke diagnosis?: No Physical Exam Vital Signs: Vital Signs: Last Vital Signs Temp 97.5 F 11/24/23 11:35 Pulse 71 11/24/23 11:35 Resp 19 11/24/23 11:35 BP 116/64 11/24/23 11:35 Pulse Ox 99 11/24/23 11:35 O2 Del Method Oxymask 11/24/23 11:35 O2 Flow Rate 2 11/24/23 11:35 BMI result Body Mass Index 72.0 Const: General: cooperative, comfortable, no acute distress, alert and awake Nutritional Appearance: obese Orientation/consciousness: patient oriented x3 Resp: Other: dim, no wheeze no rales Effort & Inspection: normal respiratory effort, able to speak in complete sentences, no respiratory distress and no use of accessory muscles Cardio: Rate: regular rate GI: Inspection: No distended, Yes Abdominal panniculus present and Yes obesity Palpation (GI): Soft to palpation Skin: Other: Bilateral chronic skin changes to lower extremities/no purulent drainage, no warmth no erythema Neuro: General: patient oriented x3, moves all extremities and CN's II-XI intact bilaterally DS: Data Data Completed and Pending Completed studies during hospitalization [Text1]: Procedures Insertion of Infusion Device into Upper Vein, Percutaneous Approach (04/23/23) Hinduism of Cardiac Rhythm, Single (05/26/23) Ultrasonography of Heart with Aorta, Transesophageal (05/26/23) Labs on day of discharge: Laboratory Results - last 24 hr 11/24/23 11:10 Creatinine 1.04 Estim Creat Clear Calc 99.0 Estimated GFR 55 Discharge Plan Discharge Anticipated Discharge Date/Time: 11/24/23 16:30 Patient Disposition: Xfer SNF Discharge Diagnosis: fluid overload atrial flutter morbid obesity Referrals: [facility] [Outside] - 1 Week Becka Woodruff PA [Primary Care Provider] - 1 Week Alfredo Roth MD [Physician] - 2 Weeks Discharge Medications: New nicotine 7 mg/24 hr Patch 24 Hour 7 mg transdermal DAILY Qty: 7 0RF doxycycline monohydrate 100 mg Capsule 100 mg PO Q12H 5 Days Qty: 10 0RF Continued spironolactone [Aldactone] 25 mg tablet 25 mg PO DAILY Qty: 90 3RF furosemide [Lasix] 40 mg tablet 40 mg PO DAILY Qty: 30 5RF Eliquis 5 mg tablet 5 mg PO BID Qty: 30 11RF metoprolol succinate [Toprol XL] 50 mg tablet extended release 24 hr 50 mg PO DAILY Qty: 90 3RF zinc acetate 50 mg (zinc) Capsule 50 mg PO DAILY cholecalciferol (vitamin D3) [Vitamin D3] 50 mcg (2,000 unit) Capsule 50 mcg PO DAILY Anoro Ellipta 62.5-25 mcg/actuation blister with device 1 inh inhalation DAILY 30 Days Qty: 1 6RF Discontinued amiodarone 200 mg tablet 200 mg PO DAILY Qty: 90 3RF Discharge Orders: Discharge Order (Routine); Ordered 11/24/23 Ordered By: Haritha Serna Activity on Discharge: As tolerated Stand Alone Forms: Patient Portal Discharge page Print Language: Citizen Of [place] Care Plan Goals: See below Health Concerns: acute on chronic chf atrial flutter lymphedema, left leg cellulitis Nicotine dependence Plan of Treatment: Continue Lasix, Aldactone. Low sodium diet. Outpatient follow-up with Cardiology for atrial flutter. stop taking amiodorone. outpatient follow up with cardiology Complete 5 more days of doxycycline for left lower extremity cellulitis Recommend local wound care for left lower extremity, under bilateral breasts/abdominal skin folds and gluteal area Was prescribed oxygen by Pulmonary in October however has declined delivery of oxygen to residents. EMMANUEL, CPAP has not yet been delivered to residence Recommend outpatient lymphedema care Outpatient follow-up with PCP as needed Recommend smoking cessation, NRT as needed Assessment: See discharge summary Discharge Date/Time: 11/24/23 16:46
--- NOTE | 2023-11-24 12:55 | MHC.CM.PN ---
Pt has been medically cleared for DC, she will go today to [facility] [place] for STR via BLS.
== END 2023-11-24 16:46 | disposition skilled nursing facility (03) | DRG 194 ==
LOC: HO.ED 15:29 → HO.EDOVER 16:33 → HO.IMC 19:59
PROVIDERS: Internal Medicine; Physician Assistant; Admitting Provider Nurse Practitioner Acute Care; Emergency Provider Emergency Medicine; PCP Physician Assistant Medical; Visit Provider Physician Assistant Medical
DX: I50.23 Acute on chronic systolic (congestive) heart failure (principal); J96.10 Chronic respiratory failure, unspecified whether with hypoxia or hypercapnia; I48.92 Unspecified atrial flutter; Z79.01 Long term (current) use of anticoagulants; L03.116 Cellulitis of left lower limb; Z68.44 Body mass index [BMI] 60.0-69.9, adult; E66.01 Morbid (severe) obesity due to excess calories; L24.A0 Irritant contact dermatitis due to friction or contact with body fluids, unspecified; F17.210 Nicotine dependence, cigarettes, uncomplicated; Z71.6 Tobacco abuse counseling; G47.33 Obstructive sleep apnea (adult) (pediatric); I89.0 Lymphedema, not elsewhere classified; Z79.899 Other long term (current) drug therapy
CPT/HCPCS: 36415; 71045; 71275; 80048; 80053; 80076; 80202; 81001; 81003; 82565; 83690; 83880; 84484; 85025; 85379; 87389; 93005; 93306; 97116; 97162; 97530; 99285; J1940; J2543; J3370; J3371; Q9957; Q9967

== ENCOUNTER 2023-11-20 16:30 | Outpatient (BNV) | payer OTHER, SELFPAY | END 2023-11-22 07:00 | PROVIDERS: Admitting Provider Nurse Practitioner Acute Care; Emergency Provider Emergency Medicine; PCP Physician Assistant Medical; Visit Provider Internal Medicine | DX: I36.1 Nonrheumatic tricuspid (valve) insufficiency (principal); I27.20 Pulmonary hypertension, unspecified | CPT/HCPCS: 93306 ==

== ENCOUNTER → 2023-11-20 16:30 | Outpatient (BNV) | payer OTHER, SELFPAY | PROVIDERS: Admitting Provider Nurse Practitioner Acute Care; Emergency Provider Emergency Medicine; Visit Provider Internal Medicine | DX: I48.92 Unspecified atrial flutter (principal); I50.43 Acute on chronic combined systolic (congestive) and diastolic (congestive) heart failure; E66.01 Morbid (severe) obesity due to excess calories | CPT/HCPCS: 99223 ==

== ENCOUNTER → 2023-11-20 16:30 | Outpatient (BNV) | payer OTHER, SELFPAY | PROVIDERS: Admitting Provider Nurse Practitioner Acute Care; Emergency Provider Emergency Medicine; PCP Physician Assistant Medical; Visit Provider Internal Medicine | DX: L03.116 Cellulitis of left lower limb (principal); I50.43 Acute on chronic combined systolic (congestive) and diastolic (congestive) heart failure | CPT/HCPCS: 99222 ==

== ENCOUNTER → 2023-11-20 16:30 | Outpatient (BNV) | payer OTHER, SELFPAY | PROVIDERS: Admitting Provider Nurse Practitioner Acute Care; Emergency Provider Emergency Medicine; Visit Provider Nurse Practitioner Acute Care | DX: L03.116 Cellulitis of left lower limb (principal); I50.43 Acute on chronic combined systolic (congestive) and diastolic (congestive) heart failure | CPT/HCPCS: 99223; 99232; 99239 ==

== ENCOUNTER 2024-03-06 09:59 | Outpatient (AMB) | payer OTHER, SELFPAY ==
[2024-03-06 10:19] VITALS: BP 130/62; PULSE 70; BMI 59.7
--- NOTE | 2024-03-06 10:19 | MHC.OFFVIS ---
Vital Signs 03/06/24 10:19 Height 5 ft 2 in Weight 326 lb 4.546 oz BMI 59.7 BP 130/62 Blood Pressure Location Lt brachial Position Sitting Pulse 70 Pulse Source Pulse Oximeter Intake Visit Reasons: 3 month f/u RS Allergies aspirin [From Niharika-[facility]] Allergy (Mild, Verified 11/20/23 12:37) Hives citric acid [From Niharika-[facility]] Allergy (Mild, Verified 11/20/23 12:37) Hives dextromethorphan [From NyQuil] Allergy (Mild, Verified 11/20/23 12:37) Hives doxylamine [From NyQuil] Allergy (Mild, Verified 11/20/23 12:37) Hives pseudoephedrine [From NyQuil] Allergy (Mild, Verified 11/20/23 12:37) Hives sodium bicarbonate [From Niharika-[facility]] Allergy (Mild, Verified 11/20/23 12:37) Hives Medication List - Last Reconciled 03/06/24 by Scout Kumar MD apixaban (Eliquis) 5 mg PO BID cholecalciferol (vitamin D3) (Vitamin D3) 50 mcg PO DAILY furosemide (Lasix) 40 mg PO DAILY metoprolol succinate ER (Toprol XL) 50 mg PO DAILY nicotine 7 mg transdermal DAILY PRN semaglutide (weight loss) (Wegovy) 0.25 mg subcut QWEEK spironolactone (Aldactone) 25 mg PO DAILY umeclidinium-vilanterol 62.5-25 mcg/actuation (Anoro Ellipta) 1 inh inhalation DAILY 30 days zinc acetate 50 mg PO DAILY HPI Comments Details: Cristina comes for 3 month follow-up after hospitalization for decompensated congestive heart failure. She has done well since then. She is currently on spironolactone and Lasix therapy. She says shortness of breath is significantly improved. She is currently on CPAP therapy for sleep apnea as well. She is also on weight loss therapy with [facility] and says has been gradually losing weight. Her breathing has significantly improved and she is able to exercise without using oxygen. She says her leg edema has remained stable. Denies any clear orthopnea, PND. No exertional chest pain. Echocardiogram in November had shown improved LV ejection fraction compared to a prior echocardiogram. Denies any prolonged palpitation irregular heartbeat. No bleeding issues or neurologic events. [facility] Medical History Acute on chronic combined systolic and diastolic CHF (congestive heart failure) Chronic heart failure with preserved ejection fraction (HFpEF) Atrial flutter Heart failure with reduced ejection fraction Atrial flutter with rapid ventricular response Morbid obesity Hypertension Social History Household Members: Family and Friend(s) Household Members Other:: roommates Housing: House Do you presently have visiting nurse or other home services: No Alcohol intake: former Comment: refusing alarm and camera Patient Tobacco Use Status: Current everyday Tobacco user Tobacco use type: Cigarette Cigarettes Per Day: 10 Years Smoked: 25 e-Cigarette/Vaping Use: Never Used Second Hand Smoke Exposure: No Advance Directives Date on File: 04/28/23 service: No Review of Systems Const Denies weakness ENT Denies dizziness Card Denies chest pain, Denies chest pain with activity, Denies syncope, Denies rapid heart rate, Denies pedal edema, Denies edema, Denies leg edema, Denies lightheadedness, Denies palpitations, Denies dyspnea, Denies dyspnea on exertion and Denies orthopnea Resp Denies cough, Denies dyspnea and Denies dyspnea on exertion GI Denies hematochezia and Denies change in stool character Musc Denies abnormal gait, Denies muscle cramps, Denies muscle weakness, Denies numbness, Denies radiating pain into limb and Denies tingling Neuro Denies abnormal gait, Denies dizziness, Denies syncope, Denies numbness, Denies tingling and Denies weakness Endo Denies palpitations Physical Exam Vital Signs: Last Vital Signs Pulse 70 03/06/24 10:19 BP 130/62 03/06/24 10:19 BMI result Body Mass Index 59.7 Const General: cooperative, comfortable, alert, awake and poor hygiene Nutritional Appearance: obese morbidly obese Orientation/consciousness: patient oriented x3 Neck Neck: Yes trachea midline, Yes supple and Yes no JVD Resp Effort & Inspection: normal respiratory effort Auscultation: clear to auscultation bilaterally and diminished lung sounds Cardio Jugular venous distension: no JVD Rate: regular rate Rhythm: regular rhythm Heart sounds: S1 normal heart sound present, S2 normal heart sound present, no click, no gallops, no murmurs and no rubs GI Inspection: Yes obesity Auscultation: normal bowel sounds Skin General skin exam: no rashes or lesions noted Neuro General: patient oriented x3 and no focal motor deficits Extrem General: No clubbing, No cyanosis, Yes edema (Lymphedema type) and Yes venous stasis dermatitis Psych Appearance: grossly normal Office Procedures EKG Details: EKG shows normal sinus rhythm with left axis deviation with T-wave inversion anterolateral and inferior leads which could represent repolarization abnormality and/or ischemia. [id number], Complete Assessment & Plan Assessment & Plan (1) Chronic heart failure with preserved ejection fraction (HFpEF): Code(s): I50.32 - Chronic diastolic (congestive) heart failure Category: Medical Plan: Heart failure preserved ejection fraction has done extremely well with rhythm control approach with much improved functional capacity and need for oxygen. Continue maintain activity and participate in aggressive weight loss syndrome. Continue rhythm control approach which has helped. Continue current diuretic regimen with Lasix as well as neurohormonal modulation with Aldactone. Advise BNP and BNP. Recommend a stress test to evaluate for myocardial ischemia. Continue CPAP therapy. Continue aggressive blood pressure control which is currently well optimized. She understands management well. Additional diuretics as need be. Daily weight monitoring avoidance of salt loading was discussed. High risk for recurrent heart failure syndrome. (2) History of cardiomyopathy: Comment: In the setting of persistent atrial flutter Code(s): Z86.79 - Personal history of other diseases of the circulatory system Category: Medical Plan: History of cardiomyopathy in setting of atrial flutter with rapid ventricular response. LV ejection fraction has normalized. In a rhythm control approach. Continue spironolactone and metoprolol for neurohormonal modulation. Currently does not need angiotensin receptor tiffanie. (3) Paroxysmal atrial flutter: Code(s): I48.92 - Unspecified atrial flutter Category: Medical Plan: Paroxysmal atrial flutter requiring synchronized cardioversion. Maintaining rhythm without any antiarrhythmic drug. At high risk for recurrent atrial fibrillation due to her risk factors of heart failure, morbid obesity, sleep apnea as well as hypertension. Continue aggressive weight loss program. Continue CPAP therapy. Advised to monitor heart rate on regular basis. Will avoid antiarrhythmic drug therapy at this point time. Continue full oral anticoagulation Eliquis for life. Avoidance of stimulants was discussed. Follow up in the clinic in 6 months time, sooner p.r.n.. Thank you for allowing me to partake in her care Orders: Orders Basic Metabolic Panel Today Scout Kumar MD I50.32 - Chronic diastolic (congestive) heart failure B Type Natriuretic Peptide Today Scout Kumar MD I50.32 - Chronic diastolic (congestive) heart failure Medications: Changed From nicotine 7 mg transdermal DAILY 7 ea 0RF To nicotine 7 mg transdermal DAILY PRN SHON Bonds Coding Level of Care Code Est Pt Level 4 (72738) Diagnoses Chronic heart failure with preserved ejection fraction (HFpEF) I50.32 History of cardiomyopathy Z86.79 Paroxysmal atrial flutter I48.92 CPT Codes EKG - CPT: 86235-[id number], Complete ([id number])
== END 2024-03-06 11:12 | disposition home or self-care (01) ==
PROVIDERS: PCP Physician Assistant Medical; Visit Provider Internal Medicine Cardiovascular Disease
DX: I50.32 Chronic diastolic (congestive) heart failure (principal); Z86.79 Personal history of other diseases of the circulatory system; I48.92 Unspecified atrial flutter
CPT/HCPCS: 93010; 99214

== ENCOUNTER → 2024-03-06 09:59 | Outpatient (BNVA) | payer OTHER, SELFPAY | PROVIDERS: PCP Physician Assistant Medical; Visit Provider Internal Medicine Cardiovascular Disease | DX: I50.32 Chronic diastolic (congestive) heart failure (principal); I48.92 Unspecified atrial flutter; Z79.01 Long term (current) use of anticoagulants; Z86.79 Personal history of other diseases of the circulatory system | CPT/HCPCS: 93005 ==

== ENCOUNTER 2024-07-10 14:17 | Inpatient (IN) | payer OTHER, SELFPAY ==
[2024-07-10] VITALS (8 sets, daily range): BP systolic 134–143; BP diastolic 93–108; PULSE 118–128; RESP 16–24; TEMP 36.6–36.9; O2SAT 85–97; BMI 60.5
--- NOTE | ~2024-07-10 | XR_ITS ---
EXAMINATION: XR CHEST CLINICAL INFORMATION: dyspnea COMPARISON: 11/20/2023. 05/28/2023. TECHNIQUE: AP portable view of the chest was obtained. FINDINGS: There is cardiomegaly. Mediastinal and hilar contours appear normal. Mild vascular prominence in the hilar regions. The lungs are clear bilaterally. No effusion or pneumothorax on this limited exam. There are degenerative changes of the spine and shoulder joints. No soft tissue abnormalities. XR/XR chest 1V IMPRESSION: Cardiomegaly. No active pulmonary disease. Electronically signed by: Sunny Daly MD 07/10/2024 04:49 PM [facility]
--- NOTE | 2024-07-10 15:18 | ECG_ITS ---
Test Reason : SOB Blood Pressure : */* mmHG Vent. Rate : 125 BPM Atrial Rate : 250 BPM P-R Int : * ms QRS Dur : 84 ms QT Int : 294 ms P-R-T Axes : 220 -31 60 degrees QTcB Int : 424 ms Atrial flutter with 2:1 A-V conduction Left axis deviation Abnormal ECG When compared with ECG of 20-Nov-2023 13:07, Vent. rate has increased by 43 bpm Referred By: Moody Serna Electronically Signed By: GITA BARILLAS
--- NOTE | 2024-07-10 15:40 | ED_ITS ---
HPI - General Adult General Chief complaint: Upper Respiratory Symptoms Stated complaint: Diff Breathing Time Seen by Provider: 07/10/24 15:17 Source: patient Mode of arrival: ambulatory Limitations: no limitations History of Present Illness HPI narrative: This is a 54-year-old woman with a past medical history of hypertension, EMMANUEL, CHF, atrial flutter on Eliquis, lymphedema who presents for evaluation of cough, congestion and dyspnea for the last 3 days. Patient states that she has had cough with clear sputum production. She reports feeling somewhat congested and having gradually worsening difficulty breathing over the last 3 days. She states dyspnea with a short exertion. She states no associated chest pain or pleuritic chest pain. She states no trauma or falls. She states no associated back pain or abdominal pain. She reports no fevers, but states that she has had sweats and no chills. She states no vomiting or changes to bowel habits, but states that she has had decreased appetite. She states no urinary symptoms. She states taking medications as prescribed. She states no new leg swelling or pain. Related Data Home Medications ?Medication ?Instructions ?Recorded ?Confirmed cholecalciferol (vitamin D3) 50 50 mcg PO DAILY 11/20/23 03/06/24 mcg (2,000 unit) capsule (Vitamin D3) zinc acetate 50 mg (zinc) capsule 50 mg PO DAILY 11/20/23 03/06/24 nicotine 7 mg/24 hr daily 7 mg transdermal DAILY PRN 03/06/24 03/06/24 transdermal patch semaglutide (weight loss) 0.25 0.25 mg subcut QWEEK 03/06/24 03/06/24 mg/0.5 mL subcutaneous pen injector (Rubia) Previous Rx's ?Medication ?Instructions ?Recorded spironolactone 25 mg tablet 25 mg PO DAILY #90 tabs 07/21/23 (Aldactone) furosemide 40 mg tablet (Lasix) 40 mg PO DAILY #30 tabs 07/25/23 apixaban 5 mg tablet (Eliquis) 5 mg PO BID #30 tabs 09/28/23 umeclidinium 62.5 mcg-vilanterol 1 inh inhalation DAILY 30 days #1 10/27/23 25 mcg/actuation powdr for ea inhalation (Anoro Ellipta) metoprolol succinate 50 mg 50 mg PO DAILY #90 tabs 11/10/23 tablet,extended release 24 hr (Toprol XL) Allergies Allergy/AdvReac Type Severity Reaction Status Date / Time aspirin [From Niharika-[place]] Allergy Mild Hives Verified 07/10/24 15:09 citric acid Allergy Mild Hives Verified 07/10/24 15:09 [From Niharika-[place]] dextromethorphan Allergy Mild Hives Verified 07/10/24 15:09 [From NyQuil] doxylamine [From NyQuil] Allergy Mild Hives Verified 07/10/24 15:09 pseudoephedrine [From NyQuil] Allergy Mild Hives Verified 07/10/24 15:09 sodium bicarbonate Allergy Mild Hives Verified 07/10/24 15:09 [From Niharika-[place]] Review of Systems 2 Review of Systems: ROS as per HPI [facility] Past Medical History Medical History Acute on chronic combined systolic and diastolic CHF (congestive heart failure) Chronic heart failure with preserved ejection fraction (HFpEF) Atrial flutter Heart failure with reduced ejection fraction Atrial flutter with rapid ventricular response Morbid obesity Hypertension Social History Social History Household Members: Family and Friend(s) Household Members Other:: roommates Housing: House Do you presently have visiting nurse or other home services: No Alcohol intake: former Comment: refusing alarm and camera Patient Tobacco Use Status: Current everyday Tobacco user Tobacco use type: Cigarette Cigarettes Per Day: 10 Years Smoked: 25 e-Cigarette/Vaping Use: Never Used Second Hand Smoke Exposure: No Advance Directives: Yes Advance Directives on File: Yes Advance Directives Date on File: 04/28/23 Do you have a plan to hurt others: No Plan service: No Physical Exam ED Vital Signs: Vital Signs - 24 hr 07/10/24 15:02 07/10/24 16:44 Temperature 98 F Pulse Rate 125 H 118 H Respiratory Rate 24 H 18 Blood Pressure 140/94 H Pulse Oximetry 85 L BMI result Body Mass Index 60.5 Gen: NAD, AOx3 HEENT: NCAT, EOMI, normal conjunctiva CV: Irregular rate and rhythm Pulm: Diminished lung sounds, faint scattered expiratory wheezes, no increased work of breathing at rest GI: Soft, NTND, no rebound, guarding or rigidity Neuro: Grossly non focal Medications Administered Discontinued Medications Generic Name Dose Route Start Last Admin Trade Name Jelaniq PRN Reason Stop Dose Admin Albuterol Sulfate 5 mg/ 7.5 mg 07/10/24 16:33 07/10/24 16:38 Albuterol Sulfate 2.5 mg INHALE 07/10/24 16:34 7.5 mg ONCE ONE Administration Medical Decision Making Medical Decision Making [facility] Narrative: Differential diagnosis includes, but is not limited to acute decompensated congestive heart failure, viral URI, pneumonia, pneumothorax, bronchospasm. Patient is found to have new oxygen requirement resolving with supplemental oxygen. She has no respiratory distress during his work of breathing at rest and further venous blood gas as below demonstrates no hypercapnia to suggest need for noninvasive mechanical ventilation. I reviewed labs otherwise as below. I reviewed patient's chest x-ray, viral testing and EKG as below. Patient was treated supportively with dexamethasone and nebulized bronchodilators. I discussed the patient's case and management with admitting hospitalist, Dr. Rivera, and patient is accepted for further workup and management. Critical Care Time: A total of 35 minutes spent in direct patient care with coordinating critical resuscitation, procedures, reviewing records, discussing with consultants, reviewing labs, and/or managing patient. Admission/Observation Consideration of admission/observation: Escalation of care including admission/observation considered Consult Healthcare Provider Management of the patient was discussed with: Hospitalist Lab Data [facility] Lab Attestation statement: I reviewed the patient's lab results. I independently reviewed and interpreted the patient's labs, which is notable for leukopenia with a white blood cell count of 3.3 (which may be seen in the setting of COVID-19), otherwise blood work including venous blood gas, metabolic panel and BNP are overall reassuring. Patient has positive for COVID-19. She is negative for RSV and influenza. 07/10/24 15:49 07/10/24 15:49 Labs: Lab Results 07/10/24 07/10/24 Range/Units 15:49 15:55 WBC 3.3 L (4.8-10.8) X10*3/uL RBC 3.90 L (4.20-5.50) X10*6/uL Hgb 12.8 (12.0-16.0) g/dl Hct 41.9 (37.0-47.0) % MCV 107.4 H (80.0-98.0) fL MCH 32.8 (27.0-33.0) pg MCHC 30.5 L (31.0-35.0) g/dl RDW 14.4 (11.0-16.0) % Plt Count 144 L (160-400) X10*3/uL MPV 10.3 (9.4-12.3) fL Immature Gran % (Auto) 0.3 (0.0-0.4) % Neut % (Auto) 64.8 (45-73) % Lymph % (Auto) 26.1 (20-40) % Randolph % (Auto) 8.2 (2-11) % Eos % (Auto) 0.3 (0-4) % Baso % (Auto) 0.3 (0-2) % Lymph # (Auto) 0.9 L (1.2-4.9) X10*3/uL Randolph # (Auto) 0.3 (0.1-1.2) X10*3/uL Eos # (Auto) 0.0 (0.0-0.4) X10*3/uL Baso # (Auto) 0.0 (0.0-0.2) X10*3/uL Abs Immat Gran (auto) 0.01 (0.00-0.03) X10*3/uL Absolute Neuts (auto) 2.1 (2.0-8.3) x10*3/uL Absolute Nucleated RBC 0.020 H (0.0-0.012) X10*3/uL Nucleated RBC % (auto) 0.6 H (0.0-0.2) /100WBC VBG pH 7.34 (7.32-7.43) VBG pCO2 53 mmHg VBG pO2 41 mmHg VBG HCO3 29 H (22-26) mmol/L VBG O2 Saturation 64.0 % VBG Base Excess 2.6 mmol/L Sodium 138 (135-145) mmol/L Potassium 4.2 (3.3-5.1) mmol/L Chloride 105 (96-108) mmol/L Carbon Dioxide 28 (22-29) mmol/L Anion Gap 9 L (12-20) BUN 14 (9-16) mg/dL Creatinine 1.02 (0.5-1.4) mg/dL Estim Creat Clear Calc 85.3 Estimated GFR 56 Random Glucose 98 (60-115) mg/dL Calcium 8.7 (8.4-10.2) mg/dL B-Natriuretic Peptide 188 H (<100) pg/mL Influenza Type A (PCR) NEGATIVE (Negative) Influenza Type B (PCR) NEGATIVE (Negative) RSV RNA Qual (PCR) NEGATIVE (Negative) SARS-CoV-2 RNA (RT-PCR) POSITIVE A (Negative) Independent Interpretation I performed an independent interpretation of an: EKG Interpretation: I independently reviewed her the patient's EKG, which demonstrates atrial flutter at 125 beats per minute, QRS 84, QTC 424, no STEMI. I independently reviewed and interpreted the patient's chest x-ray, which demonstrates no pleural effusion, focal consolidation or pneumothorax Radiology Impression Discussion of test interpretation with radiology: I have reviewed the radiologist's reading. Radiologist Impression: XR/XR chest 1V IMPRESSION: Cardiomegaly. No active pulmonary disease. Electronically signed by: Sunny Daly MD 07/10/2024 04:49 PM [facility] Dictated By: Sunny Daly MD Signed By: <Electronically signed by Sunny Daly MD in OV> 07/10/24 1649 Discharge Plan Discharge Clinical Impression: Acute hypoxic respiratory failure, COVID-19 Prescriptions: No Action spironolactone [Aldactone] 25 mg tablet 25 mg PO DAILY Qty: 90 3RF furosemide [Lasix] 40 mg tablet 40 mg PO DAILY Qty: 30 5RF Eliquis 5 mg tablet 5 mg PO BID Qty: 30 11RF metoprolol succinate [Toprol XL] 50 mg tablet extended release 24 hr 50 mg PO DAILY Qty: 90 3RF zinc acetate 50 mg (zinc) Capsule 50 mg PO DAILY cholecalciferol (vitamin D3) [Vitamin D3] 50 mcg (2,000 unit) Capsule 50 mcg PO DAILY Anoro Ellipta 62.5-25 mcg/actuation blister with device 1 inh inhalation DAILY 30 Days Qty: 1 6RF nicotine 7 mg/24 hr patch 24 hour 7 mg transdermal DAILY PRN Wegovy 0.25 mg/0.5 mL pen injector 0.25 mg subcut QWEEK Rx Instructions: administer weeks 1 through 4 of therapy Print Language: Czech
[2024-07-10 15:54] LABS: MANUAL DIFF FLAG NO
[2024-07-10 15:57] LABS: Basophils Percent Auto 0.3 % (0-2); Eosinophils Percent Auto 0.3 % (0-4); Hematocrit 41.9 % (37.0-47.0); Hemoglobin 12.8 g/dl (12.0-16.0); Imm Gran Abs Auto 0.01 X10*3/uL (0.00-0.03); Imm Gran Pct Auto 0.3 % (0.0-0.4); Lymphocytes Absolute Auto 0.9 X10*3/uL (1.2-4.9); Lymphocytes Percent Auto 26.1 % (20-40); Mean Corpuscular HGB Conc 30.5 g/dl (31.0-35.0); Mean Corpuscular Hemoglobin 32.8 pg (27.0-33.0); Mean Corpuscular Volume 107.4 fL (80.0-98.0); Mean Platelet Volume 10.3 fL (9.4-12.3); Monocytes Absolute Auto 0.3 X10*3/uL (0.1-1.2); Monocytes Percent Auto 8.2 % (2-11); NRBC Pct Auto 0.6 /100WBC (0.0-0.2); Neutrophils Absolute Auto 2.1 x10*3/uL (2.0-8.3); Neutrophils Percent Auto 64.8 % (45-73); Platelet Count 144 X10*3/uL (160-400); Red Cell Distribution Width 14.4 % (11.0-16.0); White Blood Count 3.3 X10*3/uL (4.8-10.8)
[2024-07-10 16:01] LABS: VBG Base Excess 2.6 mmol/L; VBG HCO3 29 mmol/L (22-26); VBG pCO2 53 mmHg; VBG pH 7.34 (7.32-7.43); VBG pO2 41 mmHg
[2024-07-10 16:07] LABS: Venous Blood Gas Refer to POC result
[2024-07-10 16:08] LABS: Anion Gap 9 (12-20); Blood Urea Nitrogen 14 mg/dL (9-16); Calcium 8.7 mg/dL (8.4-10.2); Carbon Dioxide 28 mmol/L (22-29); Chloride 105 mmol/L (96-108); Creatinine Clr Calc Pharmacy 85.3; Estimated Glomerular Filt Rate 56; Glucose Random 98 mg/dL (60-115); Potassium 4.2 mmol/L (3.3-5.1); Sodium 138 mmol/L (135-145)
[2024-07-10 16:15] LABS: B Type Natriuretic Peptide 188 pg/mL (<100)
[2024-07-10] MEDS: Albuterol Sulfate 5 MG, Albuterol Sulfate (0.083%) 2.5 MG 7.5 MG INHALE (16:38)
[2024-07-10 16:49] LABS: Influenza A PCR NEGATIVE (Negative); Influenza B PCR NEGATIVE (Negative); Resp Syncy Virus RNA Qual PCR NEGATIVE (Negative); SARS COV2 PCR INHOUSE POSITIVE (Negative)
[2024-07-10] MEDS: dexAMETHasone sod phosphate 10 MG/ML VIAL IVPUSH (17:41)
--- OUTSIDE RECORDS SUMMARY | 2024-07-10 17:44 | XMS_ITS | Continuity of Care Document ---
Author Organization [facility] Address [address] [place] [id number] Care Team Providers Care Freight Sorter Name Role Phone Geraldine MENENDEZ, Sydney Juarez Primary Care Physician [id number] Date(s): 05/01/24 - 06/16/24 [facility] [address] [place], [place] [address] Attending Physician: Garrison Snyder MD Admitting Physician: Garrison Snyder MD Referring Physician: Kristin Jeter Encounter Type: Pre Office Visit Allergies, Adverse Reactions, Alerts Substance Criticality Severity Reaction Reaction Severity Status Nyquil Hives Active Niharika-[place] Plus Cold Medicine Hives Active Medications Colace sodium 100 mg oral capsule 1 capsule = 100 mg, By Mouth, 2 times a day, PRN for constipation, # 20 capsule, 0 Refills, Maintenance, 07/12/10 11:22:28 AM EST, Capsule Start Date: 07/12/10 Status: Ordered Quantity: 20.0 Unit: capsule Repeat number: 1 DONUT PAD DONUT PAD, See Instructions, PRN Pain , Mild, # 1 units, Refills 0, Tot. Refills 0, Maintenance, USE TO SIT ON UNTIL IMPROVING/ DIAGNOSIS: COCCYX CONTUSION, 07/12/10 11:24:55 AM EST Start Date: 07/12/10 Status: Ordered Quantity: 1.0 Unit: Units Repeat number: 1 Motrin 800 mg oral tablet = 800 mg, By Mouth, 3 times a day, # 30 Doses, 0 Refills, Maintenance, 07/12/10 11:24:16 AM EST Start Date: 07/12/10 Status: Ordered Quantity: 30.0 Unit: Doses Repeat number: 1 Naprosyn Tablet See Instructions, PRN, 500 mg By Mouth 2 times a day, # 30, Refills 0, Tot. Refills 0, as needed for pain, 12/02/06 3:46:37 PM EDT Start Date: 12/02/06 Status: Ordered Quantity: 30.0 Unit: Repeat number: 1 Tylox 500 mg-5 mg oral capsule 1 capsule, By Mouth, Every 6 hours, # 24 capsule, 0 Refills, Maintenance, 07/12/10 11:22:47 AM EST Start Date: 07/12/10 Status: Ordered Quantity: 24.0 Unit: capsule Repeat number: 1 Valium 5 mg oral tablet 5 mg, 1, tablet, By Mouth, Daily at bedtime, Do not drive, operate machinery, nor care for childrenwhile taking this medication, # 10, 0 Refills Start Date: 12/02/06 Status: Ordered Quantity: 10.0 Unit: Repeat number: 1 Problem List Condition Confirmation Course Effective Dates Status Health St atus Informant Thyroid nodule Confirmed Active Patient Care team information Care Team Personnel Name: Geraldine MENENDEZ , Sydney Juarez Position: Reference Physician Member Role: PCP Address: [address] [place] [address], [address] Telecom: Care Team Related Persons Name: MACHO FELIX Insurance Providers Guarantor name: NICKIE BARRERA Health Plan Information #: 1 Payer: [facility] [employer] Member Number: [id number] Policy Number: NA Group Number: [id number] Health Plan Information #: 2 Payer: [facility] [employer] Member Number: [id number] Policy Number: NA Group Number: [id number]
--- OUTSIDE RECORDS SUMMARY | 2024-07-10 17:44 | XMS_ITS | Continuity of Care Document ---
Author Organization [facility] Address [address] [place] [address]- Care Team Providers Care Electric Solderer Name Role Phone Geraldine MENENDEZ, Sydney Juarez Primary Care Physician [place] [facility] [facility] [id number] Date(s): 05/17/24 - 06/16/24 [facility] [address] [place], [place] [address] Attending Physician: Mark Stokes Admitting Physician: Mark Stokes Referring Physician: Mark Stokes Encounter Type: Triage Allergies, Adverse Reactions, Alerts Substance Criticality Severity Reaction Reaction Severity Status Nyquil Hives Active Niharika-[place] Plus Cold Medicine Hives Active Medications Colace [...] Condition Confirmation Course Effective Dates Status Health atus Informant Thyroid nodule Confirmed Active Patient Care team information Care Team Personnel Name: Sydney Rajput Position: Reference Physician Member Role: PCP Address: [address] [place] [address], [address] Telecom: Care Team Related Persons Name: MACHO FELIX Insurance Providers Guarantor name: NICKIE BARRERA [employer] Plan Information #: 1 Payer: [facility] [employer] Member Number: NA Policy Number: NA Group Number: NA
--- OUTSIDE RECORDS SUMMARY | 2024-07-10 17:45 | XMS_ITS ---
Author Organization [facility] Address Unknown Allergies, Adverse Reactions, Alerts Substance Reaction Status Noted Date Resolved Date Sodium Bicarbonate active 11/24/2023 Pseudoephedrine active 11/24/2023 Doxylamine active 11/24/2023 Dextromethorphan active 11/24/2023 Citric Acid active 11/24/2023 Aspirin active 11/24/2023 Problems Problem Status Start Date End Date CELLULITIS OF LEFT LOWER [place] B (Primary) (L03.116 - ICD-10-CM) ACTIVE 11/24/2023 ACUTE RESPIRATORY FAILURE WI TH HYPOXIA (J96.01 - ICD-10-CM) ACTIVE 11/24/2023 HEART FAILURE, UNSPECIFIED (I50.9 - ICD-10-CM) ACTIVE 11/24/2023 ACUTE ON CHRONIC DIASTOLIC ( CONGESTIVE) HEART FAILURE (I50.33 - ICD-10-CM) ACTIVE 11/24/2023 LYMPHEDEMA, NOT ELSEWHERE CLASSIFIED (I89.0 - ICD-10-C M) ACTIVE 11/24/2023 SHORTNESS OF BREATH (R06.02 - ICD-10-CM) ACTIVE 11/24/2023 MUSCLE WEAKNESS (GENERALIZED) (M62.81 - ICD-10-CM) ACT EVA 11/24/2023 DIFFICULTY IN WALKING, NOT E LSEWHERE CLASSIFIED (R26.2 - ICD-10-CM) ACTIVE 11/24/2023 NEED FOR ASSISTANCE WITH PERSONAL CARE (Z74.1 - ICD-10 -CM) ACTIVE 11/24/2023 ACUTE ON CHRONIC RIGHT HEART FAILURE (I50.813 - ICD-10 -CM) ACTIVE 11/24/2023 UNSPECIFIED ATRIAL FLUTTER (I48.92 - ICD-10-CM) ACTIVE 11/24/2023 CHRONIC OBSTRUCTIVE PULMONAR Y DISEASE, UNSPECIFIED (J44.9 - ICD-10-CM) ACTIVE 11/24/2023 MORBID (SEVERE) OBESITY DUE TO EXCESS CALORIES (E66.01 - ICD-10-CM) ACTIVE 11/24/2023 Encounters Encounter Performer Performer Role Encounter Diagnoses Location Date Discharge - Discharged to home or self care - Home. - Private home/apt. with no home health services [facility] 11/24/2023 06:29 pm EDT - 12/07/2023 01:54 pm EDT Immunizations Vaccine Date Hepatitis B 04/21/2005 12:00 am EST Hepatitis B 11/19/2004 12:00 am EDT Hepatitis B 10/19/2004 12:00 am EDT Varicella (chicken pox) 11/16/2007 12:00 am EDT SARS-COV-2 (COVID-19) 08/06/2020 12:00 a m EST SARS-COV-2 (COVID-19) 07/16/2020 12:00 a m EST SARS-COV-2 (COVID-19 BOOSTER) 05/02/2021 12:00 am EST Tdap 11/12/2007 12:00 am EDT Social History
--- OUTSIDE RECORDS SUMMARY | 2024-07-10 17:45 | XMS_ITS | Data Portability ---
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 Patient understood and agreed with the plan. Not available 12/13/2023 10:58:36 Plan of Treatment Reminders Order Date Submit Date Provider Last Modified By Organization Details Last Modified Time Details Appointments None recor ded. Lab unlis [facility] - CMP14 +LP+C BC/D/ plt+T SH-31 [id number] 2023 024 JOSE LUIS [facility], [address] [place], [address], 4 06:08:20 lipid panel , serum 2023 024 JOSE LUIS [facility], [address] [place], [address], 4 10:13:04 vitam in D, 25-hy droxy , total , serum 2023 024 JOSE LUIS [facility], [address] [place], [address], 4 06:08:20 pro BNP (pro B-typ e natri ureti c pepti de), serum or plasm a 2023 JOSE LUIS [facility], [address], [place], [address], 4 16:04:[address] refer ral 2023 024 [email or web address] Not available 4 08:48:06 gastr oente rolog ist refer ral - Initi al colon oscop y screbrittani vu. Pleas e book every thing in [facility]. 2023 024 vonnie [facility], [address] [place] [address] , [address], [place], [address], 4 14:33:42 lymph edema consu lt - was seen at [facility] for LLE cellu litis with hx of lymph edema was advis ed to f/u with lymph edema clini c 2023 024 vonnie Jose Raul Albert, [address] [facility] [address], [place], [address], 4 09:43:22 Procedures None recor ded. Surgeries None recor ded. Imaging US, thyro id - [place] [facility]. 2023 024 vonnie In-Office Order, Internal Use Only DO Not Attach Compendium DO Not Attach Compendium, Do Not Delete/merge, [id number] 4 08:41:21 MAMMO , abel vu bilat eral 2023 024 [email or web address] In-Office Order, Internal Use Only DO Not Attach Compendium DO Not Attach Compendium, Do Not Delete/merge, [id number] 4 08:36:32 Medication Orders None recor ded. Patient TargetsNo targets recorded. Patient Instructions Encounter Date Encounter Id Patient Instructions Last Modified By Organizati on Details Last Modified Time 09/05/2023 [id number] goiter: care instructions Not available 09/05/2023 10:12:40 body mass index: care instructions Not available 09/05/2023 10:11:38 learning about healthy weight Not available 09/05/2023 10:11:38 electrical cardioversion: before your procedure Not available 09/05/2023 10:11:38 Electrophysiolog y (EP) Study: Before Your Procedure Not available 09/05/2023 10:11:38 high blood press ure: care instructions Not available 09/05/2023 10:12:40 learning about h igh blood pressure Not available 09/05/2023 10:12:40 learning about breast cancer screening Not available 09/05/2023 10:14:06 10/24/2023 [id number] heart failure: c are instructions Not available 10/24/2023 16:04:48 learning about h eart failure Not available 10/24/2023 16:04:48 When You Want to Lose Weight: Care Instructions Not available 10/24/2023 16:04:48 learning about hypoxemia Not available 10/24/2023 16:08:28 12/13/2023 [id number] sleep apnea: car e instructions Not available 12/13/2023 11:18:27 At [facility] follow up visit, all current and discharge medications (OTC, herbal therapies, supplements) reviewed and reconciled with patient and or caregiver, including potential side effects, drug interactions, instructions, and the consequences of not taking medication. Reviewed potential barriers to medication adherence, such as side effects from medication or cost of medication. 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 Please book everything in [place]. Referring Physician: Luly Neely, Internal Medicine, Encounter Date: 09/05/2023 Lymphedema Consult for Lymph edema of lower extremity was seen at [facility] for LLE cellulitis with hx of lymphedemawas advised to f/u with lymphedema clinic Referring Physician: Kristin Estevez, Family Medicine, Encounter Date: 12/13/2023 Results Created Date Observation Date Name Description Value Unit Range Abnormal Flag Note LastModifiedBy Organization Detail LastModifiedTime 09/05/19 24 09/06/2023 CMP14 +LP+C BC/D/ PLT+T SH glucose 90 mg/dL 70-99 Not Available [facility] ([facility]) [address] [facility] [address], [place], [address], 09/06/2023 06:08:20 09/05/19 24 09/06/2023 CMP14 +LP+C BC/D/ PLT+T SH BUN 14 mg/dL 6-24 Not Available [facility] ([facility]) [address] [place], [address], 09/06/2023 06:08:20 09/05/19 24 09/06/2023 CMP14 +LP+C BC/D/ PLT+T SH creatinine 1.05 mg/dL 0.57-1 .00 above high normal Not Available [facility] ([facility]) [address] [facility], [place], [address], 09/06/2023 06:08:20 09/05/19 24 09/06/2023 CMP14 +LP+C BC/D/ PLT+T SH eGFR 63 mL/mi n/1.7 3 >59 Not Available [facility] ([facility]) [address] [place], [address], 09/06/2023 06:08:20 09/05/19 24 09/06/2023 CMP14 +LP+C BC/D/ PLT+T SH BUN/creatini ne ratio 13 9-23 Not Available [facility] ([facility]) [address] [place], [address], 09/06/2023 06:08:20 09/05/19 24 09/06/2023 CMP14 +LP+C BC/D/ PLT+T SH sodium 142 mmol/ L 134-14 4 Not Available [facility] ([facility]) [address] [place], [address], 09/06/2023 06:08:20 09/05/1909/06/2023 CMP14 +LP+C BC/D/ PLT+T SH potassium 4.3 mmol/ L 3.5-5. 2 Not Available [facility] ([facility]) [address] [place], [address], 09/06/2023 06:08:20 09/05/19 24 09/06/2023 CMP14 +LP+C BC/D/ PLT+T SH chloride 102 mmol/ L 96-106 Not Available [facility] ([facility]) [address] [place], [address], 09/06/2023 06:08:20 09/05/1909/06/2023 CMP14 +LP+C BC/D/ PLT+T SH carbon dioxide, total 24 mmol/ L 20-29 Not Available [facility] ([facility]) [address] [place], [address], 09/06/2023 06:08:20 09/05/1909/06/2023 CMP14 +LP+C BC/D/ PLT+T SH calcium 9.1 mg/dL 8.7-10 .2 Not Available [facility] ([facility]) [address] [place], [address], 09/06/2023 06:08:20 09/05/1909/06/2023 CMP14 +LP+C BC/D/ PLT+T SH protein, total 7.4 g/dL 6.0-8. 5 Not Available [facility] ([facility]) [address] [place], [address], 09/06/2023 06:08:20 09/05/19 24 09/06/2023 CMP14 +LP+C BC/D/ PLT+T SH albumin 4.3 g/dL 3.8-4. 9 Not Available [facility] ([facility]) [address] [facility] [address], [place], [address], 09/06/2023 06:08:20 09/05/19 24 09/06/2023 CMP14 +LP+C BC/D/ PLT+T SH globulin, total 3.1 g/dL 1.5-4. 5 Not Available [facility] ([facility]) [address] [facility] [address], [place], [address], 09/06/2023 06:08:20 09/05/19 24 09/06/2023 CMP14 +LP+C BC/D/ PLT+T SH A/G ratio 1.4 1.2-2. 2 Not Available [facility] ([facility]) [address] [facility], [place], [address], 09/06/2023 06:08:20 09/05/19 24 09/06/2023 CMP14 +LP+C BC/D/ PLT+T SH bilirubin, total 0.7 mg/dL 0.0-1. 2 Not Available [facility] ([facility]) [address] [facility] [address], [place], [address], 09/06/2023 06:08:20 09/05/19 24 09/06/2023 CMP14 +LP+C BC/D/ PLT+T SH alkaline phosphatase 91 IU/L 44-121 Not Available [facility]) [address] [facility] [address], [place], [address], 09/06/2023 06:08:20 09/05/19 24 09/06/2023 CMP14 +LP+C BC/D/ PLT+T SH AST (SGOT) 17 IU/L 0-40 Not Available [facility] ([facility]) [address] [facility] [address], [place], [address], 09/06/2023 06:08:20 09/05/19 24 09/06/2023 CMP14 +LP+C BC/D/ PLT+T SH ALT (SGPT) 12 IU/L 0-32 Not Available [facility] ([facility]) [address] [facility], [place], [address], 09/06/2023 06:08:20 09/05/19 24 09/06/2023 CMP14 +LP+C BC/D/ PLT+T SH cholesterol, total 146 mg/dL 100-19 9 Not Available [facility] ([facility]) [address] [facility], [place], [address], 09/06/2023 06:08:20 09/05/19 24 09/06/2023 CMP14 +LP+C BC/D/ PLT+T SH triglyceride s 67 mg/dL 0-149 Not Available [facility] ([facility]) [address] [facility] [address], [place], [address], 09/06/2023 06:08:20 09/05/19 24 09/06/2023 CMP14 +LP+C BC/D/ PLT+T SH HDL cholesterol 65 mg/dL >39 Not Available [facility] ([facility]) [address] [place], [address], 09/06/2023 06:08:20 09/05/19 24 09/06/2023 CMP14 +LP+C BC/D/ PLT+T SH VLDL cholesterol wayne 13 mg/dL 5-40 Not Available [facility] ([facility]) [address] [place], [address], 09/06/2023 06:08:20 09/05/19 24 09/06/2023 CMP14 +LP+C BC/D/ PLT+T SH LDL chol calc ([facility]) 68 mg/dL 0-99 Not Available [facility] ([facility]) [address] [facility] [address], [place], [address], 09/06/2023 06:08:20 09/05/1909/06/2023 CMP14 +LP+C BC/D/ PLT+T SH comment: [employer] Not Available [facility] ([facility]) [address] [facility], [place], [address], 09/06/2023 06:08:20 09/05/19 24 09/06/2023 CMP14 +LP+C BC/D/ PLT+T SH LDL/HDL ratio 1.0 ratio 0.0-3. 2 LDL/H DL Ratio Men Women 1/2 Avg.R isk 1.0 1.5 Avg.R isk 3.6 3.2 2X Avg.R isk 6.2 5.0 3X Avg.R isk 8.0 6.1 Not Available [facility] ([facility]) [address], [place], [address], 09/06/2023 06:08:20 09/05/19 24 09/06/2023 CMP14 +LP+C BC/D/ PLT+T SH TSH 1.010 uIU/m L 0.450- 4.500 Not Available [facility] ([facility]) [address] [place], [address], 09/06/2023 06:08:20 09/05/19 24 09/06/2023 CMP14 +LP+C BC/D/ PLT+T SH WBC 5.0 x10e3 /uL 3.4-10 .8 Not Available [facility] ([facility]) [address] [place], [address], 09/06/2023 06:08:20 09/05/19 24 09/06/2023 CMP14 +LP+C BC/D/ PLT+T SH RBC 3.78 x10e6 /uL 3.77-5 .28 Not Available [facility] ([facility]) [address] [place], [address], 09/06/2023 06:08:20 09/05/19 24 09/06/2023 CMP14 +LP+C BC/D/ PLT+T SH hemoglobin 12.5 g/dL 11.1-1 5.9 Not Available [facility] ([facility]) [address] [facility] [address], [place], [address], 09/06/2023 06:08:20 09/05/19 24 09/06/2023 CMP14 +LP+C BC/D/ PLT+T SH hematocrit 37.5 % 34.0-4 6.6 Not Available [facility] ([facility]) [address] [facility] [address], [place], [address], 09/06/2023 06:08:20 09/05/19 24 09/06/2023 CMP14 +LP+C BC/D/ PLT+T SH MCV 99 fL 79-97 above high normal Not Available [facility] ([facility]) [address] [facility] [address], [place], [address], 09/06/2023 06:08:20 09/05/1909/06/2023 CMP14 +LP+C BC/D/ PLT+T SH MCH 33.1 pg 26.6-3 3.0 above high normal Not Available [facility] ([facility]) [address] [place], [address], 09/06/2023 06:08:20 09/05/19 24 09/06/2023 CMP14 +LP+C BC/D/ PLT+T SH MCHC 33.3 g/dL 31.5-3 5.7 Not Available [facility] ([facility]) [address] [place], [address], 09/06/2023 06:08:20 09/05/19 24 09/06/2023 CMP14 +LP+C BC/D/ PLT+T SH RDW 13.4 % 11.7-1 5.4 Not Available [facility] ([facility]) [address] [facility] [address], [place], [address], 09/06/2023 06:08:20 09/05/19 24 09/06/2023 CMP14 +LP+C BC/D/ PLT+T SH platelets 173 x10e3 /uL 150-45 0 Not Available [facility] ([facility]) [address] [facility], [place], [address], 09/06/2023 06:08:20 09/05/19 24 09/06/2023 CMP14 +LP+C BC/D/ PLT+T SH neutrophils 75 % not estab. Not Available [facility] ([facility]) [address], [place], [address], 09/06/2023 06:08:20 09/05/19 24 09/06/2023 CMP14 +LP+C BC/D/ PLT+T SH lymphs 16 % not estab. Not Available [facility] ([facility]) [address] [facility] [address], [place], [address], 09/06/2023 06:08:20 09/05/19 24 09/06/2023 CMP14 +LP+C BC/D/ PLT+T SH monocytes 7 % not estab. Not Available [facility] ([facility]) [address], [place], [address], 09/06/2023 06:08:20 09/05/19 24 09/06/2023 CMP14 +LP+C BC/D/ PLT+T SH eos 1 % not estab. Not Available [facility] ([facility]) [address] [facility] [address], [place], [address], 09/06/2023 06:08:20 09/05/19 24 09/06/2023 CMP14 +LP+C BC/D/ PLT+T SH basos 1 % not estab. Not Available [facility] ([facility]) [address], [place], [address], 09/06/2023 06:08:20 09/05/19 24 09/06/2023 CMP14 +LP+C BC/D/ PLT+T SH immature cells [employer] Not Available [facility] ([facility]) [address] [place], [address], 09/06/2023 06:08:20 09/05/19 24 09/06/2023 CMP14 +LP+C BC/D/ PLT+T SH neutrophils (absolute) 3.8 x10e3 /uL 1.4-7. 0 Not Available [facility] ([facility]) [address] [place], [address], 09/06/2023 06:08:20 09/05/19 24 09/06/2023 CMP14 +LP+C BC/D/ PLT+T SH lymphs (absolute) 0.8 x10e3 /uL 0.7-3. 1 Not Available [facility] ([facility]) [address] [place], [address], 09/06/2023 06:08:20 09/05/19 24 09/06/2023 CMP14 +LP+C BC/D/ PLT+T SH monocytes(ab solute) 0.4 x10e3 /uL 0.1-0. 9 Not Available [facility] ([facility]) [address] [place], [address], 09/06/2023 06:08:20 09/05/19 24 09/06/2023 CMP14 +LP+C BC/D/ PLT+T SH eos (absolute) 0.0 x10e3 /uL 0.0-0. 4 Not Available [facility] ([facility]) [address] [place], [address], 09/06/2023 06:08:20 09/05/19 24 09/06/2023 CMP14 +LP+C BC/D/ PLT+T SH baso (absolute) 0.0 x10e3 /uL 0.0-0. 2 Not Available [facility] ([facility]) [address] [facility] [address], [place], [address], 09/06/2023 06:08:20 09/05/19 24 09/06/2023 CMP14 +LP+C BC/D/ PLT+T SH immature granulocytes 0 % not estab. Not Available [facility] ([facility]) [address] [facility] [address], [place], [address], 09/06/2023 06:08:20 09/05/19 24 09/06/2023 CMP14 +LP+C BC/D/ PLT+T SH immature grans (abs) 0.0 x10e3 /uL 0.0-0. 1 Not Available [facility] ([facility]) [address] [facility] [address], [place], [address], 09/06/2023 06:08:20 09/05/19 24 09/06/2023 CMP14 +LP+C BC/D/ PLT+T SH NRBC [employer] Not Available [facility] ([facility]) [address] [facility], [place], [address], 09/06/2023 06:08:20 09/05/19 24 09/06/2023 CMP14 +LP+C BC/D/ PLT+T SH hematology comments: [employer] Not Available [facility] ([facility]) [address], [place], [address], 09/06/2023 06:08:20 09/05/19 24 09/06/2023 VITAM IN D, 25-HY DROXY vitamin D, 25-hydroxy 19.4 NG/mL 30.0-1 00.0 below low normal Vitam in D defic iency has been defin ed by the Insti christel of Medic ine and an Endoc rine Socie ty pract ice guide line as a level of serum 25-OH vitam in D less than 20 ng/mL (1,2) . The Endoc rine Socie ty went on to furth er defin e vitam in D insuf ficie ncy as a level betwe en 21 and 29 ng/mL (2). 1. IOM (Inst itute of Medic ine). 2010. Annetta ry refer ence alessandro es for calci um and Samira shelley [place]: The [facility] Press . 2. Christiane k MF, Binkl ey [place], Bisch off-F errar i ARIAS, et al. Evalu ation , treat ment, and preve ntion of vitam in D defic iency : an Endoc rine Socie ty clini wayne pract ice guide line. JCEM. 2010; 96(7) :1911 -30. Not Available [facility] ([facility]) [address], [place], [address], 09/06/2023 06:08:20 09/06/19 24 07/17/2023 polys omnog reva No observ ation record ed. [facility] (Medical Records) [address] [place], [address], 09/06/2023 11:49:41 09/06/19 24 07/17/2023 home sleep study No observ ation record ed. [email or web address] [facility] (Medical Records) [address] [place], [address], 09/06/2023 12:57:43 11/22/19 24 11/20/2023 CT, angio gram, chest , w/wo contr ast No observ ation record ed. [email or web address] [facility] (Medical Records) [address] [place], [address], 11/30/2023 09:16:36 07/10/19 25 07/10/2024 imagi ng/conor shepherd tic resul t No observ ation record ed. JOSE LUIS [facility] (Medical Records) [address] [place], [address], 07/10/2024 16:53:22 Result Notes None recorded. Problems Name Problem SNOMED Code Status Onset Date Resolution Date Notes Provider Name and Address Organization Details Recorded Time Abdomina l pain 08892792 Completed 200812/31/2013 RECORDED 09/13/19 09 11:16AM BY MOHSEN ARGUETA ON/ADDEN DUM Luly Neely PA-C [address], [place], [address], [facility] 6 13:55:18 Acute pharyngi tis [id number] Completed 201312/31/2013 IMPRESSI ON: NEG QUICK STREP WILL TX IF CULTURE COMES BACK NL; RECORDED 10/11/19 14 11:12AM BY MOHSEN RODRIGEZ ON/ADDEN DUM Luly Neely PA-C [address], [place], [address], [facility] 4 12:25:45 Acute sinusiti s [id number] Completed 201112/31/2013 RECORDED 01/24/20 12 1:39PM BY ANA VIRK MA, MOHSEN ON/ADDEN DUM Luly Neely PA-C [address], [place], [address], [facility] 6 13:55:18 Allergic rhinitis [id number] Completed 201012/31/2013 RECORDED 07/27/19 11 9:20AM BY MIGUEL ANGEL ECHEVARRIA PA-C, ANNOTATI ON/ADDEN DUM EDGARDO Akers, [facility] 4 09:57:18 Allergic rhinitis 26758012 Active 2013 EDGARDO Akers, [facility] 4 09:57:18 Anemia 724157352 Active 2013 EDGARDO Akers, [facility] 4 09:57:13 Backache 799765476 Completed 201112/31/2013 IMPRESSI ON: SUSPECT MILD STRAIN OF R LUMBAR PARAVERT S. ADVISED RE REST, INTERMIT TENT HEAT, MASSAGE, GENTLE STRETCHI NG. MAY CONTINUE WITH NSAID PRN. NOTE FOR WORK PROVIDED , NO HEAVY LIFTING X NEXT 1 WEEK. CONTACT OFFICE PRN.; RECORDED 01/24/20 12 1:39PM BY ANA VIRK MA, MOHSEN ON/ADDEN DUM Luly Neely PA-C [address], [place], [address], [facility] 6 13:55:18 Synovial cyst of poplitea l space Completed 201212/31/2013 IMPRESSI ON: SUSPECT DJD KNEE. WILL GET X-RAY. IF POSITIVE WILL REFER TO PHYSICAL THERAPY. DISCUSSE D WEIGHT LOSS WOULD HELP; RECORDED 03/19/20 13 8:42AM BY MOHSEN LINDQUIST ON/ADDEN DUM Luly Neely PA-C [address], [place], [address], [facility] 6 13:55:18 Screenin g for malignan t neoplasm of breast Completed 201112/31/2013 RECORDED 01/24/20 12 1:39PM BY ANA VIRK MA, MOHSEN ON/ADDEN DUM Luly Neely PA-C [address], [place], [address], [facility] 6 13:55:18 Screenin g for malignan t neoplasm of cervix Completed 201112/31/2013 RECORDED 01/24/20 12 1:39PM BY ANA VIRK MA, ANNOTATI ON/ADDEN DUM Luly Neely PA-C [address], [place], [address], [facility] 6 13:55:18 Risk of exposure to communic able disease [id number] Completed 201112/31/2013 RECORDED 01/24/20 12 1:39PM BY ANA VIRK MA, ANNOTATI ON/ADDEN DUM Luly Neely PA-C [address], [place], [address], [facility] 6 13:55:18 Cough [id number] Completed 201212/31/2013 RECORDED 04/05/20 13 1:20PM BY MOHSEN LINDQUIST ON/ADDEN DUM Luly Neely PA-C [address] [facility] [address], [place], [address], [facility] 4 12:26:05 Disorder of thyroid gland 99580890 Active 2013 IMPRESSI ON: + NODULE ON US (LOWER POLE L LOBE, 9 MM), EVAL BY DR. MÁRQUEZ X 1 10/2009 HOWEVER NEVER F/U. PT REPORTS IT IS TOO DIFFICUL T GETTING TO HIS OFFICE. NEEDS REPEAT US AND ENDO F/U, WILL ARRANGE THROUGH [facility] Geno taylor [place] null, [facility] 4 09:57:30 Dysuria [id number] Completed 201112/31/2013 IMPRESSI ON: STARTED WITH URINARY FREQ SINCE STARTING TOPAMAX (RXED BY WEIGHT LOSS MANAGEME NT). URINE TO SEND OUT FOR UA AND CX; RECORDED 01/24/20 12 1:40PM BY ANA VIRK MA, ANNOTATI ON/ADDEN DUM Luly Neely PA-C [address] [facility] [address], [place], [address], [facility] 6 13:55:18 Edema [id number] Completed 201112/31/2013 RECORDED 01/24/20 12 1:39PM BY ANA VIRK MA, ANNOTATI ON/ADDEN DUM Luly Neely PA-C [address] [facility] [address], [place], [address], [facility] 6 13:55:18 Gastroes ophageal reflux disease [id number] Completed 201012/31/2013 RECORDED 07/27/19 11 9:20AM BY MIGUEL ANGEL ECHEVARRIA PA-C, MOHSEN ON/ADDEN DUM Luly MENENDEZ-C [address], [place], [address], [facility] 6 13:55:18 Essentia l hyperten shannen 07849808 Active 2013 Geno taylor [place] null, [facility] 4 09:57:22 Essentia l hyperten shannen [id number] Completed 201012/31/2013 IMPRESSI ON: MONITORS AT HOME AND WORK, ALWAYS AROUND 120/80. GOOD CONTROL WITH HCTZ, NO CHANGES. ; RECORDED 08/24/19 11 11:04AM BY GENO WANG MA, ANNOTATI ON/ADDEN DUM EDGARDO Akers, [facility] 4 09:57:22 Adult health examinat ion Completed 201212/31/2013 RECORDED 11/17/19 13 10:57AM BY MOHSEN LINDQUIST ON/ADDEN DUM Luly MENENDEZ-C [address], [place], [address], [facility] 6 13:55:18 Gastroes ophageal reflux disease 410013799 Active 2013 IMPRESSI ON: STABLE ON MEDS; RECORDED 08/25/19 14 12:07PM BY JENNYFER GRAHAM, OFFICE VISIT Luly BALTAZARC [address], [place], [address], [facility] 6 13:55:18 Headache 54843978 Completed 200812/31/2013 RECORDED 09/13/19 09 11:16AM BY MOHSEN ARGUETA ON/ADDEN DUM Luly MENENDEZ-C [address], [place], [address], [facility] 6 13:55:18 Helicoba cter pylori gastroin testinal tract infectio n [id number] Completed 201309/05/2023 STORY: TREATED NOVEMBER 2012; IMPRESSI ON: PT WANTS TO DO STOOL TEST FOR TEST OF CURE INSTEAD OF BREATH TEST; RECORDED 10/11/19 14 11:10AM BY JENNYFER GRAHAM, OFFICE VISIT Luly MENENDEZ-C [address] [facility] [address], [place], [address], [facility] 4 15:43:07 Blood in urine [id number] Completed 200812/31/2013 RECORDED 04/13/20 09 11:06AM BY GENO WANG MA, ELZBIETAATI ON/ADDEN DUM Luly Floydden PA-C [address] [facility] [address], [place], [address], [facility] 6 13:55:18 Impaired fasting glycemia 622713133 Completed 201112/31/2013 RECORDED 01/24/20 12 1:41PM BY ANA VIRK MA, MOHSEN ON/ADDEN DUM Luly Floydden UT-C [address] [facility] [address], [place], [address], [facility] 6 13:55:18 General symptom [id number] Completed 201112/31/2013 IMPRESSI ON: LUNGS CTA. RECC FLUIDS, REST, OTC ANTIPYRE TICS PRN. WORK NOTE GIVEN. MAY USE COUGH SUPPRESS ANT QHS OR DURING THE DAY IF NOT DRIVING. F/U IF SXS WORSEN OR FAIL TO IMPROVE. ; RECORDED 01/24/20 12 1:39PM BY ANA VIRK MA, MOHSEN ON/ADDEN DUM Luly Floydden PA-C [address] [facility] [address], [place], [address], [facility] [place] 6 13:55:18 Malaise and fatigue [id number] Completed 200812/31/2013 RECORDED 04/13/20 09 11:06AM BY GENO WANG MA, ELZBIETAATI ON/ADDEN DUM [facility] [address], [place], [address], [facility] 6 13:55:18 Migraine [id number] Active 2013 EDGARDO Akers, [facility] 4 09:57:37 Nausea [id number] Completed 201212/31/2013 RECORDED 03/19/20 13 8:42AM BY MOHSEN LINDQUIST ON/ADDEN DUM [facility] [address], [place], [address], [facility] 6 13:55:18 Influenz a vaccine needed [id number] Completed 201012/31/2013 DATE: 03/04/20 11; IMPRESSI ON: REFUSES FLU AND PNEUMO VACCINE. ; RECORDED 11/17/19 13 10:57AM BY MOHSEN LINDQUIST ON/ADDEN DUM [facility] [address], [place], [address], [place] [facility] 6 13:55:18 Varicell a vaccinat ion Completed 200712/31/2013 RECORDED 11/16/19 08 10:19AM BY EDGARDO MILLER, NURSE VISIT [address], [place], [address], [facility] 6 13:55:18 Insomnia [id number] Completed 201112/31/2013 RECORDED 01/24/20 12 1:39PM BY ANA VIRK MA, ANNOTATI ON/ADDEN [facility] [address], [place], [address], [facility] 6 13:55:18 Osteoart hritis of knee [id number] Active 2013 EDGARDO Akers, [facility] 4 09:57:53 Otalgia [id number] Completed 201112/31/2013 IMPRESSI ON: NORMAL EXAM, NO SINUS SXS. DENIES TINNITUS OR VERTIGO. DISCUSSE D USE OF NASAL CS SPRAY, ANALGESI CS, DECONGES TANTS. REC F/U WITH ENT FOR PERSISTE NT SXS SHOULD PAIN CONTINUE WHICH SHE CURRENTL Y DECLINES . NO ROLE FOR ABXS STILL AT THIS POINT.; RECORDED 01/24/20 12 1:40PM BY ANA VIRK MA, MOHSEN ON/ADDEN DUM Luly MENENDEZ-C [address], [place], [address], [facility] 6 13:55:18 Pain in thoracic spine [id number] Completed 201112/31/2013 RECORDED 01/24/20 12 1:39PM BY ANA VIRK MA, MOHSEN ON/ADDEN DUM Luly MENENDEZ-C [address], [place], [address], [facility] 6 13:55:18 Immuniza tion refused Active 2013 EDGARDO Akers, [facility] 4 09:57:33 Pityrias is versicol or [id number] Completed 201112/31/2013 RECORDED 01/24/20 12 1:39PM BY ANA VIRK MA, ANNOTATI ON/ADDEN DUM Luly MENENDEZ-C [address], [place], [address], [facility] 6 13:55:17 Eruption [id number] Completed 201112/31/2013 RECORDED 01/24/20 12 1:40PM BY ANA VIRK MA, ANNOTATI ON/ADDEN DUM Luly Ranjan MENENDEZ-C [address], [place], [address], [facility] 6 13:55:18 Right upper quadrant pain [id number] Completed 201212/31/2013 IMPRESSI ON: GALLBLAD NATHANAEL OUT. GASTRITI S VS PUD.; RECORDED 03/19/20 13 8:42AM BY MOHSEN LINDQUIST ON/ADDEN DUM Luly Neely PA-C [address], [place], [address], [facility] 6 13:55:18 Sarcoido sis [id number] Active 2013 STORY: HX HERE IS STILL SOMEWHAT UNCLEAR. PT BELIEVES SHE INITIALL Y PRESENTE D WITH LACRIMAL INVOLVEM ENT, FOR WHICH SHE WAS TXED THROUGH OPHTH (HOWEVER CANNOT RECALL WHO). BASED ON RECORDS, ALSO HAD INCIDENT AL AXILLARY ADENOPAT HY ON MAMMO, BX OF NODES REVEALED SARCOID WELL. NEG CXR 07/2010. FOLLOWED BY OPHTHAL AND RHEUM EDGAROD Akers, [facility] 4 09:57:49 Inflamma tory disorder of extremit y [id number] Completed 201112/31/2013 RECORDED 01/24/20 12 1:39PM BY ANA VIRK MA, ANNOTATI ON/ADDEN DUM Luly Neely PA-C [address], [place], [address], [facility] 6 13:55:18 Non-toxi c uninodul ar goiter [id number] Active 2013 EDGARDO Akers, [facility] 4 09:57:41 Tinea pedis 8736576 Completed 201112/31/2013 RECORDED 01/24/20 12 1:39PM BY ANA VIRK MA, ANNOTATI ON/ADDEN DUM Luly Neely PA-C [address], [place], [address], [facility] 6 13:55:17 Tobacco dependen ce syndrome 87146967 Active 2013 Geno taylor [place] null, [facility] 4 09:58:04 Constipa neal 82908033 Completed 201112/31/2013 RECORDED 01/24/20 12 1:39PM BY ANA VIRK MA, ANNOTATI ON/ADDEN DUM Luly Souktel-C [address], [place], [address], [facility] 6 13:55:18 Acute upper respirat ory infectio n 97231424 Completed 201112/31/2013 IMPRESSI ON: C/W VIRAL INFECTIO N WITH MILD BRONCHOS PASM, RECOMMEN D SUPPORTI VE TX; RECORDED 01/24/20 12 1:39PM BY ANA VIRK MA, ANNOTATI ON/ADDEN DUM Luly Souktel-C [address], [place], [address], [facility] 6 13:55:18 Increase d frequenc y of urinatio n [id number] Completed 201112/31/2013 IMPRESSI ON: SYMPTOMS C/W UTI, 1+ LEUKOCYT ES, WILL START TX FOR UTI AND SEND OUT UA/CULTU RE; RECORDED 01/24/20 12 1:39PM BY ANA VIRK MA, ANNOTATI ON/ADDEN [facility] Souktel-C [address], [place], [address], [facility] 6 13:55:18 Leukorrh ea [id number] Completed 201112/31/2013 IMPRESSI ON: VAGINAL SWAB + TRICHOMO HAMILTON, URINE CULTURE NO GROWTH, WILL DISCONTI NUE BACTRIM AND START METONIDA ZOLE; RECORDED 01/24/20 12 1:40PM BY ANA VIRK MA, ANNOTATI ON/JumpTimeEN [employer]-C [address], [place], [address], [facility] 6 13:55:18 Varicell a [id number] Completed 200812/31/2013 RECORDED 07/31/19 09 2:02PM BY MOHSEN RODRIGEZ ON/ADDEN DUM Luly Neely PA-C [address], [place], [address], [facility] 6 13:55:17 Vitamin D deficien cy 78406571 Active 2013 Geno taylor [place] null, [facility] 4 09:57:58 Candidal vulvovag initis 48795655 Completed 201112/31/2013 RECORDED 01/24/20 12 1:39PM BY ANA VIRK MA, MOHSEN ON/ADDEN DUM Luly Spiracur PA-C [address], [place], [address], [facility] 6 13:55:17 Abdomina l pain [id number] Completed 200801/20/2014 RECORDED 09/13/19 09 11:16AM BY EDGARDO MILLER, MOHSEN ON/ADDEN DUM Luly Souktel-C [address], [place], [address], [facility] 6 13:55:18 Acute pharyngi tis [id number] Completed 201301/20/2014 IMPRESSI ON: NEG QUICK STREP WILL TX IF CULTURE COMES BACK ; RECORDED 10/11/19 14 11:12AM BY MOHSEN RODRIGEZ ON/ADDEN DUM Luly Neely PA-C [address], [place], [address], [facility] 4 12:25:45 Acute sinusiti s [id number] Completed 201101/20/2014 RECORDED 01/24/20 12 1:39PM BY ANA VIRK MA, MOHSEN ON/ADDEN DUM Luly Neely PA-C [address], [place], [address], [facility] 6 13:55:18 Allergic rhinitis 93175036 Completed 201001/20/2014 RECORDED 07/27/19 11 9:20AM BY MIGUEL ANGEL ECHEVARRIA PA-C, MOHSEN ON/ADDEN DUM Geno [facility] [place] [facility] Backache [id number] Completed 201101/20/2014 IMPRESSI ON: SUSPECT MILD STRAIN OF R LUMBAR PARAVERT S. ADVISED RE REST, INTERMIT TENT HEAT, MASSAGE, GENTLE STRETCHI NG. MAY CONTINUE WITH NSAID PRN. NOTE FOR WORK PROVIDED , NO HEAVY LIFTING X NEXT 1 WEEK. CONTACT OFFICE PRN.; RECORDED 01/24/20 12 1:39PM BY ANA VIRK MA, MOHSEN ON/ADDEN DUM Luly Neely PA-C [address] [address], [place], [address], [facility] 6 13:55:18 Synovial cyst of poplitea l space Completed 201201/20/2014 IMPRESSI ON: SUSPECT DJD KNEE. WILL GET X-RAY. IF POSITIVE WILL REFER TO PHYSICAL THERAPY. DISCUSSE D WEIGHT LOSS WOULD HELP; RECORDED 03/19/20 13 8:42AM BY MOHSEN LINDQUIST ON/ADDEN DUM Luly Neely PA-C [address] [address], [place], [address], [facility] 6 13:55:18 Screenin g for malignan t neoplasm of breast Completed 201101/20/2014 RECORDED 01/24/20 12 1:39PM BY ANA VIRK MA, ANNOTATI ON/ADDEN DUM Luly Neely PA-C [address] [facility], [place], [address], [facility] 6 13:55:18 Screenin g for malignan t neoplasm of cervix Completed 201101/20/2014 RECORDED 01/24/20 12 1:39PM BY ANA VIRK MA, MOHSEN ON/ADDEN DUM Luly Neely PA-C [address], [place], [address], [facility] 6 13:55:18 Risk of exposure to communic able disease [id number] Completed 201101/20/2014 RECORDED 01/24/20 12 1:39PM BY ANA VIRK MA, ANNOTATI ON/ADDEN DUM Luly Neely PA-C [address], [place], [address], [facility] 6 13:55:18 Dysuria 43664677 Completed 201101/20/2014 IMPRESSI ON: STARTED WITH URINARY FREQ SINCE STARTING TOPAMAX (RXED BY WEIGHT LOSS MANAGEME NT). URINE TO SEND OUT FOR UA AND CX; RECORDED 01/24/20 12 1:40PM BY ANA VIRK MA, MOHSEN ON/ADDEN DUM Luly Neely PA-C [address], [place], [address], [facility] 6 13:55:18 Edema [id number] Completed 201101/20/2014 RECORDED 01/24/20 12 1:39PM BY ANA VIRK MA, ANNOTATI ON/DEBORAEN DUM Luly Neely PA-C [address], [place], [address], [facility] 6 13:55:18 Gastroes ophageal reflux disease [id number] Completed 201001/20/2014 RECORDED 07/27/19 11 9:20AM BY MIGUEL ANGEL ECHEVARRIA PA-C, MOHSEN ON/ADDEN DUM Luly Neely PA-C [address], [place], [address], [facility] 6 13:55:18 Adult health examinat ion Completed 201201/20/2014 RECORDED 11/17/19 13 10:57AM BY JOSH CAST I, ANNOTATI ON/ADDEN DUM Luly Neely PA-C [address], [place], [address], [facility] 6 13:55:18 Headache [id number] Completed 200801/20/2014 RECORDED 09/13/19 09 11:16AM BY EDGARDO MILLER, ANNOTATI ON/ADDEN DUM Luly Neely PA-C [address], [place], [address], [facility] 6 13:55:18 Blood in urine 78381557 Completed 200801/20/2014 RECORDED 04/13/20 09 11:06AM BY GENO WANG MA, ANNOTATI ON/ADDEN DUM Luly Neely PA-C [address], [place], [address], [facility] 6 13:55:18 Impaired fasting glycemia 663841123 Completed 201101/20/2014 RECORDED 01/24/20 12 1:41PM BY ANA VIRK MA, ANNOTJACEY ON/ADDEN DUM Luly Neely PA-C [address], [place], [address], [facility] 6 13:55:18 General symptom [id number] Completed 201101/20/2014 IMPRESSI ON: LUNGS CTA. RECC FLUIDS, REST, OTC ANTIPYRE TICS PRN. WORK NOTE GIVEN. MAY USE COUGH SUPPRESS ANT QHS OR DURING THE DAY IF NOT DRIVING. F/U IF SXS WORSEN OR FAIL TO IMPROVE. ; RECORDED 01/24/20 12 1:39PM BY ANA VIRK MA, ANNOTATI ON/ADDEN DUM Luly Neely PA-C [address], [place], [address], [facility] 6 13:55:18 Malaise and fatigue [id number] Completed 200801/20/2014 RECORDED 04/13/20 09 11:06AM BY GENO WANG MA, ELZBIETAATI ON/ADDEN DUM Luly Neely UT-C [address], [place], [address], [facility] 6 13:55:18 Nausea 489307739 Completed 201201/20/2014 RECORDED 03/19/20 13 8:42AM BY MOHSEN LINDQUIST ON/ADDEN DUM Luly [facility] [address], [place], [address], [facility] 6 13:55:18 Influenz a vaccine needed [id number] 06 Completed 201001/20/2014 DATE: 03/04/20 11; IMPRESSI ON: REFUSES FLU AND PNEUMO VACCINE. ; RECORDED 11/17/19 13 10:57AM BY MOHSEN LINDQUIST ON/ADDEN DUM Luly Neely UT-C [address], [place], [address], [facility] 6 13:55:18 Varicell a vaccinat ion Completed 200701/20/2014 RECORDED 11/16/19 08 10:19AM BY EDGARDO MILLER, [facility] [address], [place], [address], [facility] 6 13:55:18 Insomnia [id number] Completed 201101/20/2014 RECORDED 01/24/20 12 1:39PM BY ANA VIRK MA, MOHSEN ON/ADDEN DUM Luly Neely UT-C [address], [place], [address], [facility] 6 13:55:18 Otalgia [id number] Completed 201101/20/2014 IMPRESSI ON: NORMAL EXAM, NO SINUS SXS. DENIES TINNITUS OR VERTIGO. DISCUSSE D USE OF NASAL CS SPRAY, ANALGESI CS, DECONGES TANTS. REC F/U WITH ENT FOR PERSISTE NT SXS SHOULD PAIN CONTINUE WHICH SHE CURRENTL Y DECLINES . NO ROLE FOR ABXS STILL AT THIS POINT.; RECORDED 01/24/20 12 1:40PM BY ANA VIRK MA, MOHSEN ON/ADDEN DUM Luly Ranjan PA-C [address], [place], [address], [facility] 6 13:55:18 Pain in thoracic spine 879816420 Completed 201101/20/2014 RECORDED 01/24/20 12 1:39PM BY ANA VIRK MA, MOHSEN ON/ADDEN DUM Luly Neely PA-C [address], [place], [address], [facility] 6 13:55:18 Pityrias is versicol or [id number] Completed 201101/20/2014 RECORDED 01/24/20 12 1:39PM BY ANA VIRK MA, ANNOTATI ON/ADDEN DUM Lulynabil Neely PA-C [address], [place], [address], [facility] 6 13:55:17 Eruption [id number] Completed 201101/20/2014 RECORDED 01/24/20 12 1:40PM BY ANA VIRK MA, ANNOTATI ON/ADDEN DUM Luly Neely PA-C [address], [place], [address], [facility] 6 13:55:18 Right upper quadrant pain [id number] Completed 201201/20/2014 IMPRESSI ON: GALLBLAD NATHANAEL OUT. GASTRITI S VS PUD.; RECORDED 03/19/20 13 8:42AM BY JOSH SCHULTZK I, ANNOTATI ON/ADDEN DUM Luly Neely PA-C [address], [place], [address], [facility] 6 13:55:18 Inflamma tory disorder of extremit y [id number] Completed 201101/20/2014 RECORDED 01/24/20 12 1:39PM BY ANA VIRK MA, ANNOTATI ON/ADDEN DUM Luly Neely PA-C [address], [place], [address], [facility] 6 13:55:18 Tinea pedis 8155982 Completed 201101/20/2014 RECORDED 01/24/20 12 1:39PM BY ANA VIRK MA, ANNOTATI ON/ADDEN DUM Luly Neely PA-C [address], [place], [address], [facility] 6 13:55:17 Constipa tion 44075948 Completed 201101/20/2014 RECORDED 01/24/20 12 1:39PM BY ANA VIRK MA, ANNOTATI ON/ADDEN DUM Luly Neely PA-C [address], [place], [address], [facility] 6 13:55:18 Acute upper respirat ory infectio n 91006488 Completed 201101/20/2014 IMPRESSI ON: C/W VIRAL INFECTIO N WITH MILD BRONCHOS PASM, RECOMMEN D SUPPORTI VE TX; RECORDED 01/24/20 12 1:39PM BY ANA VIRK MA, ANNOTATI ON/ADDEN DUM Luly Neely PA-C [address], [place], [address], [facility] 6 13:55:18 Increase d frequenc y of urinatio n [id number] Completed 201101/20/2014 IMPRESSI ON: SYMPTOMS C/W UTI, 1+ LEUKOCYT ES, WILL START TX FOR UTI AND SEND OUT UA/CULTU RE; RECORDED 01/24/20 12 1:39PM BY ANA VIRK MA, MOHSEN ON/ADDEN DUM Luly Neely PA-C [address], [place], [address], [facility] 6 13:55:18 Leukorrh ea 381386984 Completed 201101/20/2014 IMPRESSI ON: VAGINAL SWAB + TRICHOMO HAMILTON, URINE CULTURE NO GROWTH, WILL DISCONTI NUE BACTRIM AND START METONIDA ZOLE; RECORDED 01/24/20 12 1:40PM BY ANA VIRK MA, MOHSEN ON/ADDEN DUM Luly Neely PA-C [address], [place], [address], [facility] 6 13:55:18 Varicell a [id number] Completed 200801/20/2014 RECORDED 07/31/19 09 2:02PM BY MOHSEN RODRIGEZ ON/ADDEN DUM Luly Neely PA-C [address], [place], [address], [facility] 6 13:55:17 Candidal vulvovag initis 44259297 Completed 201101/20/2014 RECORDED 01/24/20 12 1:39PM BY ANA VIRK MA, MOHSEN ON/ADDEN DUM Luly Neely PA-C [address], [place], [address], [facility] 6 13:55:17 Insomnia 255132599 Active Luly Neely PA-C [address], [place], [address], [facility] 6 13:55:18 Hypercho lesterol emia 03760793 Active Luly Neely PA-C [address], [place], [address], [facility] 6 13:55:18 Labyrint lolais 50452458 Completed 09/05/2023 Luly Neely PA-C [address], [place], [address], [facility] 4 15:43:15 Atrial flutter 4678959 Active 2023 Luly Neely PA-C [address], [place], [address], [facility] 4 12:28:03 Morbid obesity 943366752 Active 2023 Luly Neely PA-C [address], [place], [address], [facility] 4 12:29:12 Obstruct stephanie sleep apnea syndrome 02026374 Active 2023 Luly Neely PA-C [address], [place], [address], [facility] 4 15:42:38 Diastoli c heart failure 027812431 Active 2023 Luly Neely PA-C [address], [place], [address], [facility] 4 15:42:50 Hypoxemi a 255707696 Active 2023 Luly Neely PA-C [address], [place], [address], [facility] 4 16:07:42 Acute hypoxemi c respirat ory failure 446726463 Active 2023 Luly Neely PA-C [address], [place], [address], [facility] 4 11:37:08 Problem Notes None recorded. Procedures Surgical History Date Name Laterality Status Provider Name and Address Organization Details Recorded Time Hernia Repair completed Jennyfer lyons [place] [facility] 02/28/2014 10:16:43 Cholecystectomy completed Jennyfer Gonsalez ace, [place] [facility] 02/28/2014 10:16:43 Imaging Results Imaging Date Name Status LastModified by Organization Details LastModified Time 07/17/2023 polysomnogram completed [email or web address] [place] [address] (Medical Records) [address] [place], [address], 09/06/2023 11:49:41 07/17/2023 home sleep study completed [email or web address] [facility] (Medical Records) [address] [place], [address], 09/06/2023 12:57:43 11/20/2023 CT, angiogram, chest, w/wo contrast completed [email or web address] [place] [address] (Medical Records) [address] [place], [address], 11/30/2023 09:16:36 07/10/2024 imaging/diagnosti c result active [facility] (Medical Records) [address] [place], [address], 07/10/2024 16:53:22 Procedure Notes None recorded. Medical Equipment None Reported. Allergies Allergen ID Allergen Name Allergen Category Reaction Reaction Severity Criticality Documentation Date Start Date Code Code System Note Provider Name and Address Organization Details Recorded Time 9042 Niharika-Selt zer medicatio n hives Not available Not available 12/24/20132013 63135 RxNorm EDGARDO Akers [facility] 4 09:38:49 9043 acetamino phen / dextromet horphan / doxylamin e / pseudoeph edrine medicatio n hives Not available Not available 12/24/20132013 61290 4 RxNorm EDGARDO Akers [facility] 4 09:38:55 Medications Name Sig Start Date Stop Date Status Note LastModified by Organization Details LastModified Time caryl 0.35 mg tabs take 1 tab daily po 06/21 completed Not Available Not Available Not Available sumatript an succinate 50 mg tabs active Not Available Not Available Not Available hydrochlo rothiazid e 25 mg tabs take 1 tab daily po 06/21 completed Not Available Not Available Not Available azithromy stevo 250 mg tabs active Not Available Not Available Not Available tobramyci n/dexamet hasone 0.3-0.1 % susp active Not Available Not Available Not Available fluticaso ne propionat e 50 mcg/act susp active Not Available Not Available Not Available cyclobenz aprine 10 mg tablet EVERY EIGHT HOURS, NEEDED 09/27 completed RECORDED 11/28/19 09 10:37AM BY LUÍS Hamilton NP, MEDICATI ON AUTO-LENA CTIVATIO N; Not Available Not Available Not Available amoxicill in 500 mg capsule TWO TIMES DAILY 12/03 completed RECORDED 12/04/19 13 8:56AM BY SHON CRUZ, MEDICATI ON AUTO-LENA CTIVATIO N; Not Available Not Available Not Available furosemid e 40 mg tablet TAKE 1 TABLET BY MOUTH DAILY active Not Available Not Available No t Available azithromy stevo 250 mg capsule DIRECTED 06/21 completed RECORDED 06/25/19 10 1:22PM BY MIGUEL ANGEL ECHEVARRIA PA-C, MEDICATI ON AUTO-LENA CTIVATIO N;TWO TABS DAY ONE, FOLLOWED BY ONE TAB DAILY DAYS 2-5 Not Available Not Available Not Available terconazo le 0.4 % vaginal cream AT BEDTIME 07/23 completed RECORDED 08/07/19 10 10:38AM BY LUÍS Hamilton NP, MEDICATI ON AUTO-LENA CTIVATIO N; Not Available Not Available Not Available bupropion HCl SR 150 mg tablet,12 hr sustained -release QD 07/29 completed RECORDED 07/29/19 12 9:14AM BY GENO WANG MA, OFFICE VISIT; Not Available Not Available Not Available neomycin- polymyxin -hydrocor t 3.5 mg/mL-10, 000 unit/mL-1 % ear solution INSTILL 4 DROPS INTO AFFECTED EAR(S) BY OTIC ROUTE 3 TIMES PER DAY active Not Available Not Available No t Available bumetanid e 2 mg tablet 1 po qd 10/23 completed Not Available Not Available Not Available fluconazo le 150 mg tablet EVERY 72 HOURS 07/28 completed RECORDED 08/07/19 10 10:38AM BY LUÍS Hamilton NP, MEDICATI ON AUTO-LENA CTIVATIO N; Not Available Not Available Not Available amiodaron e 200 mg tablet TAKE 1 TABLET BY MOUTH DAILY 11/27 completed Not Available Not Available Not Available metoprolo l succinate ER 50 mg tablet,ex tended release 24 hr TAKE 1 TABLET BY MOUTH DAILY active Not Available Not Available No t Available clarithro mycin 500 mg tablet TWO TIMES DAILY 12/03 completed RECORDED 12/04/19 13 8:56AM BY SHON CRUZ, MEDICATI ON AUTO-LENA CTIVATIO N; Not Available Not Available Not Available Zithromax Z-Mehul 250 mg tablet TAKE 2 TABLETS (500 MG) BY ORAL ROUTE ONCE DAILY FOR 1 DAY THEN 1 TABLET (250 MG) BY ORAL ROUTE ONCE DAILY FOR 4 DAYS 2015 active Not Available Not Available Not Avai lable sumatript an 50 mg tablet Take 1 tablet as needed by oral route as directed for 10 days. 06/21 completed Not Available Not Available Not Available metronida zole 500 mg tablet TWO TIMES DAILY 12/03 completed RECORDED 12/04/19 13 8:56AM BY SHON CRUZ, MEDICATI ON AUTO-LENA CTIVATIO N; Not Available Not Available Not Available phentermi ne 37.5 mg tablet BEFORE BREAKFAS T active RECORDED 10/11/19 14 11:10AM BY JENNYFER GRAHAM, OFFICE VISIT; Not Available Not Available Not Available ciproflox acin 250 mg tablet TWO TIMES DAILY 11/22 completed RECORDED 12/02/19 11 10:43AM BY MIGUEL ANGEL ECHEVARRIA PA-C, MEDICATI ON AUTO-LENA CTIVATIO N; Not Available Not Available Not Available sulfameth oxazole 800 mg-trimet hoprim 160 mg tablet TWO TIMES DAILY active Not Available Not Available No t Available spironola ctone 25 mg tablet TAKE 1 TABLET BY MOUTH DAILY active Not Available Not Available No t Available Macrobid 100 mg capsule TWO TIMES DAILY 09/15 completed RECORDED 11/28/19 09 10:37AM BY LUÍS Hamilton NP, MEDICATI ON AUTO-LENA CTIVATIO N; Not Available Not Available Not Available Fluticaso ne Propionat e (Inhal) 50 mcg/BLIST inhl powd DAILY IN EACH NOSTRIL 08/23 completed RECORDED 08/24/19 14 10:08AM BY SHELL BENITEZ, MOHSEN ON/ADDEN DUM; Not Available Not Available Not Available lorazepam 0.5 mg tablet Take 2 tablets as needed by oral route at bedtime for 20 days. 03/20 completed Not Available Not Available Not Available doxycycli ne monohydra te 100 mg capsule Take 1 capsule twice a day by oral route for 5 days. 12/12 completed Not Available Not Available Not Available triamcino lone acetonide 55 mcg nasal spray aerosol Q AM QNARES 2007 active RECORDED 11/12/19 08 2:06PM BY NAOMI BRANDON, MOHSEN ON/ADDEN DUM; Not Available Not Available Not Available flecainid e 50 mg tablet 06/28 completed Not Available Not Available Not Available Advair Diskus 250 mcg-50 mcg/dose powder for inhalatio n TWO TIMES DAILY 2007 active RECORDED 12/10/19 08 11:17AM BY NAOMI BRANDON, MOHSEN ON/ADDEN DUM; Not Available Not Available Not Available flecainid e 100 mg tablet TAKE 1 TABLET BY MOUTH EVERY 12 HOURS 06/28 completed Not Available Not Available Not Available omeprazol e 20 mg capsule,d elayed release active Not Available Not Available Not Available diltiazem CD 120 mg capsule,e xtended release 24 hr TAKE 1 CAPSULE BY MOUTH DAILY 06/28 completed Not Available Not Available Not Available codeine 10 mg-guaife nesin 100 mg/5 mL oral liquid Take 10 mL every 4 hours by oral route as needed for 4 days. 2015 active Not Available Not Available Not Avai lable zinc 50 mg tablet Take 1 tablet every day by oral route. active Not Available Not Available No t Available hydrochlo rothiazid e 25 mg tablet TAKE ONE TABLET BY MOUTH ONCE DAILY 06/21 completed Not Available Not Available Not Available mupirocin 2 % topical ointment active Not Available Not Available Not Available furosemid e 20 mg tablet 09/04 completed Not Available Not Available Not Available gabapenti n 100 mg capsule TWO TIMES DAILY 01/22 completed RECORDED 02/05/20 08 10:27AM BY NAOMI BRANDON MEDICATI ON AUTO-LENA CTIVATIO N;MAY TAPER UP TO THREE CAPSULES TID Not Available Not Available Not Available ergocalci ferol (vitamin D2) 1,250 mcg (50,000 unit) capsule WEEKLY X 12 WEEKS 08/23 completed RECORDED 08/24/19 14 10:07AM BY MOHSEN ABBASI ON/ADDMORENITA DUM; Not Available Not Available Not Available selenium sulfide 2.5 % shampoo LATHER IN DAILY FOR 1 WEEK-RIN SE OFF AFTER 10 MIN. 2007 active RECORDED 12/10/19 08 11:17AM BY NAOMI BRANDON ANNOTATI ON/MATILDE DUM; Not Available Not Available Not Available ibuprofen 600 mg tablet THREE TIMES DAILY 10/21 completed RECORDED 10/22/19 10 3:23PM BY MOHSEN ABBASI ON/MATILDE DUM; Not Available Not Available Not Available ketoconaz ole 2 % topical cream BID 10/21 completed RECORDED 10/22/19 10 3:23PM BY MOHSEN ABBASI ON/MATILDE DUM; Not Available Not Available Not Available fluticaso ne propionat e 50 mcg/actua tion nasal spray,ginger pension USE TWO SPRAY(S) IN EACH NOSTRIL ONCE DAILY 06/21 completed Not Available Not Available Not Available loratadin e 10 mg tablet DAILY 08/26 completed RECORDED 08/27/19 11 11:31AM BY MOHSEN ABBASI ON/ADDMORENITA DUM; Not Available Not Available Not Available mometason e 0.1 % topical cream DAILY 05/11 completed RECORDED 07/29/19 12 9:09AM BY LARA MAURER PA-C, MEDICATI ON AUTO-LENA CTIVATIO N;APPLY THIN FILM TO AFFECTED AREA Not Available Not Available Not Available amoxicill in 875 mg-potass ium clavulana te 125 mg tablet BID 07/06 completed RECORDED 07/16/19 10 7:27AM BY LUÍS Hamilton NP, MEDICATI ON AUTO-LENA CTIVATIO N; Not Available Not Available Not Available nicotine 7 mg/24 hr daily transderm al patch Apply 1 patch every day by transder mal route. 12/12 completed Not Available Not Available Not Available tobramyci n 0.3 %-dexamet hasone 0.1 % eye drops,ginger pension active Not Available Not Available Not Available Vitamin D 50,000 unit capsule ONCE A WEEK 10/21 completed RECORDED 10/22/19 10 3:24PM BY MOHSEN ABBASI ON/MATILDE SCHULTZ;THIS ORDER DISCONTI NUED PER MEDI-SPA N. Not Available Not Available Not Available albuterol (refill) 90 mcg/actua tion aerosol inhaler Q 4-6 HRS PRN COUGH 06/03 completed RECORDED 07/29/19 12 9:09AM BY LARA MAURER PA-C, MEDICATI ON AUTO-LENA CTIVATIO N; Not Available Not Available Not Available Caryl 0.35 mg tablet DAILY active Not Available Not Available Not Available codeine-g uaifenesi n oral syrup Q 4 HOURS PRN 08/31 completed RECORDED 09/10/19 11 9:39AM BY SHON DIGGS, MEDICATI ON AUTO-LENA CTIVATIO N;MAY CAUSE SEDATION . Not Available Not Available Not Available topiramat e 50 mg tablet Q HS 12/17 completed RECORDED 12/18/19 12 9:08PM BY ANA VIRK MA, MEDICATI ON AUTO-LENA CTIVATIO N;DR. PAINTER Not Available Not Available Not Available eszopiclo ne 3 mg tablet QHS / HS 11/16 completed RECORDED 11/23/19 07 2:09PM BY SINTIA AMATO MD, MEDICATI ON AUTO-LENA CTIVATIO N; Not Available Not Available Not Available Flonase DAILY 2012 active RECORDED 03/01/20 13 1:30PM BY MIGUEL ANGEL ECHEVARRIA PA-C, REFILL REQUEST; Not Available Not Available Not Available guaifenes in EVERY 6 HOURS NEEDED FOR COUGH PRN 06/26 completed RECORDED 06/26/19 10 8:53AM BY MIGUEL ANGEL ECHEVARRIA PA-C, MEDICATI ON AUTO-LENA CTIVATIO N; Not Available Not Available Not Available omeprazol e DAILY IN THE MORNING 2012 active RECORDED 04/05/20 13 1:48PM BY MARCEL Vargas MD, OFFICE VISIT; Not Available Not Available Not Available Miralax BID DIRECTED 2007 active RECORDED 11/12/19 08 2:06PM BY NAOMI BRANDON, ANNOTATI ON/ADDEN DUM; Not Available Not Available Not Available varenicli ne tartrate 1 mg tablet BID 10/21 completed RECORDED 10/22/19 10 3:24PM BY MOHSEN ABBASI ON/ADDEN DUM; Not Available Not Available Not Available Chantix Starting Month Mehul 0.5 mg (11)-1 mg (42) tablets in dose pack DIRECTED 05/13 completed RECORDED 06/01/20 09 11:31AM BY LUÍS Hamilton NP, MEDICATI ON AUTO-LENA CTIVATIO N; Not Available Not Available Not Available mupirocin 2 % ointment topical kit BID 2013 active RECORDED 10/11/19 14 11:55AM BY MARCEL Vargas MD, OFFICE VISIT; Not Available Not Available Not Available 5-hydroxy tryptopha n (5-HTP) 100 mg capsule QD active RECORDED 10/11/19 14 11:10AM BY JENNYFER GRAHAM, OFFICE VISIT; Not Available Not Available Not Available Vitamin D3 50 mcg (2,000 unit) capsule Take 2 capsules every day by oral route. active Not Available Not Available No t Available Eliquis 5 mg tablet TAKE 1 TABLET BY MOUTH TWICE DAILY active Not Available Not Available No t Available Anoro Ellipta 62.5 mcg-25 mcg/actua tion powder for inhalatio n INHALE 1 INHALATI ON BY MOUTH DAILY active Not Available Not Available No t Available Wegovy 0.25 mg/0.5 mL subcutane ous pen injector ADMINIST ER 0.25 MG UNDER THE SKIN EVERY WEEK 2023 active Not Available Not Available Not Avai lable Vitals Date Recorded Body height Body mass index (BMI) Body weight Heart rate Oxygen saturation Oxygen saturation in Arterial blood by Pulse oximetry Body temperature Systolic blood pressure Diastolic blood pressure Provider Name and Address Organization Details Last Updated DateTime 4 154.94 cm 63.3 kg/m2 559249. 44 g 73 /min 92 % 92 % 98.3 [degF] 153 mm[Hg] 83 mm[Hg] Tamara Estrada [facility] [place] 4 09:51:47 Date Recorded Body height Body mass index (BMI) Body weight Heart rate Oxygen saturation Oxygen saturation in Arterial blood by Pulse oximetry Oxygen saturation Oxygen saturation in Arterial blood by Pulse oximetry Inhaled oxygen flow rate Body temperature Oxygen saturation Oxygen saturation in Arterial blood by Pulse oximetry Inhaled oxygen flow rate Systolic blood pressure Diastolic blood pressure Provider Name and Address Organization Details Last Updated DateTime 4 154.94 cm 67.1 kg/m2 829293. 29 g 76 /min 89 % 89 % 99 % 99 % 2 L/min 97.8 [degF] 97 % 97 % 1 L/min 150 mm[Hg] 99 mm[Hg] Geno taylor MA [facility] 4 09:48:22 Date Recorded Body height Body mass index (BMI) Body weight Heart rate Oxygen saturation Oxygen saturation in Arterial blood by Pulse oximetry Body temperature Oxygen saturation Oxygen saturation in Arterial blood by Pulse oximetry Oxygen saturation Oxygen saturation in Arterial blood by Pulse oximetry Inhaled oxygen flow rate Oxygen saturation Oxygen saturation in Arterial blood by Pulse oximetry Inhaled oxygen flow rate Systolic blood pressure Diastolic blood pressure Provider Name and Address Organization Details Last Updated DateTime 4 154.94 cm 71.8 kg/m2 166792. 5 g 120 /min 70 % 70 % 98.4 [degF] 75 % 75 % 89 % 89 % 2 L/min 95 % 95 % 3 L/mi n 159 mm[Hg] 82 mm[Hg] Aurora Ojeda LPN [facility] 4 11:26:29 Date Recorded Body height Body mass index (BMI) Body weight Heart rate Oxygen saturation Oxygen saturation in Arterial blood by Pulse oximetry Oxygen saturation Oxygen saturation in Arterial blood by Pulse oximetry Body temperature Systolic blood pressure Diastolic blood pressure Provider Name and Address Organization Details Last Updated DateTime 4 154.94 cm 62.4 kg/m2 973211. 48 g 88 /min 83 % 83 % 86 % 86 % 98.4 [degF] 142 mm[Hg] 72 mm[Hg] Lara Kim MA [facility] 4 10:53:29 Date Recorded Oxygen saturation Oxygen saturation in Arterial blood by Pulse oximetry Provider Name and Address Organization Details Last Updated DateTime 12/13/2023 92 % 92 % HSON BROCK [address], [place], [address], [facility] 12/13/2023 11:02:52 Social History Question Answer Notes LastModified by Organizat ion Details LastModified Time Tobacco Smoking Status Current Every Day Smoker Jennyfer Graham MA null, [facility] 02/28/2014 10:19:24 What Is Your Level Of Alcohol Consumption? None [email or web address] Information not available 02/28/2014 Is Blood Transfusion Acceptable In An Emergency? Yes [email or web address] Information not available 02/27/2015 What Is Your Level Of Caffeine Consumption? Occasional [email or web address] Information not available 02/28/2014 Are You Currently Employed? Yes [email or web address] Information not available 02/28/2014 What Type Of Diet Are You Following? REGULAR [email or web address] Information not available 02/28/2014 Do You Take Precautions To Prevent Distracted Driving? Yes [email or web address] Information not available 02/27/2015 How Often Do You Need To Have Someone Help You When You Read Instructions, Pamphlets, Or Other Written Material From Your Doctor Or Pharmacy? Sometimes [email or web address] Information not available 02/27/2015 Have You Served In The ? No Information not available 10/24/2023 What Is Your Current Pack Years? 10-19packyears Information not available 10/24/2023 At What Age Did You Start Smoking Tobacco? 28 Information not available 10/24/2023 Are You Passively Exposed To Smoke? Yes Information not available 10/24/2023 How Much Tobacco Do You Smoke? 0.5 PPD [email or web address] Information not available 02/28/2014 Do You Use Any Illicit Or Recreational Drugs? No Information not available 10/24/2023 Do You Use Sunscreen Routinely? Yes [email or web address] Information not available 02/28/2014 How Many Years Have You Smoked Tobacco? 25 Information not available 10/24/2023 Do You Or Have You Ever Used Any Other Forms Of Tobacco Or Nicotine? No Information not available 10/24/2023 Sex: Unknown Functional Status Question Answer Note LastModified by Organization D etails LastModified Time Are you able to walk? YESWOREST Information not available 10/24/2023 Are you able to care for yourself? Yes [email or web address] Information not available 02/28/2014 What is your exercise level? None Information not available 10/24/2023 Mental Status None recorded. Family History Relationship Description Onset Age of this Age Resolved Age Notes LastModified by Organization Details LastModified Time Mother Carcinoma in situ of breast [email or web address] Not available 09/2015 13:13:48 Sister Diabetes mellitus [email or web address] Not available 09/2015 13:13:48 Brother Hypertensive disorder [email or web address] Not available 09/2015 13:13:48 Father Cerebrovascu lar accident [email or web address] Not available 09/14/2015 13:13:48 Notes:No FH of colon cancer Medical History Condition Response Coronary Artery Disease N Other Y Gout N Kidney Stones N Blood Diseases N Hyperthyroidism N Breast Cancer N mrsa exposure N Depression N Hypothyroidism N Lung Disease N COPD N Developmental or Behavioral Disorders N Defects or Inherited Disease N Breast Problem N Anesthesia Complications N Headaches/Migraines Y Anxiety Disorder N Varicose Veins N Muscle, Joint, or Bone Problems N Obesity N Vision or Eye Problems N Arthritis N Head Injury/Concussion N Infertility N Polyps N Mental Disorder N Congenital Anomalies N Acid Reflux (GERD) N Cancer N Stroke N ADHD N Endometriosis N High Cholesterol N Liver Disease N Fibromyalgia N Headaches N Kidney Disease N Heart Problems N Ear or Hearing Problems N Hospitalizations N Thyroid Problems N GI Problems N Developmental Delay N Acne N Skin Problems N Eating Disorder N Anemia Y Constipation N Bladder Problems N Mental Illness N Ovarian Cancer N Diabetes N Bedwetting N Blood Transfusions N Seizures/Epilepsy N Heart Problems/Murmur N Tuberculosis N AIDS/HIV N Congestive Heart Failure (CHF) N Eczema N Diverticulitis N Abuse/Domestic Violence N Asthma N Allergies N Reflux/GERD N Hepatitis N Heart Disease N Pulmonary Embolism N Hypertension Y Osteoporosis N Chicken Pox N Autism Spectrum Disorder (ASD) N Gynecological HistoryNo gynecological history recorded. Obstetrics History GPAL:G 0 P 0 0 0 0 Immunizations Vaccine Type Date Status Note Provider Nam e and Address Organization Details Recorded Time COVID-19, mRNA, LNP-S, PF, 30 mcg/0.3 mL dose 1 completed EDGARDO Broussard, [facility] 10/24/2023 09:38:18 COVID-19, mRNA, LNP-S, PF, 30 mcg/0.3 mL dose 1 completed EDGARDO Broussard, [facility] 10/24/2023 09:38:18 COVID-19, mRNA, LNP-S, PF, 30 mcg/0.3 mL dose 1 completed EDGARDO Broussard [facility] 10/24/2023 09:38:18 Hep B, adult 5 completed Not Available [facility] 12/24/2013 14:07:23 Hep B, adult 5 completed Not Available [facility] 12/24/2013 14:07:23 Hep B, adult 5 completed Not Available [facility] 12/24/2013 14:07:23 Tdap 8 completed Not Available [facility] 12/24/2013 14:07:23 varicella 8 completed Not Available [facility] 12/24/2013 14:07:23 Influenza, split virus, trivalent, preservative 2 completed Not Available [facility] 12/24/2013 14:07:23 Past Encounters Encounter ID Performer Location Encounter Start Date Encounter Closed Date Diagnosis/Indication Diagnosis SNOMED-CT Code Diagnosis ICD10 Code Diagnosis Note [id number] auto[facility]Comm erce [address] [facility] [place] [address] 09/06/2006 00:00:00 [id number] autoEComm erce [address] [facility] [place] [address] 09/07/2006 00:00:00 [id number] autoEComm erce [address] [facility],[address] [place] [address] 09/20/2006 00:00:00 [id number] auto[facility]Comm erce [address] [facility] [place] [address] 11/01/2006 00:00:00 [id number] auto[facility]Comm erce [address] [facility],[address] [place] [address] 05/03/2006 00:00:00 [id number] autoEComm erce [address] [facility] [address] [place] [address] 11/22/2006 00:00:00 [id number] autoEComm erce [address] [facility],[address] [place] [address] 01/31/2007 00:00:00 [id number] auto[facility]Comm erce [address] [place] [address] 03/09/2007 00:00:00 [id number] [address] [address] [place] [address] 09/05/2007 00:00:00 [id number] auto[facility]Comm erce [address] [place] [place] [address] 11/12/2007 00:00:00 [id number] auto[facility]Comm erce [address] [place] [address] 11/14/2007 00:00:00 [id number] auto[address]Comm [address]ce [address] [place] [address] 12/10/2007 00:00:00 [id number] auto[facility]Comm erce [address] [place] [address] 12/17/2007 00:00:00 [id number] auto[facility]Comm erce [address] [place] [address] 12/24/2007 00:00:00 [id number] autoEComm erce [address] [facility] [address] [place] [address] 07/31/2008 00:00:00 [id number] autoEComm erce [address] [facility],[address] [place] [address] 09/12/2008 00:00:00 [id number] autoEComm erce [address] [facility],[address] [place] [address] 11/27/2008 00:00:00 [id number] autoEComm erce [address] [facility],[address] [place] [address] 04/03/2009 00:00:00 [id number] autoEComm erce [address] [facility],[address] [place] [address] 04/13/2009 00:00:00 [id number] autoEComm erce [address] [facility],[address] [place] [address] 06/16/2009 00:00:00 [id number] autoEComm erce [address] [place],[address] [place] [address] 06/26/2009 00:00:00 [id number] autoEComm erce [address] [facility] [address] [place] [address] 07/16/2009 00:00:00 [id number] autoEComm erce [address] [facility],[address] [place] [address] 08/31/2009 00:00:00 [id number] auto[address]Comm erce [address] [place] [address] 09/04/2009 00:00:00 [id number] auto[facility]Comm erce [address] [place] [address] 10/09/2009 00:00:00 [id number] auto[address]Comm erce [address] [place] [address] 07/27/2010 00:00:00 [id number] auto[address]Comm erce [address] [place] [address] 08/23/2010 00:00:00 [id number] autoEComm erce [address] [place] [address] 09/17/2010 00:00:00 [id number] autoEComm erce [address] [facility] [address] [place] [address] 11/15/2010 00:00:00 [id number] autoEComm erce [address] [facility],[address] [place] [address] 03/04/2011 00:00:00 [id number] autoEComm erce [address] [facility] [address] [place] [address] 05/04/2011 00:00:00 [id number] [address] [place] [address] 07/29/2011 00:00:00 [id number] autoEComm erce [address] [place] [address] 11/18/2011 00:00:00 [id number] autoEComm erce [address] [place] [address] 11/25/2011 00:00:00 [id number] autoEComm erce [address] [place] [address] 02/03/2012 00:00:00 [id number] autoEComm erce [address] [place] [address] 08/21/2012 00:00:00 [id number] autoEComm erce [address] [facility],[address] [place], [place] [address] 11/16/2012 00:00:00 [id number] autoEComm erce [address] [facility] [place], [place] [address] 03/19/2013 00:00:00 [id number] autoEComm erce [address] [facility] [place], [place] [address] 04/05/2013 00:00:00 [id number] autoEComm erce [address] [facility],[address] [place], [place] [address] 08/24/2013 00:00:00 [id number] autoEComm erce [address] [facility],[address] [place], [place] [address] 10/10/2013 00:00:00 [id number] Jeniffer Matamoros MA Main Office [address] [address] [place] [address] 02/28/2014 10:04:13 02/28/2014 10:56:37 Adult health examination 821772984 pap and mammogram are utd, pt is busy but not physcally active. Insomnia 098046688 inter rupte d sleep causing her to have migraines, will use lorazepam prn Migraine 84962995 trigge r is sleep disruption , stressed pt taking better care of herself Essential hypertension 57237056 controlled on meds, BP at work all nl, no change [id number] Jeniffer Matamoros MA Main Office [address] [facility] [address] [place] [address] 03/12/2014 08:14:01 03/12/2014 08:45:04 Otitis externa 8394491 [id number] Marcel garg Main Office [address] [address] [place] [address] 05/12/2014 09:00:31 05/12/2014 09:31:44 Upper respiratory infection 45503659 Epistaxis 18499266 recom mend nasal moisturiza tion with nasal saline spray/humi difier [id number] Milana Kearney MA Main Office [address] [address] [place] [address] 09/12/2014 10:07:36 09/12/2014 10:40:47 Essential hypertension 40549460 controlled on meds, BP at work all nl, no changem, check labs Sinusitis 93500334 pt wi th sinusitis, productive cough, treat as below, return if any fever, sob or feel worse in any way Cough 86621278 treat as below, has done fine with med before [id number] Jennyfer Graham MA Main Office [address] [address] [place] [address] 02/17/2015 10:53:15 02/17/2015 11:37:46 Acute pharyngitis 774779898 Most likely related to infection which in this patient could be viral or bacterial. Supportive /symptomat ic treatment advised with nasal saline irrigation and warm salt water gargling advised. Cough 69230779 Given comorbid tobacco use and hemoptysis will cover for possible bacterial process. Tobacco de pendence syndrome 06387197 Hemoptysis 19857226 Like ly from irritation /inflammat ion of the upper respirator y tract from infection. Will need further evaluation if persistent /worse. [id number] Jennyfer Graham MA Main Office [address] [address] [place] [address] 02/27/2015 10:00:49 02/27/2015 10:47:57 Adult health examination 657826824 pap and mammogram are utd, pt is busy but not physcally active. Cough 47183326 took zpa k, pt will check cxr if not improving over the next 2 weeks or any return of hempotysis , cough still wnl, just finished zpak 5 days ago Body mass index 40+ - severely obese 116325931 Essential hypertension 04493978 controlled on meds, BP at work all nl, no changem, check labs Smoker 02419965 We brown d and spoke to nurse for pts senior wealth advisor Dr Hernandez who gave him message, pt is on control pill and smokes, they said he was told pt did not smoke, they will address this. [id number] Joao Corea MD Main Office [address] [address] [place] [address] 06/26/2015 09:31:25 06/26/2015 10:55:57 Migraine 86872320 G43.909 Will tx with sumatripta n to be taken as needed. This has been prescribed in the past but patient states she has never been on it. Stay well hydrated, rest. Please call/ return for any worsening or concerns. Cough 72586617 R05 Sx x 1 week with migraine and nausea 1 week prior, patient is a smoker, will tx with zpak and cough med- no driving or alcohol with med. Suspect her back pain is muscular due to coughing, recommend heat 4 times daily x 20 minutes chris time and gentle stretching as tolerated. [id number] [facility] Main Office [address] [facility] [address] [facility] [place] [address] 08/28/2015 09:15:14 08/28/2015 09:47:44 Essential hypertension 03073958 I10 well controlled , on hctz check labs Hypercholesterolemia 136 93547 E78.2 check random [id number] Marcel [facility] Main Office [address] [place] [address] [address] [place] [address] 09/14/2015 13:07:23 09/14/2015 13:41:58 Cough 78054577 R05 OTC cough meds recommende d. Viral disease 28834610 B 34.9 Viral infection with GI component. Possible mild dehydratio n and low BP. Pt. is advised to increase hydration and rest and hold BP meds for few days. Test BP daily. Labyrinthitis 27361072 H 83.01 Motrin 200 mg 2-3 po TID with food . If dizziness or vertigo develop, might need to try Medrol dose pack. [id number] Gaby Mosher Main Office [address] [facility] [address] [place] [address] 06/28/2023 15:45:28 06/28/2023 16:16:33 Atrial flutter 5172921 I48.92 Continue current blood thinners and antiarrhyt hmic medication s. F/u with cardiologi st as scheduled this month. Pt. is on 2 diuretics. Hypercholesterolemia 136 46849 E78.00 stable lipids inpatient. Non-toxic uninodular goiter 748897922 E04.1 stable TSH in the hospital Systolic h eart failure 055022244 I50.20 continue current meds Body mass index 40+ - severely obese 425475249 Z68.43 sleep medicine is scheduled for July. Consider use of GLP-1 Wegovy for weight loss. Essential hypertension 38468719 I10 stable on current combinatio n of meds. Morbid obesity 244234670 E66.01 sleep medicine is scheduled for July. Consider use of GLP-1 Wegovy for weight loss. [id number] Gaby Mosher Main Office [address] [facility] [address] [place] [address] 09/05/2023 09:40:22 09/05/2023 10:41:04 Adult health examination 278001828 Z00.00 recommend following vaccines: COVID, flu, shingrix, Tdap. Referral provided. Colonoscop y referral. Pt. reports had mammogram and saw [employer] T[facility]ER at [facility] [place]. Referral provided. Atrial flutter 7520420 I 48.92 Continue current blood thinners and antiarrhyt hmic medication s. F/u with cardiologi st as scheduled. Follow through with results of sleep study. Body mass index 40+ - severely obese 600451388 Z68.44 Review sleep medicine notes. Plan to start Zepbound. Discussed low calorie diet. Pt. is unable to exercise currently. Essential hypertension 94496967 I10 stable on current combinatio n of meds.Pt. did not take meds this morning resulting in elevation . Check all labs fasting including glucose, A1c, CBC, TSH, Chem 23. Hypercholesterolemia 136 21215 E78.00 retest lipids. Non-toxic uninodular goiter 625760747 E04.1 stable TSH in the hospital. scheduled thyroid ultrasound . Vitamin D deficiency 347 05814 E55.9 retest Requires a tetanus booster 081148796 Z28.39 Screening for malignant neoplasm of breast 779041566 Z12.39 Screening for malignant neoplasm of cervix 760934244 Z12.4 Screening for malignant neoplasm of colon [id number] Z12.11 Varicella vaccination 68 [id number] Z23 [id number] Luly Neely PA-C Main Office [address] [facility] [address] [place] [address] 10/24/2023 09:18:10 10/24/2023 10:26:46 Morbid obesity [id number] E66.01 Pt. is on APAP and is scheduled for pulmonary function test. Consider use of GLP-1 Wegovy for weight loss. Pt. is not bariatric candidate at this time due to multiple health risks factors. Diastolic heart failure [id number] I50.30 significan t weight gain likely due to non compliance to furosemide . Pt. is advised to take it daily and have pro bnp done. Her labs were all unremarkab le on 09/05/23 including cmp, TSH, CBC, A1c. Hypoxemia [id number] R09. 02 multifacto rial secondary to heart failure and sleep apnea and severe obesity. Pt. is set up for PFTs with Dr. Delgado and is on APAP. Can not tolerate full mask. Needs eval for O2. [id number] Luly Neely PA-C Main Office [address] [place] [address] 11/20/2023 11:05:32 11/20/2023 11:57:07 Acute hypoxemic respiratory failure [id number] J96.01 O2 down to 70% w/o oxygen supplement ation. Pt. is acutely uncomforta ble. recommend to be transferre d by ambulance to the ED. Cellulitis of left lower limb [id number] L03.116 transport ot ED. [id number] Luly Neely PA-C Main Office [address] [place] [address] 11/27/2023 08:56:04 11/28/2023 13:09:24 [id number] Gaby Mosher Main Office [address] [place] [address] 12/13/2023 10:37:13 12/13/2023 11:11:04 Transition of care [id number] 105 Z75.8 reviewed hospital documentat ion Lymphedema of lower extremity [id number] I89.0 Cellulitis of left lower limb [id number] L03.116 -treated with IV zosyn and vancomycin then x7 day course of doxycyclin e and followed by with wound care nurse-[facility] e discharge has resolved Heart fail ure with reduced ejection fraction [id number] I50.9 -evaluated by cardiology -treated with IV lasix; symptom improvemen t while in the hospital-T EE from 06/03 revealed EF 30-40% and moderately reduced LV systolic function, repeat echo revealed EF of 50-55%-c/w low sodium diet and oral lasix Obstructiv e sleep apnea syndrome [id number] G47.33 wears CPAP machine at night which provides relief Atrial flutter [id number] I 48.92 likely r/t morbid obesity-am iodarone was stopped per cardiology and will have pt c/w metoprolol and apixaban Acute exac erbation of chronic obstructive pulmonary disease [id number] J44.1 -pt refused home oxygen-was on 1-2L of O2 while at [facility]-denies of any sob or dyspnea on exertion-i n office O2 sat of 92% on [facility] Health Concerns Section Related Observation LastModified by Organization Detai ls LastModified Time None Recorded Concern Status LastModified by Organization Details LastModified Time None Recorded Advance Directives Directive None Recorded Payers Encounter Date Sequence Insurance Name Policy Number Policy Baez Covered Member ID Baez Member ID Guarantor Name 09/05/2023 1 [facility]) [id number] 1 Cristina Coco D [place] [id number] Cristina D [place] 10/24/2023 1 [facility]) [id number] 1 Cristina Ccoo D [place] [id number] Cristina D [place] 11/20/2023 1 [facility]) [id number] 1 Cristina Coco D [place] [id number] Cristina D Giles 11/27/2023 1 [facility]) [id number] 1 Cristina Coco D [place] [id number] Cristina D Giles 12/13/2023 1 [facility]) [id number] 1 Cristina Coco D [place] [id number] Cristina D [place] Notes Date Note Type Note Provider Name and Address Organization Details Recorded Time 09/05/2023 text/html Generic HPI TemplateReported bypatient.Notes:53 year old female for annual PE. Last PE over 5 years ago.H/o morbid obesity . Current BMI is 63.3.Interim history: May 2023 hospital admission for atrial flutter with RSV, acute decompensated CHF to [facility]. Pt. did not f/u on this here but is seeing scale tank operator. Just had sleep study done. Takes prescribed meds on her list. Weight gain is significant since June visit due to fluid overload.Labs done in July per patient , but not available to me. Past h/o anemia, thyroid disease ( multinodular goiter w/o endo f/u for many years), hyperlipidemia, migraine, ? sarcoid ( no documentation), knee OA.PHQ and JAMES today are unremarkable. Gaby matamoros, [facility] 09/11/2023 11:38:36 10/24/2023 text/html 53 year old fema le for f/u.Diastolic CHF, hypoxia. Pt had abnormal sleep study. Being fit for CPAP/BPAP. Had pulmonary function test and has scale tank operator f/u in November. IN the mean time has shortness of breath. Not taking her furosemide daily as prescribed. Gained 20 lbs since the last visit 6 weeks ago. Has h/o noncommitance to medical regiment. O2 today is 89 on room air. 98 on 2L of O2. Not taking her Eliquis sometimes due to cost. Luly Neely PA-C [address], [place], [address], [facility] 10/24/2023 16:10:42 11/20/2023 text/html 53 year old fema le with h/o diastolic heart failure, morbid obesity and lymphedema c/o injuring L. posterior lower leg 2 weeks ago. Now reports leg is weeping . Pt. presented to the office with O2 of 70% and dyspneic. . O2 is now up to 89 on 3 L of oxygen. Luly Neely PA-C [address], [place], [address], [facility] 11/20/2023 11:38:57 11/27/2023 text/html Hospitalization Contact RecordReported bypatient.[facility] admit date: (Please enter in format 'MM/DD/YYY') (11/20/2023); date of discharge: (Please enter in format 'MM/DD/YYYY') (11/24/2023); date of contact: (Please enter in format 'MM/DD/YYYY') (11/27/2023)Notes:[facility] covered inpatient stay? noTOC with in 48 working hours? yes MOLST on file? noDischarge Summary available? yesPt was transferred from our office via ambulance to [facility] for eval of increased SOB with exertion, LLE edema with weeping fluid. She has noted drainage increased to the LLE with hx of chronic lymphedema. Oxygen at PCP office was noted to be at 70% on initial intake. In the ER her Oxygen sat was 90%, placed on oxymask and she did recover to 95%. Sodium mildly elevated at 146, creat 1.32, BNP 254. She received 1L of IVF, and admitted for further management and treatment of acute CHF.HFrEF acute on chronic exacerbation- initially treated with IV Lasix with good urine output and improvement in sx. Seen by Cardiology during stay. Previous OTILIO from 06/03, moderately reduced LV systolic function with EF 30-40%. Repeat ECHO showed improvement of EF to 50-55%. She will be transitioned back to oral Lasix, recs for low sodium diet.LLE cellulitis with hx lymphedema- initially treated with IV vanco and zosyn. Seen by ID, no significant infection, change to PO doxy with recs for 7 days of treatment. Seen by wound care nurse who made recs as below. Rec outpt f/u in lymphedema clinic.Aflutter with controlled rate-back in aflutter, likely R/T morbid obesity. Stop amiodarone per cardiology, continue metoprolol and apixaban.chronic resp failure/COPD- no exacerbation noted. According to outpt pumonary office note from 10/27/23-pt has severe COPD with significantly decreased diffusion capacity. Pt had home O2 eval and required supplemental oxygen 3LPM continuous flow and was sent home with supplemental oxygen. According to the oxygen company she has refused home oxygen delivery at her home. She is currently requiring 1-2 L of supplemental oxygen AT REST.EMMANUEL- diagnosed to have sleep apnea, CPAP machine has not yet been delivered to her house.Wound care nurse recs:ABD AND BREAST FOLDS: cleanse with PH balanced wipes, pat dry with soft cloth, apply antifungal powder to assist with moisture management, be sure to dust off excess powder to prevent caking on skin and in folds. Tuck Interdry AG sheet into skin fold to wick and translocate moisture away from skin fold. Be sure to leave at least 2 inches of fabric exposed outside of skin fold. Change when soiled.GLUTEAL AREA: apply barrier cream to intergluteal fold and buttocks to protect against moisture and friction, apply twice daily and PRN.LEFT LOWER LEG: elevate both legs with pillows, be sure to float heels, cleanse with Home spray, apply vaseline to dry lower legs, cover open wound to left posterior lower leg with Durafiber AG, cover with ABDpad and gauze wrap, change daily. DISCHARGED TO SNF FOR SHORT TERM REHAB MEDS RECONCILED Luly Neely PA-C [address], [place], [address], [facility] 11/28/2023 13:09:22 12/13/2023 text/html Hospitalization Contact RecordFor follow up, patient reports hospital: [facility], admit date: (11/20/2023), date of discharge: (11/24/2023), and date of contact: (11/27/2023).Medicare covered inpatient stay? noTOC with in 48 working hours? yes MOLST on file? noDischarge Summary available? yes Pt was transferred from our office via ambulance to [facility] for eval of increased SOB with exertion, LLE edema with weeping fluid. She has noted drainage increased to the LLE with hx of chronic lymphedema. Oxygen at PCP office was noted to be at 70% on initial intake. In the ER her Oxygen sat was 90%, placed on oxymask and she did recover to 95%. Sodium mildly elevated at 146, creat 1.32, BNP 254. She received 1L of IVF, and admitted for further management and treatment of acute CHF. HFrEF acute on chronic exacerbation- initially treated with IV Lasix with good urine output and improvement in sx. Seen by Cardiology during stay. Previous OTILIO from 06/03, moderately reduced LV systolic function with EF 30-40%. Repeat ECHO showed improvement of EF to 50-55%. She will be transitioned back to oral Lasix, recs for low sodium diet. LLE cellulitis with hx lymphedema- initially treated with IV vanco and zosyn. Seen by ID, no significant infection, change to PO doxy with recs for 7 days of treatment. Seen by wound care nurse who made recs as below. Rec outpt f/u in lymphedema clinic. Aflutter with controlled rate-back in aflutter, likely R/T morbid obesity. Stop amiodarone per cardiology, continue metoprolol and apixaban. chronic resp failure/COPD- no exacerbation noted. [facility]pt has severe COPD with significantly decreased diffusion capacity. Pt had home O2 eval and required supplemental oxygen 3LPM continuous flow and was sent home with supplemental oxygen. According to the oxygen company she has refused home oxygen delivery at her home. She is currently requiring 1-2 L of supplemental oxygen AT REST.EMMANUEL- diagnosed to have sleep apnea, CPAP machine has not yet been delivered to her house. Wound care nurse recs:ABD AND BREAST FOLDS: cleanse with PH balanced wipes, pat dry with soft cloth, apply antifungal powder to assist with moisture management, be sure to dust off excess powder to prevent caking on skin and in folds. Tuck Interdry AG sheet into skin fold to wick and translocate moisture away from skin fold. Be sure to leave at least 2 inches of fabric exposed outside of skin fold. Change when soiled.GLUTEAL AREA: apply barrier cream to intergluteal fold and buttocks to protect against moisture and friction, apply twice daily and PRN. LEFT LOWER LEG: elevate both legs with pillows, be sure to float heels, cleanse with Home spray, apply vaseline to dry lower legs, cover open wound to left posterior lower leg with Durafiber AG, cover with ABDpad and gauze wrap, change daily. DISCHARGED TO SNF FOR SHORT TERM REHAB MEDS RECONCILED Gaby matamoros [facility] 12/26/2023 15:13:58 OBGyn Episode No OBEpisode recorded.
--- NOTE | 2024-07-10 17:59 | P.HPHOSP_ITS ---
History of Present Illness Date of Service: 07/10/24 Chief Complaint: Shortness of breaths 54-year-old morbidly obese female with a history of EMMANUEL (non- compliant with CPAP), HFpEF, and atrial flutter on Eliquis presenting to the ED with three days of cough, chest congestion, and shortness of breath. Her symptoms have gradually worsened. The cough is non-productive but associated with chest pain. She has no fever or chills but reports excessive sweating. She becomes easily winded with minimal exertion. On presentation, she was noted to be in respiratory distress and hypoxic, with oxygen saturations in the 70s to 80s, improving to >90% with supplemental oxygen via Oxymask. CXR showed cardiomegaly but no infiltrates. Flu and RSV were negative, but COVID-19 was positive. WBC count was 3.3. VBG showed pH 7.34, pCO2 53, and pO2 41. Her heart rate was elevated to 120, and ECG was consistent with atrial flutter. She reports adherence to her prescribed medications. ED treatment included Albuterol nebulizer and 10 mg IV Decadron. Review of Systems 2 Review of Systems: Gen: no fever Resp: + sob, + cough CV: no chest, + DWYER, no leg edema GI: No n/v, no abd pain Neuro: No confusion Yes all other systems are reviewed and are negative [facility] Medical History Acute on chronic combined systolic and diastolic CHF (congestive heart failure) Chronic heart failure with preserved ejection fraction (HFpEF) Atrial flutter Heart failure with reduced ejection fraction Atrial flutter with rapid ventricular response Morbid obesity Hypertension Social History Household Members: Family and Friend(s) Household Members Other:: roommates Housing: House Do you presently have visiting nurse or other home services: No Alcohol intake: former Comment: refusing alarm and camera Patient Tobacco Use Status: Current everyday Tobacco user Tobacco use type: Cigarette Cigarettes Per Day: 10 Years Smoked: 25 e-Cigarette/Vaping Use: Never Used Second Hand Smoke Exposure: No Use of substances other than those prescribed or required for medical reasons: No Advance Directives: Yes Advance Directives on File: Yes Advance Directives Date on File: 04/28/23 Do you have a plan to hurt others: No Plan Nutrition Risks: No Nutritional Risk Patient : No service: No Meds Allergies Allergy/AdvReac Type Severity Reaction Status Date / Time aspirin [From [place]] Allergy Mild Hives Verified 07/10/24 15:09 citric acid Allergy Mild Hives Verified 07/10/24 15:09 [From [place]] dextromethorphan Allergy Mild Hives Verified 07/10/24 15:09 [From NyQuil] doxylamine [From NyQuil] Allergy Mild Hives Verified 07/10/24 15:09 pseudoephedrine [From NyQuil] Allergy Mild Hives Verified 07/10/24 15:09 sodium bicarbonate Allergy Mild Hives Verified 07/10/24 15:09 [From [place]] Home Medications ?Medication ?Instructions ?Recorded ?Confirmed ?Last Taken ?Type cholecalciferol (vitamin D3) 50 50 mcg PO DAILY 11/20/23 07/10/24 07/10/24 History mcg (2,000 unit) capsule (Vitamin D3) zinc acetate 50 mg (zinc) capsule 50 mg PO DAILY 11/20/23 07/10/24 07/10/24 History umeclidinium 62.5 mcg-vilanterol 1 inh inhalation DAILY 07/10/24 07/10/24 07/10/24 History 25 mcg/actuation powdr for inhalation (Anoro Ellipta) Physical Exam 2 Vital Signs and Narrative: Vital Signs: Last Vital Signs Temp 98 F 07/10/24 15:02 Pulse 118 H 07/10/24 16:44 Resp 18 07/10/24 16:44 BP 140/94 H 07/10/24 15:02 Pulse Ox 85 L 07/10/24 15:02 BMI result Body Mass Index 60.5 Const: Other: Constitutional: Alert, in no distress, morbidly obese not distress Mental Status: Oriented to person, place and time. Eyes: Pupils are equal, round and reactive to light. Ear, Nose and Throat: Oropharynx clear, mucous membranes moist. Ears and nose without deformities. Trachea midline. Respiratory: Clear to auscultation. No wheezing, rales or rhonchi. Cardiovascular: S1 S2 iregular ireregular. No murmurs, rubs or gallops. Ext: lymphadema of both legs Gastrointestinal: Abdomen soft, non-tender, non-distended. Normal bowel sounds.? Neurologic: Cranial nerves II-XII grossly intact. No focal neurological deficits. Moves all extremities spontaneously.? Skin: No rashes or lesions.? Musculoskeletal: No cyanosis or clubbing. Psychiatric: Normal mood and affect? Results Labs 07/10/24 15:49 07/11/24 05:23 Labs: Laboratory Results - last 24 hr 07/10/24 07/10/24 15:49 15:55 MCV 107.4 H MCH 32.8 MCHC 30.5 L RDW 14.4 Plt Count 144 L MPV 10.3 Immature Gran % (Auto) 0.3 Neut % (Auto) 64.8 Lymph % (Auto) 26.1 Winkler % (Auto) 8.2 Eos % (Auto) 0.3 Baso % (Auto) 0.3 Lymph # (Auto) 0.9 L Winkler # (Auto) 0.3 Eos # (Auto) 0.0 Baso # (Auto) 0.0 Abs Immat Gran (auto) 0.01 Absolute Neuts (auto) 2.1 Absolute Nucleated RBC 0.020 H Nucleated RBC % (auto) 0.6 H VBG pH 7.34 VBG pCO2 53 VBG pO2 41 VBG HCO3 29 H VBG O2 Saturation 64.0 VBG Base Excess 2.6 Anion Gap 9 L Estim Creat Clear Calc 85.3 Estimated GFR 56 Random Glucose 98 Calcium 8.7 B-Natriuretic Peptide 188 H Influenza Type A (PCR) NEGATIVE Influenza Type B (PCR) NEGATIVE RSV RNA Qual (PCR) NEGATIVE SARS-CoV-2 RNA (RT-PCR) POSITIVE A Imaging Radiologist's Impressions: Impressions Chest X-Ray 07/10/24 16:00 IMPRESSION: Cardiomegaly. No active pulmonary disease. Electronically signed by: Sunny Daly MD 07/10/2024 04:49 PM [facility] Assessment and Plan (1) Acute hypoxic respiratory failure: Status: Acute (2) COVID-19: Status: Acute Plan 54-year-old morbidly obese female with a history of EMMANUEL, HFpEF, and atrial flutter on Eliquis presenting with acute hypoxic respiratory failure due to COVID-19. Acute hypoxic respiratory failure due to COVID-19, superimposed on chronic heart failure, morbid obesity, EMMANUEL, and probable hypoventilation syndrome. Supplemental oxygen by nasal cannula; if no improvement, transition to high- flow. Corticosteroid (Decadron). Bronchodilators (xopenex) by nebulizer given tachycardia empiric doxy for possible bronchitis Chronic HFpEF . IV diuretic x1. Chronic AFIB/flutter. Continue metoprolol. Eliquis for stroke prevention. Morbid obesity. Weight loss advised. EMMANUEL/hypoventilation syndrome ? Non-compliant with CPAP CPAP at bedtime. Hypertension. Continue metoprolol. chronic tobacco use d/o nicotine replacement DVT prophylaxis. Eliquis. Full code. Admitted for at least two midnights for management of acute hypoxic respiratory failure due to COVID-19 and EMMANUEL. Quality Stroke Does the patient have a stroke diagnosis?: No VTE Prior VTE?: No VTE Risk Level:: Medical - moderate - high VTE Device Contraindication: Treatment Not Indicated VTE Drug Contraindication: N/A - Med Ordered
[2024-07-10] MEDS: Furosemide 40 MG/4 ML VIAL IVPUSH (18:47)
--- NOTE | 2024-07-10 18:53 | PHA.MEDREC ---
Addendum entered by Parag Kumari [facility] 07/10/24 19:07: Med rec reviewed Original Note: Pharmacy Consult ? Medication Reconciliation Pharmacy has completed the medication reconciliation. Spoke to patent to confirm med list. Patient states she is no longer taking Semaglutide 0.25 mcg/0.5ml , and nicotine 7 mg patch. patient states she still takes Furosemide 40 mg daily, however last fill was 08/31/23 for 30 days. left on med rec because patient states she last took today.
[2024-07-10] MEDS: levalbuterol HCL 1.25 MG/3 ML VIAL.NEB INHALE (20:15)
[2024-07-10] MEDS: Doxycycline Monohydrate 100 MG CAPSULE PO (21:50)
[2024-07-10] MEDS: Apixaban 5 MG TABLET PO (21:50)
[2024-07-11] VITALS (18 sets, daily range): BP systolic 119–148; BP diastolic 69–113; PULSE 103–128; RESP 16–20; TEMP 36.4–37.2; O2SAT 90–99
[2024-07-11 05:50] LABS: Alanine Aminotransferase 28 U/L (0-31); Albumin Level 3.8 g/dL (3.5-5.0); Alkaline Phosphatase 124 U/L (39-117); Anion Gap 13 (12-20); Aspartate Amino Transferase 39 U/L (5-31); Bilirubin Total 0.6 mg/dL (0.0-1.0); Blood Urea Nitrogen 13 mg/dL (9-16); Calcium 8.2 mg/dL (8.4-10.2); Carbon Dioxide 31 mmol/L (22-29); Chloride 105 mmol/L (96-108); Creatinine Clr Calc Pharmacy 89.7; Estimated Glomerular Filt Rate 60; Glucose Random 132 mg/dL (60-115); Potassium 4.8 mmol/L (3.3-5.1); Sodium 144 mmol/L (135-145); Total Protein 7.8 g/dL (6.5-8.0)
[2024-07-11] MEDS: 0.9 % Sodium Chloride Flush 3 ML SYRINGE IVFLUSH ×4 (06:29→20:41)
[2024-07-11] MEDS: Nicotine 14 MG PATCH.TD24 TRANSDERMA (08:05)
[2024-07-11] MEDS: Apixaban 5 MG TABLET PO ×2 (08:06→20:29)
[2024-07-11] MEDS: Doxycycline Monohydrate 100 MG CAPSULE PO ×2 (08:06→20:29)
[2024-07-11] MEDS: Metoprolol Tartrate 5 MG/5 ML VIAL IVPUSH ×2 (08:39→16:40)
[2024-07-11] MEDS: levalbuterol HCL 1.25 MG/3 ML VIAL.NEB INHALE ×4 (08:44→19:04)
--- NOTE | 2024-07-11 09:24 | MHC.CM.PN ---
Patient lives with her Daughter/HCP/Sincere and Roommates and she dc'd to [facility] after last admission. Patient may benefit from a PT Eval to assist with disposition (Covid (+). Patient is non compliant with CPAP. CM has initiated and will follow for dc planning.
[2024-07-11] MEDS: Metoprolol Succinate ER 50 MG TAB.ER.24H PO (09:28)
[2024-07-11] MEDS: Spironolactone 25 MG TABLET PO (09:30)
[2024-07-11] MEDS: Cholecalciferol (Vitamin D3) 25 MCG TABLET 50 MCG PO (09:30)
[2024-07-11] MEDS: Furosemide 40 MG TABLET PO (09:30)
[2024-07-11] MEDS: dexAMETHasone sod phosphate 4 MG/ML VIAL 6 MG IVPUSH (10:35)
[2024-07-11] MEDS: PT OWN (Umeclidinium-Vilanterol [Anoro Ellipta] 62.5-25 mcg/actuation bl 1 EACH INHALE (10:45)
--- NOTE | 2024-07-11 11:55 | PC.NURSE ---
pt sat down to 80 when using commode, came back up quickly with increase in o2 to 5 lpm and rest in bed, now nad
--- NOTE | 2024-07-11 12:46 | P.PNIM_ITS ---
Subjective Subjective Date of Service: 07/11/24 Interval History: Follow up on acute hypoxic respiratory failure due to paula, everardoib with rvr she feels better than yesterday, however her heart rate has remained high Review of Systems Gen: no fever Resp: + sob, + cough CV: no chest, + DWYER, no leg edema GI: No n/v, no abd pain Neuro: No confusion Physical Exam 2 Vital Signs: Vital Signs: Last Vital Signs Temp 97.9 F 07/11/24 11:18 Pulse 125 H 07/11/24 12:09 Resp 17 07/11/24 12:09 BP 123/80 07/11/24 11:18 Pulse Ox 96 07/11/24 11:18 O2 Del Method Oxymask 07/11/24 11:18 O2 Flow Rate 2 07/11/24 11:18 Oxygen Flow Rate 4 07/10/24 18:38 BMI result Body Mass Index 60.5 Const: Other: Constitutional: Alert, in no distress, morbidly obese not distress Mental Status: Oriented to person, place and time. Respiratory: Clear to auscultation. No wheezing, rales or rhonchi. Cardiovascular: S1 S2 iregular ireregular. No murmurs, rubs or gallops. Ext: lymphadema of both legs Gastrointestinal: Abdomen soft, non-tender, non-distended. Normal bowel sounds.? Neurologic: Cranial nerves II-XII grossly intact. No focal neurological deficits. Moves all extremities spontaneously.? Skin: No rashes or lesions.? Musculoskeletal: No cyanosis or clubbing. Psychiatric: Normal mood and affect? Objective Data Active Medications Acetaminophen (Acetaminophen 325 Mg Tablet) 650 mg PO Q6H PRN PRN Reason: Pain, Mild 1-3,fever,headache Al Hydroxide/Mg Hydroxide (Magnesium Hydrox/Alum Hydrox 30 Ml Oral.Susp) 30 ml PO Q4H PRN PRN Reason: Heartburn Apixaban (Apixaban 5 Mg Tablet) 5 mg PO BID [facility] Last Admin: 07/11/24 08:06 Dose: 5 mg Documented By: JASIEL Benzonatate (Benzonatate 100 Mg Capsule) 100 mg PO TID PRN PRN Reason: Cough Calcium Carbonate (Calcium Carbonate 750 Mg Tab.Chew) 750 mg PO Q4H PRN PRN Reason: Heartburn Dexamethasone Sodium Phosphate (Dexamethasone Sod Phosphate 4 Mg/Ml Vial) 6 mg IVPUSH DAILY [facility] Last Admin: 07/11/24 10:35 Dose: 6 mg Documented By: JASIEL Digoxin (Digoxin 0.5 Mg/2 Ml Ampul) 0.125 mg IVPUSH Q6H [facility]; Protocol Stop: 07/12/24 00:46 Doxycycline Monohydrate (Doxycycline Monohydrate 100 Mg Capsule) 100 mg PO BID [facility] Last Admin: 07/11/24 08:06 Dose: 100 mg Documented By: JASIEL Furosemide (Furosemide 40 Mg Tablet) 40 mg PO DAILY [facility]; Protocol Last Admin: 07/11/24 09:30 Dose: 40 mg Documented By: JASIEL Levalbuterol HCl (Levalbuterol Hcl 1.25 Mg/3 Ml Vial.Neb) 1.25 mg INHALE RQ4H WHILE AWAKE [facility] Last Admin: 07/11/24 12:07 Dose: 1.25 mg Documented By: MAYELA Levalbuterol HCl (Levalbuterol Hcl 1.25 Mg/3 Ml Vial.Neb) 1.25 mg INHALE Q2H PRN PRN Reason: Shortness of Breath/Wheezing Magnesium Hydroxide (Milk Of Magnesia 30 Ml Oral.Susp) 30 ml PO DAILY PRN PRN Reason: Constipation Melatonin (Melatonin 3 Mg Tablet) 6 mg PO BEDTIME PRN PRN Reason: Insomnia Metoprolol Succinate (Metoprolol Succinate Er 50 Mg Tab.Er.24h) 50 mg PO DAILY [facility]; Protocol Last Admin: 07/11/24 09:28 Dose: 50 mg Documented By: JASIEL Nicotine (Nicotine 14 Mg Patch.Td24) 14 mg TRANSDERMA DAILY [facility] Last Admin: 07/11/24 08:05 Dose: 14 mg Documented By: JASIEL Nicotine Polacrilex (Nicotine Polacrilex 2 Mg Gum) 2 mg BUCCAL Q2H PRN PRN Reason: Nicotine Cravings Pt Own (Umeclidinium -Vilanterol [Anoro Ellipta] 62.5-25 Mcg /Actuation Bl 1 inhalation INHALE RDAILY [facility] Last Admin: 07/11/24 10:45 Dose: 1 inhalation Documented By: MAYELA Ondansetron HCl (Ondansetron Hcl 4 Mg/2 Ml Vial) 4 mg IVPUSH Q8H PRN PRN Reason: Nausea and Vomiting Polyethylene Glycol (Polyethylene Glycol 3350 17 Gm Powd.Pack) 17 gm PO DAILY PRN PRN Reason: Constipation Sodium Chloride (0.9 % Sodium Chloride Flush 3 Ml Syringe) 3 ml IVFLUSH QSHIFT [facility] Last Admin: 07/11/24 08:07 Dose: 3 ml Documented By: JASIEL Spironolactone (Spironolactone 25 Mg Tablet) 25 mg PO DAILY [facility]; Protocol Last Admin: 07/11/24 09:30 Dose: 25 mg Documented By: JASIEL Vitamin D (Cholecalciferol (Vitamin D3) 25 Mcg Tablet) 50 mcg PO DAILY [facility] Last Admin: 07/11/24 09:30 Dose: 50 mcg Documented By: JASIEL Labs 07/10/24 15:49 07/11/24 05:23 Labs: Laboratory Results - last 24 hr 07/10/24 07/10/24 07/11/24 15:49 15:55 05:23 MCV 107.4 H MCH 32.8 MCHC 30.5 L RDW 14.4 Plt Count 144 L MPV 10.3 Immature Gran % (Auto) 0.3 Neut % (Auto) 64.8 Lymph % (Auto) 26.1 Becker % (Auto) 8.2 Eos % (Auto) 0.3 Baso % (Auto) 0.3 Lymph # (Auto) 0.9 L Becker # (Auto) 0.3 Eos # (Auto) 0.0 Baso # (Auto) 0.0 Abs Immat Gran (auto) 0.01 Absolute Neuts (auto) 2.1 Absolute Nucleated RBC 0.020 H Nucleated RBC % (auto) 0.6 H VBG pH 7.34 VBG pCO2 53 VBG pO2 41 VBG HCO3 29 H VBG O2 Saturation 64.0 VBG Base Excess 2.6 Anion Gap 9 L 13 Estim Creat Clear Calc 85.3 89.7 Estimated GFR 56 60 Random Glucose 98 132 H Calcium 8.7 8.2 L Total Bilirubin 0.6 AST 39 H ALT 28 Alkaline Phosphatase 124 H B-Natriuretic Peptide 188 H Total Protein 7.8 Albumin 3.8 Influenza Type A (PCR) NEGATIVE Influenza Type B (PCR) NEGATIVE RSV RNA Qual (PCR) NEGATIVE SARS-CoV-2 RNA (RT-PCR) POSITIVE A Assessment and Plan (1) COVID-19: Status: Acute (2) Chronic heart failure with preserved ejection fraction (HFpEF): Status: Acute (3) Paroxysmal atrial flutter: Status: Acute Plan 54-year-old morbidly obese female with a history of EMMANUEL, HFpEF, and atrial flutter on Eliquis presenting with acute hypoxic respiratory failure due to COVID-19. Acute hypoxic respiratory failure due to COVID-19, superimposed on chronic heart failure, morbid obesity, EMMANUEL, and probable hypoventilation syndrome. Hypoxia improved Supplemental oxygen by nasal cannula; if no improvement, transition to high-flow if needed Corticosteroid (Decadron) 6 mg daily Bronchodilators (xopenex) by nebulizer given tachycardia empiric doxy for possible bronchitis Chronic HFpEF . IV diuretic x1 on admission continue home lasix Chronic AFIB/flutter., peristent tachcyardia Continue metoprolol. dig load, cardiology consultation if peristent high Eliquis for stroke prevention. Morbid obesity. Weight loss advised. EMMANUEL/hypoventilation syndrome ? Non-compliant with CPAP CPAP at bedtime. Hypertension. Continue metoprolol. chronic tobacco use d/o nicotine replacement DVT prophylaxis. Eliquis. Full code. Need for inpatient: covid related acute hypoxic respiratory failure Quality Stroke Does the patient have a stroke diagnosis?: No VTE Prior VTE?: No VTE Risk Level:: Medical - moderate - high VTE Device Contraindication: Treatment Not Indicated VTE Drug Contraindication: N/A - Med Ordered
[2024-07-11] MEDS: Digoxin 0.5 MG/2 ML AMPUL 0.125 MG IVPUSH ×2 (13:18→18:35)
--- NOTE | 2024-07-11 20:05 | PM.EVENT ---
Event Note Date of Service: 07/11/24 Event Note: no improvement in heart rate after dig, will start diltiazem drip and cardio eval Time Spent With Patient Time: Total time managing care of this patient today ____ minutes.
[2024-07-11] MEDS: dilTIAZem HCL 125 MG in 0.9 % Sodium Chloride 100 ML IVCONT (20:39)
[2024-07-12] VITALS (13 sets, daily range): BP systolic 103–130; BP diastolic 66–84; PULSE 82–124; RESP 14–20; TEMP 36–36.7; O2SAT 89–97
[2024-07-12] MEDS: Digoxin 0.5 MG/2 ML AMPUL 0.125 MG IVPUSH (01:50)
[2024-07-12] MEDS: dilTIAZem HCL 125 MG in 0.9 % Sodium Chloride 100 ML 10 MG IVCONT (05:07)
--- NOTE | 2024-07-12 05:21 | MHC.EVENTN ---
Diltizem drip titrated down to 10mg/hr at 0245
[2024-07-12] MEDS: Cholecalciferol (Vitamin D3) 25 MCG TABLET 50 MCG PO (07:46)
[2024-07-12] MEDS: Doxycycline Monohydrate 100 MG CAPSULE PO ×2 (07:46→20:15)
[2024-07-12] MEDS: Metoprolol Succinate ER 50 MG TAB.ER.24H PO (07:46)
[2024-07-12] MEDS: Furosemide 40 MG TABLET PO (07:46)
[2024-07-12] MEDS: dexAMETHasone sod phosphate 4 MG/ML VIAL 6 MG IVPUSH (07:46)
[2024-07-12] MEDS: Apixaban 5 MG TABLET PO ×2 (07:46→20:15)
[2024-07-12] MEDS: 0.9 % Sodium Chloride Flush 3 ML SYRINGE IVFLUSH ×3 (07:46→20:26)
[2024-07-12] MEDS: Spironolactone 25 MG TABLET PO (07:47)
[2024-07-12] MEDS: PT OWN (Umeclidinium-Vilanterol [Anoro Ellipta] 62.5-25 mcg/actuation bl 1 EACH INHALE (08:01)
[2024-07-12] MEDS: levalbuterol HCL 1.25 MG/3 ML VIAL.NEB INHALE ×4 (08:02→19:09)
--- NOTE | 2024-07-12 10:15 | PM.CNCAR ---
History of Present Illness History of Present Illness Date of Service: 07/12/24 Chief complaint: Covid,acute resp failure,afib with rvr Narrative: This is a cardiology consultation regarding atrial flutter with rapid ventricular response. Generally seen by Dr. Kumar. According to his note, she has a history of paroxysmal atrial flutter and has required cardioversion in the past but not maintained on any antiarrhythmic therapy. Considered to be at high-risk for recurring arrhythmias due to obesity, sleep apnea and hypertension. She also has a history of cardiomyopathy with improved LVEF and thought to be from tachycardia mediated etiology. She does have chronic heart failure with preserved ejection fraction. Has obstructive sleep apnea/CPAP history. Current admission is because of cough, shortness of breath and thought to be hypoxic. She is COVID positive. From the cardiac standpoint, diagnosed with flutter. She has been admitted for further care. On a diltiazem drip. She states she is feeling better. Apart from shortness of breath he does not have any other complaints. Review of Systems Review of Systems: Yes all other systems are reviewed and are negative Constitutional: Constitutional: Reports as per HPI and Reports no additional constitutional complaints Eyes: Eyes: Reports as per HPI and Denies no additional eye complaints ENT: Denies system reviewed and no additional complaints, except as documented and Reports as per HPI Cardiovascular: Cardiovascular: Reports as per HPI, Reports no additional cardiovascular complaints, Denies acrocyanosis, Denies cool extremities, Denies chest pain, Denies leg edema, Denies lightheadedness, Denies palpitations and Reports dyspnea Respiratory: Respiratory: Reports as per HPI, Denies no additional respiratory complaints and Reports dyspnea Gastrointestinal: Gastrointestinal: Reports as per HPI and Denies no additional gastrointestinal complaints Genitourinary: Genitourinary: Reports as per HPI Musculoskeletal: Musculoskeletal: Reports no additional musculoskeletal complaints and Reports as per HPI Integumentary/Breasts: Skin/Breast: Reports system reviewed and no additional complaints, except as docu Neurologic: Reports system reviewed and no additional complaints, except as documented and Reports as per HPI Psychiatric: Psychiatric: Reports no additional psychiatric complaints and Reports as per HPI Endocrine: Endocrine: Reports no additional endocrine complaints, Reports as per HPI and Denies palpitations Hematologic/Lymphatic: Hematologic/Lymphatic: Reports no additional hematologic/lymphatic complaints and Reports as per HPI Allergic/Immunologic: Allergic/Immunologic: Reports no additional allergic/immunologic complaints and Reports as per [facility] Past Medical History Medical History (Updated 07/12/24 @ 10:23 by Alfredo Roth MD) Atrial flutter with rapid ventricular response Acute on chronic combined systolic and diastolic CHF (congestive heart failure) Chronic heart failure with preserved ejection fraction (HFpEF) Atrial flutter Heart failure with reduced ejection fraction Morbid obesity Hypertension Family History Pertinent family history: No pertinent family history Social History Social History Household Members: Family and Friend(s) Household Members Other:: roommates [facility] Do you presently have visiting nurse or other home services: No Alcohol intake: former Comment: refusing alarm and camera Patient Tobacco Use Status: Current everyday Tobacco user Tobacco use type: Cigarette Cigarettes Per Day: 10 Years Smoked: 25 e-Cigarette/Vaping Use: Currently Using Second Hand Smoke Exposure: No Advance Directives Date on File: 04/28/23 service: No Meds Allergies Allergy/AdvReac Type Severity Reaction Status Date / Time aspirin [From [place]] Allergy Mild Hives Verified 07/10/24 15:09 citric acid Allergy Mild Hives Verified 07/10/24 15:09 [From [place]] dextromethorphan Allergy Mild Hives Verified 07/10/24 15:09 [From NyQuil] doxylamine [From NyQuil] Allergy Mild Hives Verified 07/10/24 15:09 pseudoephedrine [From NyQuil] Allergy Mild Hives Verified 07/10/24 15:09 sodium bicarbonate Allergy Mild Hives Verified 07/10/24 15:09 [From [place]] Active Medications: Current Medications Acetaminophen (Acetaminophen 325 Mg Tablet) 650 mg PO Q6H PRN PRN Reason: Pain, Mild 1-3,fever,headache Al Hydroxide/Mg Hydroxide (Magnesium Hydrox/Alum Hydrox 30 Ml Oral.Susp) 30 ml PO Q4H PRN PRN Reason: Heartburn Apixaban (Apixaban 5 Mg Tablet) 5 mg PO BID [facility] Last Admin: 07/12/24 07:46 Dose: 5 mg Benzonatate (Benzonatate 100 Mg Capsule) 100 mg PO TID PRN PRN Reason: Cough Calcium Carbonate (Calcium Carbonate 750 Mg Tab.Chew) 750 mg PO Q4H PRN PRN Reason: Heartburn Dexamethasone Sodium Phosphate (Dexamethasone Sod Phosphate 4 Mg/Ml Vial) 6 mg IVPUSH DAILY [facility] Last Admin: 07/12/24 07:46 Dose: 6 mg Doxycycline Monohydrate (Doxycycline Monohydrate 100 Mg Capsule) 100 mg PO BID [facility] Last Admin: 07/12/24 07:46 Dose: 100 mg Furosemide (Furosemide 40 Mg Tablet) 40 mg PO DAILY [facility]; Protocol Last Admin: 07/12/24 07:46 Dose: 40 mg Diltiazem HCl 125 mg/ Sodium (Chloride) 125 mls @ 0 mls/hr IVCONT .Q0M [facility]; Protocol Last Titration: 07/12/24 09:45 Dose: 10 mg/hr, 10 mls/hr Levalbuterol HCl (Levalbuterol Hcl 1.25 Mg/3 Ml Vial.Neb) 1.25 mg INHALE RQ4H WHILE AWAKE [facility] Last Admin: 07/12/24 08:02 Dose: 1.25 mg Levalbuterol HCl (Levalbuterol Hcl 1.25 Mg/3 Ml Vial.Neb) 1.25 mg INHALE Q2H PRN PRN Reason: Shortness of Breath/Wheezing Magnesium Hydroxide (Milk Of Magnesia 30 Ml Oral.Susp) 30 ml PO DAILY PRN PRN Reason: Constipation Melatonin (Melatonin 3 Mg Tablet) 6 mg PO BEDTIME PRN PRN Reason: Insomnia Metoprolol Succinate (Metoprolol Succinate Er 50 Mg Tab.Er.24h) 50 mg PO DAILY [facility]; Protocol Last Admin: 07/12/24 07:46 Dose: 50 mg Metoprolol Tartrate (Metoprolol Tartrate 5 Mg/5 Ml Vial) 5 mg IVPUSH Q6H PRN; Protocol PRN Reason: tachycardia Nicotine (Nicotine 14 Mg Patch.Td24) 14 mg TRANSDERMA DAILY [facility] Last Admin: 07/12/24 07:47 Dose: Not Given Nicotine Polacrilex (Nicotine Polacrilex 2 Mg Gum) 2 mg BUCCAL Q2H PRN PRN Reason: Nicotine Cravings Pt Own (Umeclidinium -Vilanterol [Anoro Ellipta] 62.5-25 Mcg /Actuation Bl 1 inhalation INHALE RDAILY [facility] Last Admin: 07/12/24 08:01 Dose: 1 inhalation Ondansetron HCl (Ondansetron Hcl 4 Mg/2 Ml Vial) 4 mg IVPUSH Q8H PRN PRN Reason: Nausea and Vomiting Polyethylene Glycol (Polyethylene Glycol 3350 17 Gm Powd.Pack) 17 gm PO DAILY PRN PRN Reason: Constipation Sodium Chloride (0.9 % Sodium Chloride Flush 3 Ml Syringe) 3 ml IVFLUSH QSHIFT [facility] Last Admin: 07/12/24 07:46 Dose: 3 ml Spironolactone (Spironolactone 25 Mg Tablet) 25 mg PO DAILY [facility]; Protocol Last Admin: 07/12/24 07:47 Dose: 25 mg Vitamin D (Cholecalciferol (Vitamin D3) 25 Mcg Tablet) 50 mcg PO DAILY [facility] Last Admin: 07/12/24 07:46 Dose: 50 mcg Home Medications ?Medication ?Instructions ?Recorded ?Confirmed ?Last Taken ?Type cholecalciferol (vitamin D3) 50 50 mcg PO DAILY 11/20/23 07/10/24 07/10/24 History mcg (2,000 unit) capsule (Vitamin D3) zinc acetate 50 mg (zinc) capsule 50 mg PO DAILY 11/20/23 07/10/24 07/10/24 History umeclidinium 62.5 mcg-vilanterol 1 inh inhalation DAILY 07/10/24 07/10/24 07/10/24 History 25 mcg/actuation powdr for inhalation (Anoro Ellipta) Physical Exam Vital Signs: Vital Signs: Last Vital Signs Temp 97.5 F 07/12/24 07:30 Pulse 102 H 07/12/24 08:03 Resp 20 07/12/24 08:03 BP 123/84 07/12/24 07:47 Pulse Ox 91 L 07/12/24 07:30 O2 Del Method Nasal Cannula 07/12/24 07:30 O2 Flow Rate 2 07/12/24 07:30 Oxygen Flow Rate 4 07/10/24 18:38 BMI result Body Mass Index 60.5 Const: General: comfortable and no acute distress Orientation/consciousness: patient oriented x3 HEENT: Other: Unremarkable Head: Yes normal to inspection Neck: Neck: Yes normal visual inspection Chest: Chest palpation & inspection: normal inspection of the chest Resp: Auscultation: diminished lung sounds Cardio: Palpation: normal PMI Heart sounds: S1 normal heart sound present, S2 normal heart sound present, no gallops, no murmurs and no rubs GI: Palpation (GI): Soft to palpation Back/Spine/Pelvis: Other: unremarkable Skin: General skin exam: no rashes or lesions noted Neuro: General: patient oriented x3 Extrem: Other: Chronic changes Psych: Mental Status: mental status grossly normal Objective Labs and Meds 07/10/24 15:49 07/11/24 05:23 ECG Interpretation: EKG with atrial flutter at a rate of 125/Min. Prior EKG from February shows sinus rhythm. Assessment and Plan (1) Atrial flutter with rapid ventricular response: Status: Acute (2) Acute on chronic diastolic (congestive) heart failure: Status: Acute (3) COVID-19: Status: Acute Plan Cardiac BNP is just about her baseline. She is COVID positive. Chest x-ray shows cardiomegaly. No active disease. For outpatient meds, she is on metoprolol succinate 50 mg daily. On Eliquis. Currently on diltiazem drip. As the rate is not really fast, okay to transition to p.o. meds. If necessary, add digoxin. Consider outpatient cardioversion/ablation, but overall high risk for arrhythmias due to obesity. With regard to hypoxia/respiratory failure, suspect multifactorial etiology. That could be some component of heart failure but may not be the main issue. Any case, empiric diuretics. Procedures Date of Service Date of Service: 07/12/24
--- NOTE | 2024-07-12 11:16 | MHC.CM.PN ---
PER MD ROUNDS, PT WILL LIKELY BE HERE THROUGH THE WEEKEND DCP TBD PENDING PT EVAL HOME VS STR
[2024-07-12] MEDS: dilTIAZem HCL 125 MG in 0.9 % Sodium Chloride 100 ML 15 MG IVCONT (16:30)
--- NOTE | 2024-07-12 17:39 | P.PNIM_ITS ---
Subjective Subjective Date of Service: 07/12/24 Interval History: Feeling better, persistent tachycardia.. on IV Cardizem Physical Exam 2 Vital Signs: Vital Signs: Last Vital Signs Temp 98.1 F 07/12/24 15:18 Pulse 122 H 07/12/24 15:39 Resp 17 07/12/24 15:39 BP 130/82 07/12/24 15:18 Pulse Ox 94 07/12/24 15:18 O2 Del Method Nasal Cannula 07/12/24 15:18 O2 Flow Rate 2 07/12/24 15:18 Oxygen Flow Rate 4 07/10/24 18:38 BMI result Body Mass Index 60.5 Const: Other: Constitutional: Alert, in no distress, morbidly obese not distress Mental Status: Oriented to person, place and time. Respiratory: Clear to auscultation. No wheezing, rales or rhonchi. Cardiovascular: S1 S2 iregular ireregular. No murmurs, rubs or gallops. Ext: lymphadema of both legs Gastrointestinal: Abdomen soft, non-tender, non-distended. Normal bowel sounds.? Neurologic: Cranial nerves II-XII grossly intact. No focal neurological deficits. Moves all extremities spontaneously.? Skin: No rashes or lesions.? Musculoskeletal: No cyanosis or clubbing. Psychiatric: Normal mood and affect? Objective Data Active Medications Acetaminophen (Acetaminophen 325 Mg Tablet) 650 mg PO Q6H PRN PRN Reason: Pain, Mild 1-3,fever,headache Al Hydroxide/Mg Hydroxide (Magnesium Hydrox/Alum Hydrox 30 Ml Oral.Susp) 30 ml PO Q4H PRN PRN Reason: Heartburn Apixaban (Apixaban 5 Mg Tablet) 5 mg PO BID [facility] BEDS AT [facility] Last Admin: 07/12/24 07:46 Dose: 5 mg Documented By: JAVIER Benzonatate (Benzonatate 100 Mg Capsule) 100 mg PO TID PRN PRN Reason: Cough Calcium Carbonate (Calcium Carbonate 750 Mg Tab.Chew) 750 mg PO Q4H PRN PRN Reason: Heartburn Dexamethasone Sodium Phosphate (Dexamethasone Sod Phosphate 4 Mg/Ml Vial) 6 mg IVPUSH DAILY [facility] 234 BEDS AT [facility] Last Admin: 07/12/24 07:46 Dose: 6 mg Documented By: JAVIER Doxycycline Monohydrate (Doxycycline Monohydrate 100 Mg Capsule) 100 mg PO BID [facility]CLUDE 234 BEDS AT [facility] Last Admin: 07/12/24 07:46 Dose: 100 mg Documented By: JAVIER Furosemide (Furosemide 40 Mg Tablet) 40 mg PO DAILY [facility] 234 BEDS AT [facility]; Protocol Last Admin: 07/12/24 07:46 Dose: 40 mg Documented By: JAVIER Diltiazem HCl 125 mg/ Sodium (Chloride) 125 mls @ 0 mls/hr IVCONT .Q0M [facility]S INCLUDE 234 BEDS AT THE [facility]; Protocol Last Admin: 07/12/24 16:30 Dose: 15 mg/hr, 15 mls/hr Documented By: JAVIER Levalbuterol HCl (Levalbuterol Hcl 1.25 Mg/3 Ml Vial.Neb) 1.25 mg INHALE RQ4H WHILE AWAKE [facility]S INCLUDE 234 BEDS AT THE [facility] Last Admin: 07/12/24 15:39 Dose: 1.25 mg Documented By: CLARITA Levalbuterol HCl (Levalbuterol Hcl 1.25 Mg/3 Ml Vial.Neb) 1.25 mg INHALE Q2H PRN PRN Reason: Shortness of Breath/Wheezing Magnesium Hydroxide (Milk Of Magnesia 30 Ml Oral.Susp) 30 ml PO DAILY PRN PRN Reason: Constipation Melatonin (Melatonin 3 Mg Tablet) 6 mg PO BEDTIME PRN PRN Reason: Insomnia Metoprolol Succinate (Metoprolol Succinate Er 50 Mg Tab.Er.24h) 50 mg PO DAILY [facility] 234 BEDS AT [facility]; Protocol Last Admin: 07/12/24 07:46 Dose: 50 mg Documented By: JAVIER Metoprolol Tartrate (Metoprolol Tartrate 5 Mg/5 Ml Vial) 5 mg IVPUSH Q6H PRN; Protocol PRN Reason: tachycardia Nicotine (Nicotine 14 Mg Patch.Td24) 14 mg TRANSDERMA DAILY [facility]S [facility]CLUDE 234 BEDS AT [facility] Last Admin: 07/12/24 07:47 Dose: Not Given Documented By: JAVIER Non-Admin Reason: Patient Refused Nicotine Polacrilex (Nicotine Polacrilex 2 Mg Gum) 2 mg BUCCAL Q2H PRN PRN Reason: Nicotine Cravings Pt Own (Umeclidinium -Vilanterol [Anoro Ellipta] 62.5-25 Mcg /Actuation Bl 1 inhalation INHALE RDAILY COUNTS INCLUDE 234 BEDS AT THE [facility] Last Admin: 07/12/24 08:01 Dose: 1 inhalation Documented By: GARCIA Ondansetron HCl (Ondansetron Hcl 4 Mg/2 Ml Vial) 4 mg IVPUSH Q8H PRN PRN Reason: Nausea and Vomiting Polyethylene Glycol (Polyethylene Glycol 3350 17 Gm Powd.Pack) 17 gm PO DAILY PRN PRN Reason: Constipation Sodium Chloride (0.9 % Sodium Chloride Flush 3 Ml Syringe) 3 ml IVFLUSH QSHIFT COUNTS INCLUDE 234 BEDS AT THE [facility] Last Admin: 07/12/24 16:31 Dose: 3 ml Documented By: JAVIER Spironolactone (Spironolactone 25 Mg Tablet) 25 mg PO DAILY [facility]CLUDE 234 BEDS AT [facility]; Protocol Last Admin: 07/12/24 07:47 Dose: 25 mg Documented By: JAVIER Vitamin D (Cholecalciferol (Vitamin D3) 25 Mcg Tablet) 50 mcg PO DAILY [facility]CLUDE 234 BEDS AT THE [facility] Last Admin: 07/12/24 07:46 Dose: 50 mcg Documented By: JAVIER Labs 07/10/24 15:49 07/11/24 05:23 Assessment and Plan (1) COVID-19: Status: Acute (2) Chronic heart failure with preserved ejection fraction (HFpEF): Status: Acute (3) Paroxysmal atrial flutter: Status: Acute Plan 54-year-old morbidly obese female with a history of EMMANUEL, HFpEF, and atrial flutter on Eliquis presenting with acute hypoxic respiratory failure due to COVID-19. Acute hypoxic respiratory failure due to COVID-19, superimposed on chronic heart failure, morbid obesity, EMMANUEL, and probable hypoventilation syndrome. Hypoxia improved Supplemental oxygen by nasal cannula; if no improvement, transition to high-flow if needed Corticosteroid (Decadron) 6 mg daily for 7 to 10 days Bronchodilators (xopenex) by nebulizer given tachycardia empiric doxy for possible bronchitis Chronic HFpEF . IV diuretic x1 on admission continue home lasix Chronic AFIB/flutter., peristent tachcyardia Continue metoprolol. dig load yes, oral dig 0.25 daily, cardiology recommendation noted iv cardizem drip Eliquis for stroke prevention. Morbid obesity. Weight loss advised. EMMANUEL/hypoventilation syndrome ? Non-compliant with CPAP CPAP at bedtime. Hypertension. Continue metoprolol. chronic tobacco use d/o nicotine replacement DVT prophylaxis. Eliquis. Full code. Need for inpatient: covid related acute hypoxic respiratory failure Quality Stroke Does the patient have a stroke diagnosis?: No VTE Prior VTE?: No VTE Risk Level:: Medical - moderate - high VTE Device Contraindication: Treatment Not Indicated VTE Drug Contraindication: N/A - Med Ordered
[2024-07-12] MEDS: Digoxin 0.25 MG TABLET PO (18:48)
[2024-07-12] MEDS: dilTIAZem HCL 30 MG TABLET PO (21:31)
[2024-07-13] VITALS (18 sets, daily range): BP systolic 127–145; BP diastolic 80–96; PULSE 98–124; RESP 16–20; TEMP 35.9–37; O2SAT 85–100
[2024-07-13] MEDS: dilTIAZem HCL 30 MG TABLET PO ×4 (03:10→19:26)
[2024-07-13] MEDS: dexAMETHasone sod phosphate 4 MG/ML VIAL 6 MG IVPUSH (09:13)
[2024-07-13] MEDS: Cholecalciferol (Vitamin D3) 25 MCG TABLET 50 MCG PO (09:13)
[2024-07-13] MEDS: Furosemide 40 MG TABLET PO (09:14)
[2024-07-13] MEDS: Metoprolol Succinate ER 50 MG TAB.ER.24H PO (09:14)
[2024-07-13] MEDS: Apixaban 5 MG TABLET PO ×2 (09:14→19:25)
[2024-07-13] MEDS: Digoxin 0.25 MG TABLET PO (09:15)
[2024-07-13] MEDS: 0.9 % Sodium Chloride Flush 3 ML SYRINGE IVFLUSH ×3 (09:15→19:36)
[2024-07-13] MEDS: Doxycycline Monohydrate 100 MG CAPSULE PO ×2 (09:15→19:26)
[2024-07-13] MEDS: Spironolactone 25 MG TABLET PO (09:15)
--- NOTE | 2024-07-13 09:59 | PM.PNCARD ---
Subjective Subjective Date of Service: 07/13/24 Interval history: She states she is feeling fine. Still in atrial flutter. Rate about 120/Min. Overnight, much lower. Review of Systems Review of Systems Yes all other systems are reviewed and are negative Constitutional: Reports as per HPI and Reports no additional constitutional complaints Eyes: Reports as per HPI and Denies no additional eye complaints Denies system reviewed and no additional complaints, except as documented and Reports as per HPI Cardiovascular: Reports as per HPI, Reports no additional cardiovascular complaints, Denies acrocyanosis, Denies cool extremities, Denies chest pain, Denies leg edema, Denies lightheadedness, Denies palpitations and Reports dyspnea Respiratory: Reports as per HPI, Denies no additional respiratory complaints and Reports dyspnea Gastrointestinal: Reports as per HPI and Denies no additional gastrointestinal complaints Musculoskeletal: Reports no additional musculoskeletal complaints and Reports as per HPI Skin/Breast: Reports system reviewed and no additional complaints, except as docu Reports system reviewed and no additional complaints, except as documented and Reports as per HPI Psychiatric: Reports no additional psychiatric complaints and Reports as per HPI Endocrine: Reports no additional endocrine complaints, Reports as per HPI and Denies palpitations Hematologic/Lymphatic: Reports no additional hematologic/lymphatic complaints and Reports as per HPI Allergic/Immunologic: Reports no additional allergic/immunologic complaints and Reports as per HPI Physical Exam Vital Signs: Last Vital Signs Temp 97.5 F 07/13/24 08:00 Pulse 104 H 07/13/24 09:14 Resp 20 07/13/24 08:00 BP 128/80 07/13/24 09:14 Pulse Ox 94 07/13/24 08:00 O2 Del Method Oxymask 07/13/24 08:00 O2 Flow Rate 2 07/13/24 08:00 Oxygen Flow Rate 4 07/10/24 18:38 BMI result Body Mass Index 60.5 Const General: comfortable and no acute distress Orientation/consciousness: patient oriented x3 HEENT Other: Unremarkable Head: Yes normal to inspection Neck Neck: Yes normal visual inspection Chest Chest palpation & inspection: normal inspection of the chest Resp Auscultation: diminished lung sounds Cardio Palpation: normal PMI Heart sounds: S1 normal heart sound present, S2 normal heart sound present, no gallops, no murmurs and no rubs GI Palpation (GI): Soft to palpation Back/Spine/Pelvis Other: unremarkable Skin General skin exam: no rashes or lesions noted Neuro General: patient oriented x3 Extrem Other: Chronic changes Psych Mental Status: mental status grossly normal Objective Labs and Meds 07/10/24 15:49 07/11/24 05:23 Progress Note: A&P Assessment and plan (1) Atrial flutter with rapid ventricular response: Status: Acute (2) Acute on chronic diastolic (congestive) heart failure: Status: Acute (3) COVID-19: Status: Acute Plan Cardiac BNP is just about her baseline. She is COVID positive. Chest x-ray shows cardiomegaly. No active disease. For outpatient meds, she is on metoprolol succinate 50 mg daily. On Eliquis. Off diltiazem drip. It seems that she got some digoxin. Rates slightly fast but nothing profound. We can probably add digoxin versus oral diltiazem. Continue anticoagulation. Outpatient cardioversion can be considered versus ablation. With regard to hypoxia/respiratory failure, suspect multifactorial etiology. That could be some component of heart failure but may not be the main issue. Any case, empiric diuretics. Time Spent With Patient Time: Total time managing care of this patient today ____ minutes. Progress Note: Quality Stroke Does the patient have a stroke diagnosis?: No Procedures Date of Service Date of Service: 07/13/24
--- NOTE | 2024-07-13 11:22 | P.PNIM_ITS ---
Subjective Subjective Date of Service: 07/13/24 Interval History: Feels better, tachcyardia is also better Physical Exam 2 Vital Signs: Vital Signs: Last Vital Signs Temp 97.5 F 07/13/24 08:00 Pulse 104 H 07/13/24 09:14 Resp 20 07/13/24 08:00 BP 128/80 07/13/24 09:14 Pulse Ox 94 07/13/24 08:00 O2 Del Method Oxymask 07/13/24 08:00 O2 Flow Rate 2 07/13/24 08:00 Oxygen Flow Rate 4 07/10/24 18:38 BMI result Body Mass Index 60.5 Const: Other: Constitutional: Alert, in no distress, morbidly obese not distress Mental Status: Oriented to person, place and time. Respiratory: Clear to auscultation. No wheezing, rales or rhonchi. Cardiovascular: S1 S2 iregular ireregular. No murmurs, rubs or gallops. Ext: lymphadema of both legs Gastrointestinal: Abdomen soft, non-tender, non-distended. Normal bowel sounds.? Neurologic: Cranial nerves II-XII grossly intact. No focal neurological deficits. Moves all extremities spontaneously.? Skin: No rashes or lesions.? Musculoskeletal: No cyanosis or clubbing. Psychiatric: Normal mood and affect? Objective Data Active Medications Acetaminophen (Acetaminophen 325 Mg Tablet) 650 mg PO Q6H PRN PRN Reason: Pain, Mild 1-3,fever,headache Al Hydroxide/Mg Hydroxide (Magnesium Hydrox/Alum Hydrox 30 Ml Oral.Susp) 30 ml PO Q4H PRN PRN Reason: Heartburn Apixaban (Apixaban 5 Mg Tablet) 5 mg PO BID [facility] Last Admin: 07/13/24 09:14 Dose: 5 mg Documented By: TORY Benzonatate (Benzonatate 100 Mg Capsule) 100 mg PO TID PRN PRN Reason: Cough Calcium Carbonate (Calcium Carbonate 750 Mg Tab.Chew) 750 mg PO Q4H PRN PRN Reason: Heartburn Dexamethasone Sodium Phosphate (Dexamethasone Sod Phosphate 4 Mg/Ml Vial) 6 mg IVPUSH DAILY [facility] Last Admin: 07/13/24 09:13 Dose: 6 mg Documented By: TORY Digoxin (Digoxin 0.25 Mg Tablet) 0.25 mg PO DAILY [facility]; Protocol Last Admin: 07/13/24 09:15 Dose: 0.25 mg Documented By: TORY Diltiazem HCl (Diltiazem Hcl 30 Mg Tablet) 30 mg PO Q6H [facility]; Protocol Last Admin: 07/13/24 09:14 Dose: 30 mg Documented By: TORY Doxycycline Monohydrate (Doxycycline Monohydrate 100 Mg Capsule) 100 mg PO BID [facility] Last Admin: 07/13/24 09:15 Dose: 100 mg Documented By: TORY Furosemide (Furosemide 40 Mg Tablet) 40 mg PO DAILY [facility]; Protocol Last Admin: 07/13/24 09:14 Dose: 40 mg Documented By: TORY Levalbuterol HCl (Levalbuterol Hcl 1.25 Mg/3 Ml Vial.Neb) 1.25 mg INHALE RQ4H WHILE AWAKE [facility] Last Admin: 07/13/24 07:46 Dose: Not Given Documented By: TERESSA Non-Admin Reason: Patient Asleep Levalbuterol HCl (Levalbuterol Hcl 1.25 Mg/3 Ml Vial.Neb) 1.25 mg INHALE Q2H PRN PRN Reason: Shortness of Breath/Wheezing Magnesium Hydroxide (Milk Of Magnesia 30 Ml Oral.Susp) 30 ml PO DAILY PRN PRN Reason: Constipation Melatonin (Melatonin 3 Mg Tablet) 6 mg PO BEDTIME PRN PRN Reason: Insomnia Metoprolol Succinate (Metoprolol Succinate Er 50 Mg Tab.Er.24h) 50 mg PO DAILY [facility]; Protocol Last Admin: 07/13/24 09:14 Dose: 50 mg Documented By: TORY Metoprolol Tartrate (Metoprolol Tartrate 5 Mg/5 Ml Vial) 5 mg IVPUSH Q6H PRN; Protocol PRN Reason: tachycardia Nicotine (Nicotine 14 Mg Patch.Td24) 14 mg TRANSDERMA DAILY [facility] Last Admin: 07/13/24 09:16 Dose: Not Given Documented By: TORY Non-Admin Reason: Patient Refused Nicotine Polacrilex (Nicotine Polacrilex 2 Mg Gum) 2 mg BUCCAL Q2H PRN PRN Reason: Nicotine Cravings Pt Own (Umeclidinium -Vilanterol [Anoro Ellipta] 62.5-25 Mcg /Actuation Bl 1 inhalation INHALE RDAILY [facility] Last Admin: 07/12/24 08:01 Dose: 1 inhalation Documented By: GARCIA Ondansetron HCl (Ondansetron Hcl 4 Mg/2 Ml Vial) 4 mg IVPUSH Q8H PRN PRN Reason: Nausea and Vomiting Polyethylene Glycol (Polyethylene Glycol 3350 17 Gm Powd.Pack) 17 gm PO DAILY PRN PRN Reason: Constipation Sodium Chloride (0.9 % Sodium Chloride Flush 3 Ml Syringe) 3 ml IVFLUSH QSHIFT [facility] Last Admin: 07/13/24 09:15 Dose: 3 ml Documented By: TORY Spironolactone (Spironolactone 25 Mg Tablet) 25 mg PO DAILY [facility]; Protocol Last Admin: 07/13/24 09:15 Dose: 25 mg Documented By: TORY Vitamin D (Cholecalciferol (Vitamin D3) 25 Mcg Tablet) 50 mcg PO DAILY [facility] Last Admin: 07/13/24 09:13 Dose: 50 mcg Documented By: TORY Labs 07/10/24 15:49 07/11/24 05:23 Assessment and Plan (1) COVID-19: Status: Acute (2) Chronic heart failure with preserved ejection fraction (HFpEF): Status: Acute (3) Paroxysmal atrial flutter: Status: Acute Plan 54-year-old morbidly obese female with a history of EMMANUEL, HFpEF, and atrial flutter on Eliquis presenting with acute hypoxic respiratory failure due to COVID-19. Acute hypoxic respiratory failure due to COVID-19, superimposed on chronic heart failure, morbid obesity, EMMANUEL, and probable hypoventilation syndrome. Hypoxia improved Supplemental oxygen by nasal cannula; if no improvement, transition to high-flow if needed Corticosteroid (Decadron) 6 mg daily for 7 to 10 days Bronchodilators (xopenex) by nebulizer given tachycardia empiric doxy for possible bronchitis Chronic HFpEF .IV diuretic x1 on admission no acute decompensation continue home lasix Chronic AFIB/flutter., peristent tachcyardia likely related to covid was on cardizem drip, now on po cardizem 30 qid in addition to metoprolol, stop dig continue eliquis for stroke prevention. cardiology following Morbid obesity. Weight loss advised. EMMANUEL/hypoventilation syndrome ? Non-compliant with CPAP CPAP at bedtime. Hypertension. Continue metoprolol. chronic tobacco use d/o nicotine replacement DVT prophylaxis. Eliquis. Full code. Need for inpatient: covid related acute hypoxic respiratory failure Quality Stroke Does the patient have a stroke diagnosis?: No VTE Prior VTE?: No VTE Risk Level:: Medical - moderate - high VTE Device Contraindication: Treatment Not Indicated VTE Drug Contraindication: N/A - Med Ordered
[2024-07-13] MEDS: PT OWN (Umeclidinium-Vilanterol [Anoro Ellipta] 62.5-25 mcg/actuation bl 1 EACH INHALE (11:32)
[2024-07-13] MEDS: levalbuterol HCL 1.25 MG/3 ML VIAL.NEB INHALE ×3 (11:32→19:03)
[2024-07-13] MEDS: Metoprolol Tartrate 5 MG/5 ML VIAL IVPUSH (16:17)
[2024-07-14] VITALS (13 sets, daily range): BP systolic 115–157; BP diastolic 69–97; PULSE 76–135; RESP 18–20; TEMP 35.8–36.6; O2SAT 91–95
[2024-07-14] MEDS: Metoprolol Tartrate 5 MG/5 ML VIAL IVPUSH (01:32)
[2024-07-14] MEDS: Benzonatate 100 MG CAPSULE PO ×2 (01:32→11:21)
[2024-07-14] MEDS: dilTIAZem HCL 30 MG TABLET PO (02:52)
[2024-07-14] MEDS: levalbuterol HCL 1.25 MG/3 ML VIAL.NEB INHALE ×3 (07:54→19:28)
[2024-07-14] MEDS: dilTIAZem HCL CD 120 MG CAP.ER.DEG PO (09:24)
[2024-07-14] MEDS: Apixaban 5 MG TABLET PO ×2 (09:25→19:40)
[2024-07-14] MEDS: Furosemide 40 MG TABLET PO (09:25)
[2024-07-14] MEDS: Cholecalciferol (Vitamin D3) 25 MCG TABLET 50 MCG PO (09:25)
[2024-07-14] MEDS: Doxycycline Monohydrate 100 MG CAPSULE PO ×2 (09:25→19:40)
[2024-07-14] MEDS: Spironolactone 25 MG TABLET PO (09:25)
[2024-07-14] MEDS: 0.9 % Sodium Chloride Flush 3 ML SYRINGE IVFLUSH ×2 (09:26→19:40)
[2024-07-14] MEDS: dexAMETHasone sod phosphate 4 MG/ML VIAL 6 MG IVPUSH (09:26)
--- NOTE | 2024-07-14 10:01 | PM.PNCARD ---
Subjective Subjective Date of Service: 07/14/24 Interval history: Patient states she feels okay. No new complaints. On telemetry, atrial flutter also looks better. Controlled rates. She is still using some oxygen. Review of Systems Review of Systems Yes all other systems are reviewed and are negative Constitutional: Reports as per HPI and Reports no additional constitutional complaints Eyes: Reports as per HPI and Denies no additional eye complaints Denies system reviewed and no additional complaints, except as documented and Reports as per HPI Cardiovascular: Reports as per HPI, Reports no additional cardiovascular complaints, Denies acrocyanosis, Denies cool extremities, Denies chest pain, Denies leg edema, Denies lightheadedness, Denies palpitations and Reports dyspnea Respiratory: Reports as per HPI, Denies no additional respiratory complaints and Reports dyspnea Gastrointestinal: Reports as per HPI and Denies no additional gastrointestinal complaints Musculoskeletal: Reports no additional musculoskeletal complaints and Reports as per HPI Skin/Breast: Reports system reviewed and no additional complaints, except as docu Reports system reviewed and no additional complaints, except as documented and Reports as per HPI Psychiatric: Reports no additional psychiatric complaints and Reports as per HPI Endocrine: Reports no additional endocrine complaints, Reports as per HPI and Denies palpitations Hematologic/Lymphatic: Reports no additional hematologic/lymphatic complaints and Reports as per HPI Allergic/Immunologic: Reports no additional allergic/immunologic complaints and Reports as per HPI Physical Exam Vital Signs: Last Vital Signs Temp 97.9 F 07/14/24 08:00 Pulse 76 07/14/24 09:24 Resp 20 07/14/24 08:00 BP 138/87 07/14/24 09:24 Pulse Ox 95 07/14/24 08:00 O2 Del Method Oxymask 07/14/24 08:00 O2 Flow Rate 2 07/14/24 08:00 Oxygen Flow Rate 4 07/10/24 18:38 BMI result Body Mass Index 60.5 Const General: comfortable and no acute distress Orientation/consciousness: patient oriented x3 HEENT Other: Unremarkable Head: Yes normal to inspection Neck Neck: Yes normal visual inspection Chest Chest palpation & inspection: normal inspection of the chest Resp Auscultation: diminished lung sounds Cardio Palpation: normal PMI Heart sounds: S1 normal heart sound present, S2 normal heart sound present, no gallops, no murmurs and no rubs GI Palpation (GI): Soft to palpation Back/Spine/Pelvis Other: unremarkable Skin General skin exam: no rashes or lesions noted Neuro General: patient oriented x3 Extrem Other: Chronic changes Psych Mental Status: mental status grossly normal Objective Labs and Meds 07/10/24 15:49 07/11/24 05:23 Progress Note: A&P Assessment and plan (1) Atrial flutter with rapid ventricular response: Status: Acute (2) Acute on chronic diastolic (congestive) heart failure: Status: Acute (3) COVID-19: Status: Acute Plan On telemetry, atrial flutter looks much better. Currently, rate in the 70s-80s. For outpatient meds, she is on metoprolol succinate 50 mg daily. On Eliquis. Diltiazem has been added. Currently listed to be on diltiazem CD 120 mg daily. Continue anticoagulation. Outpatient cardioversion can be considered versus ablation. With regard to hypoxia/respiratory failure, suspect multifactorial etiology. That could be some component of heart failure but may not be the main issue. She has got an empiric diuretics. Otherwise, once stable from COVID, wean off oxygen and discharge planning. Ambulate patient. Follow-up in clinic. Discussed with Dr. Worthington. Discussed with RN. Time Spent With Patient Time: Total time managing care of this patient today ____ minutes. Progress Note: Quality Stroke Does the patient have a stroke diagnosis?: No Procedures Date of Service Date of Service: 07/14/24
--- NOTE | 2024-07-14 10:12 | HO.PM.IMPN ---
Subjective Subjective Date of Service: 07/14/24 Interval History: Tachycardia resolved, HR in 70s and 80s, did receive 1 time PRN iV metoprolol overnight shortness of breath is better, still on oxygen at 1 liter Physical Exam Vital Signs: Vital Signs: Last Vital Signs Temp 97.9 F 07/14/24 08:00 Pulse 76 07/14/24 09:24 Resp 20 07/14/24 08:00 BP 138/87 07/14/24 09:24 Pulse Ox 95 07/14/24 08:00 O2 Del Method Oxymask 07/14/24 08:00 O2 Flow Rate 2 07/14/24 08:00 Oxygen Flow Rate 4 07/10/24 18:38 BMI result Body Mass Index 60.5 Const: Other: alert, ox3 cv max ireg lung cta, nl effort abd, s,nd, nt +bs ext: extensive [place] chronic lymphadema Neuro: nf Objective Data Active Medications Acetaminophen (Acetaminophen 325 Mg Tablet) 650 mg PO Q6H PRN PRN Reason: Pain, Mild 1-3,fever,headache Al Hydroxide/Mg Hydroxide (Magnesium Hydrox/Alum Hydrox 30 Ml Oral.Susp) 30 ml PO Q4H PRN PRN Reason: Heartburn Apixaban (Apixaban 5 Mg Tablet) 5 mg PO BID [facility] Last Admin: 07/14/24 09:25 Dose: 5 mg Documented By: TORY Benzonatate (Benzonatate 100 Mg Capsule) 100 mg PO TID PRN PRN Reason: Cough Last Admin: 07/14/24 01:32 Dose: 100 mg Documented By: ALANNAH Calcium Carbonate (Calcium Carbonate 750 Mg Tab.Chew) 750 mg PO Q4H PRN PRN Reason: Heartburn Dexamethasone Sodium Phosphate (Dexamethasone Sod Phosphate 4 Mg/Ml Vial) 6 mg IVPUSH DAILY [facility] Last Admin: 07/14/24 09:26 Dose: 6 mg Documented By: TORY Diltiazem HCl (Diltiazem Hcl Cd 120 Mg Cap.Er.Deg) 120 mg PO DAILY [facility]; Protocol Last Admin: 07/14/24 09:24 Dose: 120 mg Documented By: TORY Doxycycline Monohydrate (Doxycycline Monohydrate 100 Mg Capsule) 100 mg PO BID [facility] Last Admin: 07/14/24 09:25 Dose: 100 mg Documented By: TORY Furosemide (Furosemide 40 Mg Tablet) 40 mg PO DAILY [facility]; Protocol Last Admin: 07/14/24 09:25 Dose: 40 mg Documented By: TORY Levalbuterol HCl (Levalbuterol Hcl 1.25 Mg/3 Ml Vial.Neb) 1.25 mg INHALE RQ4H WHILE AWAKE [facility] Last Admin: 07/14/24 07:54 Dose: 1.25 mg Documented By: DARLENE Levalbuterol HCl (Levalbuterol Hcl 1.25 Mg/3 Ml Vial.Neb) 1.25 mg INHALE Q2H PRN PRN Reason: Shortness of Breath/Wheezing Magnesium Hydroxide (Milk Of Magnesia 30 Ml Oral.Susp) 30 ml PO DAILY PRN PRN Reason: Constipation Melatonin (Melatonin 3 Mg Tablet) 6 mg PO BEDTIME PRN PRN Reason: Insomnia Metoprolol Succinate (Metoprolol Succinate Er 50 Mg Tab.Er.24h) 50 mg PO BEDTIME [facility]; Protocol Nicotine (Nicotine 14 Mg Patch.Td24) 14 mg TRANSDERMA DAILY [facility] Last Admin: 07/14/24 09:26 Dose: Not Given Documented By: TORY Non-Admin Reason: Patient Refused Nicotine Polacrilex (Nicotine Polacrilex 2 Mg Gum) 2 mg BUCCAL Q2H PRN PRN Reason: Nicotine Cravings Pt Own (Umeclidinium -Vilanterol [Anoro Ellipta] 62.5-25 Mcg /Actuation Bl 1 inhalation INHALE RDAILY [facility] Last Admin: 07/14/24 07:55 Dose: Not Given Documented By: DARLENE Non-Admin Reason: Med Not Available Ondansetron HCl (Ondansetron Hcl 4 Mg/2 Ml Vial) 4 mg IVPUSH Q8H PRN PRN Reason: Nausea and Vomiting Polyethylene Glycol (Polyethylene Glycol 3350 17 Gm Powd.Pack) 17 gm PO DAILY PRN PRN Reason: Constipation Sodium Chloride (0.9 % Sodium Chloride Flush 3 Ml Syringe) 3 ml IVFLUSH QSHIFT [facility] Last Admin: 07/14/24 09:26 Dose: 3 ml Documented By: TORY Spironolactone (Spironolactone 25 Mg Tablet) 25 mg PO DAILY [facility]; Protocol Last Admin: 07/14/24 09:25 Dose: 25 mg Documented By: TORY Vitamin D (Cholecalciferol (Vitamin D3) 25 Mcg Tablet) 50 mcg PO DAILY [facility] Last Admin: 07/14/24 09:25 Dose: 50 mcg Documented By: TORY Labs 07/10/24 15:49 07/11/24 05:23 Assessment and Plan (1) COVID-19: Status: Acute (2) Chronic heart failure with preserved ejection fraction (HFpEF): Status: Acute (3) Paroxysmal atrial flutter: Status: Acute Plan 54-year-old morbidly obese female with a history of EMMANUEL, HFpEF, and atrial flutter on Eliquis presenting with acute hypoxic respiratory failure due to COVID-19. Acute hypoxic respiratory failure due to COVID-19, superimposed on chronic heart failure, morbid obesity, EMMANUEL, and probable hypoventilation syndrome. Hypoxia improved Supplemental oxygen by nasal cannula; if no improvement, transition to high-flow if needed Corticosteroid (Decadron) 6 mg daily for 7 to 10 days Bronchodilators (xopenex) by nebulizer given tachycardia empiric doxy for possible bronchitis Chronic HFpEF .IV diuretic x1 on admission no acute decompensation continue home lasix Chronic AFIB/flutter, RVR now resolved. was on cardizem drip, now on po cardizem 30 qid (changed to cardizem cd 120 mg) stop dig, continue toprol 50 mg dialy continue eliquis Morbid obesity. advising weight loss EMMANUEL/hypoventilation syndrome ? Non-compliant with CPAP CPAP at bedtime. Hypertension. Continue metoprolol. chronic tobacco use d/o nicotine replacement DVT prophylaxis. Eliquis. Full code. Need for inpatient: covid related acute hypoxic respiratory failure Quality Stroke Does the patient have a stroke diagnosis?: No VTE Prior VTE?: No VTE Risk Level:: Medical - moderate - high VTE Device Contraindication: Treatment Not Indicated VTE Drug Contraindication: N/A - Med Ordered
[2024-07-14] MEDS: Metoprolol Succinate ER 50 MG TAB.ER.24H PO (11:21)
[2024-07-14] MEDS: Metoprolol Tartrate 25 MG TABLET PO (21:32)
[2024-07-15] VITALS (12 sets, daily range): BP systolic 116–150; BP diastolic 56–91; PULSE 82–128; RESP 16–20; TEMP 36.2–36.6; O2SAT 90–100
[2024-07-15] MEDS: levalbuterol HCL 1.25 MG/3 ML VIAL.NEB INHALE ×4 (07:20→20:20)
[2024-07-15] MEDS: PT OWN (Umeclidinium-Vilanterol [Anoro Ellipta] 62.5-25 mcg/actuation bl 1 EACH INHALE (07:20)
[2024-07-15] MEDS: Metoprolol Succinate ER 50 MG TAB.ER.24H PO (09:26)
[2024-07-15] MEDS: Cholecalciferol (Vitamin D3) 25 MCG TABLET 50 MCG PO (09:26)
[2024-07-15] MEDS: 0.9 % Sodium Chloride Flush 3 ML SYRINGE IVFLUSH ×3 (09:26→19:34)
[2024-07-15] MEDS: dexAMETHasone sod phosphate 4 MG/ML VIAL 6 MG IVPUSH (09:26)
[2024-07-15] MEDS: Furosemide 40 MG TABLET PO (09:27)
[2024-07-15] MEDS: dilTIAZem HCL CD 120 MG CAP.ER.DEG PO (09:27)
[2024-07-15] MEDS: Doxycycline Monohydrate 100 MG CAPSULE PO ×2 (09:27→19:33)
[2024-07-15] MEDS: Spironolactone 25 MG TABLET PO (09:27)
[2024-07-15] MEDS: Apixaban 5 MG TABLET PO ×2 (09:27→19:33)
--- NOTE | 2024-07-15 12:04 | HO.PM.IMPN ---
Subjective Subjective Date of Service: 07/15/24 Interval History: Pt seen and examined, seems overall better HR is better, and weaning off O2 Physical Exam Vital Signs: Vital Signs: Last Vital Signs Temp 97.9 F 07/15/24 10:59 Pulse 100 07/15/24 10:59 Resp 18 07/15/24 10:59 BP 137/77 07/15/24 10:59 Pulse Ox 90 L 07/15/24 10:59 O2 Del Method Room Air 07/15/24 10:59 O2 Flow Rate 1 07/15/24 07:13 Oxygen Flow Rate 4 07/10/24 18:38 BMI result Body Mass Index 60.5 Const: Other: alert, ox3 cv max ireg lung cta, nl effort abd, s,nd, nt +bs ext: extensive [place] chronic lymphadema Neuro: nf Objective Data Active Medications Acetaminophen (Acetaminophen 325 Mg Tablet) 650 mg PO Q6H PRN PRN Reason: Pain, Mild 1-3,fever,headache Al Hydroxide/Mg Hydroxide (Magnesium Hydrox/Alum Hydrox 30 Ml Oral.Susp) 30 ml PO Q4H PRN PRN Reason: Heartburn Apixaban (Apixaban 5 Mg Tablet) 5 mg PO BID [facility] Last Admin: 07/15/24 09:27 Dose: 5 mg Documented By: NAVEED Benzonatate (Benzonatate 100 Mg Capsule) 100 mg PO TID PRN PRN Reason: Cough Last Admin: 07/14/24 11:21 Dose: 100 mg Documented By: TORY Calcium Carbonate (Calcium Carbonate 750 Mg Tab.Chew) 750 mg PO Q4H PRN PRN Reason: Heartburn Dexamethasone Sodium Phosphate (Dexamethasone Sod Phosphate 4 Mg/Ml Vial) 6 mg IVPUSH DAILY [facility] Last Admin: 07/15/24 09:26 Dose: 6 mg Documented By: NAVEED Diltiazem HCl (Diltiazem Hcl Cd 120 Mg Cap.Er.Deg) 120 mg PO DAILY [facility]; Protocol Last Admin: 07/15/24 09:27 Dose: 120 mg Documented By: NAVEED Doxycycline Monohydrate (Doxycycline Monohydrate 100 Mg Capsule) 100 mg PO BID [facility] Last Admin: 07/15/24 09:27 Dose: 100 mg Documented By: NAVEED Furosemide (Furosemide 40 Mg Tablet) 40 mg PO DAILY [facility]; Protocol Last Admin: 07/15/24 09:27 Dose: 40 mg Documented By: NAVEED Levalbuterol HCl (Levalbuterol Hcl 1.25 Mg/3 Ml Vial.Neb) 1.25 mg INHALE RQ4H WHILE AWAKE [facility] Last Admin: 07/15/24 07:20 Dose: 1.25 mg Documented By: TERESSA Levalbuterol HCl (Levalbuterol Hcl 1.25 Mg/3 Ml Vial.Neb) 1.25 mg INHALE Q2H PRN PRN Reason: Shortness of Breath/Wheezing Magnesium Hydroxide (Milk Of Magnesia 30 Ml Oral.Susp) 30 ml PO DAILY PRN PRN Reason: Constipation Melatonin (Melatonin 3 Mg Tablet) 6 mg PO BEDTIME PRN PRN Reason: Insomnia Metoprolol Succinate (Metoprolol Succinate Er 50 Mg Tab.Er.24h) 50 mg PO DAILY [facility]; Protocol Last Admin: 07/15/24 09:26 Dose: 50 mg Documented By: NAVEED Metoprolol Tartrate (Metoprolol Tartrate 25 Mg Tablet) 25 mg PO Q6H PRN; Protocol PRN Reason: HR >130 Last Admin: 07/14/24 21:32 Dose: 25 mg Documented By: AILIN Nicotine (Nicotine 14 Mg Patch.Td24) 14 mg TRANSDERMA DAILY [facility] Last Admin: 07/15/24 09:25 Dose: Not Given Documented By: NAVEED Non-Admin Reason: Patient Refused Nicotine Polacrilex (Nicotine Polacrilex 2 Mg Gum) 2 mg BUCCAL Q2H PRN PRN Reason: Nicotine Cravings Pt Own (Umeclidinium -Vilanterol [Anoro Ellipta] 62.5-25 Mcg /Actuation Bl 1 inhalation INHALE RDAILY [facility] Last Admin: 07/15/24 07:20 Dose: 1 inhalation Documented By: TERESSA Ondansetron HCl (Ondansetron Hcl 4 Mg/2 Ml Vial) 4 mg IVPUSH Q8H PRN PRN Reason: Nausea and Vomiting Polyethylene Glycol (Polyethylene Glycol 3350 17 Gm Powd.Pack) 17 gm PO DAILY PRN PRN Reason: Constipation Sodium Chloride (0.9 % Sodium Chloride Flush 3 Ml Syringe) 3 ml IVFLUSH QSHIFT [facility] Last Admin: 07/15/24 09:26 Dose: 3 ml Documented By: NAVEED Spironolactone (Spironolactone 25 Mg Tablet) 25 mg PO DAILY [facility]; Protocol Last Admin: 07/15/24 09:27 Dose: 25 mg Documented By: NAVEED Vitamin D (Cholecalciferol (Vitamin D3) 25 Mcg Tablet) 50 mcg PO DAILY [facility] Last Admin: 07/15/24 09:26 Dose: 50 mcg Documented By: NAVEED Labs 07/10/24 15:49 07/11/24 05:23 Assessment and Plan (1) COVID-19: Status: Acute (2) Chronic heart failure with preserved ejection fraction (HFpEF): Status: Acute (3) Paroxysmal atrial flutter: Status: Acute Plan 54-year-old morbidly obese female with a history of EMMANUEL non-compliant with cpap, HFpEF, and atrial flutter on Eliquis presenting with acute hypoxic respiratory failure due to COVID-19 and AFIB with RVR Acute hypoxic respiratory failure due to COVID-19, superimposed on chronic heart failure, morbid obesity, EMMANUEL, and probable hypoventilation syndrome. Covid treated with decadrone and will continue to up to 10 days, bronchodialators as needed, and Oxygen PRN will assess for need for home O2, also treted with empiric Doxycyline for possible bronchitis andhas comleted 5 days of treatment Chronic HFpEF, was treated with IV lasix x1 on admission, and continued on usual home dose. ch Chronic AFIB/flutter, RVR. Initially required IV cardizem drip, dig loading, ultimately was transitioned to oral cardizem presently at 120 but will increase o 180 at dc. Was seen by cardiology and recommend continuing with metoprolol and cardizem and no dig at this time. To continue eliquis for stroke prevention Morbid obesity. advising weight loss EMMANUEL/hypoventilation syndrome ? Non-compliant with CPAP, but was prescribed in hospital and advised to use it to sleep Hypertension. Continue metoprolol and cardizem chronic tobacco use d/o nicotine replacement, cessation discussed DVT prophylaxis. Eliquis. Full code. Need for inpatient: covid related acute hypoxic respiratory failure Quality Stroke Does the patient have a stroke diagnosis?: No VTE Prior VTE?: No VTE Risk Level:: Medical - moderate - high VTE Device Contraindication: Treatment Not Indicated VTE Drug Contraindication: N/A - Med Ordered
--- NOTE | 2024-07-15 12:18 | PC.RT ---
Assessed pt for home 02 ev. pt did not want to participate nor does she want oxygen at home. Elin Underwood/ABIGAIL Harden aware.
--- NOTE | 2024-07-15 15:48 | MHC.CM.PN ---
EMR REVIEWED, PT REMAINS ON IV DECADRON, WEANED OFF O2, P.T. EVAL REQUESTED AND ANTIC PT WILL DC HOME W/SERVICES VS STR TOMORROW 07/16, CM WILL CONT TO FOLLOW DC NEEDS.
--- NOTE | 2024-07-15 15:55 | P.DS_ITS ---
DS: Providers Provider Date of admission: 07/10/24 18:32 Primary care physician: SHON Estrada Consults: 07/11/24 20:04 Consult to Cardiology Routine Consulting Provider: [facility] Reason for consultation: aflutter rvr Has provider been notified: Yes DS: Diagnosis Discharge Diagnosis (1) COVID-19: Status: Acute (2) Chronic heart failure with preserved ejection fraction (HFpEF): Status: Acute (3) Paroxysmal atrial flutter: Status: Acute DS: Summary Hospital Course Hospital Course: Admission hpi hospital course 54-year-old morbidly obese female with a history of EMMANUEL non- compliant with cpap, HFpEF, and atrial flutter on Eliquis presenting with acute hypoxic respiratory failure due to COVID-19 and AFIB with RVR Acute hypoxic respiratory failure due to COVID-19, superimposed on chronic heart failure, morbid obesity, EMMANUEL, and probable hypoventilation syndrome. Covid treated with decadrone and will continue to up to 10 days(she already got 5 days), completed Doxycyline for possible bronchitis 5 days of treatment.Home oxygen evaluation was done which she qualified-respiratory will arrange home oxygen. Patient is agreeable to above. Chronic HFpEF, was treated with IV lasix x1 on admission, and continued on usual home dose. Chronic AFIB/flutter, RVR. Initially required IV cardizem drip, dig loading, ultimately was transitioned to oral cardizem presently at 120 mg . Was seen by cardiology and recommend continuing with metoprolol and cardizem and no dig at this time. To continue eliquis for stroke prevention Morbid obesity. :advising weight loss EMMANUEL/hypoventilation syndrome ? Non-compliant with CPAP, but was prescribed in hospital and advised to use it to sleep Hypertension. Continue metoprolol and cardizem. plan: complete dexamethsone 6 mg po [id number] continue metoprolol 50 mg po bid ,cardizem 120 mg daily. Above management discussed with the patient detail length she understand and in agreement with the above plan, time spent 40 minute. Time Attestation Discharge Coordination Time (in mins): 35 Quality: Safe Use of Opioids Does Pt have an Active Cancer Diagnosis on the Problem List?: No Quality: Stroke Does the patient have a stroke diagnosis?: No Physical Exam Vital Signs: Vital Signs: Last Vital Signs Temp 97.6 F 07/15/24 15:24 Pulse 126 H 07/15/24 15:24 Resp 20 07/15/24 15:24 BP 150/87 H 07/15/24 15:24 Pulse Ox 93 07/15/24 15:24 O2 Del Method Room Air 07/15/24 15:24 O2 Flow Rate 1 07/15/24 07:13 Oxygen Flow Rate 4 07/10/24 18:38 BMI result Body Mass Index 60.5 DS: Data Data Completed and Pending Completed studies during hospitalization [Text1]: Procedures Insertion of Infusion Device into Upper Vein, Percutaneous Approach (04/23/23) Mandaeism of Cardiac Rhythm, Single (05/26/23) Ultrasonography of Heart with Aorta, Transesophageal (05/26/23) Discharge Plan Discharge Anticipated Discharge Date/Time: 07/16/24 16:13 Patient Disposition: Home, Self-Care Discharge Diagnosis: Covid, acute hypoxic respiraotry failure, afib with RVR Referrals: Becka Woodruff PA [Primary Care Provider] - 1 Week Discharge Medications: New diltiazem HCl [Cardizem CD] 120 mg Capsule,Extended Release 24hr 120 mg PO DAILY Qty: 90 0RF Protocol: Hold for SBP/HR < HOLD for SBP < : 90 HOLD for HR < : 60 dexamethasone sodium phosphate 4 mg/mL Solution 6 mg PO DAILY Qty: 5 0RF omeprazole 20 mg capsule,delayed release(DR/EC) 20 mg PO DAILY Qty: 10 0RF Continued spironolactone [Aldactone] 25 mg tablet 25 mg PO DAILY Qty: 90 3RF furosemide [Lasix] 40 mg tablet 40 mg PO DAILY Qty: 30 5RF Eliquis 5 mg tablet 5 mg PO BID Qty: 30 11RF zinc acetate 50 mg (zinc) Capsule 50 mg PO DAILY cholecalciferol (vitamin D3) [Vitamin D3] 50 mcg (2,000 unit) Capsule 50 mcg PO DAILY Anoro Ellipta 62.5-25 mcg/actuation blister with device 1 inh INHALATION DAILY Changed metoprolol succinate [Toprol XL] 50 mg tablet extended release 24 hr 50 mg PO BID Qty: 180 3RF Discharge Orders: Discharge Order (Routine); Ordered 07/16/24 Ordered By: Arely Pardo Diet: Advance to usual diet Activity on Discharge: As tolerated Stand Alone Forms: Patient Portal Discharge page Print Language: Israeli Care Plan Goals: Patient was admitted due to acute hypoxemic respiratory failure secondary to COVID, she also had underlying EMMANUEL noncompliant with CPAP: Patient was started on steroids, oxygen, given antibiotics also for bronchitis: Patient seems to be improved significantly with the above management, her steroid switched to p.o., home oxygen evaluation was done which she qualified-respiratory will arrange home oxygen. Patient is agreeable to above. Also patient had AFib RVR: Received diltiazem drip, heart rate seems to be improving : d/w cardiology her metoprolol adjusted to 50 mg po bid, added cardizem 120 mg daily. continue eliquis for stroke prevention. Health Concerns: as above. Plan of Treatment: complete dexamethsone 6 mg [id number] continue metoprolol 50 mg po bid ,cardizem 120 mg daily. Assessment: as above. Discharge Date/Time: 07/16/24 18:48
[2024-07-16] VITALS (11 sets, daily range): BP systolic 109–132; BP diastolic 63–84; PULSE 75–128; RESP 16–20; TEMP 36–36.3; O2SAT 83–95
[2024-07-16] MEDS: dilTIAZem HCL 50 MG/10 ML VIAL 15 MG IVPUSH (00:36)
[2024-07-16] MEDS: PT OWN (Umeclidinium-Vilanterol [Anoro Ellipta] 62.5-25 mcg/actuation bl 1 EACH INHALE (07:52)
[2024-07-16] MEDS: levalbuterol HCL 1.25 MG/3 ML VIAL.NEB INHALE ×3 (07:53→15:51)
[2024-07-16] MEDS: Metoprolol Succinate ER 50 MG TAB.ER.24H PO ×2 (09:37→17:37)
[2024-07-16] MEDS: Apixaban 5 MG TABLET PO (09:38)
[2024-07-16] MEDS: dilTIAZem HCL CD 120 MG CAP.ER.DEG PO (09:38)
[2024-07-16] MEDS: Cholecalciferol (Vitamin D3) 25 MCG TABLET 50 MCG PO (09:38)
[2024-07-16] MEDS: dexAMETHasone sod phosphate 4 MG/ML VIAL 6 MG PO (09:38)
[2024-07-16] MEDS: Doxycycline Monohydrate 100 MG CAPSULE PO (09:38)
[2024-07-16] MEDS: Spironolactone 25 MG TABLET PO (09:38)
[2024-07-16] MEDS: 0.9 % Sodium Chloride Flush 3 ML SYRINGE IVFLUSH (09:39)
[2024-07-16] MEDS: Furosemide 40 MG TABLET PO (09:39)
--- NOTE | 2024-07-16 11:45 | PC.RT ---
This Rt went to go see pt again about possible home oxygen. She down right refuses to have it at home and does not want to participate in the home 02 evaluation. This is the second day shes refusing. She also refuses to wear her cpap at night as well. Again MD elaine Chandler and RN Mini Harden
--- NOTE | 2024-07-16 13:41 | PC.RT ---
pt did agree earlier to have oxygen at [facility]. Now wshe is saying he doesnt want it because she doesnt have a cell phone and its not her house. However, the pct today was asked by the pt to plug her cell phone in....she refuses 02 at home again
--- NOTE | 2024-07-16 14:48 | MHC.CM.PN ---
Pt has been medically cleared for DC, she will go home via private transport, plan is self care.
--- NOTE | 2024-07-16 15:45 | PC.RT ---
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 [employer]word has been faxed to [employer]. i will speak to the [employer] aout this pt.
--- NOTE | 2024-07-16 16:24 | PM.DS ---
DS: Providers Provider Date of Service: 07/16/24 Date of admission: 07/10/24 18:32 Date of discharge: 07/16/24 Primary care physician: SHON Estrada Consults: 07/11/24 20:04 Consult to Cardiology Routine Consulting Provider: [facility] Reason for consultation: aflutter rvr Has provider been notified: Yes Attending physician on discharge: Arely Pardo Discharging clinician: Arely Pardo DS: Diagnosis Discharge Diagnosis (1) COVID-19: Status: Acute (2) Chronic heart failure with preserved ejection fraction (HFpEF): Status: Acute (3) Paroxysmal atrial flutter: Status: Acute DS: Summary Hospital Course Hospital Course: Admission hpi hospital course 54-year-old morbidly obese female with a history of EMMANUEL non-compliant with cpap, HFpEF, and atrial flutter on Eliquis presenting with acute hypoxic respiratory failure due to COVID-19 and AFIB with RVR Acute hypoxic respiratory failure due to COVID-19, superimposed on chronic heart failure, morbid obesity, EMMANUEL, and probable hypoventilation syndrome. Covid treated with decadrone and will continue to up to 10 days(she already got 5 days), completed Doxycyline for possible bronchitis 5 days of treatment.Home oxygen evaluation was done which she qualified-respiratory will arrange home oxygen. Patient is agreeable to above. Chronic HFpEF, was treated with IV lasix x1 on admission, and continued on usual home dose. Chronic AFIB/flutter, RVR. Initially required IV cardizem drip, dig loading, ultimately was transitioned to oral cardizem presently at 120 mg . Was seen by cardiology and recommend continuing with metoprolol and cardizem and no dig at this time. To continue eliquis for stroke prevention Morbid obesity. :advising weight loss EMMANUEL/hypoventilation syndrome ? Non-compliant with CPAP, but was prescribed in hospital and advised to use it to sleep Hypertension. Continue metoprolol and cardizem. plan: complete dexamethsone 6 mg po [id number] continue metoprolol 50 mg po bid ,cardizem 120 mg daily. Above management discussed with the patient detail length she understand and in agreement with the above plan, time spent 40 minute. Time Attestation Total time managing care of this patient today: 40 mintues. Discharge Coordination Time (in mins): 40 min Quality: Safe Use of Opioids Does Pt have an Active Cancer Diagnosis on the Problem List?: No Quality: Stroke Does the patient have a stroke diagnosis?: No Physical Exam Vital Signs: Vital Signs: Last Vital Signs Temp 96.8 F 07/16/24 11:08 Pulse 112 H 07/16/24 15:58 Resp 18 07/16/24 15:58 BP 125/83 07/16/24 11:08 Pulse Ox 88 L 07/16/24 11:08 O2 Del Method Oxymask 07/16/24 07:25 O2 Flow Rate 2 07/16/24 07:25 Oxygen Flow Rate 4 07/10/24 18:38 BMI result Body Mass Index 60.5 Appearance: Alert.? Oriented X3.? cvs: irregular rythem, [id number]. res: air entry fair ,no rales or wheezing abd: no rebound or guarding ,nt, bs present. ext pulses present , no cyanosis . neuro: axo3 , nonfocal. DS: Data Data Completed and Pending Completed studies during hospitalization [Text1]: Procedures Insertion of Infusion Device into Upper Vein, Percutaneous Approach (04/23/23) Anglican of Cardiac Rhythm, Single (05/26/23) Ultrasonography of Heart with Aorta, Transesophageal (05/26/23) Imaging Chest x-ray: Radiologist's impression: ITS Impressions Chest X-Ray 07/10/24 16:00 IMPRESSION: Cardiomegaly. No active pulmonary disease. Electronically signed by: Sunny Daly MD 07/10/2024 04:49 PM [facility] [place] Discharge Plan Discharge Anticipated Discharge Date/Time: 07/16/24 16:13 Patient Disposition: Home, Self-Care Discharge Diagnosis: Covid, acute hypoxic respiraotry failure, afib with RVR Referrals: Becka Woodruff PA [Primary Care Provider] - 1 Week Discharge Medications: New diltiazem HCl [Cardizem CD] 120 mg Capsule,Extended Release 24hr 120 mg PO DAILY Qty: 90 0RF Protocol: Hold for SBP/HR < HOLD for SBP < : 90 HOLD for HR < : 60 dexamethasone sodium phosphate 4 mg/mL Solution 6 mg PO DAILY Qty: 5 0RF omeprazole 20 mg capsule,delayed release(DR/EC) 20 mg PO DAILY Qty: 10 0RF Continued spironolactone [Aldactone] 25 mg tablet 25 mg PO DAILY Qty: 90 3RF furosemide [Lasix] 40 mg tablet 40 mg PO DAILY Qty: 30 5RF Eliquis 5 mg tablet 5 mg PO BID Qty: 30 11RF zinc acetate 50 mg (zinc) Capsule 50 mg PO DAILY cholecalciferol (vitamin D3) [Vitamin D3] 50 mcg (2,000 unit) Capsule 50 mcg PO DAILY Anoro Ellipta 62.5-25 mcg/actuation blister with device 1 inh INHALATION DAILY Changed metoprolol succinate [Toprol XL] 50 mg tablet extended release 24 hr 50 mg PO BID Qty: 180 3RF Discharge Orders: Discharge Order (Routine); Ordered 07/16/24 Ordered By: Arely Pardo Diet: Advance to usual diet Activity on Discharge: As tolerated Stand Alone Forms: Patient Portal Discharge page Print Language: Romanian Care Plan Goals: Patient was admitted due to acute hypoxemic respiratory failure secondary to COVID, she also had underlying EMMANUEL noncompliant with CPAP: Patient was started on steroids, oxygen, given antibiotics also for bronchitis: Patient seems to be improved significantly with the above management, her steroid switched to p.o., home oxygen evaluation was done which she qualified-respiratory will arrange home oxygen. Patient is agreeable to above. Also patient had AFib RVR: Received diltiazem drip, heart rate seems to be improving : d/w cardiology her metoprolol adjusted to 50 mg po bid, added cardizem 120 mg daily. continue eliquis for stroke prevention. Health Concerns: as above. Plan of Treatment: complete dexamethsone 6 mg [id number] continue metoprolol 50 mg po bid ,cardizem 120 mg daily. Assessment: as above.
== END 2024-07-16 18:48 | disposition home or self-care (01) | DRG 137 ==
LOC: HO.ED 16:13 → HO.EDOVER 18:41 → HO.IMC 19:06 → HO.EDOVER 19:09 → HO.IMC 07-11 13:16
PROVIDERS: Admitting Provider Internal Medicine; Emergency Provider Emergency Medicine; PCP Physician Assistant Medical; Visit Provider Internal Medicine
DX: U07.1 COVID-19 (principal); J96.01 Acute respiratory failure with hypoxia; I50.32 Chronic diastolic (congestive) heart failure; I11.0 Hypertensive heart disease with heart failure; E66.2 Morbid (severe) obesity with alveolar hypoventilation; I48.92 Unspecified atrial flutter; I48.20 Chronic atrial fibrillation, unspecified; Z68.44 Body mass index [BMI] 60.0-69.9, adult; F17.210 Nicotine dependence, cigarettes, uncomplicated; Z91.199 Patient's noncompliance with other medical treatment and regimen due to unspecified reason; Z71.6 Tobacco abuse counseling; Z79.01 Long term (current) use of anticoagulants; Z79.899 Other long term (current) drug therapy
CPT/HCPCS: 0241U; 36415; 71045; 80048; 80053; 82803; 83880; 85025; 93005; 94640; 94660; 97162; 99285; J1100; J1160; J1940

== ENCOUNTER → 2024-07-10 15:18 | Outpatient (BNV) | payer OTHER, SELFPAY | PROVIDERS: Admitting Provider Internal Medicine; Emergency Provider Emergency Medicine; PCP Physician Assistant Medical; Visit Provider Internal Medicine | DX: I48.92 Unspecified atrial flutter (principal) | CPT/HCPCS: 93010 ==

== ENCOUNTER → 2024-07-10 15:18 | Outpatient (BNV) | payer OTHER, SELFPAY | PROVIDERS: Emergency Provider Emergency Medicine; PCP Physician Assistant Medical; Visit Provider Radiology Diagnostic Radiology | DX: I51.7 Cardiomegaly (principal) | CPT/HCPCS: 71045 ==

== ENCOUNTER → 2024-07-10 18:32 | Outpatient (BNV) | payer OTHER, SELFPAY | PROVIDERS: Admitting Provider Internal Medicine; Emergency Provider Emergency Medicine; PCP Physician Assistant Medical; Visit Provider Internal Medicine | DX: U07.1 COVID-19 (principal); J96.01 Acute respiratory failure with hypoxia; I50.32 Chronic diastolic (congestive) heart failure; I48.92 Unspecified atrial flutter | CPT/HCPCS: 99223; 99232; 99499 ==

== ENCOUNTER → 2024-07-10 18:32 | Outpatient (BNV) | payer OTHER, SELFPAY | PROVIDERS: Admitting Provider Internal Medicine; Emergency Provider Emergency Medicine; PCP Physician Assistant Medical; Visit Provider Internal Medicine | DX: I48.92 Unspecified atrial flutter (principal); I50.33 Acute on chronic diastolic (congestive) heart failure; U07.1 COVID-19 | CPT/HCPCS: 99223 ==

== ENCOUNTER 2024-12-06 13:21 | Outpatient (AMB) | payer OTHER, SELFPAY ==
--- NOTE | 2024-12-06 13:23 | MHC.OFFVIS ---
Vital Signs 12/06/24 13:24 Height 5 ft 1 in Weight 291 lb 0.163 oz BMI 55.0 BP 122/68 Blood Pressure Location Lt brachial Position Sitting Pulse 70 Pulse Source Pulse Oximeter Intake Visit Reasons: follow up/[facility] [place] up Allergies aspirin (From Niharika-Aurora) Allergy (Mild, Verified 07/10/24 15:09) Hives citric acid (From Niharika-Aurora) Allergy (Mild, Verified 07/10/24 15:09) Hives dextromethorphan (From NyQuil) Allergy (Mild, Verified 07/10/24 15:09) Hives doxylamine (From NyQuil) Allergy (Mild, Verified 07/10/24 15:09) Hives pseudoephedrine (From NyQuil) Allergy (Mild, Verified 07/10/24 15:09) Hives sodium bicarbonate (From Niharika-Aurora) Allergy (Mild, Verified 07/10/24 15:09) Hives Medication List - Last Reconciled 12/06/24 by Rosie Perez NP-Larry apixaban (Eliquis) 5 mg PO BID digoxin 125 mcg PO DAILY diltiazem HCl CD (Cardizem CD) 240 mg See Protocol PO DAILY furosemide (Lasix) 40 mg PO DAILY metoprolol succinate ER (Toprol XL) 50 mg PO BID pantoprazole 40 mg PO DAILY umeclidinium-vilanterol 62.5-25 mcg/actuation (Anoro Ellipta) 1 inh inhalation DAILY HPI HPI follow up/[facility] [place] follow up: Details: Cristina is a 54-year-old female with past medical history of morbid obesity, hypertension,EMMANUEL with CPAP use, prior tachycardia induced cardiomyopathy, systolic and diastolic heart failure who was admitted to [facility] [place] in June with AFib RVR and decompensated heart failure. She was managed medically and discharged in a flutter with controlled rate. Today she reports that she was admitted to [facility] in October after having a fall. She sustained a fracture in her left knee. She then went to rehab and is now home, ambulates with a walker. At this time she tells me she is feeling good and ready to go back to work. She is denying any chest discomfort at rest or with activity. She is not noticing heart palpitations. She denies having shortness of breath, PND, orthopnea or edema. She wears CPAP at night. Compliant with her medications. No bleeding issues with Farzaneh. 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 [facility] Medical History Chronic heart failure with preserved ejection fraction (HFpEF) Atrial flutter Hypertension Atrial flutter with rapid ventricular response Acute on chronic combined systolic and diastolic CHF (congestive heart failure) Heart failure with reduced ejection fraction Morbid obesity Social History Household Members: Family and Friend(s) Household Members Other:: roommates [facility] Do you presently have visiting nurse or other home services: No Alcohol intake: former Comment: refusing alarm and camera Patient Tobacco Use Status: Current everyday Tobacco user Tobacco use type: Cigarette Cigarettes Per Day: 10 Years Smoked: 25 e-Cigarette/Vaping Use: Currently Using Second Hand Smoke Exposure: No Advance Directives Date on File: 04/28/23 service: No Review of Systems Const All systems reviewed & are unremarkable except as noted in HPI and below Denies weakness ENT Denies dizziness Card Denies chest pain, Denies chest pain with activity, Denies syncope, Denies rapid heart rate, Denies pedal edema, Denies edema, Denies leg edema, Denies lightheadedness, Denies palpitations, Denies dyspnea, Denies dyspnea on exertion and Denies orthopnea Resp Denies cough, Denies dyspnea and Denies dyspnea on exertion GI Denies hematochezia and Denies change in stool character Musc Details: knee pain, using wheeling walker Reports abnormal gait, Denies muscle cramps, Denies muscle weakness, Denies numbness, Denies radiating pain into limb and Denies tingling Neuro Reports abnormal gait, Denies dizziness, Denies syncope, Denies numbness, Denies tingling and Denies weakness Endo Denies palpitations Physical Exam Vital Signs: Last Vital Signs Pulse 70 12/06/24 13:24 BP 122/68 12/06/24 13:24 BMI result Body Mass Index 55.0 Const Other: morbid obesity General: cooperative and no acute distress Nutritional Appearance: overweight Orientation/consciousness: patient oriented x3 Neck Neck: Yes normal visual inspection and Yes no JVD Resp Effort & Inspection: normal respiratory effort Auscultation: clear to auscultation bilaterally, no rales, no rhonchi and no wheezes Cardio Rate: regular rate Rhythm: regular rhythm Heart sounds: S1 normal heart sound present, S2 normal heart sound present, no gallops, no murmurs and no rubs Skin General skin exam: no rashes or lesions noted Neuro General: patient oriented x3 Extrem General: Yes normal to inspection, No no pedal edema and No calf tenderness Psych Appearance: grossly normal Mental Status: mental status grossly normal Speech and movement: Normal speech and movement present Office Procedures EKG Details: Today, read by me sinus rhythm with PACs, 2 PVCs, possible atrial tachycardia, ST and T-wave abnormality inferior lateral leads, rate 102 QTC 477 millisecond [id number], Complete Assessment & Plan Assessment & Plan (1) Atrial flutter: Code(s): I48.92 - Unspecified atrial flutter Category: Medical Qualifiers: Atrial flutter type: unspecified Qualified Code(s): I48.92 - Unspecified atrial flutter Plan: History of atrial flutter, treated with rhythm control. Last [facility] [place] hospitalization July 2024 and she was discharged in atrial flutter on diltiazem and metoprolol for heart rate control. Plan was to evaluate for outpatient cardioversion however 1st follow-up is today and EKG shows sinus rhythm with PACs and atrial run on EKG tracing. Last echocardiogram 11/22/2023 showed EF 55-60%, no valve abnormalities and no regional wall motion abnormalities. Will check Holter monitor to further evaluate her heart rhythm and rates. At this time continue diltiazem and metoprolol. Continue Eliquis for anticoagulation. (2) Chronic heart failure with preserved ejection fraction (HFpEF): Code(s): I50.32 - Chronic diastolic (congestive) heart failure Category: Medical Plan: During July 2024 admission she did have evidence of heart failure in the setting of AFib RVR. She was discharged with Lasix 40 mg daily. On exam today she does not appear fluid overloaded however her morbid obesity makes this assessment more challenging. Labs 07/11/2024 showed creatinine 0.97. Will reach out to [facility] to obtain their labs and discharge summary. Note from last office visit she will suggest nuclear stress test to evaluate for ischemia. Patient declines at this time since she has no concerning symptoms. Will have her continue Lasix 40 mg daily and Aldactone. Signs and symptoms of heart failure reviewed with her. (3) Hypertension: Code(s): I10 - Essential (primary) hypertension Category: Medical Plan: blood pressure goal less than 130/80. Controlled at this time. Continue metoprolol, Aldactone, diltiazem, Lasix. (4) History of cardiomyopathy: Comment: In the setting of persistent atrial flutter Code(s): Z86.79 - Personal history of other diseases of the circulatory system Category: Medical Plan: Prior cardiomyopathy likely in the setting of AFib RVR. Most recent echo with normal EF. (5) Hospital discharge follow-up: Code(s): Z09 - Encounter for follow-up examination after completed treatment for conditions other than malignant neoplasm Category: Medical Plan: [facility] [place] discharge reviewed. Will work on obtaining [facility] records. (6) Morbid obesity: Code(s): E66.01 - Morbid (severe) obesity due to excess calories Category: Medical Plan: As above (7) Sleep apnea: Code(s): G47.30 - Sleep apnea, unspecified Category: Medical Plan: Recent home sleep study done showing mild obstructive sleep apnea, average saturation 92% with lowest 66%, sat below 88% for 69 minutes. Follows pulmonology. Plan We reviewed her symptoms and she declined nuclear stress test due to the absence of symptoms. We will proceed with a heart monitor to evaluate for atrial flutter and heart rate control. I explained the monitor process, including wearing it for a few days and returning it by mail. The patient expressed concern about transportation, so we planned for mid-December to allow for arrangements. I confirmed her readiness to return to work and will provide a note for her employer. Medications: Changed From diltiazem HCl CD (Cardizem CD) 120 mg See Protocol PO DAILY 90 caps 0RF To diltiazem HCl CD (Cardizem CD) 240 mg See Protocol PO DAILY Patient Instructions: - Continue current medications as prescribed. - Watch for signs of fluid retention and follow low salt diet - Await call from Centralized Scheduling for heart monitor appointment. - Follow instructions for heart monitor use and return. 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 Patient was informed and verbally consented to the use of an ambient scribe for clinic note documentation during this visit. Visit time spent on chart review, interview, assessment, orders, documentation. Coding Level of Care Code Est Pt Level 4 (49236) Complex EM visit Add On G2211 Diagnoses Atrial flutter, unspecified type I48.92 Atrial flutter type: unspecified Chronic heart failure with preserved ejection fraction (HFpEF) I50.32 Hypertension I10 History of cardiomyopathy Z86.79 Hospital discharge follow-up Z09 Morbid obesity E66.01 Sleep apnea G47.30 CPT Codes EKG - CPT: 87292-[id number], Complete ([id number]) Time Spent (min) 28
[2024-12-06 13:24] VITALS: BP 122/68; PULSE 70; BMI 55.0
--- OUTSIDE RECORDS SUMMARY | 2024-12-06 13:50 | XMS_ITS | Encounter Summary ---
Author Organization [facility] Address [address] [place] [address] Care Team Providers Care Clinical Assistant Professor Name Role Phone Moody Robbins MD Primary Care Provider [phone] Encounter Details Date Type Department Care Team (Late st Contact Info) Description 10/04/[address] [facility] [address] [place] [address] Moody Robbins MD [address] [place] [address] [address] [place], [address] Chronic obstructive pulmonary disease, unspecified (CMS/HCC V24, CMS/HCC V28); Essential (primary) hypertension Social History Tobacco Use Types Packs/Day Years Used Date Smoking Tobacco: Every Day Cigarettes Smokeless Tobacco: Never Alcohol Use Standard Drinks/Week Comments Not Currently 0 (1 standard drink = 0.6 oz pur e alcohol) Interpersonal Safety Answer Date Record ed Physical Abuse 09/21/2024 Verbal Abuse 09/21/2024 Comments Unknown Sex and Gender Information Value Date Recorded Sex Assigned at Female 09/18/2024 5:19 PM EDT Legal Sex Female 3:42 PM EDT Gender Identity Female 09/18/2024 5:19 PM EDT Sexual Orientation Choose not to disclose 2024 5:19 PM EDT documented as of this encounter Functional Status * Are you deaf or do you have serious difficulty hearing? Answer Date of Assessment Author No 09/19/2024 6:38 AM EDT Kay Sahu * Are you blind or do you have serious difficulty seeing, even when wearing glasses? Answer Date of Assessment Author No 09/19/2024 6:38 AM EDT Kay Sahu * Do you have serious difficulty walking or climbing stairs? Answer Date of Assessment Author No 09/19/2024 6:38 AM EDT Kay Sahu * Do you have serious difficulty dressing or bathing? Answer Date of Assessment Author No 09/19/2024 6:38 AM EDT Kay Sahu * Because of a physical, mental, or emotional condition, do you have serious difficulty doing errandsalone such as visiting the doctor? Answer Date of Assessment Author No 09/19/2024 6:38 AM EDT Kay Sahu documented as of this encounter Mental Status * Because of a physical, mental, or emotional condition, do you have serious difficulty concentrating, remembering, or making decisions? (5 years old or older) Answer Entry Date Author No 09/19/2024 6:38 AM EDT Kay Sahu documented in this encounter Plan of Treatment Not on file documented as of this encounter Procedures Procedure Name Priority Date/Time Associated Diagnosis Comments COMPLETE BLOOD COUNT Routine 10/07/2024 5:25 AM EDT Chronic obstructive pulmonary disease, unspecified (CMS/HCC V24, CMS/HCC V28) Essential (primary) hypertension COMPREHENSIVE METABOLIC PANEL Routine 10/07/2024 5:25 AM EDT Chronic obstructive pulmonary disease, unspecified (CMS/HCC V24, CMS/HCC V28) Essential (primary) hypertension documented in this encounter Results * (ABNORMAL) Comprehensive metabolic panel (10/07/2024 5:25 AM EDT) Sodium 142 133 - 145 mmol/L LAB CHEMISTRY METHOD 10/07/2024 2:54 PM T [facility] Potassium 3.9 3.5 - 5.5 mmol/L LAB CHEMISTRY METHOD 10/07/2024 2:54 PM [facility] Chloride 100 96 - 110 mmol/L LAB CHEMISTRY METHOD 10/07/2024 2:54 PM [facility] CO2 35(H) 21 - 32 mmol/L LAB CHEMISTRY METHOD 10/07/2024 2:54 PM [facility] Anion Gap 7 3 - 11 LAB CHEMISTRY METHOD 10/07/2024 2:54 PM [facility] Glucose 75 70 - 100 mg/dL LAB CHEMISTRY METHOD 10/07/2024 2:54 PM [facility] BUN 10 5 - 25 mg/dL LAB CHEMISTRY METHOD 10/07/2024 2:54 PM [facility] Creatinine 0.87 0.50 - 1.10 mg/dL LAB CHEMISTRY METHOD 10/07/2024 2:54 PM [facility] eGFR 79 >=60 mL/min/1. 73m2 LAB CHEMISTRY METHOD 10/07/2024 2:54 PM [facility] Comment:Calculation based on the Chronic Kidney Disease Epidemiology Collaboration (CKD-EPI) equation refit without adjustment for race. BUN/Creatinine Ratio 11.5 LAB CHEMISTRY METHOD 10/07/2024 2:54 PM [facility] Calcium 8.8 8.5 - 10.5 mg/dL LAB CHEMISTRY METHOD 10/07/2024 2:54 PM [facility] AST (SGOT) 14 10 - 42 unit/L LAB CHEMISTRY METHOD 10/07/2024 2:54 PM [facility] ALT (SGPT) 16 10 - 60 unit/L LAB CHEMISTRY METHOD 10/07/2024 2:54 PM [facility] Alkaline Phosphatase 132(H) 42 - 121 unit/L LAB CHEMISTRY METHOD 10/07/2024 2:54 PM [facility] Total Protein 7.5 6.0 - 8.0 g/dL LAB CHEMISTRY METHOD 10/07/2024 2:54 PM [facility] Albumin 3.5 3.2 - 5.0 g/dL LAB CHEMISTRY METHOD 10/07/2024 2:54 PM [facility] Total Bilirubin 0.9 0.0 - 1.4 mg/dL LAB CHEMISTRY METHOD 10/07/2024 2:54 PM EDT [facility] Blood Venous blood specimen / Unknown Venipuncture / Unknown 10/07/2024 5:25 AM EDT 10/07/2024 9:46 AM EDT us Moody Robbins MD LAB BLOOD ORDERABLES Final Resul t [facility] [address] [place] [address], [place] [phone] * (ABNORMAL) Complete blood count (10/07/2024 5:25 AM EDT) WBC 4.9 4.8 - 10.8 K/mcL LAB HEMETOLOGY METHOD 10/07/2024 10:27 AM EDT [facility] RBC 3.90 3.80 - 4.80 M/[facility] LAB [facility] Hemoglobin 12.8 11.5 - 16.0 g/dL LAB HEMETOLOGY METHOD 10/07/2024 10:27 AM EDT [facility] Hematocrit 42.2 35.0 - 47.0 % LAB HEMETOLOGY METHOD 10/07/2024 10:27 AM [facility] MCV 107.1(H) 79.0 - 98.0 FL LAB HEMETOLOGY METHOD 10/07/2024 10:27 AM EDT [facility] MCH 32.5(H) 27.0 - 32.0 pcg LAB HEMETOLOGY METHOD 10/07/2024 10:27 AM [facility] MCHC 30.3(L) 32.0 - 37.0 g/dL LAB HEMETOLOGY METHOD [facility]/07[facility] RDW 13.8 11.0 - 15.0 % LAB HEMETOLOGY METHOD 10/07/2024 10:27 AM EDT [facility] Platelets 263 130 - 400 K/mcL LAB HEMETOLOGY METHOD 10/07/2024 10:27 AM EDT [facility] MPV 11.2(H) 7.0 - 11.0 FL LAB HEMETOLOGY METHOD 10/07/2024 10:27 AM EDT [facility] NRBC 0.0 <1.0 % LAB HEMETOLOGY METHOD 10/07/2024 10:27 AM EDT [facility] NRBC Absolute 0.00 <0.10 K/mcL LAB HEMETOLOGY METHOD 10/07/2024 10:27 AM T [facility] Blood Venous blood specimen / Unknown Venipuncture / Unknown 10/07/2024 5:25 AM EDT 10/07/2024 9:46 AM EDT us Moody Robbins MD LAB BLOOD ORDERABLES Final Resul t [facility] [address] [place] [address], documented in this encounter Visit Diagnoses Diagnosis Chronic obstructive pulmonary disease, unspecified (CMS/HCC V24, CMS/HCC V28) Essential (primary) hypertension Unspecified essential hypertension documented in this encounter Care Teams Clinical Assistant Professor Relationship Specialty Start Date End Date Moody Robbins MD [address] [place] [address], [phone] PCP - General Family Medicine 09/30/24 documented as of this encounter
== END 2024-12-06 13:58 | disposition home or self-care (01) ==
LOC: HO.HCS 13:22
PROVIDERS: PCP Physician Assistant Medical; Visit Provider Nurse Practitioner Family
DX: I48.92 Unspecified atrial flutter (principal); I11.0 Hypertensive heart disease with heart failure; I50.32 Chronic diastolic (congestive) heart failure; Z86.79 Personal history of other diseases of the circulatory system; Z09 Encounter for follow-up examination after completed treatment for conditions other than malignant neoplasm; E66.01 Morbid (severe) obesity due to excess calories; G47.30 Sleep apnea, unspecified
CPT/HCPCS: 93010; 99214; G2211

== ENCOUNTER → 2024-12-06 13:21 | Outpatient (BNVA) | payer OTHER, SELFPAY | PROVIDERS: PCP Physician Assistant Medical; Visit Provider Nurse Practitioner Family | DX: I50.32 Chronic diastolic (congestive) heart failure (principal); I48.92 Unspecified atrial flutter | CPT/HCPCS: 93005 ==